=== PATIENT | male | born 1955 | race Caucasian/White ===

== ENCOUNTER → 2022-10-14 10:23 | Outpatient (CLI) | payer MEDICARE, BC, SELFPAY ==
[2022-10-14 11:39] LABS: Influenza A - CEPHEID Flu A NEGATIVE (NEGATIVE); Influenza B - CEPHEID Flu B NEGATIVE (NEGATIVE); Respiratory Syncytial Virus POSITIVE (Negative)
[2022-10-14 11:40] LABS: COVID-19 CEPHEID 4-PLEX PCR Negative (Negative)
== END ==
PROVIDERS: Visit Provider Nurse Practitioner Family
DX: R09.81 Nasal congestion (principal); R05.1 Acute cough; Z20.828 Contact with and (suspected) exposure to other viral communicable diseases
CPT/HCPCS: 0241U

== ENCOUNTER 2024-05-04 20:18 | Inpatient (IN) | payer MEDICARE, SELFPAY ==
[2024-05-04] VITALS (14 sets, daily range): BP systolic 137–183; BP diastolic 80–109; PULSE 77–93; RESP 16; TEMP 36.2; O2SAT 94–98; BMI 37.0
[2024-05-04] MEDS: HYDROMORPHONE 0.5 MG INJ IV (20:31)
--- NOTE | 2024-05-04 20:31 | DI.CT.S_ITS ---
PROCEDURE: CT CHEST ABD PEL W CON INDICATIONS: fall,chest injury TECHNIQUE: After the administration of intravenous contrast, 5 mm thick sections acquired from the lung apices to the symphysis. 2.5 mm thick coronal and sagittal reformats were acquired. Additional 7 mm thick coronal maximum intensity projection (MIP) reformats acquired through the lungs. Optional 10-minute delayed imaging may be performed from the kidneys to the bladder. For radiation dose reduction, the following was used: automated exposure control, adjustment of mA and/or kV according to patient size. COMPARISON: [facility], US, US ABDOMEN COMPLETE, 04/13/2022, 11:03. FINDINGS: Image quality: Diagnostic. CHEST: Lower Neck: No enlarged lymph nodes. Thyroid: No thyroid nodules which require sonographic evaluation. Axillae: No enlarged lymph nodes. Chest Wall: No subcutaneous gas. Lungs and Pleura: No pulmonary contusions or lacerations. No acute airspace opacities. Trace right pleural effusion/hemothorax. No pneumothorax. Mild dependent atelectasis. Mediastinum: No mediastinal hematomas. Heart size is mildly enlarged. No pericardial effusion. Thoracic aorta and pulmonary arteries demonstrate normal size and enhancement. No mediastinal or hilar adenopathy. Esophagus is normal in caliber. No hiatal hernia. ABDOMEN: Liver: No lacerations. Multiple liver cysts. Gallbladder: No radiopaque gallstones or wall thickening. Biliary ducts: No biliary dilation. Pancreas: Homogenous enhancement. Spleen: Homogenous enhancement without laceration or hematoma. Adrenal Glands: Symmetric enhancement. Kidneys and Ureters: Symmetric enhancement. No hydronephrosis. No solid mass. No complex renal cystic lesion which requires follow up. Stomach and Bowel: Normal colonic caliber, without significant wall thickening. Normal appendix. Peritoneum: No abnormal intraperitoneal fluid. No free air. Ventral Wall: No hernia. Abdominal Nodes: No retroperitoneal or mesenteric adenopathy by size criteria. Vessels: Aorta and inferior vena cava are normal in size. PELVIS: Pelvic Organs: Unremarkable. Bladder: Normal thickness. Pelvic Nodes: No enlarged lymph nodes. Miscellaneous: No inguinal hernias are seen. Bones: Minimally displaced fractures of the right posterior 4th through 9th ribs. Pelvic ring and hip joints appear intact. No displaced rib fractures. IMPRESSION: 1. Minimally displaced fractures of the right posterior 4th through 9th ribs. Trace hemothorax. No pneumothorax. 2. No other significant traumatic findings are seen in the chest, abdomen, or pelvis. Approved by: Thomas Miller M.D. on 05/04/2024 at 21:27
--- NOTE | 2024-05-04 20:31 | DI.CT.S_ITS ---
PROCEDURE: CT CERVICAL SPINE WO CON INDICATIONS: fall,chest injury TECHNIQUE: Noncontrast 3 mm thick sections acquired from the skull base to the T4 level. Sagittal and coronal reformats were then constructed. For radiation dose reduction, the following was used: automated exposure control, adjustment of mA and/or kV according to patient size. COMPARISON: None. FINDINGS: Image quality: Excellent. Bones: Postsurgical changes from anterior fixation at C6-7 and C7-T1. No acute fractures or dislocations. Visualized superior ribs are intact. Mild multilevel spondylosis. Soft tissues: Prevertebral soft tissues are normal in thickness. No paravertebral hematomas. No apical pneumothoraces. IMPRESSION: No acute displaced fracture or traumatic subluxation. Approved by: Thomas Miller M.D. on 05/04/2024 at 21:21
[2024-05-04 20:43] LABS: Add Manual Diff / Slide Review NO; Basophils Absolute Auto 100 /uL (0-100); Basophils Percent Auto 0.6 % (0-2); Eosinophils Absolute Auto 100 /uL (0-450); Eosinophils Percent Auto 1.4 % (2-4); Hematocrit 45.2 % (41-53); Hemoglobin 15.2 g/dL (13.5-17.5); Lymphocytes Absolute Auto 3100 /uL (1100-4500); Lymphocytes Percent Auto 32.2 % (25-40); Mean Corpuscular HGB Conc 33.6 % (30-36); Mean Corpuscular Hemoglobin 29.8 PG (26-34); Mean Corpuscular Volume 88.8 fL (80-100); Monocytes Absolute Auto 600 /uL (0-900); Monocytes Percent Auto 6.3 % (3-14); Neutrophils Absolute Auto 5700 /uL (1500-7000); Neutrophils Percent Auto 59.5 % (50-75); Platelet Count 205 X10^3/uL (150-400); Red Blood Cell Count 5.09 X10^6/uL (4.5-5.9); Red Cell Distribution Width 13.4 % (11.6-14.8); White Blood Cell Count 9.5 X10^3/uL (4.5-11.0)
[2024-05-04 20:44] LABS: Alanine Aminotransferase 10 IU/L (<50); Albumin 4.5 g/dL (3.5-5.0); Albumin Globulin Ratio 1.7 (1.0-2.8); Alkaline Phosphatase 68 U/L (38-126); Aspartate Aminotransferase 40 IU/L (17-59); BUN Creatinine Ratio 30.6 (6-22); Bilirubin Total 0.7 mg/dL (0.2-1.3); Blood Urea Nitrogen 26 mg/dL (9-20); Calcium 8.7 mg/dL (8.4-10.2); Carbon Dioxide 27 mmol/L (22-32); Chloride 106 mmol/L (98-107); Estimated Glomerular Filt Rate > 60 mL/min (>60); Globulin 2.7 g/dL (1.7-4.1); Glucose 118 mg/dL (80-110); HEMOLYSIS 18 (0-50); Potassium 4.2 mmol/L (3.4-5.1); Sodium 140 mmol/L (137-145); Total Protein 7.2 g/dL (6.3-8.2)
[2024-05-04] MEDS: CARBIDOPA-LEVODOPA 25/100 TABLET 2 EACH PO (21:10)
[2024-05-04] MEDS: HYDROMORPHONE 1 MG INJ IV ×2 (21:10→23:12)
--- NOTE | 2024-05-04 21:50 | ED.FALL ---
HPI - Fall General Chief Complaint: Fall Stated Complaint: Slip Fall on rocks Time Seen by Provider: 05/04/24 20:20 Source: patient and EMS Mode of arrival: EMS History of Present Illness HPI Narrative: 68-year-old gentleman with a history of Parkinson's disease and hyperlipidemia [facility] the stairs fell backward onto rocks and into the [place] crevice. Complaining of right-sided posterior chest pain and difficulty breathing. Brought in by medics. Has been feeling well recently no recent fevers, cough, chills, chest pain, falls beyond that that led him to the hospital today, no lower extremity edema, no headaches. Related Data Home Medications Medication Instructions Recorded Confirmed atorvastatin 20 mg tablet 20 mg PO DAILY 10/14/22 10/25/23 carbidopa-levodopa PO 10/14/22 10/25/23 Previous Rx's Medication Instructions Recorded benzonatate 100 mg capsule 100 mg PO BID PRN cough #20 caps 10/14/22 Allergies Allergy/AdvReac Type Severity Reaction Status Date / Time No Known Drug Allergies Allergy Verified 05/04/24 20:27 Review of Systems Review of Systems Narrative: Pertinent positive and negative findings as per HPI Patient History Medical History (Updated 05/05/24 @ 00:54 by Angeline Craven MD) Parkinsons disease Hyperlipidemia Acute viral sinusitis Social History Smoking Status: Never smoker Smoking Status: Never smoker Substance Use Type: does not use Exam Initial Vital Signs Initial Vital Signs: Vital Signs Pulse Rate 79 05/04/24 20:16 Pulse Oximetry 94 05/04/24 20:16 General: Healthy appearing, moderate right-sided thoracic pain, able to speak in full sentences, no acute respiratory distress HEENT: Moist mucous membranes, normal sclera with reactive pupils, Neck: No significant midline tenderness Respiratory: Lungs are clear to auscultation, splinting on the right side with subcutaneous air along the right side. Bruising along the right thorax posteriorly. Cardiac: Regular rate and rhythm no murmurs no bruits Abdomen: Soft, nontender, good bowel tones, no flank pain Skin: Warm and dry, Neurologic: Grossly neurologically intact with no obvious asymmetries or abnormalities Extremities: No trauma to extremities or hips Psych: Cooperative, appropriate insight and affect Course Orders Ordered: ED Orders 05/04/24 20:20 Complete Blood Count AUTO DIFF Stat Comprehensive Metabolic Panel Stat 05/04/24 20:31 CT cervical spine wo con Stat CT chest abd pel w con Stat 05/04/24 21:55 CT head/brain wo con Stat Discontinued Medications Carbidopa/Levodopa (Carbidopa-Levodopa 25/100 Tablet) 2 each PO NOW ONE Stop: 05/04/24 20:27 Last Admin: 05/04/24 21:10 Dose: 2 each Documented By: CRISTIANE Hydromorphone HCl (Hydromorphone 0.5 Mg Inj) 0.5 mg IV NOW ONE Stop: 05/04/24 20:27 Last Admin: 05/04/24 20:31 Dose: 0.5 mg Documented By: CRISTIANE Hydromorphone HCl (Hydromorphone 1 Mg Inj) 1 mg IV NOW ONE Stop: 05/04/24 21:08 Last Admin: 05/04/24 21:10 Dose: 1 mg Documented By: CRISTIANE Hydromorphone HCl (Hydromorphone 1 Mg Inj) 1 mg IV NOW ONE Stop: 05/04/24 23:05 Last Admin: 05/04/24 23:12 Dose: 1 mg Documented By: CRISTIANE Vital Signs Vital signs: Vital Signs - 8 hr 05/04/24 20:16 05/04/24 20:17 05/04/24 20:17 Temperature Pulse Rate 79 79 Respiratory Rate Blood Pressure 162/93 H Pulse Oximetry 94 95 Oxygen Delivery Method Oxygen Flow Rate 05/04/24 20:18 05/04/24 20:30 05/04/24 20:30 Temperature 97.1 F L Pulse Rate 78 77 Respiratory Rate 16 Blood Pressure 162/93 H 149/86 H Pulse Oximetry 94 97 Oxygen Delivery Method Room Air Oxygen Flow Rate 05/04/24 20:36 05/04/24 20:36 05/04/24 20:40 Temperature Pulse Rate 77 Respiratory Rate Blood Pressure 151/83 H 152/80 H Pulse Oximetry 97 Oxygen Delivery Method Oxygen Flow Rate 05/04/24 20:40 05/04/24 21:00 05/04/24 21:00 Temperature Pulse Rate 85 Respiratory Rate Blood Pressure 137/85 Pulse Oximetry 95 97 Oxygen Delivery Method Oxygen Flow Rate 05/04/24 21:30 05/04/24 21:30 05/04/24 22:12 Temperature Pulse Rate 81 88 Respiratory Rate Blood Pressure 157/85 H Pulse Oximetry 97 96 Oxygen Delivery Method Oxygen Flow Rate 05/04/24 22:14 05/04/24 22:14 Temperature Pulse Rate 85 Respiratory Rate Blood Pressure 158/92 H Pulse Oximetry 98 Oxygen Delivery Method Nasal Cannula Oxygen Flow Rate 2 fall Lab Data 05/04/24 20:20 05/04/24 20:20 Labs: Lab Results 05/04/24 Range/Units 20:20 WBC 9.5 (4.5-11.0) X10^3/uL RBC 5.09 (4.5-5.9) X10^6/uL Hgb 15.2 (13.5-17.5) g/dL Hct 45.2 (41-53) % MCV 88.8 (80-100) fL MCH 29.8 (26-34) PG MCHC 33.6 (30-36) % RDW 13.4 (11.6-14.8) % Plt Count 205 (150-400) X10^3/uL Neut % (Auto) 59.5 (50-75) % Lymph % (Auto) 32.2 (25-40) % Moca % (Auto) 6.3 (3-14) % Eos % (Auto) 1.4 L (2-4) % Baso % (Auto) 0.6 (0-2) % Neut # (Auto) 5700 (6060-0748) /uL Lymph # (Auto) 3100 (3758-1974) /uL Moca # (Auto) 600 (0-900) /uL Eos # (Auto) 100 (0-450) /uL Baso # (Auto) 100 (0-100) /uL Sodium 140 (137-145) mmol/L Potassium 4.2 (3.4-5.1) mmol/L Chloride 106 (98-107) mmol/L Carbon Dioxide 27 (22-32) mmol/L BUN 26 H (9-20) mg/dL Creatinine 0.85 (0.66-1.25) mg/dL Estimated GFR > 60 (>60) mL/min BUN/Creatinine Ratio 30.6 H (6-22) Glucose 118 H (80-110) mg/dL Calcium 8.7 (8.4-10.2) mg/dL Total Bilirubin 0.7 (0.2-1.3) mg/dL AST 40 (17-59) IU/L ALT 10 (<50) IU/L Alkaline Phosphatase 68 (38-126) U/L Total Protein 7.2 (6.3-8.2) g/dL Albumin 4.5 (3.5-5.0) g/dL Globulin 2.7 (1.7-4.1) g/dL Albumin/Globulin Ratio 1.7 (1.0-2.8) Imaging Data CT scan chest abdomen and pelvis: Radiologist's Impression: PROCEDURE: CT CHEST ABD PEL W CON INDICATIONS: fall,chest injury TECHNIQUE: After the administration of intravenous contrast, 5 mm thick sections acquired from the lung apices to the symphysis. 2.5 mm thick coronal and sagittal reformats were acquired. Additional 7 mm thick coronal maximum intensity projection (MIP) reformats acquired through the lungs. Optional 10-minute delayed imaging may be performed from the kidneys to the bladder. For radiation dose reduction, the following was used: automated exposure control, adjustment of mA and/or kV according to patient size. COMPARISON: [facility], US, US ABDOMEN COMPLETE, 04/13/2022, 11:03. FINDINGS: Image quality: Diagnostic. CHEST: Lower Neck: No enlarged lymph nodes. Thyroid: No thyroid nodules which require sonographic evaluation. Axillae: No enlarged lymph nodes. Chest Wall: No subcutaneous gas. Lungs and Pleura: No pulmonary contusions or lacerations. No acute airspace opacities. Trace right pleural effusion/hemothorax. No pneumothorax. Mild dependent atelectasis. Mediastinum: No mediastinal hematomas. Heart size is mildly enlarged. No pericardial effusion. Thoracic aorta and pulmonary arteries demonstrate normal size and enhancement. No mediastinal or hilar adenopathy. Esophagus is normal in caliber. No hiatal hernia. ABDOMEN: Liver: No lacerations. Multiple liver cysts. Gallbladder: No radiopaque gallstones or wall thickening. Biliary ducts: No biliary dilation. Pancreas: Homogenous enhancement. Spleen: Homogenous enhancement without laceration or hematoma. Adrenal Glands: Symmetric enhancement. Kidneys and Ureters: Symmetric enhancement. No hydronephrosis. No solid mass. No complex renal cystic lesion which requires follow up. Stomach and Bowel: Normal colonic caliber, without significant wall thickening. Normal appendix. Peritoneum: No abnormal intraperitoneal fluid. No free air. Ventral Wall: No hernia. Abdominal Nodes: No retroperitoneal or mesenteric adenopathy by size criteria. Vessels: Aorta and inferior vena cava are normal in size. PELVIS: Pelvic Organs: Unremarkable. Bladder: Normal thickness. Pelvic Nodes: No enlarged lymph nodes. Miscellaneous: No inguinal hernias are seen. Bones: Minimally displaced fractures of the right posterior 4th through 9th ribs. Pelvic ring and hip joints appear intact. No displaced rib fractures. IMPRESSION: 1. Minimally displaced fractures of the right posterior 4th through 9th ribs. Trace hemothorax. No pneumothorax. 2. No other significant traumatic findings are seen in the chest, abdomen, or pelvis. Approved by: Thomas Miller M.D. on 05/04/2024 at 21:27 CT scan - head: Radiologist's Impression: PROCEDURE: CT CERVICAL SPINE WO CON INDICATIONS: fall,chest injury TECHNIQUE: Noncontrast 3 mm thick sections acquired from the skull base to the T4 level. Sagittal and coronal reformats were then constructed. For radiation dose reduction, the following was used: automated exposure control, adjustment of mA and/or kV according to patient size. COMPARISON: None. FINDINGS: Image quality: Excellent. Bones: Postsurgical changes from anterior fixation at C6-7 and C7-T1. No acute fractures or dislocations. Visualized superior ribs are intact. Mild multilevel spondylosis. Soft tissues: Prevertebral soft tissues are normal in thickness. No paravertebral hematomas. No apical pneumothoraces. IMPRESSION: No acute displaced fracture or traumatic subluxation. Approved by: Thomas Miller M.D. on 05/04/2024 at 21:21 [facility] Narrative Medical decision making narrative: CC: Mechanical Fall with right thoracic pain Complicating co-morbidities: Parkinson's disease, hyperlipidemia Data collected from: patient, medics Differential considered: All sequelae of blunt trauma to the chest and abdomen Exam documented above, pertinent findings include: He is able to speak in full sentences significant splinting and crepitance along the right thorax. Breath sounds are heard throughout, no accessory muscle use no respiratory distress. Tender into the right upper quadrant and right posterior chest area. No tenderness to hips and no extremity abnormalities. Lab Test results independently reviewed as above. Pertinent findings: CBC is unremarkable chemistries are reassuring. Appropriate renal function Imaging studies independently reviewed: Head CT shows no intracranial hemorrhage, paranasal sinus disease is noted per radiology CT scan of the cervical spine is normal CT scan of the chest abdomen and pelvis notable for right posterior rib fractures 4. Through 9 with minor hemothorax no obvious pneumothorax, no subcutaneous air. Findings reviewed with radiologist in real-time. No evidence of scapular or 1st rib fractures. No compression fractures. Concern for pulmonary contusion right side. Consultations: Reviewed with Dr. Turner, surgeon on-call. Agreed with hospital admission. Transition orders are written Treatments: Fluids, pain medication Discussion: 68-year-old gentleman with a history of Parkinson's disease mechanical fall with right-sided 6 rib fractures, small pulmonary contusion no other injury. Findings reviewed with the patient as . He is still having significant amount of pain. Significant splinting, concern for worsening pulmonary contusion. No evidence of other acute issues at this time H and H will be repeated. Care is reviewed with the surgeon and patient will be admitted to the surgical service. Transition orders including pain medications are written. He is safe for transfer to the floor Critical Care Time Critical Care Time Critical Care Time: Yes Total Critical Care Time: 33 Attestation: Critical care time is separate from other billable procedures. There is a high probability of a significant, sudden or life-threatening deterioration that requires my full and direct attention, intervention and personal management. This critical care time includes consultation with family and other consulting doctors, review of records, and interpretation of data from labs, EKGs and imaging as well as managements of trauma Discharge Plan Departure Patient Disposition: Admitted as Observation Clinical Impression: Multiple fractures of rib involving four or more ribs Right pulmonary contusion Qualifiers: Encounter type: initial encounter Qualified Code(s): S27.321A - Contusion of lung, unilateral, initial encounter Parkinson's disease Qualifiers: Dyskinesia presence: with dyskinesia Fluctuating manifestations: unspecified whether manifestations fluctuate Qualified Code(s): G20.B1 - Parkinson's disease with dyskinesia, without mention of fluctuations Fall down stairs Qualifiers: Encounter type: initial encounter Qualified Code(s): W10.8XXA - Fall (on) (from) other stairs and steps, initial encounter Admit Date/Time: 05/05/24 00:46 Admit Provider: Jaya Whittaker
--- NOTE | 2024-05-04 21:55 | DI.CT.S_ITS ---
PROCEDURE: CT HEAD/BRAIN WO CON INDICATIONS: fall TECHNIQUE: Noncontrast 4.5 mm thick angled axial sections acquired from the foramen magnum to the vertex, with coronal and sagittal reformats. For radiation dose reduction, the following was used: automated exposure control, adjustment of mA and/or kV according to patient size. COMPARISON: None. FINDINGS: Image quality: Diagnostic. CSF spaces: Basal cisterns are patent. No extra-axial fluid collections. The ventricles are symmetric in size and shape. Brain: No acute intracranial hemorrhage or mass effect. There is cerebral volume loss for age, with resultant ventricular and sulcal prominence. There are periventricular and deep white matter chronic small vessel ischemic changes. There is intracranial internal carotid artery atherosclerosis. Skull and face: Calvarium and visualized facial bones appear intact, without suspicious lesions. Sinuses: Partial opacification of the bilateral ethmoid air cells and right sphenoid sinus. May need visualized paranasal sinuses and the mastoid air cells are clear. IMPRESSION: 1. No acute intracranial pathology. 2. Paranasal sinus disease. Approved by: Thomas Miller M.D. on 05/04/2024 at 22:20
[2024-05-05] VITALS (8 sets, daily range): BP systolic 127–169; BP diastolic 55–95; PULSE 81–92; RESP 20; TEMP 36.6–37.2; O2SAT 93–99; BMI 37.0
[2024-05-05] MEDS: HYDROMORPHONE 0.5 MG INJ IV ×2 (01:26→05:11)
[2024-05-05] MEDS: KETOROLAC 30 MG/ML VIAL 15 MG IV (01:50)
[2024-05-05] MEDS: CARBIDOPA-LEVODOPA 25/100 TABLET 2 EACH PO ×4 (01:50→21:00)
[2024-05-05 05:32] LABS: Hematocrit 41.5 % (41-53); Hemoglobin 14.1 g/dL (13.5-17.5)
[2024-05-05] MEDS: HYDROCODONE/ACET 5/325 TABLET 1 TAB PO (08:10)
--- NOTE | 2024-05-05 09:08 | PM.HP.1 ---
History of Present Illness History of Present Illness Date Patient Seen: 05/05/24 Time Patient Seen: 07:30 Chief complaint: Slip Fall on rocks Narrative: 68-year-old man history of Parkinson's fell on stairs landing on back. No loss of consciousness, did not strike head. On scene had complaint of right chest pain and shortness of breath. He arrived to the hospital hemodynamically stable. Imaging includes CT head C-spine chest abdomen pelvis which are significant for right rib fractures 4 through 9 nondisplaced possible right pulmonary contusion, negative for significant hemo or pneumothorax. Pain is improved since admission. He is maintaining oxygen saturation with 2 L nasal cannula. [facility]LY [facility], [facility] Medical History (Updated 05/05/24 @ 00:54 by Angeline Craven MD) Parkinsons disease Hyperlipidemia Acute viral sinusitis Social History household members: spouse Smoking Status: Never smoker Meds Home Medications and Allergies Home Medications Medication Instructions Recorded Confirmed Type atorvastatin 20 mg tablet 20 mg PO DAILY 10/14/22 05/05/24 History carbidopa-levodopa 100 mg PO TID 10/14/22 05/05/24 History fluticasone propionate 50 1 spray intranasal PRN PRN Allergy 05/05/24 05/05/24 History mcg/actuation nasal Symptoms spray,suspension Allergies Allergy/AdvReac Type Severity Reaction Status Date / Time No Known Drug Allergies Allergy Verified 05/04/24 20:27 Exam Vital Signs (past 8 hours): - 05/05/24 08:23 Temperature 97.8 F Pulse Rate 81 Respiratory Rate 20 Blood Pressure 145/85 H Pulse Oximetry 97 Oxygen Flow Rate 2 Oxygen Delivery Method Nasal Cannula Oxygen Flow Rate 2 Narrative Exam Narrative: GENERAL: Adult man, resting comfortably, in no acute distress GCS 15. HEENT: Normocephalic, atraumatic. No scleral icterus CHEST: Rising symmetrically. No audible wheezes CARDIOVASCULAR: Warm and well perfused. Regular rate ABDOMEN: Soft, non-tender, non-distended EXTREMITIES: Normal tone and without edema. Objective Labs 05/05/24 04:30 05/04/24 20:20 Labs: Laboratory Results - last 24 hr 05/04/24 05/05/24 20:20 04:30 WBC 9.5 RBC 5.09 Hgb 15.2 14.1 Hct 45.2 41.5 MCV 88.8 MCH 29.8 MCHC 33.6 RDW 13.4 Plt Count 205 Neut % (Auto) 59.5 Lymph % (Auto) 32.2 Jones % (Auto) 6.3 Eos % (Auto) 1.4 L Baso % (Auto) 0.6 Neut # (Auto) 5700 Lymph # (Auto) 3100 Jones # (Auto) 600 Eos # (Auto) 100 Baso # (Auto) 100 Sodium 140 Potassium 4.2 Chloride 106 Carbon Dioxide 27 BUN 26 H Creatinine 0.85 Estimated GFR > 60 BUN/Creatinine Ratio 30.6 H Glucose 118 H Calcium 8.7 Total Bilirubin 0.7 AST 40 ALT 10 Alkaline Phosphatase 68 Total Protein 7.2 Albumin 4.5 Globulin 2.7 Albumin/Globulin Ratio 1.7 Assessment & Plan Assessment and plan (1) Fall down stairs: Qualifiers: Encounter type: initial encounter Qualified Code(s): W10.8XXA - Fall (on) (from) other stairs and steps, initial encounter Status: Acute (2) Right pulmonary contusion: Qualifiers: Encounter type: initial encounter Qualified Code(s): S27.321A - Contusion of lung, unilateral, initial encounter Status: Acute (3) Multiple fractures of rib involving four or more ribs: Status: Acute Assessment & Plan narrative: 68-year-old man PMH Parkinson's status post fall down stairs trauma admission hemodynamically stable with rib fractures and right pulmonary contusion. Admission for pain control and respiratory support -incentive spirometer -multimodal pain control -PT eval -SCDs and Lovenox
[2024-05-05] MEDS: ACETAMINOPHEN 325 MG TABLET 650 MG PO ×2 (13:45→21:00)
--- NOTE | 2024-05-05 14:10 | OT.IP.EVAL ---
Past Medical History (Last Updated 05/05/24 @ 00:31 by Angeline Crvaen MD) Acute viral sinusitis Hyperlipidemia Parkinsons disease Occupational Therapy Inpatient Evaluation/Re-Eval M1 PT/OT-IP Prior Functional Status Start: 05/05/24 14:58 Freq: NEEDED Status: Active Protocol: Document 05/05/24 14:10 [facility] (Rec: 05/05/24 16:56 [facility] [id number]) Medical Review Prior Functional Status Medical History Reviewed Yes Communication able to make needs known; BEAVER Mobility and Gait per spouse: pt was modified independent with all mobilities and ambulation without AD; pt stated that he has 4 falls for the year already Activities of Daily Living and IADL's Pt states was able to do all ADL,IADL needs, and driving. However has had 4 falls in the past year. Prior Functional Level (Other details) pt stated that his tremors has gotten worse for the last 4 months. spouse stated that pt has SOB that started ~ 6 months ago and pt stated that a visiting nurse told him that he had a heart murmur but he did not report to his PCP. Social History Household Members spouse Living Arrangements House Number of Floors (Floors) Two Floors Number of Stairs To Enter/Railing? pt stays on main level of the house has 7 steps B rails to enter the house; has access to a ramp to enter but needs to be able to ambulate ~ 60 ft Home Environment High Toilet,Walk in Shower Home Equipment Four Wheel Walker,Shower Seat with Backrest,Hand Held Shower ,Grab Bars In Shower Additional Social History Comment spouse stated that she will be able to assist pt some but not a whole lot of assistance, as pt prior was completely independent and did not use any devices. M2 OT-IP Current Condition Start: 05/05/24 16:11 Freq: Status: Active Protocol: Document 05/05/24 14:10 [facility] (Rec: 05/05/24 16:56 [facility] [id number]) Occupational Therapy Current Condition Current Condition Evaluation Date 05/05/24 Treatment Diagnosis GLF with right post min. displaced 4-9th rib fx. Diagnosis Onset Date 05/05/24 Post Operative Precautions Lumbar Precautions Log Roll,No Twisting,Limit Bending Other Precautions Lumber precautions due to rib fractures. M3 OT- IP Subjective and Pain Start: 05/05/24 16:11 Freq: Status: Active Protocol: Document 05/05/24 14:10 [facility] (Rec: 05/05/24 16:56 [facility] [id number]) OT- Subjective Occupational Therapy Visit Type Type Initial Evaluation Visit Start Time 14:10 Visit Stop Time 15:29 Occupational Therapy Visit Comments Patient Comments Pt sitting on the BSC when OT and PT came in for evals. Patient/Caregiver Goals Pt's wanting pt to go to skilled rehab. OT Pain Assessment Pain When Pain Assessed During Mobility Pain Present Pain Present Pain Reported Location Right Ankle Intensity 4 Scale Used Numeric (0 - 10) M4 OT- IP ADL's Start: 05/05/24 16:11 Freq: Status: Active Protocol: Document 05/05/24 14:10 [facility] (Rec: 05/05/24 16:56 [facility] [id number]) OT BGB-Vskd-Cferaim Comments OT Self-Feeding Comments Not at meal time. Noted decreased saliva control on right side. Pt states has been happening recently, nursing notified. OT ADL-Grooming Comments OT Grooming Comments Not performed. OT ADL-Oral Care Comments Oral Care Comments Not performed. OT ADL-Dressing General Eval Lower Body Dressing Ability Maximum Assistance Areas Needing Assistance Underpants/Brief,Socks Comments OT Dressing Comments Pt having pain in his right and not able to cross his RLE over to ivette/doff his socks. Able to issued pt LB dressing equipment to help increase overall independence with needs. OT ADL-Toileting Comments OT Toileting Comments At this this time pt will need assist for hygiene and clothing management due to his pain and unsteadiness on his feet. OT ADL-Bathing Comments OT Bathing Comments Nursing aid assisting pt to clean off. At this time pt will benefit from assist for showering needs. M5 OT- IP IADL's Start: 05/05/24 16:11 Freq: Status: Active Protocol: Document 05/05/24 14:10 [facility] (Rec: 05/05/24 16:56 [facility] [id number]) OT-Instrumental Activities of Daily Living Deficits IADL Deficits Identified Deficits Home Safety Awareness Awareness of Need for Assistance at Home Good Awareness Ability to Problem Solve Emergency Able to Problem Solve Situations Home Safety Comments Pt realizing that he will need assist at home. Medication Management Medication Management Comments Pt's has been trying to get her to let her assist with medication needs. Money Management Money Management Comments Pt will benefit from assist at this time. Meal Preparation Meal Preparation Caregiver Provides Assist Meal Preparation Comments Pt will need assist. Supervisor Grinding Supervisor Grinding Caregiver Provides Assist Supervisor Grinding Comments Pt will need assist. Driving Driving Concerns Identified Regarding Safety M6 OT- IP Functional Cognition Start: 05/05/24 16:11 Freq: Status: Active Protocol: Document 05/05/24 14:10 [facility] (Rec: 05/05/24 16:56 [facility] [id number]) Cognitive Factors Limiting Selfcare Function Cognitive Ability Level of Alertness Alert,Drowsy Patient Orientation Name,Age,Birthday,Month,Date, Year,Day of Week,Place, Situation Attention Span Ability Capable of Focused Attention, Capable of Sustained Attention Ability to Follow Commands Able to Follow One Step Commands Memory Description Short Term Impaired Safety Awareness Underestimates Need for Assistance Cognitive Tests SLUMS Pt scored 23/30 which implies mild neurocognitive deficits. Pt able to recall 3/5 objects after time passed, not able to recall 4 digit number backwards, and able to answer 2/4 questions right after paragraph read. Cognitive Comments Cognitive Assessment Comments Pt's feels that pt is not thinking as well as he usually does and a little slower than usual. Pt states usually has to write things down for himself. Pt scored 165 seconds on [place] Making Part B which implies severe deficits for visual attention, speed of processing , task switching, mental flexibility ,and executive functioning. Pt is a bit impulsive and easily distracted. Pt aware that he will not be driving. Also suggested pt's to be going to pt's doctor's appointments. OT- Vision and Hearing OT- Hearing Assessment OT- Hearing Assessment Hearing Impaired,Use of Hearing Aids OT- Vision Assessment Visual Acuity Glasses All The Time Occular Pursuits WFL Visual [place] WFL M7 OT- IP Mobility and Balance Start: 05/05/24 16:11 Freq: Status: Active Protocol: Document 05/05/24 14:10 [facility] (Rec: 05/05/24 16:56 [facility] [id number]) OT- Bed Mobility Assessment Supine to Sit Supine to Sit Assist Standby Assistance OT-Transfer Assessment Sit to and From Stand Sit to and from Stand Contact Guard Assistance, Minimal Assistance Transfers Transfer Ability Minimal Assistance,Moderate Assistance Technique Transfer Destination Bed,Bedside Commode,Chair Transfer Technique Stand Step Pivot Devices Transfer Assistive Devices Gait Belt,Front Wheeled Walker Comments Mobility Comments SBA with bed mobility and vc to do log rolling. CGA/MAKENZIE to stand to FWW and MAKENZIE to MODA as pt getting unsteady on his feet and having increased pain for his right ankle. Notified nursing of increased pain for right ankle to to just do transfer only for now. OT- Balance Assessment Sitting Balance and Reactions Static Sitting Balance Ability Good Dynamic Sitting Balance Ability Fair Standing Balance and Reactions Static Standing Balance Ability Fair Dynamic Standing Balance Ability Poor M8 OT- IP Objective Assessments Start: 05/05/24 16:11 Freq: Status: Active Protocol: Document 05/05/24 14:10 [facility] (Rec: 05/05/24 16:56 [facility] [id number]) OT Gross Range of Motion Upper Extremity Range of Motion Assessment Right Impaired ROM Impairments RUE impaired due to rib fractures OT Strength Upper Extremity Strength Assessment Right 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 M9 OT- IP Assessment and Plan Start: 05/05/24 16:11 Freq: Status: Active Protocol: Document 05/05/24 14:10 [facility] (Rec: 05/05/24 16:56 [facility] [id number]) OT Summary Assessment and Plan Potential Rehabilitation Potential Good Analytic Complexity at Evaluation Moderate Summary OT Impairments Pain,Range of Motion,Strength, Balance,Functional Cognition, Functional Mobility,Self- Feeding,Grooming,Dressing, Toileting,Bathing,Toilet Transfers,Shower Transfers, Activity Tolerance Progress Towards Goals Slow Progress due to Pain,Slow Progress due to Medical Issues,Slow Progress due to Activity Tolerance Assessment Summary Pt MOD complexity and main barriers are pain, unsteady on his feet, having decrease in O2 when up on this feet drops from 96% to 93%, needing use of FWW for balance, now needing extensive assist for dressing needs due to his rib fractures. Pt has had 4 falls in the past year and would greatly benefit from skilled rehab at this time. Pt now complaining of right ankle pain after getting up to the recliner, nursing notified and to have an xray. Prior pt was completely independent for all needs.LB dressing equipment issued to the pt. Goals Self-Feeding Goal Independent Grooming Goal Independent Dressing Goal Independent Toileting Goal Independent Bathing Goal Independent Toilet Transfer Goal Independent Shower Transfer Goal Independent Days to Meet Goals 15 Frequency of Treatment Frequency Of Treatment Once a Day Treatment Plan OT Treatment Plan ADL Training,Functional Cognition Training,Functional Mobility,Patient/Family Education,Discharge Planning Discharge Recommendations OT Discharge Recommendations SNF Rehab Transportation Needs at Discharge Wheelchair/Cabulance
--- NOTE | 2024-05-05 14:10 | PT.IIE ---
Medical History (Last Updated 05/05/24 @ 00:31 by Angeline Craven MD) Acute viral sinusitis Hyperlipidemia Parkinsons disease Physical Therapy Inpatient Evaluation/Re-Eval M1 PT/OT-IP Prior Functional Status Start: 05/05/24 14:58 Freq: NEEDED Status: Active Protocol: Document 05/05/24 14:10 [facility] (Rec: 05/05/24 15:15 AB [id number]) Medical Review Prior Functional Status Medical History Reviewed Yes Communication able to make needs known; [place] Mobility and Gait per spouse: pt was modified independent with all mobilities and ambulation without AD; pt stated that he has 4 falls for the year already Prior Functional Level (Other details) pt stated that his tremors has gotten worse for the last 4 months. spouse stated that pt has SOB that started ~ 6 months ago and pt stated that a visiting nurse told him that he had a heart murmur but he did not report to his PCP. Social History Household Members spouse Living Arrangements House Number of Floors (Floors) Two Floors Number of Stairs To Enter/Railing? pt stays on main level of the house has 7 steps B rails to enter the house; has access to a ramp to enter but needs to be able to ambulate ~ 60 ft Home Environment High Toilet,Walk in Shower Home Equipment Four Wheel Walker,Shower Seat with Backrest,Hand Held Shower ,Grab Bars In Shower Additional Social History Comment spouse stated that she will be able to assist pt some but not a whole lot of assistance M2 PT-IP Current Condition Start: 05/05/24 14:58 Freq: NEEDED Status: Active Protocol: Document 05/05/24 14:10 [facility] (Rec: 05/05/24 15:15 AB [id number]) Physical Therapy Current Condition Current Condition Evaluation Date 05/05/24 Treatment Diagnosis GLF; R posterior minimally displaced 4-9 rib fx; difficulty in walking Onset Date 05/05/24 M3 PT-IP Subjective Start: 05/05/24 14:58 Freq: NEEDED Status: Active Protocol: Document 05/05/24 14:10 [facility] (Rec: 05/05/24 15:15 AB [id number]) Subjective Physical Therapy Visit Type Type Initial Evaluation Visit Start Time 14:10 Visit Stop Time 14:55 Number of AGENTS' RECORDS CLERK Visits 0 Physical Therapy Visit Comments Patient Comments agreeable to do PT Therapy Pain Assessment Pain When Pain Assessed At Rest Pain Present Pain Present Pain Reported Location Right Ankle Intensity 4 Scale Used Numeric (0 - 10) Description With Movement Pain Behaviors Wincing Pain Management Techniques Distraction,Modification of Treatment,Re-positioning, Timing of Activity with Medications Right Ribs Intensity 2 Scale Used Numeric (0 - 10) Pain Management Techniques Distraction,Modification of Treatment,Re-positioning, Timing of Activity with Medications M4 PT-IP Mobility and Gait Start: 05/05/24 14:58 Freq: NEEDED Status: Active Protocol: Document 05/05/24 14:10 AB (Rec: 05/05/24 15:15 AB [id number]) PT-Bed Mobility Assessment Rolling Type of Rolling Log Rolling Level of Assist Standby Assistance Supine to Sit Supine to Sit Standby Assistance Sit to Supine Sit to Supine Standby Assistance PT-Transfer Assessment Sit to and From Stand Sit to and from Stand Contact Guard Assistance, Minimal Assistance,1 Person Assistance,Use of Upper Extremities Equipment Transfer Assistive Device Gait Belt,Front Wheeled Walker Orthotic/Prosthetic Devices or Brace: No Transfers Transfer Destination Chair Transfer Technique ambulated Transfer Ability Level of Assist Minimal Assistance,Moderate Assistance,1 Person Assistance ,Use of Upper Extremities Comments Mobility Comments pt with NAC trying to wash up and sitting on bedside commode . pt's spouse in room. obtained PLOF and home set up from spouse and pt. O2 sat RA at rest seated: 100% but with (+) SOB. spouse stated that SOB started ~ 6 months ago. pt stated that a visiting nurse told him that he has a heart murmur. pt also exhibits resting tremors LUE>R and stated that tremors have gotten worse for the passed 4 months. pt completed sit to stand CGA and step transfer to EOB without AD min A. educated pt on log roll bed mobility and completed SBA with cues for techniques. O2 sat sitting on EOB at RA: 96%. pt completed sit to stand from EOB min A and ambulated towards the chair mod A and max cues. (+) LOB and pt tends to hold on to bed for support. pt sta on the chair. O2 sat checked: 93 %. pt rested. pt agreed to ambulate more in room. completed sit to stand min A and ambulated using FWW in room ~ 30 ft min to mod A and max cues. pt sat back on chair. positioned on the chair . call light and table placed within reach. left pt with spouse and OT. informed nurse regarding R ankle pain and SNF rehab. informed case consultant regarding SNF rehab for pt. pt and spouse aware of recommendation for SNF rehab and both agreed. Gait Assessment Gait Gait Assistance Required: Minimum Assistance,Moderate Assistance Distance (Feet) 30 Able to Maintain Weight Bearing Status Yes During Gait Assistive Devices Assistive Device None,Gait Belt,Front Wheeled Walker Orthotic/Prosthetic Devices or Brace: No Gait Deviations General Gait Pattern Ataxic,Decreased Stride Length ,Decreased Feet Clearance,Step -to Gait,Wide Based Gait Factors Limiting Gait Function Factors Limiting Gait Function Decreased Activity Tolerance, Decreased Strength,Difficulty Following Directions,Limited Range of Motion,Pain,Poor Balance,Poor Safety Awareness, Respiratory Distress PT-Balance Assessment Sitting Balance and Reactions Static Sitting Balance Ability Good Dynamic Sitting Balance Ability Fair Standing Balance and Reactions Static Standing Balance Ability Fair Dynamic Standing Balance Ability Poor Device Used without AD M5 PT-IP Objective Assessments Start: 05/05/24 14:58 Freq: NEEDED Status: Active Protocol: Document 05/05/24 14:10 AB (Rec: 05/05/24 15:15 AB [id number]) Orientation Orientation/Cognition Level of Alertness Alert Orientation Name,Place,Situation Language Function Ability Hard of Hearing Safety Awareness Decreased Safety Awareness Memory Description Short Term Impaired Gross Range of Motion Lower Extremity ROM Assessment Within Functional Limits Strength Lower Extremity Strength Assessment Right Impaired Hip 3+/5 Knee 4/5 Muscle Tone Muscle Tone WNL Yes M6 PT-IP Treatment Start: 05/05/24 14:58 Freq: NEEDED Status: Active Protocol: Document 05/05/24 14:10 AB (Rec: 05/05/24 15:15 AB [id number]) Physical Therapy Treatment Education Education Provided Safety M7 PT-IP Assessment and Plan Start: 05/05/24 14:58 Freq: NEEDED Status: Active Protocol: Document 05/05/24 14:10 AB (Rec: 05/05/24 15:15 AB [id number]) PT Summary Assessment and Plan Potential Rehabilitation Potential Fair Status of Condition at Evaluation Evolving Summary Impairments Pain,ROM,Strength,Balance, Coordination,Sensation,Tone, Cognition,Bed Mobility, Transfers,Gait,Activity Tolerance Assessment Summary pt is a 68 y/o M who had a GLF and sustained a minimally displaced R posterior 4th thru 9th rib fractures. pt with (+ ) SOB and O2 sat decreases to 93% with activity at RA. pt requiring SBA for bed mobility , min to mod A for transfers and ambulation using FWW. pt will benefit from SNF rehab to improve overall strength and mobility independence. Goals Bed Mobility Goal Independent Transfer Goal Standby Assistance,Front Wheeled Walker Gait Goal Standby Assistance,Front Wheel Walker Gait Distance 150 Other Goals improve transfers and ambulation using LRAD/without AD ~ 300 ft mod I up/down 7 steps B rails SBA Days to Meet Goals 10 Frequency of Treatment Frequency Of Treatment Once a Day Treatment Plan Physical Therapy Treatment Plan Bed Mobility Training,Transfer Training,Gait Training, Therapeutic Exercise,Balance Retraining,Discharge Planning, Hot or Cold Pack,Neuromuscular Re-ed,Coordination Retraining ,Manual Therapy Precautions Other Precautions falls; O2 sat Recommendations To Nursing Amount of Assist Needed 1 Person Assist Discharge Recommendations PT Discharge Recommendations SNF Rehab Equipment Needed for Home Before FWW if pt goes home Discharge Transportation Needs at Discharge Private Vehicle,Wheelchair/ Cabulance
--- NOTE | 2024-05-05 14:37 | CM.DANOTE ---
Addendum entered by YAMILEX Palomo 05/05/24 17:00: ADD: OT and PT notes emailed to Farhana at [facility] Original Note: Initial DCP Assessment Note Pt is a 68 yo male, resident of [place], PMH includes Parkinson's disease, fell at [facility] with subsequent 6 rib fractures and small pulmonary contusion. Admitted OBS for pain management, significant splinting r/t pain, therapies and dispo planning. PCP: Unknown Payer: [employer] M[employer] Reviewed chart, met w/patient and spouse at bedside, introduced role. Patient reports being active and indp in all aspects. Patient continues to drive, no need for DME. Spouse is also active and indp. Spouse worried about patient's return home as he continues to complain of pain with movement and does not seem to be at functional baseline. Reviewed discharge options; patient/spouse request referral to [facility]. Discussed process for SNF referral and SNF auth request through [employer] MCR. Explained that if patient progresses functionally while waiting for SNF auth request, may need to review DCP again for home w/spouse, HH, possibly international trade teacher (?) Spouse stated understanding. [facility] has received referral and has accepted pending [employer] auth secured. [employer] is not available over the weekend. Spoke now with Deepti, PT who is recommending SNF. PT/OT working on their notes now. CM team will plan to follow closely for coordination of the safest discharge plan available to patient. YAMILEX Yang Discharge Planning/Care Management Advanced directive, confirm from FAMILY Start: 05/05/24 01:47 Freq: Q24H Status: Active Protocol: Document 05/05/24 01:47 LDV (Rec: 05/05/24 02:08 LDV [id number]) Advance Directive, confirm on record Time 01:00 Person contacted Copy received No CM Discharge Assessment Start: 05/05/24 14:19 Freq: Status: Active Protocol: Document 05/05/24 14:19 MARYAN (Rec: 05/05/24 14:37 MARYAN [id number]) Discharge Planning Assessment Assigned Yard Brakeman YAMILEX Zaldivar DPOA/Assigned Designee Name Dianese Carrizales, spouse Contact Information [phone] Advance Directives? Yes Advance Directives on File No History Provided By Patient,Significant Other, Medical Record Prior Living Arrangements House Household Members spouse Type of transporation used prior to Drives own vehicle admit Independent with ADL's Yes Is patient alert and oriented? Yes Patient/Family Preference [facility] Facility Comment Patient and spouse request referral to [facility] RN Cary reports patient may progress towards home w/spouse and HH Barriers to Discharge Yes Comment Patient and spouse are requesting SNF referral. Patient has aetna [facility] which will require a SNF pre auth before SNF admission Transportation Arrangement pov vs cabulance Referrals Initiated [facility] Additional Comment [facility] at [facility] has accepted patient as long as [facility] Preference [facility] Has Agency SNF been contacted Yes Comment Patient accepted for admission pending insurance auth Whiteboard Updated in Patient Room with Yes name and ext. # of Yard Brakeman
--- NOTE | 2024-05-05 15:32 | DI.RAD.S_ITS ---
PROCEDURE: XR ANKLE RT MIN 3V INDICATIONS: trauma TECHNIQUE: 3 views of the ankle were acquired. COMPARISON: None. FINDINGS: Bones: No definite fractures or dislocations. Ankle mortise is normally aligned. No suspicious bony lesions. Degenerative changes of the right ankle. Lucency over the anterior calcaneus likely representing intraosseous lipoma or cyst. Small plantar calcaneal enthesophyte. Soft tissues: No tibiotalar joint effusion. Achilles tendon appears normal. IMPRESSION: No acute bony abnormality or significant effusion. If there is persistent clinical concern for occult fracture given adequate mechanism of injury, consider repeat imaging in 10-14 days. Dictated by: García Garcia M.D. on 05/05/2024 at 15:53 Approved by: García Garcia M.D. on 05/05/2024 at 15:55
[2024-05-06] MEDS: ACETAMINOPHEN 325 MG TABLET 650 MG PO ×2 (09:00→17:11)
[2024-05-06] MEDS: CARBIDOPA-LEVODOPA 25/100 TABLET 2 EACH PO ×3 (09:00→20:34)
--- NOTE | 2024-05-06 11:39 | DI.RAD.S_ITS ---
PROCEDURE: XR CHEST 2V INDICATIONS: Recent chest injury TECHNIQUE: 2 views of the chest were acquired. COMPARISON: [facility], CT, CT CHEST ABD PEL W CON, 05/04/2024, 20:39. FINDINGS: Surgical changes and devices: Lower cervical spine fusion devices are seen. Lungs and pleura: An incomplete inspiratory result is noted, causing a crowded appearance to the lung markings. No focal infiltrates are seen. No pneumothorax or significant pleural effusions are seen. Mediastinum: Mediastinal contours are normal. Heart size is normal. Bones and chest wall: No suspicious bony abnormalities. Right posterior rib fractures are again seen. Soft tissues appear unremarkable. IMPRESSION: Right posterior rib fractures are again seen. No pneumothorax is seen. Low lung volumes noted. Dictated by: Augie Hall M.D. on 05/06/2024 at 10:51 Approved by: Augie Hall M.D. on 05/06/2024 at 10:53
[2024-05-06] MEDS: polyethylene glycoL 3350 17 GM POWD.PACK PO ×2 (12:00→20:34)
[2024-05-06] MEDS: DOCUSATE 100 MG CAPSULE PO ×2 (12:00→20:34)
[2024-05-06] MEDS: HYDROMORPHONE 0.5 MG INJ IV (14:48)
--- NOTE | 2024-05-06 15:30 | PT.IPTN ---
Current Diagnoses Multiple fractures of ribs, unspecified side, initial encounter for closed fracture (05/05/24) Contusion of lung, unilateral, initial encounter (05/05/24) Fall (on) (from) other stairs and steps, initial encounter (05/05/24) Physical Therapy Treatment Note M2 PT-IP Current Condition Start: 05/05/24 14:58 Freq: NEEDED Status: Active Protocol: Document 05/05/24 14:10 AB (Rec: 05/05/24 15:15 AB [id number]) Physical Therapy Current Condition Current Condition Evaluation Date 05/05/24 Treatment Diagnosis GLF; R posterior minimally displaced 4-9 rib fx; difficulty in walking Onset Date 05/05/24 M3 PT-IP Subjective Start: 05/05/24 14:58 Freq: NEEDED Status: Active Protocol: Document 05/06/24 15:30 AB (Rec: 05/06/24 16:27 AB [id number]) Subjective Physical Therapy Visit Type Type Treatment Note Visit Start Time 15:30 Visit Stop Time 16:05 Number of SHAKE LOADER Visits 0 Physical Therapy Visit Comments Patient Comments pt agreeable to do PT Therapy Pain Assessment Pain When Pain Assessed At Rest Pain Present Pain Present Pain Reported Location Right Ankle Scale Used pain scale not stated: c/o soreness but better than yesterday per pt Pain Management Techniques Distraction,Modification of Treatment,Re-positioning, Timing of Activity with Medications Right Ribs Intensity 2 Scale Used Numeric (0 - 10) M4 PT-IP Mobility and Gait Start: 05/05/24 14:58 Freq: NEEDED Status: Active Protocol: Document 05/06/24 15:30 AB (Rec: 05/06/24 16:27 AB [id number]) PT-Bed Mobility Assessment Supine to Sit Supine to Sit Standby Assistance,Head of Bed Elevated,Bedrails PT-Transfer Assessment Sit to and From Stand Sit to and from Stand Minimal Assistance,1 Person Assistance,Use of Upper Extremities Equipment Transfer Assistive Device Gait Belt,Front Wheeled Walker Orthotic/Prosthetic Devices or Brace: No Transfers Transfer Destination Chair Transfer Technique ambulated Transfer Ability Level of Assist Minimal Assistance,1 Person Assistance,Use of Upper Extremities Comments Mobility Comments checked with nurse early this afternoon and stated that pt is having a nerve block procedure right now for R rib pain and to check pain later. Checked back on pt after ~ 30 min and agreed to do PT. pt supine in bed. O2 sat at RA 99%. pt can be impulsive. pt completed supine to sit SBA and max cues for log roll. (+) UE tremors noted and pt tends to hold his breath. cued for deep breathing. pt is a mouth breather and tends to hold his breath when exerting effort with activities. pt sat on EOB SBA to CGA. O2 sat checked: 96% MO 91. pt rested. completed sit to stand min A and max cues. pt ambulated using FWW min A and max cues ~ 15 ft. presents with RLE ER and tends to cross midline with RLE. cued to correct and increase AYO. pt sat on the chair. O2 sat checked: 85%. cued for deep breathing and O2 sat increased to 95% in 2-3 secs. pt rested. agreed to walk again. completed sit to stand from chair min A and max cues and ambulated in room ~ 30 ft using FWW min A and cued for deep breathing in between walking. pt sat back on chair. O2 sat checked: 87% but increased up to 95-96% in 1-2 sec of deep breathing. noted increase resting tremors UE after ambulation. pt wants to have a shower. NAC aware. positioned pt on the chair. call light and table placed within reach. chair alarm on. Gait Assessment Gait Gait Assistance Required: Minimum Assistance Distance (Feet) 30 Able to Maintain Weight Bearing Status Yes During Gait Assistive Devices Assistive Device Gait Belt,Front Wheeled Walker Orthotic/Prosthetic Devices or Brace: No Gait Deviations General Gait Pattern Decreased Stride Length, Decreased Feet Clearance, Narrow Based Gait Factors Limiting Gait Function Factors Limiting Gait Function Decreased Activity Tolerance, Decreased Strength,Difficulty Following Directions,Limited Range of Motion,Pain,Poor Balance,Poor Safety Awareness, Respiratory Distress M5 PT-IP Objective Assessments Start: 05/05/24 14:58 Freq: NEEDED Status: Active Protocol: Document 05/05/24 14:10 AB (Rec: 05/05/24 15:15 AB [id number]) Orientation Orientation/Cognition Level of Alertness Alert Orientation Name,Place,Situation Language Function Ability Hard of Hearing Safety Awareness Decreased Safety Awareness Memory Description Short Term Impaired Gross Range of Motion Lower Extremity ROM Assessment Within Functional Limits Strength Lower Extremity Strength Assessment Right Impaired Hip 3+/5 Knee 4/5 Muscle Tone Muscle Tone WNL Yes M6 PT-IP Treatment Start: 05/05/24 14:58 Freq: NEEDED Status: Active Protocol: Document 05/06/24 15:30 AB (Rec: 05/06/24 16:27 AB [id number]) Physical Therapy Treatment Education Education Provided Safety M7 PT-IP Assessment and Plan Start: 05/05/24 14:58 Freq: NEEDED Status: Active Protocol: Document 05/06/24 15:30 AB (Rec: 05/06/24 16:27 AB [id number]) PT Summary Assessment and Plan Potential Rehabilitation Potential Fair Summary Impairments Pain,ROM,Strength,Balance, Coordination,Sensation,Tone, Cognition,Bed Mobility, Transfers,Gait,Activity Tolerance Progress Towards Goals Slow Progress due to Medical Issues,Slow Progress due to Activity Tolerance Assessment Summary pt is slowly progressing with mobility using FWW requiring min A and cues for safety. pt continues to have (+) SOB and o2 sat decreases to 85-87% after ambulation at RA but with good recovery to 94-96% O2 sat after 1-3 sec with deep breathing. pt has decrease safety awareness and is a fall risk. pt will benefit from SNF rehab to improve overall strength and mobility independence. Goals Bed Mobility Goal Independent Transfer Goal Standby Assistance,Front Wheeled Walker Gait Goal Standby Assistance,Front Wheel Walker Gait Distance 150 Other Goals improve transfers and ambulation using LRAD/without AD ~ 300 ft mod I up/down 7 steps B rails SBA Days to Meet Goals 10 Frequency of Treatment Frequency Of Treatment Once a Day Treatment Plan Physical Therapy Treatment Plan Bed Mobility Training,Transfer Training,Gait Training, Therapeutic Exercise,Balance Retraining,Discharge Planning, Hot or Cold Pack,Neuromuscular Re-ed,Coordination Retraining ,Manual Therapy Precautions Other Precautions falls; O2 sat Recommendations To Nursing Amount of Assist Needed 1 Person Assist Discharge Recommendations PT Discharge Recommendations SNF Rehab Equipment Needed for Home Before FWW if pt goes home Discharge Transportation Needs at Discharge Private Vehicle,Wheelchair/ Cabulance
[2024-05-06 16:00] VITALS: BP 166/90; PULSE 87; RESP 20; TEMP 37.4; O2SAT 97
--- NOTE | 2024-05-06 16:29 | PC.NURSE ---
[employer] downtime during shift from [id number]; see paper charting. Pt received time-sensitive carbidopa-levodopa at scheduled times.
[2024-05-06 17:00] VITALS: O2SAT 97
[2024-05-06 20:33] VITALS: BP 163/81; PULSE 95; RESP 20; TEMP 36.5; O2SAT 95
[2024-05-07] VITALS (9 sets, daily range): BP systolic 153–172; BP diastolic 79–92; PULSE 75–96; RESP 17–21; TEMP 36.5–37.1; O2SAT 95–99
[2024-05-07] MEDS: ACETAMINOPHEN 325 MG TABLET 650 MG PO ×4 (06:20→19:53)
--- NOTE | 2024-05-07 07:00 | DI.RAD.S_ITS ---
PROCEDURE: XR CHEST 2V INDICATIONS: rib fractures TECHNIQUE: 2 views of the chest were acquired. COMPARISON: [facility], CT, CT CHEST ABD PEL W CON, 05/04/2024, 20:39. [facility], CR, XR CHEST 2V, 05/06/2024, 11:38. FINDINGS: Surgical changes and devices: ACDF. Lungs and pleura: No consolidation identified. No pleural effusions or pneumothorax. Mediastinum: Mediastinal contours are normal. Asymmetric elevation of the left hemidiaphragm, similar. Heart size is normal. Bones and chest wall: No suspicious bony abnormalities. Prior right-sided rib fractures are not well seen. Soft tissues appear unremarkable. IMPRESSION: No pneumothorax. Prior right-sided rib fractures are not well seen. Dictated by: Jin Tinoco M.D. on 05/07/2024 at 8:13 Approved by: Jin Tinoco M.D. on 05/07/2024 at 8:16
[2024-05-07] MEDS: CARBIDOPA-LEVODOPA 25/100 TABLET 2 EACH PO ×3 (09:00→20:45)
[2024-05-07] MEDS: polyethylene glycoL 3350 17 GM POWD.PACK PO ×2 (09:00→20:45)
[2024-05-07] MEDS: DOCUSATE 100 MG CAPSULE PO ×2 (09:00→20:45)
--- NOTE | 2024-05-07 09:00 | PM.PN.1 ---
Subjective Subjective Date Patient Seen: 05/07/24 Time Patient Seen: 08:15 Interval history: Pt seen and reassessed this morning. He is sitting in the bathroom and looks much more comfortable than yesterday He reports the block I did yesterday lasted most of the night and he slept pretty well. He rates his current pain as 5-6/10 with moving his RUE. Per pt's RN, he had told her his pain was 1/10. He has only had Tylenol x 2 for pain since the block placed yesterday at 15:00. Discussed with pt that I could do another block today if he thinks it would be helpful. Reiterated with him as I did yesterday that this is only a short-term block which will wear off in less than 24 hours but should help him breathe better and decrease his need for pain medication. My goal would be to get him through the first few days after his fracture, and today is day #3, so I would not plan on any additional block tomorrow. Pt states he does feel the block helped him a lot and he would like to have another one. We discussed timing. I have cases this morning, and if I place the block around midday, it will work into the night and help him sleep better. Pt agrees to plan for repeat serratus anterior block around midday. Exam Vital Signs (past 8 hours): - 05/07/24 03:56 05/07/24 07:00 05/07/24 07:00 Temperature 97.7 F 97.8 F Pulse Rate 83 77 Respiratory Rate 17 20 Blood Pressure 172/81 H 162/91 H Pulse Oximetry 96 99 Oxygen Delivery Method Room Air Oxygen Flow Rate 0 0 Oxygen Delivery Method Room Air Oxygen Flow Rate 0 Neuro General: patient alert (Oriented ) and patient awake Objective Labs 05/05/24 04:30 05/04/24 20:20 [facility] Medical History (Updated 05/05/24 @ 00:54 by Angeline Craven MD) Parkinsons disease Hyperlipidemia Acute viral sinusitis Social History household members: spouse Smoking Status: Never smoker Assessment & Plan Assessment & Plan narrative: 1. Continued pain from R rib fractures 4-9. Pt desires a second block. Will perform midday today. Time Spent With Patient Time with patient: less than 30 minutes (5 minutes)
--- NOTE | 2024-05-07 10:14 | PC.NURSE ---
In am, pt expressed to nurse that pain was decreased today and pain level 1-2/10. Pt stated that pain increased with movement and pt stated that he preferred to stay another day in the hospital if possible. RN communicated concerns to anesthesiologist, residential case manager and surgeon. Pt concerned about bowel movement and requesting suppository or enema; RN communicated concerns to surgeon. Pt passing gas. RN confirmed with surgeon to hold Lovenox due to regional block to likely occur this afternoon - SCDs applied. RN confirmed the surgeon did not need labs today.
--- NOTE | 2024-05-07 10:26 | P.PN_ITS ---
Subjective Subjective Date Patient Seen: 05/07/24 Time Patient Seen: 10:26 Interval history: Regional block by Dr. Hurst yesterday has helped significantly with rib pain overnight. Today [place] is rather sleepy at the time of my visit. Repeat chest x-ray this morning showed no pneumothorax or effusion Exam Vital Signs (past 8 hours): - 05/07/24 03:56 05/07/24 07:00 05/07/24 07:00 Temperature 97.7 F 97.8 F Pulse Rate 83 77 Respiratory Rate 17 20 Blood Pressure 172/81 H 162/91 H Pulse Oximetry 96 99 Oxygen Delivery Method Room Air Oxygen Flow Rate 0 0 05/07/24 09:00 Temperature Pulse Rate Respiratory Rate Blood Pressure Pulse Oximetry 99 Oxygen Delivery Method Room Air Oxygen Flow Rate 0 Oxygen Delivery Method Room Air Oxygen Flow Rate 0 Narrative Exam Narrative: Drowsy No acute distress Normal respirations Objective Labs 05/05/24 04:30 05/04/24 20:20 [facility] Medical History (Updated 05/05/24 @ 00:54 by Angeline Craven MD) Parkinsons disease Hyperlipidemia Acute viral sinusitis Social History household members: spouse Smoking Status: Never smoker Assessment & Plan Assessment and plan (1) Multiple fractures of rib involving four or more ribs: Status: Acute Plan Continue pain control and pulmonary hygiene An additional regional block by Dr. Rosenberg if possible would be very beneficial Plan to transfer to long-term care facility tomorrow.
--- NOTE | 2024-05-07 11:54 | PT.IPTN ---
Current Diagnoses Multiple fractures of ribs, unspecified side, initial encounter for closed fracture (05/05/24) Contusion of lung, unilateral, initial encounter (05/05/24) Fall (on) (from) other stairs and steps, initial encounter (05/05/24) Physical Therapy Treatment Note M2 PT-IP Current Condition Start: 05/05/24 14:58 Freq: NEEDED Status: Active Protocol: Document 05/05/24 14:10 AB (Rec: 05/05/24 15:15 AB [id number]) Physical Therapy Current Condition Current Condition Evaluation Date 05/05/24 Treatment Diagnosis GLF; R posterior minimally displaced 4-9 rib fx; difficulty in walking Onset Date 05/05/24 M3 PT-IP Subjective Start: 05/05/24 14:58 Freq: NEEDED Status: Active Protocol: Document 05/07/24 11:26 KS (Rec: 05/07/24 13:00 KS [id number]) Subjective Physical Therapy Visit Type Type Treatment Note Visit Start Time 11:26 Visit Stop Time 11:54 Number of SCOOPER Visits 1 Physical Therapy Visit Comments Patient Comments pt agreeable to do PT Therapy Pain Assessment Pain When Pain Assessed At Rest Pain Present Pain Present Pain Reported Location Right Ankle Scale Used pain scale not stated: c/o soreness in ribs Pain Management Techniques Distraction,Modification of Treatment,Re-positioning, Timing of Activity with Medications M4 PT-IP Mobility and Gait Start: 05/05/24 14:58 Freq: NEEDED Status: Active Protocol: Document 05/07/24 11:26 KS (Rec: 05/07/24 13:00 KS [id number]) PT-Transfer Assessment Sit to and From Stand Sit to and from Stand Contact Guard Assistance,1 Person Assistance,Use of Upper Extremities Equipment Transfer Assistive Device Gait Belt,Front Wheeled Walker Orthotic/Prosthetic Devices or Brace: No Transfers Transfer Destination Chair Transfer Technique ambulated Transfer Ability Level of Assist Minimal Assistance,1 Person Assistance,Use of Upper Extremities Comments Mobility Comments Pt in chair upon arrival and agreeable to PT. CGA for sit<> stand w/ FWW. Pt ambulated ~80 ft in room using FWW and demonstrated good carryover of proper use. Reports some rib pain and SOB, but O2 high 90s throughout treatment. Still requires some cues for breathing during mobility and exercises. Pt able to complete ankle pups, quad sets, glute sets, heel slides. Left in chair with all needs in reach. Gait Assessment Gait Gait Assistance Required: Minimum Assistance,1 Person Assist Distance (Feet) 80 Able to Maintain Weight Bearing Status Yes During Gait Assistive Devices Assistive Device Gait Belt,Front Wheeled Walker Orthotic/Prosthetic Devices or Brace: No Gait Deviations General Gait Pattern Decreased Stride Length, Decreased Feet Clearance, Narrow Based Gait Factors Limiting Gait Function Factors Limiting Gait Function Decreased Activity Tolerance, Decreased Strength,Difficulty Following Directions,Limited Range of Motion,Pain,Poor Balance,Poor Safety Awareness, Respiratory Distress Comments Gait Comments Pt demonstrated good use of FWW today especially with turning and had no LOB. PT-Balance Assessment Sitting Balance and Reactions Static Sitting Balance Ability Good Dynamic Sitting Balance Ability Fair Standing Balance and Reactions Static Standing Balance Ability Fair Dynamic Standing Balance Ability Fair Device Used FWW M5 PT-IP Objective Assessments Start: 05/05/24 14:58 Freq: NEEDED Status: Active Protocol: Document 05/05/24 14:10 AB (Rec: 05/05/24 15:15 AB [id number]) Orientation Orientation/Cognition Level of Alertness Alert Orientation Name,Place,Situation Language Function Ability Hard of Hearing Safety Awareness Decreased Safety Awareness Memory Description Short Term Impaired Gross Range of Motion Lower Extremity ROM Assessment Within Functional Limits Strength Lower Extremity Strength Assessment Right Impaired Hip 3+/5 Knee 4/5 Muscle Tone Muscle Tone WNL Yes M6 PT-IP Treatment Start: 05/05/24 14:58 Freq: NEEDED Status: Active Protocol: Document 05/07/24 11:26 KS (Rec: 05/07/24 13:00 WY [id number]) Physical Therapy Treatment Exercises Exercises Ankle Pumps,Gluteal Sets,Quad Sets,Heel Slides Education Education Provided Safety M7 PT-IP Assessment and Plan Start: 05/05/24 14:58 Freq: NEEDED Status: Active Protocol: Document 05/07/24 11:26 KS (Rec: 05/07/24 13:00 KS [id number]) PT Summary Assessment and Plan Potential Rehabilitation Potential Fair Summary Impairments Pain,ROM,Strength,Balance, Coordination,Sensation,Tone, Cognition,Bed Mobility, Transfers,Gait,Activity Tolerance Progress Towards Goals Slow Progress due to Medical Issues,Slow Progress due to Activity Tolerance Assessment Summary Pt showing improvements w/ tolerance for ambulation w/ FWW, use of FWW, and maintaining O2 during mobility . Still reports pain in ribs and mild SOB. Still at risk for falls and would benefit from SNF to improve strength, safety, and functional mobility. Goals Bed Mobility Goal Independent Transfer Goal Standby Assistance,Front Wheeled Walker Gait Goal Standby Assistance,Front Wheel Walker Gait Distance 150 Other Goals improve transfers and ambulation using LRAD/without AD ~ 300 ft mod I up/down 7 steps B rails SBA Days to Meet Goals 10 Frequency of Treatment Frequency Of Treatment Once a Day Treatment Plan Physical Therapy Treatment Plan Bed Mobility Training,Transfer Training,Gait Training, Therapeutic Exercise,Balance Retraining,Discharge Planning, Hot or Cold Pack,Neuromuscular Re-ed,Coordination Retraining ,Manual Therapy Precautions Other Precautions falls; O2 sat Recommendations To Nursing Amount of Assist Needed 1 Person Assist Discharge Recommendations PT Discharge Recommendations SNF Rehab Equipment Needed for Home Before FWW if pt goes home Discharge Transportation Needs at Discharge Private Vehicle,Wheelchair/ Cabulance
--- NOTE | 2024-05-07 12:28 | CM.DPNOTE ---
FISH AGENT reviewed EMR/paper chart Per RN, surgeon would like to keep pt another day for a nerve block for pain control. FISH AGENT updated April at - tentatively plan for tomorrow no time set yet. FISH AGENT met with pt and spouse in room. Updated them on ins auth and acceptance at . Pt and spouse in agreement with plan. Spouse can assist tomorrow with dc but not Wednesday. P: DC to [facility] when medically stable, anticipate Wednesday. Time pending. PASRR completed. CM team will continue to follow closely. YAMILEX Toure
[2024-05-07] MEDS: HYDROMORPHONE 0.5 MG INJ IV (12:38)
[2024-05-07] MEDS: SENNOSIDES 8.6 MG TABLET PO (13:40)
[2024-05-08 03:35] VITALS: BP 145/83; PULSE 76; RESP 20; TEMP 36.5; O2SAT 97
[2024-05-08] MEDS: ACETAMINOPHEN 325 MG TABLET 650 MG PO ×3 (03:35→15:05)
[2024-05-08 08:00] VITALS: BP 157/72; PULSE 72; RESP 16; TEMP 35.9; O2SAT 95
[2024-05-08] MEDS: polyethylene glycoL 3350 17 GM POWD.PACK PO (09:11)
[2024-05-08] MEDS: DOCUSATE 100 MG CAPSULE PO (09:11)
[2024-05-08] MEDS: ENOXAPARIN 40 MG/0.4 ML SYRINGE SUBCUT (09:11)
[2024-05-08] MEDS: CARBIDOPA-LEVODOPA 25/100 TABLET 2 EACH PO ×2 (09:11→15:02)
[2024-05-08 12:00] VITALS: BP 146/67; PULSE 70; RESP 16; TEMP 36.4; O2SAT 95
--- NOTE | 2024-05-08 12:49 | PM.DS.1 ---
History of Present Illness History of Present Illness Date Patient Seen: 05/08/24 Time Patient Seen: 12:49 Chief complaint: Slip Fall on rocks Narrative: [place] is a 68-year-old man with Parkinson's disease who slipped and fell on the rocks at [facility] and sustained multiple right-sided rib fractures. He was admitted for pain control and pulmonary hygiene. He did receive a regional block twice by Dr. Rosenberg from anesthesia with good effect. Discharge Providers Provider Date of admission: 05/07/24 14:06 Discharge Date: 05/08/24 Primary care physician: Doctor Rah MD Consults: 05/05/24 00:46 Consult to General Surgery Urgent Comment: Consulting Provider: Jaya Whittaker Reason for consultation: multiple rib fractures, trauma Has provider been notified: Yes 05/05/24 09:06 Consult to Discharge Planning Routine Comment: Consult to Occupational Therapy Evaluate & Treat Comment: Physician Instructions: Evaluate and treat Consult to Physical Therapy Evaluate & Treat Comment: Physician Instructions: Evaluate and Treat Discharge provider: Mark Turk MD Summary Hospital Course Discharge Diagnosis: Right-sided rib fractures Hospital Course: [place] is a 68-year-old man with Parkinson's disease who slipped and fell on the rocks at [facility] and sustained multiple right-sided rib fractures. He was admitted for pain control and pulmonary hygiene. He did receive a regional block twice by Dr. Rosenberg from anesthesia with good effect. Exam Vital Signs (past 8 hours): - 05/08/24 08:00 05/08/24 12:00 Temperature 96.7 F L 97.6 F Pulse Rate 72 70 Respiratory Rate 16 16 Blood Pressure 157/72 H 146/67 H Pulse Oximetry 95 95 Oxygen Flow Rate 0 0 Oxygen Delivery Method Room Air Oxygen Flow Rate 0 Objective Labs 05/05/24 04:30 05/04/24 20:20 [facility] Medical History (Updated 05/05/24 @ 00:54 by Angeline Craven MD) Parkinsons disease Hyperlipidemia Acute viral sinusitis Social History household members: spouse Smoking Status: Never smoker Discharge Plan Discharge Plan Patient Disposition: SNF Transfer to: [facility] Discharge orders & Medications Prescriptions: Continued atorvastatin 20 mg tablet 20 mg PO DAILY fluticasone propionate 50 mcg/actuation [place],Suspension 1 spray INTRANASAL PRN PRN (Reason: Allergy Symptoms) carbidopa-levodopa 25-100 mg tablet 2 tab PO TID Follow up/Referrals: Miscellaneous,Doctor, MD [Primary Care Provider] - Visit Report/Discharge Packet Stand Alone Forms: Patient Portal/API Discharge Data Primary Care Provider: Rah,
[2024-05-08 13:00] VITALS: O2SAT 94
--- NOTE | 2024-05-08 13:24 | CM.DPC ---
DCP Discharge SNF Per Surgeon, pt's pain controlled and medically stable to discharge to SNF today and no identified barriers to discharge. SW called [facility] admissions and confirmed they can still accept pt today with a brain picker around 1515. Faxed d/c summ, orders, signed med list, no scripts, PASRR to [facility] to review. [facility] obtained insurance auth approval. ALANIS updated RN, website developer, TEAR DOWN MAN and provided number to call RN report. SW met bedside with pt and spouse and updated on above and remain agreeable with discharge to [facility] today and spouse will follow pt over for admit pwk at [facility] at d/c. Plan: Patient to discharge to [facility] today via facility van at 1515 before safe return home with spouse. YAMILEX Newman
--- NOTE | 2024-05-08 16:12 | PC.NURSE ---
Discharge Note Patient A&O, VSS, RA, no complaints of pain/discomfort. Discharge plan reviewed with patient/, all questions/concerns addressed. PIV discontinued. Patient able to dress self and pack all belongings with assistance. Discharge packet given to facility staff. Patient assisted to WC and taken down via wheelchair by facility staff.
== END 2024-05-08 15:45 | DRG 184 ==
LOC: ED 23:08 → AC 05-05 00:47 → ICU 05-05 00:56
PROVIDERS: Admitting Provider Surgery; Emergency Provider Emergency Medicine; Referring Provider Emergency Medicine; Visit Provider Surgery
DX: S22.41XA Multiple fractures of ribs, right side, initial encounter for closed fracture (principal); S27.321A Contusion of lung, unilateral, initial encounter; G20.A1 Parkinson's disease without dyskinesia, without mention of fluctuations; E78.5 Hyperlipidemia, unspecified; W10.9XXA Fall (on) (from) unspecified stairs and steps, initial encounter
CPT/HCPCS: 36415; 70450; 71046; 71260; 72125; 73610; 74177; 80053; 85014; 85018; 85025; 96374; 96376; 97110; 97116; 97129; 97162; 97166; 97530; 97535; 99221; 99231; 99238; 99285; 99291; G0378; J1170; J1650; J1885; Q9967

== ENCOUNTER → 2024-05-31 12:19 | Outpatient (CLI) | payer MEDICARE, SELFPAY ==
[2024-05-05 01:27] VITALS: BMI 37.0
--- NOTE | 2024-05-31 12:20 | DI.RAD.S_ITS ---
PROCEDURE: XR ANKLE RT MIN 3V INDICATIONS: Right ankle pain TECHNIQUE: 3 views of the ankle were acquired. COMPARISON: [facility], CR, XR ANKLE RT MIN 3V, 05/05/2024, 15:33. FINDINGS: Bones: A medial fracture is is now identified at the base of the medial malleolus, vertically oriented, with associated soft tissue swelling medially. This extends to the metadiaphyseal junction of the distal tibia. A small amount of heterotopic ossification is seen at the uppermost medial margin of the fracture plane.. Ankle mortise is normally aligned. No suspicious bony lesions. Soft tissues: No tibiotalar joint effusion. Achilles tendon appears normal. IMPRESSION: Medial ankle fracture, vertically oriented at the base of the medial malleolus, without ankle mortise joint widening. A small degree of heterotopic ossification is seen at the upper margin of the fracture, indicating subacute chronicity. This is a potentially unstable fracture. Orthopedic surgical consultation likely is warranted. Dictated by: Jose Barrett M.D. on 05/31/2024 at 13:01 Approved by: Jose Barrett M.D. on 05/31/2024 at 13:04
== END ==
PROVIDERS: Referring Provider Nurse Practitioner Family; Visit Provider Nurse Practitioner Family
DX: S82.51XA Displaced fracture of medial malleolus of right tibia, initial encounter for closed fracture (principal); M25.571 Pain in right ankle and joints of right foot; X58.XXXA Exposure to other specified factors, initial encounter
CPT/HCPCS: 73610

== ENCOUNTER 2024-06-23 07:33 | Emergency (ER) | payer MEDICARE, SELFPAY ==
[2024-05-05 01:27] VITALS: BMI 37.0
[2024-06-23] VITALS (11 sets, daily range): BP systolic 115–136; BP diastolic 62–82; PULSE 65–70; RESP 16–18; TEMP 36.4; O2SAT 95–99; BMI 36.1
--- NOTE | 2024-06-23 08:07 | ED.RECABL ---
HPI - Recheck/Abnormal Lab/Rx General Chief Complaint: Recheck/Abnormal Lab/Rx Stated Complaint: upper r side abd pain Time Seen by Provider: 06/23/24 07:37 Source: patient Mode of arrival: Wheelchair History of Present Illness HPI narrative: 68-year-old male with history of Parkinson's disease, hypertension presents by private vehicle from home for 3-4 days of right upper quadrant abdominal pain. Pain is intermittent, sharp, does not radiate. Worse at night. No relation with food. Patient states that several months ago he broke ribs on his right side, but this feels different. No medications taken at home for symptoms prior to arrival. This morning when patient woke up the pain was as bad as a 5/10, so he decided to come to the emergency department for evaluation. Denies use of blood thinners. Denies history of intra-abdominal surgeries. Related Data Home Medications Medication Instructions Recorded Confirmed atorvastatin 20 mg tablet 20 mg PO DAILY 10/14/22 05/31/24 fluticasone propionate 50 1 spray intranasal PRN PRN Allergy 05/05/24 05/31/24 mcg/actuation nasal Symptoms spray,suspension carbidopa 25 mg-levodopa 100 mg 2 tab PO TID 05/08/24 05/31/24 tablet Allergies Allergy/AdvReac Type Severity Reaction Status Date / Time No Known Drug Allergies Allergy Verified 06/23/24 07:46 Patient History Medical History Parkinsons disease Hyperlipidemia Acute viral sinusitis Social History household members: spouse Smoking Status: Never smoker Smoking Status: Never smoker Substance Use Type: does not use Exam Initial Vital Signs Initial Vital Signs: Vital Signs Pulse Rate 70 06/23/24 07:43 Pulse Oximetry 96 06/23/24 07:43 Const: Awake, alert, appears chronically unwell, frail Cardiac: regular rate, regular rhythm RESP: unlabored, clear bilaterally, no wheezing GI: Soft, minimal tenderness to deep palpation right upper quadrant without rebound or guarding Skin: Warm, Dry, intact, no rashes Neuro: AO x3, CN II-XII grossly intact, moves all extremities Course Orders Ordered: ED Orders 06/23/24 08:06 US abdomen limited Stat 06/23/24 08:07 Chest [XR chest 1V] Stat 06/23/24 08:36 CBC Auto Diff [Complete Blood Count AUTO DIFF] Stat CMP [Comprehensive Metabolic Panel] Stat Lipase Stat 06/23/24 08:49 CT kidney ureter bladder (KUB) Stat Discontinued Medications Ketorolac Tromethamine (Ketorolac 30 Mg/Ml Vial) 15 mg IV NOW ONE Stop: 06/23/24 08:07 Last Admin: 06/23/24 08:39 Dose: 15 mg Documented By: CHERELLE Vital Signs Vital signs: Vital Signs - 8 hr 06/23/24 07:43 06/23/24 07:44 06/23/24 08:00 Temperature 97.6 F Pulse Rate 70 70 Respiratory Rate 16 Blood Pressure 127/73 115/62 Pulse Oximetry 96 95 Oxygen Delivery Method Room Air 06/23/24 08:00 06/23/24 08:30 06/23/24 08:30 Temperature Pulse Rate 65 66 Respiratory Rate Blood Pressure 131/77 Pulse Oximetry 96 97 Oxygen Delivery Method 06/23/24 09:00 06/23/24 09:12 Temperature Pulse Rate 65 66 Respiratory Rate 18 Blood Pressure 131/77 Pulse Oximetry 97 98 Oxygen Delivery Method MDM - Recheck/Abnormal Lab/Rx Lab Data 06/23/24 08:36 06/23/24 08:36 Labs: Lab Results 06/23/24 Range/Units 08:36 WBC 6.5 (4.5-11.0) X10^3/uL RBC 4.58 (4.5-5.9) X10^6/uL Hgb 13.8 (13.5-17.5) g/dL Hct 40.9 L (41-53) % MCV 89.3 (80-100) fL MCH 30.1 (26-34) PG MCHC 33.7 (30-36) % RDW 13.3 (11.6-14.8) % Plt Count 190 (150-400) X10^3/uL Neut % (Auto) 65.5 (50-75) % Lymph % (Auto) 24.6 L (25-40) % [place] % (Auto) 6.6 (3-14) % Eos % (Auto) 2.4 (2-4) % Baso % (Auto) 0.9 (0-2) % Neut # (Auto) 4200 (7822-8013) /uL Lymph # (Auto) 1600 (3196-4409) /uL [place] # (Auto) 400 (0-900) /uL Eos # (Auto) 200 (0-450) /uL Baso # (Auto) 100 (0-100) /uL Sodium 137 (137-145) mmol/L Potassium 4.4 (3.4-5.1) mmol/L Chloride 105 (98-107) mmol/L Carbon Dioxide 27 (22-32) mmol/L BUN 18 (9-20) mg/dL Creatinine 0.65 L (0.66-1.25) mg/dL Estimated GFR > 60 (>60) mL/min BUN/Creatinine Ratio 27.7 H (6-22) Glucose 111 H (80-110) mg/dL Calcium 8.7 (8.4-10.2) mg/dL Total Bilirubin 0.6 (0.2-1.3) mg/dL AST 19 (17-59) IU/L ALT 8 (<50) IU/L Alkaline Phosphatase 107 (38-126) U/L Total Protein 6.6 (6.3-8.2) g/dL Albumin 4.1 (3.5-5.0) g/dL Globulin 2.5 (1.7-4.1) g/dL Albumin/Globulin Ratio 1.6 (1.0-2.8) Lipase 50 (23-300) U/L Urine Dip Bedside Urine Glucose Negative Bedside Urine Bilirubin - Negative Bedside Urine Ketone - Negative Urine Specific [place] 1.015 Bedside Urine Occult Blood - Negative Bedside Urine pH 6.0 Bedside Urine Protein - Negative Bedside Urine Urobilinogen - Negative Bedside Urine Nitrite - Negative Bedside Urine Leukocytes - Negative Esterase Imaging Data US - abdomen: Radiologist's Impression: PROCEDURE: US ABDOMEN LIMITED INDICATIONS: RUQ ABD PAIN TECHNIQUE: Real-time focused scanning was performed of the abdomen, with image documentation. COMPARISON: [facility], US, US ABDOMEN COMPLETE, 04/13/2022, 11:03. FINDINGS: Hepatic steatosis is present. Simple cysts are present the largest measuring 2.1 cm in the left lobe. Gallbladder demonstrates no stones or wall thickening. Common bile duct measures 5.3 mm. IMPRESSION: Gallbladder is unremarkable. Dictated by: Erma Lewis M.D. on 06/23/2024 at 8:56 Approved by: Erma Lewis M.D. on 06/23/2024 at 8:56 Chest x-ray: Radiologist's Impression: PROCEDURE: XR CHEST 1V INDICATIONS: R SIDE CHEST/UPPER ABD PAIN TECHNIQUE: One view of the chest was acquired. COMPARISON: [facility], CR, XR CHEST 2V, 05/07/2024, 7:15. FINDINGS: Surgical changes and devices: None. Lungs and pleura: Lungs are clear. No pleural effusions or pneumothorax. Mediastinum: Mediastinal contours appear normal. Heart size is normal. Bones and chest wall: No suspicious bony lesions. Overlying soft tissues appear unremarkable. IMPRESSION: No acute pulmonary process. Dictated by: Erma Lewis M.D. on 06/23/2024 at 8:54 Approved by: Erma Lewis M.D. on 06/23/2024 at 8:55 CT scan - abdomen/pelvis: Radiologist's Impression: PROCEDURE: CT KIDNEY URETER BLADDER (KUB) INDICATIONS: RUQ pain, neg US TECHNIQUE: Axial sections were acquired from the lung bases to the pubic symphysis. Coronal and sagittal reformats were performed. For radiation dose reduction, the following was used: automated exposure control, adjustment of mA and/or kV according to patient size. COMPARISON: [facility], CT, CT CHEST ABD PEL W CON, 05/04/2024, 20:39. FINDINGS: Image quality: Diagnostic. Lower Chest: No significant findings. URINARY: Right Kidney: No stones or hydronephrosis. Right Ureter: No hydroureter. Left Kidney: No stones or hydronephrosis. Left Ureter: No hydroureter. Bladder: Normal wall thickness. No stones. ABDOMEN: Liver: No contour-deforming solid mass. Multiple hepatic simple cysts. Gallbladder: Punctate questionable luminal calcification versus heterogeneous attenuation. No wall thickening. Biliary ducts: No biliary dilation. Pancreas: No ductal dilation. Spleen: Size is within normal limits. Adrenal Glands: No adrenal nodules. Stomach and Bowel: Normal colonic caliber, without significant wall thickening. Appendix is normal. Peritoneum: No abnormal intraperitoneal fluid. No free air. Ventral Wall: No hernia. Abdominal Nodes: No enlarged retroperitoneal or mesenteric lymph nodes. Vessels: Aorta and inferior vena cava are normal in size. PELVIS: Pelvic Organs: Unremarkable. Pelvic Nodes: Unremarkable. Miscellaneous: Bilateral fat containing inguinal hernias. Bones: Unremarkable. IMPRESSION: No obstructing stones or hydronephrosis. Appendix is normal. Punctate calcification within the gallbladder versus attenuation averaging/artifact without wall thickening Dictated by: Erma Lewis M.D. on 06/23/2024 at 9:49 Approved by: Erma Lewis M.D. on 06/23/2024 at 10:07 [facility] Narrative Medical decision making narrative: Well-appearing patient with several days of intermittent symptoms. Patient can not identify what makes symptoms come or go. Abdominal exam soft, patient shows me where abdomen is most tender, however light or deep palpation unable to replicate pain. No rashes overlying area. Laboratory work and ultrasound imaging to be obtained. Laboratory work unremarkable. WBC count 6.5, hemoglobin 13.8, platelet count 190, sodium 137, potassium 4.4, creatinine 0.65, normal liver enzymes. Point of care urine obtained by nursing staff shows no acute signs of infection. Ultrasound of the abdomen negative for acute cholecystitis or other gallbladder abnormalities. Incidental liver cysts seen. We will order CT of the abdomen and pelvis to assess for underlying kidney stones. CT negative for acute abnormalities that would explain patient's symptoms. Question punctate calcification versus attenuation on the CT, however with no stones identified on ultrasound imaging this is likely artifact. Previous rib fracture seen on the right-hand side. Patient informed of all lab and imaging findings. Recommended close PCP follow up. Discharge Plan Departure Patient Disposition: Home Clinical Impression: Abdominal pain Instructions: DI for Abdominal Pain-Adult Activity Restrictions/Additional Instructions: Your laboratory work, chest x-ray, abdominal ultrasound, and an abdominal CT scans were normal today. I do not know the cause of your abdominal pain but it was not appear to be an infection, stone, or other scary process. I do recommend close follow up with your primary care doctor if you continue to experience right-sided abdominal pains. In the interim I recommend taking Tylenol and ibuprofen as needed for symptoms. Prescriptions: No Action atorvastatin 20 mg tablet 20 mg PO DAILY fluticasone propionate 50 mcg/actuation [place],Suspension 1 spray INTRANASAL PRN PRN (Reason: Allergy Symptoms) carbidopa-levodopa 25-100 mg tablet 2 tab PO TID Referrals: Miscellaneous,DoctorMD [Primary Care Provider] - Stand Alone Forms: Patient Portal/API
[2024-06-23] MEDS: KETOROLAC 30 MG/ML VIAL 15 MG IV (08:39)
[2024-06-23 08:45] LABS: Add Manual Diff / Slide Review NO; Basophils Absolute Auto 100 /uL (0-100); Basophils Percent Auto 0.9 % (0-2); Eosinophils Absolute Auto 200 /uL (0-450); Eosinophils Percent Auto 2.4 % (2-4); Hematocrit 40.9 % (41-53); Hemoglobin 13.8 g/dL (13.5-17.5); Lymphocytes Absolute Auto 1600 /uL (1100-4500); Lymphocytes Percent Auto 24.6 % (25-40); Mean Corpuscular HGB Conc 33.7 % (30-36); Mean Corpuscular Hemoglobin 30.1 PG (26-34); Mean Corpuscular Volume 89.3 fL (80-100); Monocytes Absolute Auto 400 /uL (0-900); Monocytes Percent Auto 6.6 % (3-14); Neutrophils Absolute Auto 4200 /uL (1500-7000); Neutrophils Percent Auto 65.5 % (50-75); Platelet Count 190 X10^3/uL (150-400); Red Blood Cell Count 4.58 X10^6/uL (4.5-5.9); Red Cell Distribution Width 13.3 % (11.6-14.8); White Blood Cell Count 6.5 X10^3/uL (4.5-11.0)
--- NOTE | 2024-06-23 08:49 | DI.CT.S_ITS ---
PROCEDURE: CT KIDNEY URETER BLADDER (KUB) INDICATIONS: RUQ pain, neg US TECHNIQUE: Axial sections were acquired from the lung bases to the pubic symphysis. Coronal and sagittal reformats were performed. For radiation dose reduction, the following was used: automated exposure control, adjustment of mA and/or kV according to patient size. COMPARISON: [facility], CT, CT CHEST ABD PEL W CON, 05/04/2024, 20:39. FINDINGS: Image quality: Diagnostic. Lower Chest: No significant findings. URINARY: Right Kidney: No stones or hydronephrosis. Right Ureter: No hydroureter. Left Kidney: No stones or hydronephrosis. Left Ureter: No hydroureter. Bladder: Normal wall thickness. No stones. ABDOMEN: Liver: No contour-deforming solid mass. Multiple hepatic simple cysts. Gallbladder: Punctate questionable luminal calcification versus heterogeneous attenuation. No wall thickening. Biliary ducts: No biliary dilation. Pancreas: No ductal dilation. Spleen: Size is within normal limits. Adrenal Glands: No adrenal nodules. Stomach and Bowel: Normal colonic caliber, without significant wall thickening. Appendix is normal. Peritoneum: No abnormal intraperitoneal fluid. No free air. Ventral Wall: No hernia. Abdominal Nodes: No enlarged retroperitoneal or mesenteric lymph nodes. Vessels: Aorta and inferior vena cava are normal in size. PELVIS: Pelvic Organs: Unremarkable. Pelvic Nodes: Unremarkable. Miscellaneous: Bilateral fat containing inguinal hernias. Bones: Unremarkable. IMPRESSION: No obstructing stones or hydronephrosis. Appendix is normal. Punctate calcification within the gallbladder versus attenuation averaging/artifact without wall thickening Dictated by: Erma Lewis M.D. on 06/23/2024 at 9:49 Approved by: Erma Lewis M.D. on 06/23/2024 at 10:07
[2024-06-23 08:56] LABS: Alanine Aminotransferase 8 IU/L (<50); Albumin 4.1 g/dL (3.5-5.0); Albumin Globulin Ratio 1.6 (1.0-2.8); Alkaline Phosphatase 107 U/L (38-126); Aspartate Aminotransferase 19 IU/L (17-59); BUN Creatinine Ratio 27.7 (6-22); Bilirubin Total 0.6 mg/dL (0.2-1.3); Blood Urea Nitrogen 18 mg/dL (9-20); Calcium 8.7 mg/dL (8.4-10.2); Carbon Dioxide 27 mmol/L (22-32); Chloride 105 mmol/L (98-107); Estimated Glomerular Filt Rate > 60 mL/min (>60); Globulin 2.5 g/dL (1.7-4.1); Glucose 111 mg/dL (80-110); HEMOLYSIS < 15 (0-50); Lipase 50 U/L (23-300); Potassium 4.4 mmol/L (3.4-5.1); Sodium 137 mmol/L (137-145); Total Protein 6.6 g/dL (6.3-8.2)
== END 2024-06-23 10:50 | disposition home or self-care (01) ==
PROVIDERS: Emergency Provider Emergency Medicine
DX: R10.11 Right upper quadrant pain (principal); R07.9 Chest pain, unspecified; I10 Essential (primary) hypertension; G20.A1 Parkinson's disease without dyskinesia, without mention of fluctuations
CPT/HCPCS: 36415; 71045; 74176; 76705; 80053; 81003; 83690; 85025; 96374; 99284; J1885

== ENCOUNTER → 2024-09-04 12:05 | Outpatient (CLI) | payer MEDICARE, SELFPAY ==
[2024-05-05 01:27] VITALS: BMI 37.0
--- NOTE | 2024-09-04 12:06 | DI.RAD.S_ITS ---
PROCEDURE: XR ELBOW LT MIN 3V INDICATIONS: Left elbow pain TECHNIQUE: 3 views of the elbow were acquired. COMPARISON: None. FINDINGS: Bones: Minor spurring of the coronoid process appreciated. No other osseous abnormalities. Elbow joint: Normal in width and alignment without arthritic change. There are no effusions. Soft tissues: Diffuse soft tissue swelling noted. IMPRESSION: Minor spurring from the coronoid process. Dictated by: Mohan Kearns M.D. on 09/05/2024 at 10:03 Approved by: Mohan Kearns M.D. on 09/05/2024 at 10:05
== END ==
LOC: RAD 12:06
PROVIDERS: Family Provider Physician Assistant; PCP Physician Assistant; Referring Provider Nurse Practitioner Family; Visit Provider Nurse Practitioner Family
DX: M25.522 Pain in left elbow (principal)
CPT/HCPCS: 73080

== ENCOUNTER 2024-10-10 11:30 | Outpatient (RCR) | payer MEDICARE, SELFPAY ==
[2024-05-05 01:27] VITALS: BMI 37.0
--- NOTE | 2024-08-30 17:19 | PT.OIE ---
Current Diagnoses Parkinsonism, unspecified (08/30/24) Stiffness of right ankle, not elsewhere classified (08/30/24) Other fracture of right lower leg, subsequent encounter for closed fracture with routine healing (08/30/24) Past Medical History (Last Reviewed 06/23/24 @ 08:08 by Kennedi Broussard MD) Acute viral sinusitis Hyperlipidemia Parkinsons disease Visit Care Team Role Provider Type Phuc Beckett PA-C Family Provider Non-Staff Primary Care Provider Specialty: Medical Address: [address] , [place], [address] Email: Cyndy Patterson DO Attending Provider Non-Staff Referring Provider Specialty: Family Practice Address: [address], [place], [address] Email: Physical Therapy Initial Evaluation PT-OP-A Visit Information Start: 08/30/24 15:36 Freq: Status: Active Protocol: Document 08/30/24 12:30 DCW (Rec: 08/30/24 15:53 DCW [id number]) Out-Patient Physical Therapy Visit Information Visit Information Visit Type Initial Evaluation Visit Note Late arrival Visit Start Time 12:30 Visit Stop Time 13:00 Visit Number 1 Number of OPERATIONS ADVISOR Visits 0 Evaluation Information Evaluation Date 08/30/24 PT-OP-B Current Condition Start: 08/30/24 15:36 Freq: Status: Active Protocol: Document 08/30/24 12:30 DCW (Rec: 08/30/24 15:53 DCW [id number]) Current Condition History of Current Condition Onset Date 05/05/24 Current Complaints Ankle pain, stiffness History of Current Condition Pt is a 68 year old male with a history of Parkinson's presenting to skilled PT s/p right ankle fracture. Pt originally suffered a fall on 05/05/24, was found to have fractured his right ribs 4-9, as well as an ankle sprain. Was sent to [facility] for recovery, and during that time, continued to have ankle pain. On 05/31/24, presented once again to the [facility],and was found to actually have a medial ankle fracture. Had a follow-up with ortho, was given NWB status for 4 weeks, and then used a walking boot and crutches. Pt reports he has now been off crutches and no ankle brace for the past month. Occasionally uses walking sticks or 4WW during gait, more due to Parkinson's than ankle problems. Has suffered multiple other falls since April, he reports they were mainly due to his ankle, especially getting up from chairs. Ankle hurts with quick turns or walking on uneven surfaces, but max pain is a 5/ 10, does not stay that bad for long. Squatting causes a 1/10 pain. Feels better with ice, but admits he has not been icing it much recently. Main HEP at this time is ankle circles/ankle alphabet. PT-OP-C Subjective Start: 08/30/24 15:36 Freq: Status: Active Protocol: Document 08/30/24 12:30 DCW (Rec: 08/30/24 15:53 DCW [id number]) OP-PT Subjective Patient Comments Patient Comments Pt notes that his ankle is back tender insulation board, but has improved a lot over the last month. Patient Reported Progress Improving Patient Questionnaires Lower Extremity Functional Scale LEFS Score 56/80 = 70% PT-OP-G Mobility & Gait Start: 08/30/24 15:36 Freq: Status: Active Protocol: Document 08/30/24 12:30 DCW (Rec: 08/30/24 16:00 DCW [id number]) OP Gait Assessment Comments Gait Comments Pt ambulates with a narrow, scissoring base of support, nearly into a long-strided tandem gait. Creates increase inversion force on ankles, R>L . Moderate path deviation. Good stride length PT-OP-J Posture/Palpation/Skin Start: 08/30/24 15:36 Freq: Status: Active Protocol: Document 08/30/24 12:30 DCW (Rec: 08/30/24 16:00 DCW [id number]) Skin Assessment Circumference Measurement Figure-8 Location R ankle Measurement (Centimeters) 58.7 Comments L ankle = 57.5 cm PT-OP-K Range of Motion Start: 08/30/24 15:36 Freq: Status: Active Protocol: Document 08/30/24 12:30 DCW (Rec: 08/30/24 16:00 DCW [id number]) Ankle and Foot Goniometric Range of Motion Ankle and Foot Right Active Ankle/Foot ROM WFL No Testing Position Sitting Dorsiflexion with Knee Flexed 18 Dorsiflexion with Knee Extended 14 Plantarflexion 40 Inversion 14 Eversion 8 Left Active Ankle/Foot ROM WFL Yes Testing Position Sitting Dorsiflexion with Knee Flexed 20 Dorsiflexion with Knee Extended 13 Plantarflexion 40 Inversion 28 Eversion 15 PT-OP-Q Treatments Start: 08/30/24 15:36 Freq: Status: Active Protocol: Document 08/30/24 12:30 DCW (Rec: 08/30/24 15:53 DCW [id number]) Therapeutic Exercises Sitting Exercises Ankle Flexion Sitting Exercise Name 4-way ankle flexion Side right Resistance Lv 3 T-band PT-OP-T Assessment and Plan Start: 08/30/24 15:36 Freq: Status: Active Protocol: Document 08/30/24 12:30 DCW (Rec: 08/30/24 17:19 DCW [id number]) Physical Therapy Assessment Rehab Potential Rehabilitation Potential Good Evaluation Complexity Number of Personal Factors/Comorbidities 3 or More Number of Body Systems Impaired 4 or More Clinical Presentation at Evaluation Stable Impairments Impairments Functional Activities, Functional Mobility,Gait,ROM, Strength Goals Three Impairment Pt ambulates with a narrow base of support and right leg scissoring Associate Store Manager Goal (LTG) Pt to ambulate with a base of support WNL in order to decrease force and pain along medial edge of ankle. LTG Duration 10/30/24 Two Impairment Pt has experienced multiple falls over the past four months Associate Store Manager Goal (LTG) Pt to improve right ankle ROM to 25? inversion and 15? eversion to improve mobility and help limit further falls LTG Duration 10/30/24 One Impairment Pt does not have an appropriate home exercise program Short Term Goal (STG) Pt to be independent and compliant with an appropriate HEP STG Duration 09/30/24 Assessment Summary Assessment Pt presents with signs and symptoms consistent with referring diagnosis of prior right medial ankle fracture. Pt demonstrates decreased right ankle ROM, mild edema, and mild-moderate pain with activity. Pt should benefit from skilled therapy focusing on improving ankle ROM, increasing strength, and improving gait pattern. Rehab will likely be complicated by pt's history of Parkinson's Disease, which pt notes mainly affects his right side. Pt additionally hoping to get in for Parkinson's-specific rehab in the future, following ankle PT. Physical Therapy Plan Frequency and Duration Frequency of Treatment 2x/Week Plan of Care Start Date 08/30/24 Plan of Care End Date 10/30/24 Therapeutic Interventions Therapeutic Interventions Balance Training,Home Exercise Program,Joint Mobilizations, Manual Therapy,Neuromuscular Re-education,Patient/Caregiver Education,Self-Care/Home Management,Soft Tissue Mobilization,Therapeutic Activities,Therapeutic Exercises Modalities Cold Pack/Ice Massage,Hot Packs Next Visit Focus/Plan Next Note Type Treatment Note Next Visit Plan Ankle strengthening, gait, balance
--- NOTE | 2024-09-06 10:28 | PT.OTN ---
Current Diagnoses Parkinsonism, unspecified (09/06/24) Stiffness of right ankle, not elsewhere classified (09/06/24) Other fracture of right lower leg, subsequent encounter for closed fracture with routine healing (09/06/24) Physical Therapy Treatment Note PT-OP-A Visit Information Start: 08/30/24 15:36 Freq: Status: Active Protocol: Document 09/06/24 09:45 DCW (Rec: 09/06/24 10:28 DCW [id number]) Out-Patient Physical Therapy Visit Information Visit Information Visit Type Treatment Note Visit Start Time 09:45 Visit Stop Time 10:30 Visit Number [address] OF [address] SUPERINTENDENT Visits 0 Evaluation Information Evaluation Date 08/30/24 PT-OP-B Current Condition Start: 08/30/24 15:36 Freq: Status: Active Protocol: Document 08/30/24 12:30 DCW (Rec: 08/30/24 15:53 DCW [id number]) Current Condition History of Current Condition Onset Date 05/05/24 Current Complaints Ankle pain, stiffness History of Current Condition Pt is a 68 year old male with a history of Parkinson's presenting to skilled PT s/p right ankle fracture. Pt originally suffered a fall on 05/05/24, was found to have fractured his right ribs 4-9, as well as an ankle sprain. Was sent to [facility] for recovery, and during that time, continued to have ankle pain. On 05/31/24, presented once again to the [facility],and was found to actually have a medial ankle fracture. Had a follow-up with ortho, was given NWB status for 4 weeks, and then used a walking boot and crutches. Pt reports he has now been off crutches and no ankle brace for the past month. Occasionally uses walking sticks or 4WW during gait, more due to Parkinson's than ankle problems. Has suffered multiple other falls since April, he reports they were mainly due to his ankle, especially getting up from chairs. Ankle hurts with quick turns or walking on uneven surfaces, but max pain is a 5/ 10, does not stay that bad for long. Squatting causes a 1/10 pain. Feels better with ice, but admits he has not been icing it much recently. Main HEP at this time is ankle circles/ankle alphabet. PT-OP-C Subjective Start: 08/30/24 15:36 Freq: Status: Active Protocol: Document 09/06/24 09:45 DCW (Rec: 09/06/24 10:28 DCW [id number]) OP-PT Subjective Patient Comments Patient Comments Pt notes his ankle is feeling pretty good. Started a silver [employer] class, has been to two, going pretty well. PT-OP-G Mobility & Gait Start: 08/30/24 15:36 Freq: Status: Active Protocol: Document 08/30/24 12:30 DCW (Rec: 08/30/24 16:00 DCW [id number]) OP Gait Assessment Comments Gait Comments Pt ambulates with a narrow, scissoring base of support, nearly into a long-strided tandem gait. Creates increase inversion force on ankles, R>L . Moderate path deviation. Good stride length PT-OP-J Posture/Palpation/Skin Start: 08/30/24 15:36 Freq: Status: Active Protocol: Document 08/30/24 12:30 DCW (Rec: 08/30/24 16:00 DCW [id number]) Skin Assessment Circumference Measurement Figure-8 Location R ankle Measurement (Centimeters) 58.7 Comments L ankle = 57.5 cm PT-OP-K Range of Motion Start: 08/30/24 15:36 Freq: Status: Active Protocol: Document 08/30/24 12:30 DCW (Rec: 08/30/24 16:00 DCW [id number]) Ankle and Foot Goniometric Range of Motion Ankle and Foot Right Active Ankle/Foot ROM WFL No Testing Position Sitting Dorsiflexion with Knee Flexed 18 Dorsiflexion with Knee Extended 14 Plantarflexion 40 Inversion 14 Eversion 8 Left Active Ankle/Foot ROM WFL Yes Testing Position Sitting Dorsiflexion with Knee Flexed 20 Dorsiflexion with Knee Extended 13 Plantarflexion 40 Inversion 28 Eversion 15 PT-OP-Q Treatments Start: 08/30/24 15:36 Freq: Status: Active Protocol: Document 09/06/24 09:45 DCW (Rec: 09/06/24 10:28 DCW [id number]) Gym Equipment Shuttle Recovery Bilateral Heel Raises Resistance 50# Therapeutic Exercises Other Exercises BAPS Other Exercise Name DF/PF, Inv/Ev, CW/CCW Resistance Lv 4 Manual Therapy Treatment Joint Mobilizations Ankle Joint R ankle, forefoot Direction DF/PF, A<->P, Inv/Ev Grade III Neuro Re-Education Treatment Balance Activities BOSU Lunge Details BOSU Lunge Surface Blue BOSU Equipment // bars Comments UE support Tilt board Details DF/PF, Lateral Foam Details DLS, SLS Surface AirEx PT-OP-T Assessment and Plan Start: 08/30/24 15:36 Freq: Status: Active Protocol: Document 09/06/24 09:45 DCW (Rec: 09/06/24 10:28 DCW [id number]) Physical Therapy Assessment Impairments Impairments Functional Activities, Functional Mobility,Gait,ROM, Strength Goals Three Impairment Pt ambulates with a narrow base of support and right leg scissoring Group Home Goal (LTG) Pt to ambulate with a base of support WNL in order to decrease force and pain along medial edge of ankle. LTG Duration 10/30/24 Two Impairment Pt has experienced multiple falls over the past four months Group Home Goal (LTG) Pt to improve right ankle ROM to 25? inversion and 15? eversion to improve mobility and help limit further falls LTG Duration 10/30/24 One Impairment Pt does not have an appropriate home exercise program Short Term Goal (STG) Pt to be independent and compliant with an appropriate HEP STG Duration 09/30/24 Assessment Summary Assessment Very good response to treatment today, pt able to fully participate in all activities, no increased ankle pain, pt noted feeling ankle felt loose and more mobile following session. Continue to work on ankle strengthening, stabilization, and joint mobs. Physical Therapy Plan Frequency and Duration Frequency of Treatment 2x/Week Plan of Care Start Date 08/30/24 Plan of Care End Date 10/30/24 Therapeutic Interventions Therapeutic Interventions Balance Training,Home Exercise Program,Joint Mobilizations, Manual Therapy,Neuromuscular Re-education,Patient/Caregiver Education,Self-Care/Home Management,Soft Tissue Mobilization,Therapeutic Activities,Therapeutic Exercises Modalities Cold Pack/Ice Massage,Hot Packs Next Visit Focus/Plan Next Note Type Treatment Note Next Visit Plan Ankle strengthening, gait, balance
--- NOTE | 2024-09-11 11:30 | PT.OTN ---
Current Diagnoses Parkinsonism, unspecified (09/11/24) Stiffness of right ankle, not elsewhere classified (09/11/24) Other fracture of right lower leg, subsequent encounter for closed fracture with routine healing (09/11/24) Physical Therapy Treatment Note PT-OP-A Visit Information Start: 08/30/24 15:36 Freq: Status: Active Protocol: Document 09/11/24 10:56 DCW (Rec: 09/11/24 11:30 DCW [id number]) Out-Patient Physical Therapy Visit Information Visit Information Visit Type Treatment Note Visit Note Late arrival Visit Start Time 10:56 Visit Stop Time 11:30 Visit Number 3 Number of MEDICAL SCIENTIFIC LIAISON Visits 0 Evaluation Information Evaluation Date 08/30/24 PT-OP-B Current Condition Start: 08/30/24 15:36 Freq: Status: Active Protocol: Document 08/30/24 12:30 DCW (Rec: 08/30/24 15:53 DCW [id number]) Current Condition History of Current Condition Onset Date 05/05/24 Current Complaints Ankle pain, stiffness History of Current Condition Pt is a 68 year old male with a history of Parkinson's presenting to skilled PT s/p right ankle fracture. Pt originally suffered a fall on 05/05/24, was found to have fractured his right ribs 4-9, as well as an ankle sprain. Was sent to [facility] for recovery, and during that time, continued to have ankle pain. On 05/31/24, presented once again to the [facility],and was found to actually have a medial ankle fracture. Had a follow-up with ortho, was given NWB status for 4 weeks, and then used a walking boot and crutches. Pt reports he has now been off crutches and no ankle brace for the past month. Occasionally uses walking sticks or 4WW during gait, more due to Parkinson's than ankle problems. Has suffered multiple other falls since April, he reports they were mainly due to his ankle, especially getting up from chairs. Ankle hurts with quick turns or walking on uneven surfaces, but max pain is a 5/ 10, does not stay that bad for long. Squatting causes a 1/10 pain. Feels better with ice, but admits he has not been icing it much recently. Main HEP at this time is ankle circles/ankle alphabet. PT-OP-C Subjective Start: 08/30/24 15:36 Freq: Status: Active Protocol: Document 09/11/24 10:56 DCW (Rec: 09/11/24 11:30 DCW [id number]) OP-PT Subjective Patient Comments Patient Comments Pt reports ankle is feeling a lot better. PT-OP-G Mobility & Gait Start: 08/30/24 15:36 Freq: Status: Active Protocol: Document 08/30/24 12:30 DCW (Rec: 08/30/24 16:00 DCW [id number]) OP Gait Assessment Comments Gait Comments Pt ambulates with a narrow, scissoring base of support, nearly into a long-strided tandem gait. Creates increase inversion force on ankles, R>L . Moderate path deviation. Good stride length PT-OP-J Posture/Palpation/Skin Start: 08/30/24 15:36 Freq: Status: Active Protocol: Document 08/30/24 12:30 DCW (Rec: 08/30/24 16:00 DCW [id number]) Skin Assessment Circumference Measurement Figure-8 Location R ankle Measurement (Centimeters) 58.7 Comments L ankle = 57.5 cm PT-OP-K Range of Motion Start: 08/30/24 15:36 Freq: Status: Active Protocol: Document 08/30/24 12:30 DCW (Rec: 08/30/24 16:00 DCW [id number]) Ankle and Foot Goniometric Range of Motion Ankle and Foot Right Active Ankle/Foot ROM WFL No Testing Position Sitting Dorsiflexion with Knee Flexed 18 Dorsiflexion with Knee Extended 14 Plantarflexion 40 Inversion 14 Eversion 8 Left Active Ankle/Foot ROM WFL Yes Testing Position Sitting Dorsiflexion with Knee Flexed 20 Dorsiflexion with Knee Extended 13 Plantarflexion 40 Inversion 28 Eversion 15 PT-OP-Q Treatments Start: 08/30/24 15:36 Freq: Status: Active Protocol: Document 09/11/24 10:56 DCW (Rec: 09/11/24 11:30 DCW [id number]) Gym Equipment Shuttle Recovery Bilateral Heel Raises Resistance 75# Therapeutic Exercises Sitting Exercises Ankle Flexion Sitting Exercise Name 4-way ankle flexion Side right Resistance Lv 3 T-band Reps/Minutes x20 Standing Exercises Heel Raises Standing Exercise Name Single leg eccentric lowering Other Exercises Step-ups Other Exercise Name Step-ups Side bilateral Equipment Used 6 step Manual Therapy Treatment Joint Mobilizations Ankle Joint R ankle, forefoot Direction DF/PF, A<->P, Inv/Ev Grade III Neuro Re-Education Treatment Balance Activities Tandem Details Tandem stance Comments EO/EC BOSU Lunge Details BOSU Lunge Surface Blue BOSU Equipment // bars Comments UE support Foam Details SLS Surface AirEx PT-OP-T Assessment and Plan Start: 08/30/24 15:36 Freq: Status: Active Protocol: Document 09/11/24 10:56 DCW (Rec: 09/11/24 11:30 DCW [id number]) Physical Therapy Assessment Assessment Summary Assessment Pt showing improvement already with skilled PT, feeling more confident and mobile during gait. Has been compliant so far with HEP. Continue to work on ankle strength and mobility. Physical Therapy Plan Frequency and Duration Frequency of Treatment 2x/Week Plan of Care Start Date 08/30/24 Plan of Care End Date 10/30/24 Therapeutic Interventions Therapeutic Interventions Balance Training,Home Exercise Program,Joint Mobilizations, Manual Therapy,Neuromuscular Re-education,Patient/Caregiver Education,Self-Care/Home Management,Soft Tissue Mobilization,Therapeutic Activities,Therapeutic Exercises Modalities Cold Pack/Ice Massage,Hot Packs Next Visit Focus/Plan Next Note Type Treatment Note Next Visit Plan Ankle strengthening, gait, balance
--- NOTE | 2024-09-14 16:33 | PT.OTN ---
Current Diagnoses Parkinsonism, unspecified (09/14/24) Stiffness of right ankle, not elsewhere classified (09/14/24) Other fracture of right lower leg, subsequent encounter for closed fracture with routine healing (09/14/24) Physical Therapy Treatment Note PT-OP-A Visit Information Start: 08/30/24 15:36 Freq: Status: Active Protocol: Document 09/14/24 10:47 SW (Rec: 09/14/24 11:30 SW [id number]) Out-Patient Physical Therapy Visit Information Visit Information Visit Type Treatment Note Visit Start Time 10:46 Visit Stop Time 11:24 Visit Number 4 Number of TRUCK BRACER Visits 1 PT-OP-B Current Condition Start: 08/30/24 15:36 Freq: Status: Active Protocol: Document 08/30/24 12:30 DCW (Rec: 08/30/24 15:53 DCW [id number]) Current Condition History of Current Condition Onset Date 05/05/24 Current Complaints Ankle pain, stiffness History of Current Condition Pt is a 68 year old male with a history of Parkinson's presenting to skilled PT s/p right ankle fracture. Pt originally suffered a fall on 05/05/24, was found to have fractured his right ribs 4-9, as well as an ankle sprain. Was sent to [facility] for recovery, and during that time, continued to have ankle pain. On 05/31/24, presented once again to the [facility],and was found to actually have a medial ankle fracture. Had a follow-up with ortho, was given NWB status for 4 weeks, and then used a walking boot and crutches. Pt reports he has now been off crutches and no ankle brace for the past month. Occasionally uses walking sticks or 4WW during gait, more due to Parkinson's than ankle problems. Has suffered multiple other falls since April, he reports they were mainly due to his ankle, especially getting up from chairs. Ankle hurts with quick turns or walking on uneven surfaces, but max pain is a 5/ 10, does not stay that bad for long. Squatting causes a 1/10 pain. Feels better with ice, but admits he has not been icing it much recently. Main HEP at this time is ankle circles/ankle alphabet. PT-OP-C Subjective Start: 08/30/24 15:36 Freq: Status: Active Protocol: Document 09/14/24 10:47 SW (Rec: 09/14/24 11:30 SW [id number]) OP-PT Subjective Patient Comments Patient Comments Pt reports no pain today, exercises are doing good. A little sore after last session , but not bad. Has not done HEP , but has been doing silver sneakers and [employer] water fitness. PT-OP-G Mobility & Gait Start: 08/30/24 15:36 Freq: Status: Active Protocol: Document 08/30/24 12:30 DCW (Rec: 08/30/24 16:00 DCW [id number]) OP Gait Assessment Comments Gait Comments Pt ambulates with a narrow, scissoring base of support, nearly into a long-strided tandem gait. Creates increase inversion force on ankles, R>L . Moderate path deviation. Good stride length PT-OP-J Posture/Palpation/Skin Start: 08/30/24 15:36 Freq: Status: Active Protocol: Document 08/30/24 12:30 DCW (Rec: 08/30/24 16:00 DCW [id number]) Skin Assessment Circumference Measurement Figure-8 Location R ankle Measurement (Centimeters) 58.7 Comments L ankle = 57.5 cm PT-OP-K Range of Motion Start: 08/30/24 15:36 Freq: Status: Active Protocol: Document 08/30/24 12:30 DCW (Rec: 08/30/24 16:00 DCW [id number]) Ankle and Foot Goniometric Range of Motion Ankle and Foot Right Active Ankle/Foot ROM WFL No Testing Position Sitting Dorsiflexion with Knee Flexed 18 Dorsiflexion with Knee Extended 14 Plantarflexion 40 Inversion 14 Eversion 8 Left Active Ankle/Foot ROM WFL Yes Testing Position Sitting Dorsiflexion with Knee Flexed 20 Dorsiflexion with Knee Extended 13 Plantarflexion 40 Inversion 28 Eversion 15 PT-OP-Q Treatments Start: 08/30/24 15:36 Freq: Status: Active Protocol: Document 09/14/24 10:47 SW (Rec: 09/14/24 11:30 SW [id number]) Therapeutic Exercises Sitting Exercises Ankle Alphbelt Sitting Exercise Name warm up Ankle Flexion Sitting Exercise Name 4-way ankle strengthening Side right Resistance Lv 3 T-band Reps/Minutes x10 ea 2 Comments cues for hip compensation Standing Exercises Heel Raises Standing Exercise Name bilateral raise, single leg eccentric lowering Side bilateral Resistance AROM Equipment Used 6 step Other Exercises Step-ups Other Exercise Name Step-ups Side bilateral Equipment Used 6 step Neuro Re-Education Treatment Balance Activities Hurdles Details fwd/lateral, w/foam stepping pads Surface stable>unstable Tandem Details Tandem stance> Tandem walking Comments EO/EC BOSU Lunge Details BOSU Lunge Surface Blue BOSU Equipment // bars Comments UE support Foam Details SLS Surface AirEx PT-OP-T Assessment and Plan Start: 08/30/24 15:36 Freq: Status: Active Protocol: Document 09/14/24 10:47 SW (Rec: 09/14/24 11:30 SW [id number]) Physical Therapy Assessment Goals Three Impairment Pt ambulates with a narrow base of support and right leg scissoring Shelter Goal (LTG) Pt to ambulate with a base of support WNL in order to decrease force and pain along medial edge of ankle. LTG Duration 10/30/24 Two Impairment Pt has experienced multiple falls over the past four months Shelter Goal (LTG) Pt to improve right ankle ROM to 25? inversion and 15? eversion to improve mobility and help limit further falls LTG Duration 10/30/24 One Impairment Pt does not have an appropriate home exercise program Short Term Goal (STG) Pt to be independent and compliant with an appropriate HEP STG Duration 09/30/24 Assessment Summary Assessment Progressed balance this session to dynamic on uneven surfaces, cues for slow control, ankle strategy engaged, CGA to guard ankle. Overall pt tolerated session well with minimal pain reproduction with eccentric single leg strengthening. Pt tolerated increased balance challenges well with no pain reproduction, only feeling fatigue in right foot with increased proprioception work today. Plan to followup on pt tolerance next session and progress as able. Physical Therapy Plan Frequency and Duration Frequency of Treatment 2x/Week Plan of Care Start Date 08/30/24 Plan of Care End Date 10/30/24 Therapeutic Interventions Therapeutic Interventions Balance Training,Home Exercise Program,Joint Mobilizations, Manual Therapy,Neuromuscular Re-education,Patient/Caregiver Education,Self-Care/Home Management,Soft Tissue Mobilization,Therapeutic Activities,Therapeutic Exercises Modalities Cold Pack/Ice Massage,Hot Packs Next Visit Focus/Plan Next Note Type Treatment Note Next Visit Plan Ankle strengthening, gait, balance
--- NOTE | 2024-10-02 11:30 | PT.OTN ---
Current Diagnoses Parkinsonism, unspecified (10/02/24) Stiffness of right ankle, not elsewhere classified (10/02/24) Other fracture of right lower leg, subsequent encounter for closed fracture with routine healing (10/02/24) Physical Therapy Treatment Note PT-OP-A Visit Information Start: 08/30/24 15:36 Freq: Status: Active Protocol: Document 10/02/24 10:48 SP (Rec: 10/02/24 11:52 SP [id number]) Out-Patient Physical Therapy Visit Information Visit Information Visit Type Treatment Note Visit Start Time 10:48 Visit Stop Time 11:30 Visit Number 5 Number of COUNTY ATTORNEY Visits 2 Evaluation Information Evaluation Date 08/30/24 PT-OP-B Current Condition Start: 08/30/24 15:36 Freq: Status: Active Protocol: Document 08/30/24 12:30 DCW (Rec: 08/30/24 15:53 DCW [id number]) Current Condition History of Current Condition Onset Date 05/05/24 Current Complaints Ankle pain, stiffness History of Current Condition Pt is a 68 year old male with a history of Parkinson's presenting to skilled PT s/p right ankle fracture. Pt originally suffered a fall on 05/05/24, was found to have fractured his right ribs 4-9, as well as an ankle sprain. Was sent to [facility] for recovery, and during that time, continued to have ankle pain. On 05/31/24, presented once again to the [facility],and was found to actually have a medial ankle fracture. Had a follow-up with ortho, was given NWB status for 4 weeks, and then used a walking boot and crutches. Pt reports he has now been off crutches and no ankle brace for the past month. Occasionally uses walking sticks or 4WW during gait, more due to Parkinson's than ankle problems. Has suffered multiple other falls since April, he reports they were mainly due to his ankle, especially getting up from chairs. Ankle hurts with quick turns or walking on uneven surfaces, but max pain is a 5/ 10, does not stay that bad for long. Squatting causes a 1/10 pain. Feels better with ice, but admits he has not been icing it much recently. Main HEP at this time is ankle circles/ankle alphabet. PT-OP-C Subjective Start: 08/30/24 15:36 Freq: Status: Active Protocol: Document 10/02/24 10:48 SP (Rec: 10/02/24 11:52 SP [id number]) OP-PT Subjective Patient Comments Patient Comments Pt reports compliant with ankle exercises at home with band. PT-OP-G Mobility & Gait Start: 08/30/24 15:36 Freq: Status: Active Protocol: Document 08/30/24 12:30 DCW (Rec: 08/30/24 16:00 DCW [id number]) OP Gait Assessment Comments Gait Comments Pt ambulates with a narrow, scissoring base of support, nearly into a long-strided tandem gait. Creates increase inversion force on ankles, R>L . Moderate path deviation. Good stride length PT-OP-J Posture/Palpation/Skin Start: 08/30/24 15:36 Freq: Status: Active Protocol: Document 08/30/24 12:30 DCW (Rec: 08/30/24 16:00 DCW [id number]) Skin Assessment Circumference Measurement Figure-8 Location R ankle Measurement (Centimeters) 58.7 Comments L ankle = 57.5 cm PT-OP-K Range of Motion Start: 08/30/24 15:36 Freq: Status: Active Protocol: Document 08/30/24 12:30 DCW (Rec: 08/30/24 16:00 DCW [id number]) Ankle and Foot Goniometric Range of Motion Ankle and Foot Right Active Ankle/Foot ROM WFL No Testing Position Sitting Dorsiflexion with Knee Flexed 18 Dorsiflexion with Knee Extended 14 Plantarflexion 40 Inversion 14 Eversion 8 Left Active Ankle/Foot ROM WFL Yes Testing Position Sitting Dorsiflexion with Knee Flexed 20 Dorsiflexion with Knee Extended 13 Plantarflexion 40 Inversion 28 Eversion 15 PT-OP-Q Treatments Start: 08/30/24 15:36 Freq: Status: Active Protocol: Document 10/02/24 10:48 SP (Rec: 10/02/24 11:52 SP [id number]) Gym Equipment Shuttle Recovery Bilateral Heel Raises Resistance 50# 10 reps, 75# 15 reps Shuttle Recovery Platform Stable Shuttle Balance Red Details WBOS 4s, Stagger stance Comments wt shift- CG-5%A Stationary head turns-CG-25%A Therapeutic Exercises Standing Exercises Heel Raises Standing Exercise Name bilateral raise, single leg eccentric lowering Side bilateral Resistance AROM Equipment Used foam Reps/Minutes 2x5 reps RLE heavy BUE on // bar, 2x10 LLE light UE on // bar Comments BLE 2x10 no UE support Other Exercises Step-ups Other Exercise Name Step-ups Side bilateral Resistance //bars Equipment Used 6 step x5 reps each, added foam x10 each side Comments CG- 5%A for balance recovery Neuro Re-Education Treatment Balance Activities SLS Comments LLE 60 sec RLE 8 sec, 36 sec Hurdles Details fwd/lateral, w/foam stepping stones Surface unstable Equipment inside //bars Reps/Duration 3 laps each direction Comments cues for slower pacing, softer stepping BOSU Lunge Details BOSU Lunge: fwd & lateral Surface Blue BOSU Equipment // bars nearby not needed Reps/Duration 10 rep each/each side Comments no UE support needed today 10/02 PT-OP-T Assessment and Plan Start: 08/30/24 15:36 Freq: Status: Active Protocol: Document 10/02/24 10:48 SP (Rec: 10/02/24 11:52 SP [id number]) Physical Therapy Assessment Goals Three Impairment Pt ambulates with a narrow base of support and right leg scissoring Reserves Clerk Goal (LTG) Pt to ambulate with a base of support WNL in order to decrease force and pain along medial edge of ankle. LTG Duration 10/30/24 Two Impairment Pt has experienced multiple falls over the past four months Senior Living Goal (LTG) Pt to improve right ankle ROM to 25? inversion and 15? eversion to improve mobility and help limit further falls LTG Duration 10/30/24 One Impairment Pt does not have an appropriate home exercise program Short Term Goal (STG) Pt to be independent and compliant with an appropriate HEP STG Duration 09/30/24 Assessment Summary Assessment Tx continued progression with stationary ankle heel raise strengthening, stepping uneven surfaces and ankle strategy stepping for carryover community stability improvements. Pt required CG- 20% A during advanced uneven surface shuttle balance and CG -5%A as needed elevated uneven step ups, was able to decrease UE support, cues for COG over AYO /c posture and core fac facilitation support midline stability. He is improving SLS time. Physical Therapy Plan Frequency and Duration Frequency of Treatment 2x/Week Plan of Care Start Date 08/30/24 Plan of Care End Date 10/30/24 Therapeutic Interventions Therapeutic Interventions Balance Training,Home Exercise Program,Joint Mobilizations, Manual Therapy,Neuromuscular Re-education,Patient/Caregiver Education,Self-Care/Home Management,Soft Tissue Mobilization,Therapeutic Activities,Therapeutic Exercises Modalities Cold Pack/Ice Massage,Hot Packs Next Visit Focus/Plan Next Note Type Treatment Note Next Visit Plan Ask response to progressed uneven surface stepping. Trial uneven incline/decline. POC: Ankle strengthening, gait , balance
--- NOTE | 2024-10-10 11:58 | PT.OTN ---
Current Diagnoses Parkinsonism, unspecified (10/10/24) Stiffness of right ankle, not elsewhere classified (10/10/24) Other fracture of right lower leg, subsequent encounter for closed fracture with routine healing (10/10/24) Physical Therapy Treatment Note PT-OP-A Visit Information Start: 08/30/24 15:36 Freq: Status: Active Protocol: Document 10/10/24 11:30 DCW (Rec: 10/10/24 11:57 DCW [id number]) Out-Patient Physical Therapy Visit Information Visit Information Visit Type Discharge Summary Visit Start Time 11:30 Visit Stop Time 11:55 Visit Number 6 Number of RETURNS SUPERVISOR Visits 0 Evaluation Information Evaluation Date 08/30/24 PT-OP-B Current Condition Start: 08/30/24 15:36 Freq: Status: Active Protocol: Document 08/30/24 12:30 DCW (Rec: 08/30/24 15:53 DCW [id number]) Current Condition History of Current Condition Onset Date 05/05/24 Current Complaints Ankle pain, stiffness History of Current Condition Pt is a 68 year old male with a history of Parkinson's presenting to skilled PT s/p right ankle fracture. Pt originally suffered a fall on 05/05/24, was found to have fractured his right ribs 4-9, as well as an ankle sprain. Was sent to [facility] for recovery, and during that time, continued to have ankle pain. On 05/31/24, presented once again to the [facility],and was found to actually have a medial ankle fracture. Had a follow-up with ortho, was given NWB status for 4 weeks, and then used a walking boot and crutches. Pt reports he has now been off crutches and no ankle brace for the past month. Occasionally uses walking sticks or 4WW during gait, more due to Parkinson's than ankle problems. Has suffered multiple other falls since April, he reports they were mainly due to his ankle, especially getting up from chairs. Ankle hurts with quick turns or walking on uneven surfaces, but max pain is a 5/ 10, does not stay that bad for long. Squatting causes a 1/10 pain. Feels better with ice, but admits he has not been icing it much recently. Main HEP at this time is ankle circles/ankle alphabet. PT-OP-C Subjective Start: 08/30/24 15:36 Freq: Status: Active Protocol: Document 10/10/24 11:30 DCW (Rec: 10/10/24 11:57 DCW [id number]) OP-PT Subjective Patient Comments Patient Comments Pt reports his ankle is doing much better, admits bone spurs in his elbow are currently a much bigger concern. PT-OP-G Mobility & Gait Start: 08/30/24 15:36 Freq: Status: Active Protocol: Document 08/30/24 12:30 DCW (Rec: 08/30/24 16:00 DCW [id number]) OP Gait Assessment Comments Gait Comments Pt ambulates with a narrow, scissoring base of support, nearly into a long-strided tandem gait. Creates increase inversion force on ankles, R>L . Moderate path deviation. Good stride length PT-OP-J Posture/Palpation/Skin Start: 08/30/24 15:36 Freq: Status: Active Protocol: Document 08/30/24 12:30 DCW (Rec: 08/30/24 16:00 DCW [id number]) Skin Assessment Circumference Measurement Figure-8 Location R ankle Measurement (Centimeters) 58.7 Comments L ankle = 57.5 cm PT-OP-K Range of Motion Start: 08/30/24 15:36 Freq: Status: Active Protocol: Document 10/10/24 11:30 DCW (Rec: 10/10/24 11:58 DCW [id number]) Ankle and Foot Goniometric Range of Motion Ankle and Foot Right Active Ankle/Foot ROM WFL Yes Testing Position Sitting Dorsiflexion with Knee Flexed 22 Dorsiflexion with Knee Extended 20 Plantarflexion 45 Inversion 30 Eversion 15 PT-OP-Q Treatments Start: 08/30/24 15:36 Freq: Status: Active Protocol: Document 10/10/24 11:30 DCW (Rec: 10/10/24 11:57 DCW [id number]) Manual Therapy Treatment Consent Patient gave verbal consent for manual Yes treatment Joint Mobilizations Ankle Joint R ankle, forefoot Direction DF/PF, A<->P, Inv/Ev Grade III Neuro Re-Education Treatment Balance Activities SLS Comments RLE = 60 seconds PT-OP-T Assessment and Plan Start: 08/30/24 15:36 Freq: Status: Active Protocol: Document 10/10/24 11:30 DCW (Rec: 10/10/24 11:57 DCW [id number]) Physical Therapy Assessment Impairments Impairments Functional Activities, Functional Mobility,Gait,ROM, Strength Goals Three Impairment Pt ambulates with a narrow base of support and right leg scissoring [facility] Goal (LTG) Pt to ambulate with a base of support WNL in order to decrease force and pain along medial edge of ankle. LTG Duration 10/30/24 Two Impairment Pt has experienced multiple falls over the past four months Farm Machine Operator Goal (LTG) Pt to improve right ankle ROM to 25? inversion and 15? eversion to improve mobility and help limit further falls LTG Duration Met One Impairment Pt does not have an appropriate home exercise program Short Term Goal (STG) Pt to be independent and compliant with an appropriate HEP STG Duration Met Assessment Summary Assessment Pt reports no ongoing concerns , no ankle pain, feels he has returned to prior level of function. Pt agreeable to discharge from skilled therapy at this time. Physical Therapy Plan Frequency and Duration Frequency of Treatment 2x/Week Plan of Care Start Date 08/30/24 Plan of Care End Date 10/30/24 Therapeutic Interventions Therapeutic Interventions Balance Training,Home Exercise Program,Joint Mobilizations, Manual Therapy,Neuromuscular Re-education,Patient/Caregiver Education,Self-Care/Home Management,Soft Tissue Mobilization,Therapeutic Activities,Therapeutic Exercises Modalities Cold Pack/Ice Massage,Hot Packs Discharge Physical Therapy Discharge Reasons Goals Met Next Visit Focus/Plan Next Note Type Discharge Summary
== END 2024-12-20 08:07 | disposition home or self-care (01) ==
LOC: PHYS 11:30
PROVIDERS: Family Provider Physician Assistant; PCP Physician Assistant; Referring Provider Family Medicine; Visit Provider Family Medicine
DX: S82.891D Other fracture of right lower leg, subsequent encounter for closed fracture with routine healing (principal); M25.671 Stiffness of right ankle, not elsewhere classified; G20.C Parkinsonism, unspecified
CPT/HCPCS: 97110; 97112; 97140; 97161

== ENCOUNTER → 2025-01-10 14:38 | Outpatient (CLI) | payer MEDICARE, SELFPAY ==
[2024-05-05 01:27] VITALS: BMI 37.0
--- NOTE | 2025-01-10 14:40 | DI.RAD.S_ITS ---
PROCEDURE: XR HAND LT MIN 3V INDICATIONS: Left hand pain TECHNIQUE: 3 views of the hand(s) acquired. COMPARISON: None. FINDINGS: Bones: Oblique fracture through the base of the 5th metacarpal. Mild medial displacement of the distal fracture fragment. Soft tissues: No suspicious soft tissue calcifications. IMPRESSION: Oblique minimally displaced fracture through the base of the 5th metacarpal Approved by: Cooper Cummins M.D. on 01/10/2025 at 17:20
== END ==
LOC: RAD 14:39
PROVIDERS: Family Provider Physician Assistant; PCP Physician Assistant; Referring Provider Registered Nurse; Visit Provider Registered Nurse
DX: S62.347A Nondisplaced fracture of base of fifth metacarpal bone, left hand, initial encounter for closed fracture (principal); M79.642 Pain in left hand
CPT/HCPCS: 73130

== ENCOUNTER 2025-03-07 14:30 | Outpatient (RCR) | payer MEDICARE, SELFPAY ==
[2024-05-05 01:27] VITALS: BMI 37.0
--- NOTE | 2024-12-11 09:41 | PT.OIE ---
Current Diagnoses Parkinson's disease without dyskinesia, with fluctuations (12/11/24) Past Medical History (Last Reviewed 06/23/24 @ 08:08 by Kennedi Broussard MD) Acute viral sinusitis Hyperlipidemia Parkinsons disease Visit Care Team Role Provider Type Phuc Beckett PA-C Family Provider Non-Staff Primary Care Provider Specialty: Medical Address: [address], [place], [address] Email: Tyra Patterson DO Attending Provider Non-Staff Referring Provider Specialty: Psychiatry Address: [address] [place], [address] Email: Physical Therapy Initial Evaluation PT-OP-A Visit Information Start: 11/28/24 13:39 Freq: Status: Active Protocol: Document 12/11/24 07:21 MB (Rec: 12/11/24 08:08 [id number]) Out-Patient Physical Therapy Visit Information Visit Information Visit Type Initial Evaluation Visit Note [employer] Progress note by 01/11/25 Visit Start Time 07:21 Visit Stop Time 08:11 Visit Number 1 Number of PACKAGE LIFT OPERATOR Visits 0 Evaluation Information Evaluation Date 12/11/24 PT-OP-B Current Condition Start: 11/28/24 13:39 Freq: Status: Active Protocol: Document 12/11/24 07:21 MB (Rec: 12/11/24 08:08 [id number]) Current Condition History of Current Condition Onset Date 2018 Current Complaints Left elbow does not allow him to push up History of Current Condition Pt experienced right arm tremor in 2018 and decreased right arm swing 2019. Pt now has B UE and LE tremors and jaw tremor. Pt reports he needs a cognitive review before he gets a DBS. PMH includes congenital hearing loss, HTN, left cervical radiculopathy s/p cervical spine fusion, fall and ankle fx right summer of 2023, light-headedness, left elbow spur in cubital tunnel and pt had surgery and wears brace, LOWER BRULE, vision changes and glasses, obesity. Pt thinks he is here for his left elbow and PT ed pt that PT has order for PD and progress to BIG when an opening occurs. Pt lives with his , Michelle . His most recent fall was 1.5 months ago and he hit the sink counter. Pt has a rollator and straight cane. He does like to use them. He does not arrive with ADs. Pt passed his driving test and is still driving. Pt likes to go to the pool and do the [place] land exercises twice a week and water 1-2 times a week. He likes to go to [employer] and support his [employer] shop once a week. Prior Treatments and Tests MRI brain 08/07/20: Mild white matter abnormality, likely microvascular disease Treatment Goals Patient/Caregiver Goals Pt's goal is to get where he was a year ago: walking I without AD and no falls. PT-OP-C Subjective Start: 11/28/24 13:39 Freq: Status: Active Protocol: Document 12/11/24 07:21 MB (Rec: 12/11/24 08:08 MB [id number]) OP-PT Subjective Patient Comments Patient Comments See history of current condition. PT-OP-G Mobility & Gait Start: 11/28/24 13:39 Freq: Status: Active Protocol: Document 12/11/24 07:21 MB (Rec: 12/11/24 08:08 MB [id number]) OP Gait Assessment Comments Gait Comments Gait without AD: gait is unsteady and he tends to cross right leg over the left in a sweeping motion, functional leg length difference and increased Ivon angle LLE, B Trendelenburg with gait. Pt with all over vermis-type dyskinesia with movement. PT-OP-H Neuro Start: 11/28/24 13:39 Freq: Status: Active Protocol: Document 12/11/24 07:21 MB (Rec: 12/11/24 08:08 [id number]) Coordination Evaluation Upper Extremity Tests Left Finger to Nose Test Moderate Impairment Pronation/Supination Test Minimal Impairment Right Finger to Nose Test Minimal Impairment Pronation/Supination Test Minimal Impairment Lower Extremity Tests Left Alternate Heel to Knee; Heel to Toe Test Moderate Impairment Foot Tapping Test Minimal Impairment Right Alternate Heel to Knee; Heel to Toe Test Minimal Impairment Foot Tapping Test Minimal Impairment Vital Signs Comments Vital Signs Comments Orthostatic assessment in RUE: supine 124/74, 66; standing 116/66, 75; standing 1' 116/68 , 71. PT-OP-K Range of Motion Start: 11/28/24 13:39 Freq: Status: Active Protocol: Document 12/11/24 07:21 MB (Rec: 12/11/24 08:08 MB [id number]) Shoulder Goniometric Range of Motion Shoulder Left Shoulder ROM WFL Yes Testing Position Sitting Right Shoulder ROM WFL No Testing Position Sitting Comments Right shoulder flexion and abduction is about 15 deg less than the left, pt is right- handed. Pt states he does not feel limited in the right. Elbow/Forearm Range of Motion Elbow/Forearm Left Elbow/Forearm ROM WFL No ROM Testing Position Sitting Comments Brace donned and PT is not addressing this and so deferred formal testing Right Elbow/Forearm ROM WFL Yes ROM Testing Position Sitting Ankle and Foot Goniometric Range of Motion Ankle and Foot Left Ankle/Foot ROM WFL Yes Testing Position Sitting Right Ankle/Foot ROM WFL No Testing Position Sitting Comments Mildly reduced right ankle ROM grossly assessed today for function PT-OP-M Strength Start: 11/28/24 13:39 Freq: Status: Active Protocol: Document 12/11/24 07:21 MB (Rec: 12/11/24 08:08 MB [id number]) Shoulder Strength Shoulder Manual Muscle Testing Left Flexion 4+ Good+ Abduction (C5) 4+ Good+ Right Flexion 5 Normal Abduction (C5) 5 Normal Elbow/Forearm Strength Elbow and Forearm Manual Muscle Testing Left Flexion (C6) 4+ Good+ Extension (C7) 4+ Good+ Right Flexion (C6) 5 Normal Extension (C7) 5 Normal Hip Strength Hip Manual Muscle Testing Left Flexion (L2) 5 Normal Right Flexion (L2) 5 Normal Knee Strength Knee Manual Muscle Testing Left Flexion (S2) 5 Normal Extension (L3) 5 Normal Right Flexion (S2) 5 Normal Extension (L3) 5 Normal Ankle/Foot Strength Ankle and Foot Manual Muscle Testing Left Dorsiflexion (L4) 4+ Good+ Right Dorsiflexion (L4) 4+ Good+ Toe Strength Toe Manual Muscle Testing Left Great Toe Extension 5 Normal Right Great Toe Extension 4+ Good+ PT-OP-Q Treatments Start: 11/28/24 13:39 Freq: Status: Active Protocol: Document 12/11/24 07:21 MB (Rec: 12/11/24 08:08 MB [id number]) Therapeutic Exercises Sitting Exercises 30 sec STS Comments 18 reps in 30 sec from ANALISA peña (good exercise for pt) Neuro Re-Education Treatment Balance Activities TUG Comments 11 sec Self-Care/Home Management Treatment Education Other Education Extensive education today to patient about his referral with PT that includes PD and LSVT BIG, that schedule does not currently allow for 1 hour BIG slot and that will start 2x/wk and then increase to 4x/ wk in the 1 hour BIG slots when they are available in December. Pt has some cognitive challenges and so reviewed several times today. Ed pt in what the BIG program entails and pt will likely need ongoing reminders about these as they come up. Ed pt that he can get another order from a referring provider for another therapist to work on his elbow if he would like to pursue this. PT-OP-T Assessment and Plan Start: 11/28/24 13:39 Freq: Status: Active Protocol: Document 12/11/24 07:21 LACIE (Rec: 12/11/24 08:08 LACIE [id number]) Physical Therapy Assessment Rehab Potential Rehabilitation Potential Fair Evaluation Complexity Number of Personal Factors/Comorbidities 1-2 Number of Body Systems Impaired 3 Clinical Presentation at Evaluation Evolving Impairments Impairments Activity Tolerance,Balance, Coordination,Functional Activities,Functional Mobility ,Gait,Pain,Posture,ROM,Soft Tissue Mobility,Strength, Transfers Goals 4 Impairment Evidence of imbalance Blueprint Reader Goal (LTG) Pt will perform WNLs on a standardized balance test to decrease fall risk. LTG Duration 8 weeks 3 Impairment Lack of amplitude and balance specific HEP Blueprint Reader Goal (LTG) Pt will perform progressive HEP including LSVT BIG exercises with I to improve balance and amplitude of movement. LTG Duration 8 weeks 2 Impairment Decreased gait speed and balance Blueprint Reader Goal (LTG) Pt will gait train at least 1716 feet in 6 minutes without LRAD to improve community ambulation. LTG Duration 8 weeks 1 Impairment TUG in 11 sec Blueprint Reader Goal (LTG) Pt will perform TUG in no more than 10 sec to decrease fall risk. LTG Duration 8 weeks Assessment Summary Assessment Pt is a 69 y/o male presenting to PT with thoughts that PT is assessing his left elbow. PT ed pt that he is starting with this PT for PD referral with the plan to progress to LSVT BIG when the schedule opens up next month. Will start 2x/wk in 40 minute sessions and change to 4x/wk in 60 minute sessions when the schedule allows. Pt presents with balance, gait, coordination, cognitive and speech challenges today. He wears an elbow brace on the left. He is not orthostatic on assessment date. He will benefit from PT to improve balance, gait and functional I . Physical Therapy Plan Frequency and Duration Frequency of Treatment 2x-4x/wk Duration of treatment (weeks) 8 Plan of Care Start Date 12/11/24 Plan of Care End Date 02/08/25 Therapeutic Interventions Therapeutic Interventions Balance Training,Canalithic Repositioning,Coordination Training,Gait Training,Home Exercise Program,Joint Mobilizations,Manual Therapy, Neuromuscular Re-education, Patient/Caregiver Education, Self-Care/Home Management,Soft Tissue Mobilization,Taping, Therapeutic Activities, Therapeutic Exercises Modalities Cold Pack/Ice Massage,Electric Stimulation,Hot Packs, Ultrasound Next Visit Focus/Plan Next Note Type Treatment Note Next Visit Plan 6MWT and initiate exercises such as BIG STS, other balance testing as appropriate. Neurologist would like Lui Start BIG exercises Check orthostatics and remind about POC as often as needed ( this therapy course for PD and transition to BIG, not seeing for elbow with this therapist /therapy course) Try LRAD as appropriate
--- NOTE | 2024-12-11 09:41 | PT.OPPOC ---
Physical, Occupational & Speech Therapy At [facility] Current Diagnoses Parkinson's disease without dyskinesia, with fluctuations (12/11/24) Visit Care Team Role Provider Type Phuc Beckett PA-C Family Provider Non-Staff Primary Care Provider Specialty: Medical Address: [address] , [place], [address] Email: Tyra Patterson DO Attending Provider Non-Staff Referring Provider Specialty: Psychiatry Address: [address] [place], [address] Email: Plan Of Care PT-OP-B Current Condition Start: 11/28/24 13:39 Freq: Status: Active Protocol: Document 12/11/24 07:21 MB (Rec: 12/11/24 08:08 MB [id number]) Current Condition History of Current Condition Onset Date 2018 Current Complaints Left elbow does not allow him to push up History of Current Condition Pt experienced right arm tremor in 2018 and decreased right arm swing 2019. Pt now has B UE and LE tremors and jaw tremor. Pt reports he needs a cognitive review before he gets a DBS. PMH includes congenital hearing loss, HTN, left cervical radiculopathy s/p cervical spine fusion, fall and ankle fx right summer of 2023, light-headedness, left elbow spur in cubital tunnel and pt had surgery and wears brace, BARROW, vision changes and glasses, obesity. Pt thinks he is here for his left elbow and PT ed pt that PT has order for PD and progress to BIG when an opening occurs. Pt lives with his , Michelle . His most recent fall was 1.5 months ago and he hit the sink counter. Pt has a rollator and straight cane. He does like to use them. He does not arrive with ADs. Pt passed his driving test and is still driving. Pt likes to go to the pool and do the [employer] land exercises twice a week and water 1-2 times a week. He likes to go to [employer] and support his [employer] shop once a week. Prior Treatments and Tests MRI brain 08/07/20: Mild white matter abnormality, likely microvascular disease Treatment Goals Patient/Caregiver Goals Pt's goal is to get where he was a year ago: walking I without AD and no falls. PT-OP-T Assessment and Plan Start: 11/28/24 13:39 Freq: Status: Active Protocol: Document 12/11/24 07:21 MB (Rec: 12/11/24 08:08 MB [id number]) Physical Therapy Assessment Rehab Potential Rehabilitation Potential Fair Evaluation Complexity Number of Personal Factors/Comorbidities 1-2 Number of Body Systems Impaired 3 Clinical Presentation at Evaluation Evolving Impairments Impairments Activity Tolerance,Balance, Coordination,Functional Activities,Functional Mobility ,Gait,Pain,Posture,ROM,Soft Tissue Mobility,Strength, Transfers Goals 4 Impairment Evidence of imbalance Trial Court Justice Goal (LTG) Pt will perform WNLs on a standardized balance test to decrease fall risk. LTG Duration 8 weeks 3 Impairment Lack of amplitude and balance specific HEP Trial Court Justice Goal (LTG) Pt will perform progressive HEP including LSVT BIG exercises with I to improve balance and amplitude of movement. LTG Duration 8 weeks 2 Impairment Decreased gait speed and balance [facility] Goal (LTG) Pt will gait train at least 1716 feet in 6 minutes without LRAD to improve community ambulation. LTG Duration 8 weeks 1 Impairment TUG in [address] Goal (LTG) Pt will perform TUG in no more than 10 sec to decrease fall risk. LTG Duration 8 weeks Assessment Summary Assessment Pt is a 69 y/o male presenting to PT with thoughts that PT is assessing his left elbow. PT ed pt that he is starting with this PT for PD referral with the plan to progress to LSVT BIG when the schedule opens up next month. Will start 2x/wk in 40 minute sessions and change to 4x/wk in 60 minute sessions when the schedule allows. Pt presents with balance, gait, coordination, cognitive and speech challenges today. He wears an elbow brace on the left. He is not orthostatic on assessment date. He will benefit from PT to improve balance, gait and functional I . Physical Therapy Plan Frequency and Duration Frequency of Treatment 2x-4x/wk Duration of treatment (weeks) 8 Plan of Care Start Date 12/11/24 Plan of Care End Date 02/08/25 Therapeutic Interventions Therapeutic Interventions Balance Training,Canalithic Repositioning,Coordination Training,Gait Training,Home Exercise Program,Joint Mobilizations,Manual Therapy, Neuromuscular Re-education, Patient/Caregiver Education, Self-Care/Home Management,Soft Tissue Mobilization,Taping, Therapeutic Activities, Therapeutic Exercises Modalities Cold Pack/Ice Massage,Electric Stimulation,Hot Packs, Ultrasound Next Visit Focus/Plan Next Note Type Treatment Note Next Visit Plan 6MWT and initiate exercises such as BIG STS, other balance testing as appropriate. Neurologist would like Lui Start BIG exercises Check orthostatics and remind about POC as often as needed ( this therapy course for PD and transition to BIG, not seeing for elbow with this therapist /therapy course) Try LRAD as appropriate Plan of Care Dates Plan of Care Start Date 12/11/24 Plan of Care End Date 02/08/25 Electronically Signed by: Christi Dyer, PT 12/11/24 0941 If you are in agreement with this Plan of Care, please return a signed and dated copy. I have reviewed this Plan of Care and certify that the skilled therapy services above are required to meet the patient?s needs. Physician Signature Date Printed Name and Credentials Clinical Instructor Signature Printed Name and Credentials
--- NOTE | 2024-12-20 08:14 | PT.OTN ---
Current Diagnoses Parkinson's disease without dyskinesia, with fluctuations (12/20/24) Physical Therapy Treatment Note PT-OP-A Visit Information Start: 11/28/24 13:39 Freq: Status: Active Protocol: Document 12/20/24 07:30 SP (Rec: 12/20/24 08:17 SP [id number]) Out-Patient Physical Therapy Visit Information Visit Information Visit Type Initial Evaluation Visit Note [employer] Progress note by 01/11/25 Visit Start Time 07:30 Visit Stop Time 08:14 Visit Number 2 Number of JAVA SOFTWARE ARCHITECT Visits 1 Evaluation Information Evaluation Date 12/11/24 PT-OP-B Current Condition Start: 11/28/24 13:39 Freq: Status: Active Protocol: Document 12/11/24 07:21 MB (Rec: 12/11/24 08:08 MB [id number]) Current Condition History of Current Condition Onset Date 2018 Current Complaints Left elbow does not allow him to push up History of Current Condition Pt experienced right arm tremor in 2018 and decreased right arm swing 2019. Pt now has B UE and LE tremors and jaw tremor. Pt reports he needs a cognitive review before he gets a DBS. PMH includes congenital hearing loss, HTN, left cervical radiculopathy s/p cervical spine fusion, fall and ankle fx right summer of 2023, light-headedness, left elbow spur in cubital tunnel and pt had surgery and wears brace, HO-CHUNK, vision changes and glasses, obesity. Pt thinks he is here for his left elbow and PT ed pt that PT has order for PD and progress to BIG when an opening occurs. Pt lives with his , Michelle . His most recent fall was 1.5 months ago and he hit the sink counter. Pt has a rollator and straight cane. He does like to use them. He does not arrive with ADs. Pt passed his driving test and is still driving. Pt likes to go to the pool and do the [email or web address] land exercises twice a week and water 1-2 times a week. He likes to go to [employer] and support his [employer] shop once a week. Prior Treatments and Tests MRI brain 08/07/20: Mild white matter abnormality, likely microvascular disease Treatment Goals Patient/Caregiver Goals Pt's goal is to get where he was a year ago: walking I without AD and no falls. PT-OP-C Subjective Start: 11/28/24 13:39 Freq: Status: Active Protocol: Document 12/20/24 07:30 SP (Rec: 12/20/24 08:17 SP [id number]) OP-PT Subjective Patient Comments Patient Comments Pt reports walkign with and has him trying walk at fast pace. PT-OP-G Mobility & Gait Start: 11/28/24 13:39 Freq: Status: Active Protocol: Document 12/11/24 07:21 MB (Rec: 12/11/24 08:08 MB [id number]) OP Gait Assessment Comments Gait Comments Gait without AD: gait is unsteady and he tends to cross right leg over the left in a sweeping motion, functional leg length difference and increased Ivon angle LLE, B Trendelenburg with gait. Pt with all over vermis-type dyskinesia with movement. PT-OP-H Neuro Start: 11/28/24 13:39 Freq: Status: Active Protocol: Document 12/11/24 07:21 MB (Rec: 12/11/24 08:08 MB [id number]) Coordination Evaluation Upper Extremity Tests Left Finger to Nose Test Moderate Impairment Pronation/Supination Test Minimal Impairment Right Finger to Nose Test Minimal Impairment Pronation/Supination Test Minimal Impairment Lower Extremity Tests Left Alternate Heel to Knee; Heel to Toe Test Moderate Impairment Foot Tapping Test Minimal Impairment Right Alternate Heel to Knee; Heel to Toe Test Minimal Impairment Foot Tapping Test Minimal Impairment Vital Signs Comments Vital Signs Comments Orthostatic assessment in RUE: supine 124/74, 66; standing 116/66, 75; standing 1' 116/68 , 71. PT-OP-K Range of Motion Start: 11/28/24 13:39 Freq: Status: Active Protocol: Document 12/11/24 07:21 MB (Rec: 12/11/24 08:08 MB [id number]) Shoulder Goniometric Range of Motion Shoulder Left Shoulder ROM WFL Yes Testing Position Sitting Right Shoulder ROM WFL No Testing Position Sitting Comments Right shoulder flexion and abduction is about 15 deg less than the left, pt is right- handed. Pt states he does not feel limited in the right. Elbow/Forearm Range of Motion Elbow/Forearm Left Elbow/Forearm ROM WFL No ROM Testing Position Sitting Comments Brace donned and PT is not addressing this and so deferred formal testing Right Elbow/Forearm ROM WFL Yes ROM Testing Position Sitting Ankle and Foot Goniometric Range of Motion Ankle and Foot Left Ankle/Foot ROM WFL Yes Testing Position Sitting Right Ankle/Foot ROM WFL No Testing Position Sitting Comments Mildly reduced right ankle ROM grossly assessed today for function PT-OP-M Strength Start: 11/28/24 13:39 Freq: Status: Active Protocol: Document 12/11/24 07:21 MB (Rec: 12/11/24 08:08 MB [id number]) Shoulder Strength Shoulder Manual Muscle Testing Left Flexion 4+ Good+ Abduction (C5) 4+ Good+ Right Flexion 5 Normal Abduction (C5) 5 Normal Elbow/Forearm Strength Elbow and Forearm Manual Muscle Testing Left Flexion (C6) 4+ Good+ Extension (C7) 4+ Good+ Right Flexion (C6) 5 Normal Extension (C7) 5 Normal Hip Strength Hip Manual Muscle Testing Left Flexion (L2) 5 Normal Right Flexion (L2) 5 Normal Knee Strength Knee Manual Muscle Testing Left Flexion (S2) 5 Normal Extension (L3) 5 Normal Right Flexion (S2) 5 Normal Extension (L3) 5 Normal Ankle/Foot Strength Ankle and Foot Manual Muscle Testing Left Dorsiflexion (L4) 4+ Good+ Right Dorsiflexion (L4) 4+ Good+ Toe Strength Toe Manual Muscle Testing Left Great Toe Extension 5 Normal Right Great Toe Extension 4+ Good+ PT-OP-Q Treatments Start: 11/28/24 13:39 Freq: Status: Active Protocol: Document 12/20/24 07:30 SP (Rec: 12/20/24 08:17 SP [id number]) Therapeutic Exercises Sitting Exercises Amplitude floor to ceiling Sitting Exercise Name added to HEP /c HO Reps/Minutes 5 reps Comments cued palms up, amplitude movement Amplitude Side to Side Sitting Exercise Name In PT- need find HO for home Reps/Minutes 5 reps each Comments cued leg back, arm up front palm up ceiling, opp arm on seat, count loud Amplitude STS Sitting Exercise Name added to HEP /c HO Reps/Minutes 10 reps Comments cued forward then arms out side humeral ER, count out loud Standing Exercises Amplitude Side to Side Step Standing Exercise Name inPT at this time Side bilateral Reps/Minutes 5 each Amplitude Forward Step Standing Exercise Name inPT at this time Side bilateral Reps/Minutes 5 reps each side Gait Training Gait Activity Amplitude Walking Device Used 0 Level of Assistance SBA Distance/Duration [address] of clinic Treatment Focus normalizing gait & midline stability Comments arms swing, increase AYO with smaller stride, slow pacing, quieter L>R heel strike. Improved. Discussed speaking with better quality cueing gait today and will increase speed later. 6MWT Description baseline arrival: 12/20/24 Device Used 0 Level of Assistance SBA Distance/Duration 1619ft Comments trunk sways, occasional arm swing initially, heavy LE advancement, intermittent scissor like stepping R>L but no LOB, tends to turn corners and next to chair close but not connecting with them. PT-OP-T Assessment and Plan Start: 11/28/24 13:39 Freq: Status: Active Protocol: Document 12/20/24 07:30 SP (Rec: 12/20/24 08:17 SP [id number]) Physical Therapy Assessment Goals 4 Impairment Evidence of imbalance Skilled Nursing Goal (LTG) Pt will perform WNLs on a standardized balance test to decrease fall risk. LTG Duration 8 weeks 3 Impairment Lack of amplitude and balance specific HEP Skilled Nursing Goal (LTG) Pt will perform progressive HEP including LSVT BIG exercises with I to improve balance and amplitude of movement. LTG Duration 8 weeks 2 Impairment Decreased gait speed and balance Skilled Nursing Goal (LTG) Pt will gait train at least 1716 feet in 6 minutes without LRAD to improve community ambulation. LTG Duration 8 weeks 1 Impairment TUG in 11 sec Skilled Nursing Goal (LTG) Pt will perform TUG in no more than 10 sec to decrease fall risk. LTG Duration 8 weeks Assessment Summary Assessment Pt good corrections and with larger amplitude arm, leg positioning and movement with cued corrections during exercises. Pt is motivated to doing exercises home. Cues for slower pacing gait with smaller stride and increase BOSand arms swing at times to improve midline stabiltiy. No LOB but trunk wt shift narrow base, almost scissor stepping and walks close to corner/ obstacles can be potential fall luis felipe. Improved with distance. Next tx find sitting side to side and forward step and side stepping HOs for carryover home if feel safe to do. Physical Therapy Plan Frequency and Duration Frequency of Treatment 2x-4x/wk Duration of treatment (weeks) 8 Plan of Care Start Date 12/11/24 Plan of Care End Date 02/08/25 Therapeutic Interventions Therapeutic Interventions Balance Training,Canalithic Repositioning,Coordination Training,Gait Training,Home Exercise Program,Joint Mobilizations,Manual Therapy, Neuromuscular Re-education, Patient/Caregiver Education, Self-Care/Home Management,Soft Tissue Mobilization,Taping, Therapeutic Activities, Therapeutic Exercises Modalities Cold Pack/Ice Massage,Electric Stimulation,Hot Packs, Ultrasound Next Visit Focus/Plan Next Note Type Treatment Note Next Visit Plan Review big amplitude exercises such as BIG STS, side to side and floor ceiling movements, other balance testing as appropriate. Neurologist would like Test Lui next tx. Continue BIG exercises, progress standing, no chair needed. Check orthostatics and remind about POC as often as needed ( this therapy course for PD and transition to BIG, not seeing for elbow with this therapist /therapy course) Try LRAD as appropriate
--- NOTE | 2024-12-27 14:31 | PT.OTN ---
Current Diagnoses Parkinson's disease without dyskinesia, with fluctuations (12/27/24) Physical Therapy Treatment Note PT-OP-A Visit Information Start: 11/28/24 13:39 Freq: Status: Active Protocol: Document 12/27/24 13:47 MB (Rec: 12/27/24 14:31 MB [id number]) Out-Patient Physical Therapy Visit Information Visit Information Visit Type Treatment Note Visit Note [employer] Progress note by 01/11/25 Visit Start Time 13:47 Visit Stop Time 14:27 Visit Number 3 Number of SHOP TECH Visits 0 Evaluation Information Evaluation Date 12/11/24 PT-OP-B Current Condition Start: 11/28/24 13:39 Freq: Status: Active Protocol: Document 12/11/24 07:21 MB (Rec: 12/11/24 08:08 MB [id number]) Current Condition History of Current Condition Onset Date 2018 Current Complaints Left elbow does not allow him to push up History of Current Condition Pt experienced right arm tremor in 2018 and decreased right arm swing 2019. Pt now has B UE and LE tremors and jaw tremor. Pt reports he needs a cognitive review before he gets a DBS. PMH includes congenital hearing loss, HTN, left cervical radiculopathy s/p cervical spine fusion, fall and ankle fx right summer of 2023, light-headedness, left elbow spur in cubital tunnel and pt had surgery and wears brace, KLETSEL DEHE [place]INT[place], vision changes and glasses, obesity. Pt thinks he is here for his left elbow and PT ed pt that PT has order for PD and progress to BIG when an opening occurs. Pt lives with his , Michelle . His most recent fall was 1.5 months ago and he hit the sink counter. Pt has a rollator and straight cane. He does like to use them. He does not arrive with ADs. Pt passed his driving test and is still driving. Pt likes to go to the pool and do the [employer] land exercises twice a week and water 1-2 times a week. He likes to go to [employer] and support his [employer] shop once a week. Prior Treatments and Tests MRI brain 08/07/20: Mild white matter abnormality, likely microvascular disease Treatment Goals Patient/Caregiver Goals Pt's goal is to get where he was a year ago: walking I without AD and no falls. PT-OP-C Subjective Start: 11/28/24 13:39 Freq: Status: Active Protocol: Document 12/27/24 13:47 MB (Rec: 12/27/24 14:31 MB [id number]) OP-PT Subjective Patient Comments Patient Comments Pt is feeling pretty good, no new reports. PT-OP-G Mobility & Gait Start: 11/28/24 13:39 Freq: Status: Active Protocol: Document 12/11/24 07:21 MB (Rec: 12/11/24 08:08 MB [id number]) OP Gait Assessment Comments Gait Comments Gait without AD: gait is unsteady and he tends to cross right leg over the left in a sweeping motion, functional leg length difference and increased Ivon angle LLE, B Trendelenburg with gait. Pt with all over vermis-type dyskinesia with movement. PT-OP-H Neuro Start: 11/28/24 13:39 Freq: Status: Active Protocol: Document 12/11/24 07:21 MB (Rec: 12/11/24 08:08 MB [id number]) Coordination Evaluation Upper Extremity Tests Left Finger to Nose Test Moderate Impairment Pronation/Supination Test Minimal Impairment Right Finger to Nose Test Minimal Impairment Pronation/Supination Test Minimal Impairment Lower Extremity Tests Left Alternate Heel to Knee; Heel to Toe Test Moderate Impairment Foot Tapping Test Minimal Impairment Right Alternate Heel to Knee; Heel to Toe Test Minimal Impairment Foot Tapping Test Minimal Impairment Vital Signs Comments Vital Signs Comments Orthostatic assessment in RUE: supine 124/74, 66; standing 116/66, 75; standing 1' 116/68 , 71. PT-OP-K Range of Motion Start: 11/28/24 13:39 Freq: Status: Active Protocol: Document 12/11/24 07:21 MB (Rec: 12/11/24 08:08 MB [id number]) Shoulder Goniometric Range of Motion Shoulder Left Shoulder ROM WFL Yes Testing Position Sitting Right Shoulder ROM WFL No Testing Position Sitting Comments Right shoulder flexion and abduction is about 15 deg less than the left, pt is right- handed. Pt states he does not feel limited in the right. Elbow/Forearm Range of Motion Elbow/Forearm Left Elbow/Forearm ROM WFL No ROM Testing Position Sitting Comments Brace donned and PT is not addressing this and so deferred formal testing Right Elbow/Forearm ROM WFL Yes ROM Testing Position Sitting Ankle and Foot Goniometric Range of Motion Ankle and Foot Left Ankle/Foot ROM WFL Yes Testing Position Sitting Right Ankle/Foot ROM WFL No Testing Position Sitting Comments Mildly reduced right ankle ROM grossly assessed today for function PT-OP-M Strength Start: 11/28/24 13:39 Freq: Status: Active Protocol: Document 12/11/24 07:21 MB (Rec: 12/11/24 08:08 MB [id number]) Shoulder Strength Shoulder Manual Muscle Testing Left Flexion 4+ Good+ Abduction (C5) 4+ Good+ Right Flexion 5 Normal Abduction (C5) 5 Normal Elbow/Forearm Strength Elbow and Forearm Manual Muscle Testing Left Flexion (C6) 4+ Good+ Extension (C7) 4+ Good+ Right Flexion (C6) 5 Normal Extension (C7) 5 Normal Hip Strength Hip Manual Muscle Testing Left Flexion (L2) 5 Normal Right Flexion (L2) 5 Normal Knee Strength Knee Manual Muscle Testing Left Flexion (S2) 5 Normal Extension (L3) 5 Normal Right Flexion (S2) 5 Normal Extension (L3) 5 Normal Ankle/Foot Strength Ankle and Foot Manual Muscle Testing Left Dorsiflexion (L4) 4+ Good+ Right Dorsiflexion (L4) 4+ Good+ Toe Strength Toe Manual Muscle Testing Left Great Toe Extension 5 Normal Right Great Toe Extension 4+ Good+ PT-OP-Q Treatments Start: 11/28/24 13:39 Freq: Status: Active Protocol: Document 12/27/24 13:47 MB (Rec: 12/27/24 14:31 MB [id number]) Therapeutic Exercises Sitting Exercises Amplitude floor to ceiling Sitting Exercise Name Reviewed from [facility], new handouts provided Side bilateral Equipment Used BIG chair and cushion Reps/Minutes 5 reps Comments Cues for effort Amplitude Side to Side Sitting Exercise Name Reviewed from new HEP handouts , video of PT made Side bilateral Equipment Used BIG chair Reps/Minutes 5 reps each side Comments Cues to scoot back and move leg with arm Amplitude STS Sitting Exercise Name Reviewed from HEP, new handouts Reps/Minutes 10 reps Standing Exercises Amplitude back step Standing Exercise Name From HEP and will have to watch video Comments Very tricky for pt, need more practice Amplitude Side to Side Step Standing Exercise Name From HEP provided today Side bilateral Reps/Minutes 10 reps to each side Comments Cues to turn head and back and not to vu Amplitude Forward Step Standing Exercise Name From HEP provided today Side bilateral Reps/Minutes 10 reps to each side Comments Cues for BIG start PT-OP-T Assessment and Plan Start: 11/28/24 13:39 Freq: Status: Active Protocol: Document 12/27/24 13:47 MB (Rec: 12/27/24 14:31 MB [id number]) Physical Therapy Assessment Rehab Potential Rehabilitation Potential Fair Evaluation Complexity Number of Personal Factors/Comorbidities 1-2 Number of Body Systems Impaired 3 Clinical Presentation at Evaluation Evolving Impairments Impairments Activity Tolerance,Balance, Coordination,Functional Activities,Functional Mobility ,Gait,Pain,Posture,ROM,Soft Tissue Mobility,Strength, Transfers Goals 4 Impairment Evidence of imbalance Pest Control Technician Goal (LTG) Pt will perform WNLs on a standardized balance test to decrease fall risk. LTG Duration 8 weeks 3 Impairment Lack of amplitude and balance specific HEP Senior Care Goal (LTG) Pt will perform progressive HEP including LSVT BIG exercises with I to improve balance and amplitude of movement. LTG Duration 8 weeks 2 Impairment Decreased gait speed and balance Senior Care Goal (LTG) Pt will gait train at least 1716 feet in 6 minutes without LRAD to improve community ambulation. LTG Duration 8 weeks 1 Impairment TUG in 11 sec Senior Care Goal (LTG) Pt will perform TUG in no more than 10 sec to decrease fall risk. LTG Duration 8 weeks Assessment Summary Assessment Provided more handouts for amplitude exercises today and pt recorded video of PT performing all exercises. Start with backward stepping and both rock and reach exercises next treatment date. Physical Therapy Plan Frequency and Duration Frequency of Treatment 2x-4x/wk Duration of treatment (weeks) 8 Plan of Care Start Date 12/11/24 Plan of Care End Date 02/08/25 Therapeutic Interventions Therapeutic Interventions Balance Training,Canalithic Repositioning,Coordination Training,Gait Training,Home Exercise Program,Joint Mobilizations,Manual Therapy, Neuromuscular Re-education, Patient/Caregiver Education, Self-Care/Home Management,Soft Tissue Mobilization,Taping, Therapeutic Activities, Therapeutic Exercises Modalities Cold Pack/Ice Massage,Electric Stimulation,Hot Packs, Ultrasound Next Visit Focus/Plan Next Note Type Treatment Note Next Visit Plan Start with bacward step and two rock and reach exercises next treatment and give for HEP as appropriate
--- NOTE | 2025-01-03 13:40 | PT.OTN ---
Current Diagnoses Parkinson's disease without dyskinesia, with fluctuations (01/03/25) Physical Therapy Treatment Note PT-OP-A Visit Information Start: 11/28/24 13:39 Freq: Status: Active Protocol: Document 01/03/25 13:02 MB (Rec: 01/03/25 13:38 MB [id number]) Out-Patient Physical Therapy Visit Information Visit Information Visit Type Treatment Note Visit Note [employer] Progress note by 01/11/25 Visit Start Time 13:02 Visit Stop Time 13:40 Visit Number 4 Number of JAZZ MUSICIAN Visits 0 Evaluation Information Evaluation Date 12/11/24 PT-OP-B Current Condition Start: 11/28/24 13:39 Freq: Status: Active Protocol: Document 12/11/24 07:21 MB (Rec: 12/11/24 08:08 MB [id number]) Current Condition History of Current Condition Onset Date 2018 Current Complaints Left elbow does not allow him to push up History of Current Condition Pt experienced right arm tremor in 2018 and decreased right arm swing 2019. Pt now has B UE and LE tremors and jaw tremor. Pt reports he needs a cognitive review before he gets a DBS. PMH includes congenital hearing loss, HTN, left cervical radiculopathy s/p cervical spine fusion, fall and ankle fx right summer of 2023, light-headedness, left elbow spur in cubital tunnel and pt had surgery and wears brace, [place], vision changes and glasses, obesity. Pt thinks he is here for his left elbow and PT ed pt that PT has order for PD and progress to BIG when an opening occurs. Pt lives with his , Michelle . His most recent fall was 1.5 months ago and he hit the sink counter. Pt has a rollator and straight cane. He does like to use them. He does not arrive with ADs. Pt passed his driving test and is still driving. Pt likes to go to the pool and do the [employer] land exercises twice a week and water 1-2 times a week. He likes to go to [place] and support his [employer] shop once a week. Prior Treatments and Tests MRI brain 08/07/20: Mild white matter abnormality, likely microvascular disease Treatment Goals Patient/Caregiver Goals Pt's goal is to get where he was a year ago: walking I without AD and no falls. PT-OP-C Subjective Start: 11/28/24 13:39 Freq: Status: Active Protocol: Document 01/03/25 13:02 MB (Rec: 01/03/25 13:38 MB [id number]) OP-PT Subjective Patient Comments Patient Comments Pt is doing exercises 3x/wk. He cannot think of anything particular on his mind. PT-OP-G Mobility & Gait Start: 11/28/24 13:39 Freq: Status: Active Protocol: Document 12/11/24 07:21 MB (Rec: 12/11/24 08:08 MB [id number]) OP Gait Assessment Comments Gait Comments Gait without AD: gait is unsteady and he tends to cross right leg over the left in a sweeping motion, functional leg length difference and increased Ivon angle LLE, B Trendelenburg with gait. Pt with all over vermis-type dyskinesia with movement. PT-OP-H Neuro Start: 11/28/24 13:39 Freq: Status: Active Protocol: Document 12/11/24 07:21 MB (Rec: 12/11/24 08:08 MB [id number]) Coordination Evaluation Upper Extremity Tests Left Finger to Nose Test Moderate Impairment Pronation/Supination Test Minimal Impairment Right Finger to Nose Test Minimal Impairment Pronation/Supination Test Minimal Impairment Lower Extremity Tests Left Alternate Heel to Knee; Heel to Toe Test Moderate Impairment Foot Tapping Test Minimal Impairment Right Alternate Heel to Knee; Heel to Toe Test Minimal Impairment Foot Tapping Test Minimal Impairment Vital Signs Comments Vital Signs Comments Orthostatic assessment in RUE: supine 124/74, 66; standing 116/66, 75; standing 1' 116/68 , 71. PT-OP-K Range of Motion Start: 11/28/24 13:39 Freq: Status: Active Protocol: Document 12/11/24 07:21 MB (Rec: 12/11/24 08:08 MB [id number]) Shoulder Goniometric Range of Motion Shoulder Left Shoulder ROM WFL Yes Testing Position Sitting Right Shoulder ROM WFL No Testing Position Sitting Comments Right shoulder flexion and abduction is about 15 deg less than the left, pt is right- handed. Pt states he does not feel limited in the right. Elbow/Forearm Range of Motion Elbow/Forearm Left Elbow/Forearm ROM WFL No ROM Testing Position Sitting Comments Brace donned and PT is not addressing this and so deferred formal testing Right Elbow/Forearm ROM WFL Yes ROM Testing Position Sitting Ankle and Foot Goniometric Range of Motion Ankle and Foot Left Ankle/Foot ROM WFL Yes Testing Position Sitting Right Ankle/Foot ROM WFL No Testing Position Sitting Comments Mildly reduced right ankle ROM grossly assessed today for function PT-OP-M Strength Start: 11/28/24 13:39 Freq: Status: Active Protocol: Document 12/11/24 07:21 MB (Rec: 12/11/24 08:08 MB [id number]) Shoulder Strength Shoulder Manual Muscle Testing Left Flexion 4+ Good+ Abduction (C5) 4+ Good+ Right Flexion 5 Normal Abduction (C5) 5 Normal Elbow/Forearm Strength Elbow and Forearm Manual Muscle Testing Left Flexion (C6) 4+ Good+ Extension (C7) 4+ Good+ Right Flexion (C6) 5 Normal Extension (C7) 5 Normal Hip Strength Hip Manual Muscle Testing Left Flexion (L2) 5 Normal Right Flexion (L2) 5 Normal Knee Strength Knee Manual Muscle Testing Left Flexion (S2) 5 Normal Extension (L3) 5 Normal Right Flexion (S2) 5 Normal Extension (L3) 5 Normal Ankle/Foot Strength Ankle and Foot Manual Muscle Testing Left Dorsiflexion (L4) 4+ Good+ Right Dorsiflexion (L4) 4+ Good+ Toe Strength Toe Manual Muscle Testing Left Great Toe Extension 5 Normal Right Great Toe Extension 4+ Good+ PT-OP-Q Treatments Start: 11/28/24 13:39 Freq: Status: Active Protocol: Document 01/03/25 13:02 MB (Rec: 01/03/25 13:38 MB [id number]) Therapeutic Exercises Sitting Exercises Amplitude floor to ceiling Sitting Exercise Name Reviewed from [facility] Equipment Used BIG chair and cushion Reps/Minutes 10 reps Comments Cues for hand forward Amplitude Side to Side Sitting Exercise Name Reviewed from [facility] Side bilateral Equipment Used BIG chair and cushion Comments 10 reps each side, trouble moving left leg Amplitude STS Sitting Exercise Name Reviewed from [facility] Equipment Used BIG chair and cushion Comments 10 reps each side Standing Exercises Amplitude side rock and reach Standing Exercise Name [facility]--pt only has video of PT Side bilateral Reps/Minutes 10 reps to each side Comments Pt rotates about 50% range, cues for balance and counting Amplitude forward rock and reach Standing Exercise Name [facility] Side bilateral Reps/Minutes 10 reps, 2 sets Comments Cues for feet first, alternating arm rocking and counting out loud Amplitude back step Standing Exercise Name Reviewed from [facility] Side bilateral Reps/Minutes 10 reps each side Comments Cues for arms, stomp back, big AYO, weight shift Amplitude Side to Side Step Standing Exercise Name Reviewed from [facility] Side bilateral Reps/Minutes 10 reps to each side Comments Cues to move head with stepping, verbal cued out loud to perform Amplitude Forward Step Standing Exercise Name From [facility] provided today Side bilateral Reps/Minutes 10 reps to each side Comments Cues for big stance, not to take such long steps PT-OP-T Assessment and Plan Start: 11/28/24 13:39 Freq: Status: Active Protocol: Document 01/03/25 13:02 MB (Rec: 01/03/25 13:38 MB [id number]) Physical Therapy Assessment Rehab Potential Rehabilitation Potential Fair Evaluation Complexity Number of Personal Factors/Comorbidities 1-2 Number of Body Systems Impaired 3 Clinical Presentation at Evaluation Evolving Impairments Impairments Activity Tolerance,Balance, Coordination,Functional Activities,Functional Mobility ,Gait,Pain,Posture,ROM,Soft Tissue Mobility,Strength, Transfers Goals 4 Impairment Evidence of imbalance Halfway Goal (LTG) Pt will perform WNLs on a standardized balance test to decrease fall risk. LTG Duration 8 weeks 3 Impairment Lack of amplitude and balance specific HEP Beef Specialist Goal (LTG) Pt will perform progressive HEP including LSVT BIG exercises with I to improve balance and amplitude of movement. LTG Duration 8 weeks 2 Impairment Decreased gait speed and balance Beef Specialist Goal (LTG) Pt will gait train at least 1716 feet in 6 minutes without LRAD to improve community ambulation. LTG Duration 8 weeks 1 Impairment TUG in 11 sec Halfway Goal (LTG) Pt will perform TUG in no more than 10 sec to decrease fall risk. LTG Duration 8 weeks Assessment Summary Assessment Pt makes a good effort with all exercises and he tends to move quickly and cues for larger amplitued AYO. Pt presents with more trouble moving left leg with side to side and does not clear foot often. Physical Therapy Plan Frequency and Duration Frequency of Treatment 2x-4x/wk Duration of treatment (weeks) 8 Plan of Care Start Date 12/11/24 Plan of Care End Date 02/08/25 Therapeutic Interventions Therapeutic Interventions Balance Training,Canalithic Repositioning,Coordination Training,Gait Training,Home Exercise Program,Joint Mobilizations,Manual Therapy, Neuromuscular Re-education, Patient/Caregiver Education, Self-Care/Home Management,Soft Tissue Mobilization,Taping, Therapeutic Activities, Therapeutic Exercises Modalities Cold Pack/Ice Massage,Electric Stimulation,Hot Packs, Ultrasound Next Visit Focus/Plan Next Note Type Treatment Note Next Visit Plan Con't to practice all large amplitude exercises, progress walking and balance activities
--- NOTE | 2025-01-05 14:32 | PT.OTN ---
Current Diagnoses Parkinson's disease without dyskinesia, with fluctuations (01/05/25) Physical Therapy Treatment Note PT-OP-A Visit Information Start: 11/28/24 13:39 Freq: Status: Active Protocol: Document 01/05/25 13:50 SP (Rec: 01/05/25 14:35 SP [id number]) Out-Patient Physical Therapy Visit Information Visit Information Visit Type Treatment Note Visit Note [employer] Progress note by 01/11/25 Visit Start Time 13:50 Visit Stop Time 14:32 Visit Number 5 Number of DIRECTOR FACILITIES MAINTENANCE Visits 1 Evaluation Information Evaluation Date 12/11/24 PT-OP-B Current Condition Start: 11/28/24 13:39 Freq: Status: Active Protocol: Document 12/11/24 07:21 MB (Rec: 12/11/24 08:08 MB [id number]) Current Condition History of Current Condition Onset Date 2018 Current Complaints Left elbow does not allow him to push up History of Current Condition Pt experienced right arm tremor in 2018 and decreased right arm swing 2019. Pt now has B UE and LE tremors and jaw tremor. Pt reports he needs a cognitive review before he gets a DBS. PMH includes congenital hearing loss, HTN, left cervical radiculopathy s/p cervical spine fusion, fall and ankle fx right summer of 2023, light-headedness, left elbow spur in cubital tunnel and pt had surgery and wears brace, [place], vision changes and glasses, obesity. Pt thinks he is here for his left elbow and PT ed pt that PT has order for PD and progress to BIG when an opening occurs. Pt lives with his , Michelle . His most recent fall was 1.5 months ago and he hit the sink counter. Pt has a rollator and straight cane. He does like to use them. He does not arrive with ADs. Pt passed his driving test and is still driving. Pt likes to go to the pool and do the [employer] land exercises twice a week and water 1-2 times a week. He likes to go to [employer] and support his [employer] shop once a week. Prior Treatments and Tests MRI brain 08/07/20: Mild white matter abnormality, likely microvascular disease Treatment Goals Patient/Caregiver Goals Pt's goal is to get where he was a year ago: walking I without AD and no falls. PT-OP-C Subjective Start: 11/28/24 13:39 Freq: Status: Active Protocol: Document 01/05/25 13:50 SP (Rec: 01/05/25 14:35 SP [id number]) OP-PT Subjective Patient Comments Patient Comments Pt reports his R ankle little sore and stated was challenging activity. PT-OP-G Mobility & Gait Start: 11/28/24 13:39 Freq: Status: Active Protocol: Document 12/11/24 07:21 MB (Rec: 12/11/24 08:08 MB [id number]) OP Gait Assessment Comments Gait Comments Gait without AD: gait is unsteady and he tends to cross right leg over the left in a sweeping motion, functional leg length difference and increased Ivon angle LLE, B Trendelenburg with gait. Pt with all over vermis-type dyskinesia with movement. PT-OP-H Neuro Start: 11/28/24 13:39 Freq: Status: Active Protocol: Document 12/11/24 07:21 MB (Rec: 12/11/24 08:08 MB [id number]) Coordination Evaluation Upper Extremity Tests Left Finger to Nose Test Moderate Impairment Pronation/Supination Test Minimal Impairment Right Finger to Nose Test Minimal Impairment Pronation/Supination Test Minimal Impairment Lower Extremity Tests Left Alternate Heel to Knee; Heel to Toe Test Moderate Impairment Foot Tapping Test Minimal Impairment Right Alternate Heel to Knee; Heel to Toe Test Minimal Impairment Foot Tapping Test Minimal Impairment Vital Signs Comments Vital Signs Comments Orthostatic assessment in RUE: supine 124/74, 66; standing 116/66, 75; standing 1' 116/68 , 71. PT-OP-K Range of Motion Start: 11/28/24 13:39 Freq: Status: Active Protocol: Document 12/11/24 07:21 MB (Rec: 12/11/24 08:08 MB [id number]) Shoulder Goniometric Range of Motion Shoulder Left Shoulder ROM WFL Yes Testing Position Sitting Right Shoulder ROM WFL No Testing Position Sitting Comments Right shoulder flexion and abduction is about 15 deg less than the left, pt is right- handed. Pt states he does not feel limited in the right. Elbow/Forearm Range of Motion Elbow/Forearm Left Elbow/Forearm ROM WFL No ROM Testing Position Sitting Comments Brace donned and PT is not addressing this and so deferred formal testing Right Elbow/Forearm ROM WFL Yes ROM Testing Position Sitting Ankle and Foot Goniometric Range of Motion Ankle and Foot Left Ankle/Foot ROM WFL Yes Testing Position Sitting Right Ankle/Foot ROM WFL No Testing Position Sitting Comments Mildly reduced right ankle ROM grossly assessed today for function PT-OP-M Strength Start: 11/28/24 13:39 Freq: Status: Active Protocol: Document 12/11/24 07:21 MB (Rec: 12/11/24 08:08 MB [id number]) Shoulder Strength Shoulder Manual Muscle Testing Left Flexion 4+ Good+ Abduction (C5) 4+ Good+ Right Flexion 5 Normal Abduction (C5) 5 Normal Elbow/Forearm Strength Elbow and Forearm Manual Muscle Testing Left Flexion (C6) 4+ Good+ Extension (C7) 4+ Good+ Right Flexion (C6) 5 Normal Extension (C7) 5 Normal Hip Strength Hip Manual Muscle Testing Left Flexion (L2) 5 Normal Right Flexion (L2) 5 Normal Knee Strength Knee Manual Muscle Testing Left Flexion (S2) 5 Normal Extension (L3) 5 Normal Right Flexion (S2) 5 Normal Extension (L3) 5 Normal Ankle/Foot Strength Ankle and Foot Manual Muscle Testing Left Dorsiflexion (L4) 4+ Good+ Right Dorsiflexion (L4) 4+ Good+ Toe Strength Toe Manual Muscle Testing Left Great Toe Extension 5 Normal Right Great Toe Extension 4+ Good+ PT-OP-Q Treatments Start: 11/28/24 13:39 Freq: Status: Active Protocol: Document 01/05/25 13:50 SP (Rec: 01/05/25 14:35 SP [id number]) Therapeutic Exercises Sitting Exercises Amplitude floor to ceiling Sitting Exercise Name Reviewed from [facility] Equipment Used BIG chair and cushion Reps/Minutes 10 reps Comments Cues for hand forward Amplitude Side to Side Sitting Exercise Name Reviewed from [facility] Side bilateral Equipment Used BIG chair and cushion Comments 10 reps each side, trouble moving left leg Amplitude STS Sitting Exercise Name Reviewed from [facility] Equipment Used BIG chair and cushion Reps/Minutes 10 reps each side Comments cued controlled sit, loud counting Standing Exercises Amplitude side rock and reach Standing Exercise Name [facility]--pt only has video of PT Side bilateral Reps/Minutes 10 reps to each side Comments Pt rotates about 70% range, cues for balance and counting Amplitude forward rock and reach Standing Exercise Name [facility] Side bilateral Reps/Minutes 10 reps, 2 sets Comments Cues for feet first, alternating arm rocking, R arm back, counting out loud Amplitude back step Standing Exercise Name Reviewed from [facility] Side bilateral Reps/Minutes 10 reps each side Comments Cues for arms, stomp back together, Big AYO, weight shift Amplitude Side to Side Step Standing Exercise Name Reviewed from [facility] Side bilateral Reps/Minutes 10 reps to each side Comments Cues to move head with stepping, verbal cued out loud to perform Amplitude Forward Step Standing Exercise Name From [facility] provided today Side bilateral Reps/Minutes 10 reps to each side Comments Cues for big stance, not to take such long steps Gait Training Gait Activity dynamic bal activity Description matthew and stair receiprocal stepping Device Used 0 Distance/Duration 28 stairs, near R HR (B HR home) Comments floor 6 hurdles floor>yoga mat , anusha stepping cued increase AYO- trail ft caught 2 hurdles during Several laps, anusha receiprocal stepping MAP bldg stairs cued arm swing , near rail PRN if needed. CUes for foot fully on step descending, tends hang off front not safe. He stated usually uses rail descending stairs home, able to do without today, CGA gait belt for safety. Amplitude Walking Device Used 0 Level of Assistance SBA Distance/Duration 2 laps in hallway of clinic Treatment Focus normalizing gait & midline stability Comments arms swing, increase AYO with smaller stride, slow pacing, quieter L>R heel strike. Improved. Discussed speaking with better quality cueing gait today and will increase speed later. PT-OP-T Assessment and Plan Start: 11/28/24 13:39 Freq: Status: Active Protocol: Document 01/05/25 13:50 SP (Rec: 01/05/25 14:35 SP [id number]) Physical Therapy Assessment Goals 4 Impairment Evidence of imbalance Foreman/Project Manager Goal (LTG) Pt will perform WNLs on a standardized balance test to decrease fall risk. LTG Duration 8 weeks 3 Impairment Lack of amplitude and balance specific HEP Nursing Home Goal (LTG) Pt will perform progressive HEP including LSVT BIG exercises with I to improve balance and amplitude of movement. LTG Duration 8 weeks 2 Impairment Decreased gait speed and balance Nursing Home Goal (LTG) Pt will gait train at least 1716 feet in 6 minutes without LRAD to improve community ambulation. LTG Duration 8 weeks 1 Impairment TUG in 11 sec Nursing Home Goal (LTG) Pt will perform TUG in no more than 10 sec to decrease fall risk. LTG Duration 8 weeks Assessment Summary Assessment Pt good effort with all exercises. Max cues for decrease stride and increase AYO during exercises and walking improved stability. Use of mirror for standing exercises helped pt with self performance correction awareness. Improved anusha matthew uneven surface stepping cues for increase AYO Physical Therapy Plan Frequency and Duration Frequency of Treatment 2x-4x/wk Duration of treatment (weeks) 8 Plan of Care Start Date 12/11/24 Plan of Care End Date 02/08/25 Therapeutic Interventions Therapeutic Interventions Balance Training,Canalithic Repositioning,Coordination Training,Gait Training,Home Exercise Program,Joint Mobilizations,Manual Therapy, Neuromuscular Re-education, Patient/Caregiver Education, Self-Care/Home Management,Soft Tissue Mobilization,Taping, Therapeutic Activities, Therapeutic Exercises Modalities Cold Pack/Ice Massage,Electric Stimulation,Hot Packs, Ultrasound Next Visit Focus/Plan Next Note Type Treatment Note Next Visit Plan Con't to practice all large amplitude exercises, progress walking decrease stride/ increase AYO and continue balance activities
--- NOTE | 2025-01-08 15:16 | PT.OTN ---
Current Diagnoses Parkinson's disease without dyskinesia, with fluctuations (01/08/25) Physical Therapy Treatment Note PT-OP-A Visit Information Start: 11/28/24 13:39 Freq: Status: Active Protocol: Document 01/08/25 14:36 SP (Rec: 01/08/25 15:28 SP [id number]) Out-Patient Physical Therapy Visit Information Visit Information Visit Type Treatment Note Visit Note [employer] Progress note by 01/11/25 Visit Start Time 14:36 Visit Stop Time 15:16 Visit Number 6 Number of CONTINUITY MANAGER Visits 2 Evaluation Information Evaluation Date 12/11/24 PT-OP-B Current Condition Start: 11/28/24 13:39 Freq: Status: Active Protocol: Document 12/11/24 07:21 MB (Rec: 12/11/24 08:08 MB [id number]) Current Condition History of Current Condition Onset Date 2018 Current Complaints Left elbow does not allow him to push up History of Current Condition Pt experienced right arm tremor in 2018 and decreased right arm swing 2019. Pt now has B UE and LE tremors and jaw tremor. Pt reports he needs a cognitive review before he gets a DBS. PMH includes congenital hearing loss, HTN, left cervical radiculopathy s/p cervical spine fusion, fall and ankle fx right summer of 2023, light-headedness, left elbow spur in cubital tunnel and pt had surgery and wears brace, [place], vision changes and glasses, obesity. Pt thinks he is here for his left elbow and PT ed pt that PT has order for PD and progress to BIG when an opening occurs. Pt lives with his , Michelle . His most recent fall was 1.5 months ago and he hit the sink counter. Pt has a rollator and straight cane. He does like to use them. He does not arrive with ADs. Pt passed his driving test and is still driving. Pt likes to go to the pool and do the [employer] land exercises twice a week and water 1-2 times a week. He likes to go to [employer] and support his [employer] shop once a week. Prior Treatments and Tests MRI brain 08/07/20: Mild white matter abnormality, likely microvascular disease Treatment Goals Patient/Caregiver Goals Pt's goal is to get where he was a year ago: walking I without AD and no falls. PT-OP-C Subjective Start: 11/28/24 13:39 Freq: Status: Active Protocol: Document 01/08/25 14:36 SP (Rec: 01/08/25 15:28 SP [id number]) OP-PT Subjective Patient Comments Patient Comments Pt reported his ankle isn't as swollen. So doing ex 2x day self no PT, and 1 without PT. PT-OP-G Mobility & Gait Start: 11/28/24 13:39 Freq: Status: Active Protocol: Document 12/11/24 07:21 MB (Rec: 12/11/24 08:08 MB [id number]) OP Gait Assessment Comments Gait Comments Gait without AD: gait is unsteady and he tends to cross right leg over the left in a sweeping motion, functional leg length difference and increased Ivon angle LLE, B Trendelenburg with gait. Pt with all over vermis-type dyskinesia with movement. PT-OP-H Neuro Start: 11/28/24 13:39 Freq: Status: Active Protocol: Document 12/11/24 07:21 MB (Rec: 12/11/24 08:08 MB [id number]) Coordination Evaluation Upper Extremity Tests Left Finger to Nose Test Moderate Impairment Pronation/Supination Test Minimal Impairment Right Finger to Nose Test Minimal Impairment Pronation/Supination Test Minimal Impairment Lower Extremity Tests Left Alternate Heel to Knee; Heel to Toe Test Moderate Impairment Foot Tapping Test Minimal Impairment Right Alternate Heel to Knee; Heel to Toe Test Minimal Impairment Foot Tapping Test Minimal Impairment Vital Signs Comments Vital Signs Comments Orthostatic assessment in RUE: supine 124/74, 66; standing 116/66, 75; standing 1' 116/68 , 71. PT-OP-K Range of Motion Start: 11/28/24 13:39 Freq: Status: Active Protocol: Document 12/11/24 07:21 MB (Rec: 12/11/24 08:08 MB [id number]) Shoulder Goniometric Range of Motion Shoulder Left Shoulder ROM WFL Yes Testing Position Sitting Right Shoulder ROM WFL No Testing Position Sitting Comments Right shoulder flexion and abduction is about 15 deg less than the left, pt is right- handed. Pt states he does not feel limited in the right. Elbow/Forearm Range of Motion Elbow/Forearm Left Elbow/Forearm ROM WFL No ROM Testing Position Sitting Comments Brace donned and PT is not addressing this and so deferred formal testing Right Elbow/Forearm ROM WFL Yes ROM Testing Position Sitting Ankle and Foot Goniometric Range of Motion Ankle and Foot Left Ankle/Foot ROM WFL Yes Testing Position Sitting Right Ankle/Foot ROM WFL No Testing Position Sitting Comments Mildly reduced right ankle ROM grossly assessed today for function PT-OP-M Strength Start: 11/28/24 13:39 Freq: Status: Active Protocol: Document 12/11/24 07:21 MB (Rec: 12/11/24 08:08 MB [id number]) Shoulder Strength Shoulder Manual Muscle Testing Left Flexion 4+ Good+ Abduction (C5) 4+ Good+ Right Flexion 5 Normal Abduction (C5) 5 Normal Elbow/Forearm Strength Elbow and Forearm Manual Muscle Testing Left Flexion (C6) 4+ Good+ Extension (C7) 4+ Good+ Right Flexion (C6) 5 Normal Extension (C7) 5 Normal Hip Strength Hip Manual Muscle Testing Left Flexion (L2) 5 Normal Right Flexion (L2) 5 Normal Knee Strength Knee Manual Muscle Testing Left Flexion (S2) 5 Normal Extension (L3) 5 Normal Right Flexion (S2) 5 Normal Extension (L3) 5 Normal Ankle/Foot Strength Ankle and Foot Manual Muscle Testing Left Dorsiflexion (L4) 4+ Good+ Right Dorsiflexion (L4) 4+ Good+ Toe Strength Toe Manual Muscle Testing Left Great Toe Extension 5 Normal Right Great Toe Extension 4+ Good+ PT-OP-Q Treatments Start: 11/28/24 13:39 Freq: Status: Active Protocol: Document 01/08/25 14:36 SP (Rec: 01/08/25 15:28 SP [id number]) Therapeutic Exercises Sitting Exercises Amplitude floor to ceiling Sitting Exercise Name Reviewed from HEP Equipment Used BIG chair and cushion Reps/Minutes 10 reps Comments Cues for hand forward Amplitude Side to Side Sitting Exercise Name Reviewed from HEP Side bilateral Equipment Used BIG chair and cushion Comments 10 reps each side, improved leg back, tires last 2 reps Amplitude STS Sitting Exercise Name Reviewed from HEP Equipment Used BIG chair and cushion Reps/Minutes 10 reps each side Comments cued fulls stand =, loud counting Standing Exercises Amplitude side rock and reach Standing Exercise Name HEP--pt only has video of PT Side bilateral Equipment Used better mirror behind to look for self rotation Reps/Minutes 10 reps to each side Comments Pt rotates about 80% R, 70 % L range, cues arms up for bal / c Rot, counting Amplitude forward rock and reach Standing Exercise Name HEP Side bilateral Reps/Minutes 10 reps, each side Comments Cues for feet first wt shift, BIG arm swing, counting out loud Amplitude back step Standing Exercise Name Reviewed from HEP Side bilateral Reps/Minutes 20 reps alternating Comments Cues arms front, hip hinge, big toe front Amplitude Side to Side Step Standing Exercise Name Reviewed from HEP Side bilateral Reps/Minutes 20 reps alternating Comments Cues to move head with stepping, R arm up going L Amplitude Forward Step Standing Exercise Name From HEP provided today Side bilateral Reps/Minutes 20 reps alternate Comments Cues for big stance, not to take such long steps Gait Training Gait Activity dynamic bal activity Description stair receiprocal stepping, backward walking Device Used 0 Distance/Duration 28 stairs, not need use HR ( has B HR home) Comments Improve receiprocal stepping with arm swing, occ cues for increased or decrease stride back stepping, Continue arm R> L swing walking, wen backward walking. Amplitude Walking Description *Add metronome next tx. Device Used 0 Level of Assistance SBA Distance/Duration ER hallway Treatment Focus normalizing gait & midline stability Comments arms swing, increase AYO with smaller stride, quieter L>R heel strike. Improved more upright posture. Discussed speaking with better quality cueing gait today and will increase speed later. PT-OP-T Assessment and Plan Start: 11/28/24 13:39 Freq: Status: Active Protocol: Document 01/08/25 14:36 SP (Rec: 01/08/25 15:28 SP [id number]) Physical Therapy Assessment Goals 4 Impairment Evidence of imbalance Metal Welder Goal (LTG) Pt will perform WNLs on a standardized balance test to decrease fall risk. LTG Duration 8 weeks 3 Impairment Lack of amplitude and balance specific HEP Metal Welder Goal (LTG) Pt will perform progressive HEP including LSVT BIG exercises with I to improve balance and amplitude of movement. LTG Duration 8 weeks 2 Impairment Decreased gait speed and balance Metal Welder Goal (LTG) Pt will gait train at least 1716 feet in 6 minutes without LRAD to improve community ambulation. LTG Duration 8 weeks 1 Impairment TUG in 11 sec Nursing Home Goal (LTG) Pt will perform TUG in no more than 10 sec to decrease fall risk. LTG Duration 8 weeks Assessment Summary Assessment Pt good effort and interest in extra reps for proper form performance. Use mirror helpful for self awareness corrections, wen side rock reach today. Continued cues for arms front floor ceiling and back stepping. Cues for hip hinge more and arms up behind back stepping. Noted improvements less cues for decreased stride length. Physical Therapy Plan Frequency and Duration Frequency of Treatment 2x-4x/wk Duration of treatment (weeks) 8 Plan of Care Start Date 12/11/24 Plan of Care End Date 02/08/25 Therapeutic Interventions Therapeutic Interventions Balance Training,Canalithic Repositioning,Coordination Training,Gait Training,Home Exercise Program,Joint Mobilizations,Manual Therapy, Neuromuscular Re-education, Patient/Caregiver Education, Self-Care/Home Management,Soft Tissue Mobilization,Taping, Therapeutic Activities, Therapeutic Exercises Modalities Cold Pack/Ice Massage,Electric Stimulation,Hot Packs, Ultrasound Next Visit Focus/Plan Next Note Type Treatment Note Next Visit Plan Continue alternate sides ex. Next Trial alternating side rock reach. Con't to practice all large amplitude exercises, progress walking decrease stride/increase AYO and continue balance activities
--- NOTE | 2025-01-10 13:18 | PT-OP ANOTE ---
Pt arrives to outpatient PT with mild swelling and ecchymosis in his nose and dried blood under nasal portion of glasses and around nostrils. He reports a fall when waiting for public transportation today. He also c/o hand pain. PT canceled today's appointment and walks pt over to the walk-in clinic for assessment.
--- NOTE | 2025-01-10 13:27 | PT.OPPN ---
Current Diagnoses Parkinson's disease without dyskinesia, with fluctuations (01/08/25) Physical Therapy Progress Note PT-OP-A Visit Information Start: 11/28/24 13:39 Freq: Status: Active Protocol: Document 01/08/25 14:36 SP (Rec: 01/08/25 15:28 SP [id number]) Out-Patient Physical Therapy Visit Information Visit Information Visit Type Treatment Note Visit Note [employer] Progress note by 01/11/25 Visit Start Time 14:36 Visit Stop Time 15:16 Visit Number 6 Number of PIT SHOVEL OPERATOR Visits 2 Evaluation Information Evaluation Date 12/11/24 PT-OP-B Current Condition Start: 11/28/24 13:39 Freq: Status: Active Protocol: Document 12/11/24 07:21 MB (Rec: 12/11/24 08:08 MB [id number]) Current Condition History of Current Condition Onset Date 2018 Current Complaints Left elbow does not allow him to push up History of Current Condition Pt experienced right arm tremor in 2018 and decreased right arm swing 2019. Pt now has B UE and LE tremors and jaw tremor. Pt reports he needs a cognitive review before he gets a DBS. PMH includes congenital hearing loss, HTN, left cervical radiculopathy s/p cervical spine fusion, fall and ankle fx right summer of 2023, light-headedness, left elbow spur in cubital tunnel and pt had surgery and wears brace, [place], vision changes and glasses, obesity. Pt thinks he is here for his left elbow and PT ed pt that PT has order for PD and progress to BIG when an opening occurs. Pt lives with his , Michelle . His most recent fall was 1.5 months ago and he hit the sink counter. Pt has a rollator and straight cane. He does like to use them. He does not arrive with ADs. Pt passed his driving test and is still driving. Pt likes to go to the pool and do the [employer] land exercises twice a week and water 1-2 times a week. He likes to go to [employer] and support his [employer] shop once a week. Prior Treatments and Tests MRI brain 08/07/20: Mild white matter abnormality, likely microvascular disease Treatment Goals Patient/Caregiver Goals Pt's goal is to get where he was a year ago: walking I without AD and no falls. PT-OP-C Subjective Start: 11/28/24 13:39 Freq: Status: Active Protocol: Document 01/10/25 13:22 MB (Rec: 01/10/25 13:27 MB [id number]) OP-PT Subjective Patient Comments Patient Comments Pt reports a fall earlier today and so PT treatment canceled and PT walks pt over to the walk-in clinic for assessment there. PT completes progress note today given PT is able to walk with and check in with him. He reports performing amplitude exercises , but not as often as he would like. PT-OP-G Mobility & Gait Start: 11/28/24 13:39 Freq: Status: Active Protocol: Document 12/11/24 07:21 MB (Rec: 12/11/24 08:08 MB [id number]) OP Gait Assessment Comments Gait Comments Gait without AD: gait is unsteady and he tends to cross right leg over the left in a sweeping motion, functional leg length difference and increased Ivon angle LLE, B Trendelenburg with gait. Pt with all over vermis-type dyskinesia with movement. PT-OP-H Neuro Start: 11/28/24 13:39 Freq: Status: Active Protocol: Document 12/11/24 07:21 MB (Rec: 12/11/24 08:08 MB [id number]) Coordination Evaluation Upper Extremity Tests Left Finger to Nose Test Moderate Impairment Pronation/Supination Test Minimal Impairment Right Finger to Nose Test Minimal Impairment Pronation/Supination Test Minimal Impairment Lower Extremity Tests Left Alternate Heel to Knee; Heel to Toe Test Moderate Impairment Foot Tapping Test Minimal Impairment Right Alternate Heel to Knee; Heel to Toe Test Minimal Impairment Foot Tapping Test Minimal Impairment Vital Signs Comments Vital Signs Comments Orthostatic assessment in RUE: supine 124/74, 66; standing 116/66, 75; standing 1' 116/68 , 71. PT-OP-K Range of Motion Start: 11/28/24 13:39 Freq: Status: Active Protocol: Document 12/11/24 07:21 MB (Rec: 12/11/24 08:08 MB [id number]) Shoulder Goniometric Range of Motion Shoulder Measured in Degrees Left Shoulder ROM WFL Yes Testing Position Sitting Right Shoulder ROM WFL No Testing Position Sitting Comments Right shoulder flexion and abduction is about 15 deg less than the left, pt is right- handed. Pt states he does not feel limited in the right. Elbow/Forearm Range of Motion Elbow/Forearm Measured in Degrees Left Elbow/Forearm ROM WFL No ROM Testing Position Sitting Comments Brace donned and PT is not addressing this and so deferred formal testing Right Elbow/Forearm ROM WFL Yes ROM Testing Position Sitting Ankle and Foot Goniometric Range of Motion Ankle and Foot Measured in Degrees Left Ankle/Foot ROM WFL Yes Testing Position Sitting Right Ankle/Foot ROM WFL No Testing Position Sitting Comments Mildly reduced right ankle ROM grossly assessed today for function PT-OP-M Strength Start: 11/28/24 13:39 Freq: Status: Active Protocol: Document 12/11/24 07:21 MB (Rec: 12/11/24 08:08 MB [id number]) Shoulder Strength Shoulder Manual Muscle Testing Left Flexion 4+ Good+ Abduction (C5) 4+ Good+ Right Flexion 5 Normal Abduction (C5) 5 Normal Elbow/Forearm Strength Elbow and Forearm Manual Muscle Testing Left Flexion (C6) 4+ Good+ Extension (C7) 4+ Good+ Right Flexion (C6) 5 Normal Extension (C7) 5 Normal Hip Strength Hip Manual Muscle Testing Left Flexion (L2) 5 Normal Right Flexion (L2) 5 Normal Knee Strength Knee Manual Muscle Testing Left Flexion (S2) 5 Normal Extension (L3) 5 Normal Right Flexion (S2) 5 Normal Extension (L3) 5 Normal Ankle/Foot Strength Ankle and Foot Manual Muscle Testing Left Dorsiflexion (L4) 4+ Good+ Right Dorsiflexion (L4) 4+ Good+ Toe Strength Toe Manual Muscle Testing Left Great Toe Extension 5 Normal Right Great Toe Extension 4+ Good+ PT-OP-T Assessment and Plan Start: 11/28/24 13:39 Freq: Status: Active Protocol: Document 01/10/25 13:22 MB (Rec: 01/10/25 13:27 MB [id number]) Physical Therapy Assessment Rehab Potential Rehabilitation Potential Fair Evaluation Complexity Number of Personal Factors/Comorbidities 1-2 Number of Body Systems Impaired 3 Clinical Presentation at Evaluation Evolving Impairments Impairments Activity Tolerance,Balance, Coordination,Functional Activities,Functional Mobility ,Gait,Pain,Posture,ROM,Soft Tissue Mobility,Strength, Transfers Goals 4 Impairment Evidence of imbalance Kier Operator Goal (LTG) Pt will perform WNLs on a standardized balance test to decrease fall risk. 01/10/25 Test not performed today but pt had fall earlier today when waiting for public transportation and he injured his nose and hand. LTG Duration 8 weeks 3 Impairment Lack of amplitude and balance specific HEP Alf Goal (LTG) Pt will perform progressive HEP including LSVT BIG exercises with I to improve balance and amplitude of movement. 01/10/25: Pt is perform large amplitued exercises some but not everyday. With performance in clinic, he is doing better with exercises. LTG Duration 8 weeks 2 Impairment Decreased gait speed and balance Alf Goal (LTG) Pt will gait train at least 1716 feet in 6 minutes without LRAD to improve community ambulation. 01/10/25: Perform 6MWT in future sessions. LTG Duration 8 weeks 1 Impairment TUG in 11 sec Alf Goal (LTG) Pt will perform TUG in no more than 10 sec to decrease fall risk. 01/10/25: Perform TUG in future treatment sessions. LTG Duration 8 weeks Assessment Summary Assessment Overall, pt is performing large amplitude exercises better in the clinic. He has not been performing them consistently at home and PT re -ed pt that when he starts LSVT BIG, he will need to perform exercises once a day at home on therapy days and twice a day on non-therapy days as far as exercise dosage and compliance. Pt con't with imbalance and tremor and will con't to benefit from OPPT. Physical Therapy Plan Frequency and Duration Frequency of Treatment 2x-4x/wk Duration of treatment (weeks) 8 Plan of Care Start Date 12/11/24 Plan of Care End Date 02/08/25 Therapeutic Interventions Therapeutic Interventions Balance Training,Canalithic Repositioning,Coordination Training,Gait Training,Home Exercise Program,Joint Mobilizations,Manual Therapy, Neuromuscular Re-education, Patient/Caregiver Education, Self-Care/Home Management,Soft Tissue Mobilization,Taping, Therapeutic Activities, Therapeutic Exercises Modalities Cold Pack/Ice Massage,Electric Stimulation,Hot Packs, Ultrasound Next Visit Focus/Plan Next Note Type Treatment Note Next Visit Plan FGA, TUG and 6MWT next treatment and record findings in goals
--- NOTE | 2025-01-15 08:15 | PT.OTN ---
Current Diagnoses Parkinson's disease without dyskinesia, with fluctuations (01/15/25) Physical Therapy Treatment Note PT-OP-A Visit Information Start: 11/28/24 13:39 Freq: Status: Active Protocol: Document 01/15/25 07:29 MB (Rec: 01/15/25 08:14 MB [id number]) Out-Patient Physical Therapy Visit Information Visit Information Visit Type Treatment Note Visit Note [employer] Medicare Visit Start Time 07:29 Visit Stop Time 08:09 Visit Number 7 Number of SHIP PURSER Visits 0 Evaluation Information Evaluation Date 12/11/24 Precautions Precautions Left fifth metacarpal fracture , pt orthostatic with PT 01/15 and symptomatic PT-OP-B Current Condition Start: 11/28/24 13:39 Freq: Status: Active Protocol: Document 12/11/24 07:21 MB (Rec: 12/11/24 08:08 MB [id number]) Current Condition History of Current Condition Onset Date 2018 Current Complaints Left elbow does not allow him to push up History of Current Condition Pt experienced right arm tremor in 2018 and decreased right arm swing 2019. Pt now has B UE and LE tremors and jaw tremor. Pt reports he needs a cognitive review before he gets a DBS. PMH includes congenital hearing loss, HTN, left cervical radiculopathy s/p cervical spine fusion, fall and ankle fx right summer of 2023, light-headedness, left elbow spur in cubital tunnel and pt had surgery and wears brace, [place], vision changes and glasses, obesity. Pt thinks he is here for his left elbow and PT ed pt that PT has order for PD and progress to BIG when an opening occurs. Pt lives with his , Michelle . His most recent fall was 1.5 months ago and he hit the sink counter. Pt has a rollator and straight cane. He does like to use them. He does not arrive with ADs. Pt passed his driving test and is still driving. Pt likes to go to the pool and do the [employer] land exercises twice a week and water 1-2 times a week. He likes to go to [place] and support his [employer] shop once a week. Prior Treatments and Tests MRI brain 08/07/20: Mild white matter abnormality, likely microvascular disease Treatment Goals Patient/Caregiver Goals Pt's goal is to get where he was a year ago: walking I without AD and no falls. PT-OP-C Subjective Start: 11/28/24 13:39 Freq: Status: Active Protocol: Document 01/15/25 07:29 MB (Rec: 01/15/25 08:14 MB [id number]) OP-PT Subjective Patient Comments Patient Comments Pt was found to have a fifth metacarpal fracture at walk-in clinic visit and he was told he could con't PT exercises as long as he doesn't use his hand. Pt wishes to con't OPPT. He follows up with orthopedist this Wednesday for permanent cast. PT-OP-G Mobility & Gait Start: 11/28/24 13:39 Freq: Status: Active Protocol: Document 12/11/24 07:21 MB (Rec: 12/11/24 08:08 MB [id number]) OP Gait Assessment Comments Gait Comments Gait without AD: gait is unsteady and he tends to cross right leg over the left in a sweeping motion, functional leg length difference and increased Ivon angle LLE, B Trendelenburg with gait. Pt with all over vermis-type dyskinesia with movement. PT-OP-H Neuro Start: 11/28/24 13:39 Freq: Status: Active Protocol: Document 12/11/24 07:21 MB (Rec: 12/11/24 08:08 MB [id number]) Coordination Evaluation Upper Extremity Tests Left Finger to Nose Test Moderate Impairment Pronation/Supination Test Minimal Impairment Right Finger to Nose Test Minimal Impairment Pronation/Supination Test Minimal Impairment Lower Extremity Tests Left Alternate Heel to Knee; Heel to Toe Test Moderate Impairment Foot Tapping Test Minimal Impairment Right Alternate Heel to Knee; Heel to Toe Test Minimal Impairment Foot Tapping Test Minimal Impairment Vital Signs Comments Vital Signs Comments Orthostatic assessment in RUE: supine 124/74, 66; standing 116/66, 75; standing 1' 116/68 , 71. PT-OP-K Range of Motion Start: 11/28/24 13:39 Freq: Status: Active Protocol: Document 12/11/24 07:21 MB (Rec: 12/11/24 08:08 MB [id number]) Shoulder Goniometric Range of Motion Shoulder Left Shoulder ROM WFL Yes Testing Position Sitting Right Shoulder ROM WFL No Testing Position Sitting Comments Right shoulder flexion and abduction is about 15 deg less than the left, pt is right- handed. Pt states he does not feel limited in the right. Elbow/Forearm Range of Motion Elbow/Forearm Left Elbow/Forearm ROM WFL No ROM Testing Position Sitting Comments Brace donned and PT is not addressing this and so deferred formal testing Right Elbow/Forearm ROM WFL Yes ROM Testing Position Sitting Ankle and Foot Goniometric Range of Motion Ankle and Foot Left Ankle/Foot ROM WFL Yes Testing Position Sitting Right Ankle/Foot ROM WFL No Testing Position Sitting Comments Mildly reduced right ankle ROM grossly assessed today for function PT-OP-M Strength Start: 11/28/24 13:39 Freq: Status: Active Protocol: Document 12/11/24 07:21 MB (Rec: 12/11/24 08:08 MB [id number]) Shoulder Strength Shoulder Manual Muscle Testing Left Flexion 4+ Good+ Abduction (C5) 4+ Good+ Right Flexion 5 Normal Abduction (C5) 5 Normal Elbow/Forearm Strength Elbow and Forearm Manual Muscle Testing Left Flexion (C6) 4+ Good+ Extension (C7) 4+ Good+ Right Flexion (C6) 5 Normal Extension (C7) 5 Normal Hip Strength Hip Manual Muscle Testing Left Flexion (L2) 5 Normal Right Flexion (L2) 5 Normal Knee Strength Knee Manual Muscle Testing Left Flexion (S2) 5 Normal Extension (L3) 5 Normal Right Flexion (S2) 5 Normal Extension (L3) 5 Normal Ankle/Foot Strength Ankle and Foot Manual Muscle Testing Left Dorsiflexion (L4) 4+ Good+ Right Dorsiflexion (L4) 4+ Good+ Toe Strength Toe Manual Muscle Testing Left Great Toe Extension 5 Normal Right Great Toe Extension 4+ Good+ PT-OP-Q Treatments Start: 11/28/24 13:39 Freq: Status: Active Protocol: Document 01/15/25 07:29 MB (Rec: 01/15/25 08:14 [id number]) Therapeutic Activity Therapeutic Activity Orthostatic BP assessment Comments BP and HR in RUE: supine 139/ 83, 75; standing 112/68, 86; standing 1' 126/72, 88. Gait Training Gait Activity Amplitude Walking Comments Worked on BIG arm swing on the right 6MWT Comments See goals for comments today on 6MWT Self-Care/Home Management Treatment Education Other Education Handouts about orthostatic hypotension, neurogenic orthostatic hypotension, ed in what to do and what not to do and provided handouts PT-OP-T Assessment and Plan Start: 11/28/24 13:39 Freq: Status: Active Protocol: Document 01/15/25 07:29 MB (Rec: 01/15/25 08:14 MB [id number]) Physical Therapy Assessment Rehab Potential Rehabilitation Potential Fair Evaluation Complexity Number of Personal Factors/Comorbidities 1-2 Number of Body Systems Impaired 3 Clinical Presentation at Evaluation Evolving Impairments Impairments Activity Tolerance,Balance, Coordination,Functional Activities,Functional Mobility ,Gait,Pain,Posture,ROM,Soft Tissue Mobility,Strength, Transfers Goals 4 Impairment Evidence of imbalance [facility] Goal (LTG) Pt will perform WNLs on a standardized balance test to decrease fall risk. 01/10/25 Test not performed today but pt had fall earlier today when waiting for public transportation and he injured his nose and hand. 01/15/25 LTG Duration 8 weeks 3 Impairment Lack of amplitude and balance specific HEP Lime Spreader Goal (LTG) Pt will perform progressive HEP including LSVT BIG exercises with I to improve balance and amplitude of movement. 01/10/25: Pt is perform large amplitued exercises some but not everyday. With performance in clinic, he is doing better with exercises. LTG Duration 8 weeks 2 Impairment Decreased gait speed and balance Lime Spreader Goal (LTG) Pt will gait train at least 1716 feet in 6 minutes without LRAD to improve community ambulation. 01/10/25: Perform 6MWT in future sessions. 01/15/25: Pt gait trains 1512 feet in 6 minutes. He slows greatly after 3' of ambulation and he demonstrates decreased arm swing and step-length right compared to left leg and he has dropping pelvis on the left with longer stepping/ Trendelenbury gait. Fitness level and increased body mass may affect gait distance in six minutes. LTG Duration 8 weeks 1 Impairment TUG in 11 sec Lime Spreader Goal (LTG) Pt will perform TUG in no more than 10 sec to decrease fall risk. 01/10/25: Perform TUG in future treatment sessions. 01/15/25: Pt performs TUG in 13 sec LTG Duration 8 weeks Assessment Summary Assessment Pt has a left fractured metacarpal after fall and will get permanent cast on Wednesday. He has followed-up with walk-in clinic and orthopedist this week for permanent cast and he was cleared to con't PT, as long as he doesn't use his left hand. Since PT is working on balance, gait and big amplitude exercises, PT agrees to con't as long as it doesn' t increase his pain. TUG and 6MWT and orthostatic hypotension check all performed today and education. Pt is significantly orthostatic and provided education and handouts. Physical Therapy Plan Frequency and Duration Frequency of Treatment 2x-4x/wk Duration of treatment (weeks) 8 Plan of Care Start Date 12/11/24 Plan of Care End Date 02/08/25 Therapeutic Interventions Therapeutic Interventions Balance Training,Canalithic Repositioning,Coordination Training,Gait Training,Home Exercise Program,Joint Mobilizations,Manual Therapy, Neuromuscular Re-education, Patient/Caregiver Education, Self-Care/Home Management,Soft Tissue Mobilization,Taping, Therapeutic Activities, Therapeutic Exercises Modalities Cold Pack/Ice Massage,Electric Stimulation,Hot Packs, Ultrasound Next Visit Focus/Plan Next Note Type Treatment Note Next Visit Plan FGA Con't gait training with metronome, balance activities, ongoing large amplitude exercises Check orthostatics
--- NOTE | 2025-01-18 08:15 | PT.OTN ---
Current Diagnoses Parkinson's disease without dyskinesia, with fluctuations (01/18/25) Physical Therapy Treatment Note PT-OP-A Visit Information Start: 11/28/24 13:39 Freq: Status: Active Protocol: Document 01/18/25 07:33 SP (Rec: 01/18/25 08:20 SP [id number]) Out-Patient Physical Therapy Visit Information Visit Information Visit Type Treatment Note Visit Note [employer] Medicare PN in 2 visits, 01/24/25. Visit Start Time 07:33 Visit Stop Time 08:15 Visit Number 8 Number of OUTSOLE COMPRESSOR Visits 1 Evaluation Information Evaluation Date 12/11/24 Precautions Precautions Left fifth metacarpal fracture , pt orthostatic with PT 01/15 and symptomatic PT-OP-B Current Condition Start: 11/28/24 13:39 Freq: Status: Active Protocol: Document 12/11/24 07:21 MB (Rec: 12/11/24 08:08 MB [id number]) Current Condition History of Current Condition Onset Date 2018 Current Complaints Left elbow does not allow him to push up History of Current Condition Pt experienced right arm tremor in 2018 and decreased right arm swing 2019. Pt now has B UE and LE tremors and jaw tremor. Pt reports he needs a cognitive review before he gets a DBS. PMH includes congenital hearing loss, HTN, left cervical radiculopathy s/p cervical spine fusion, fall and ankle fx right summer of 2023, light-headedness, left elbow spur in cubital tunnel and pt had surgery and wears brace, [place], vision changes and glasses, obesity. Pt thinks he is here for his left elbow and PT ed pt that PT has order for PD and progress to BIG when an opening occurs. Pt lives with his , Michelle . His most recent fall was 1.5 months ago and he hit the sink counter. Pt has a rollator and straight cane. He does like to use them. He does not arrive with ADs. Pt passed his driving test and is still driving. Pt likes to go to the pool and do the [employer] land exercises twice a week and water 1-2 times a week. He likes to go to [place] and support his [employer] shop once a week. Prior Treatments and Tests MRI brain 08/07/20: Mild white matter abnormality, likely microvascular disease Treatment Goals Patient/Caregiver Goals Pt's goal is to get where he was a year ago: walking I without AD and no falls. PT-OP-C Subjective Start: 11/28/24 13:39 Freq: Status: Active Protocol: Document 01/18/25 07:33 SP (Rec: 01/18/25 08:20 SP [id number]) OP-PT Subjective Patient Comments Patient Comments Pt arrives demonstrating increased scissor stepping carrying Juan A trek poles, he reports lost 1 trek pole bottom knob and his HOs received last tx, thinks either left in PT or on bus. Needs another copy of HOs from last tx, PT provided another copy. PT-OP-E Functional Tests Start: 01/18/25 07:32 Freq: Status: Active Protocol: Document 01/18/25 07:33 SP (Rec: 01/18/25 08:20 SP [id number]) Functional Tests Functional Gait Assessment Score 21/30 Functional Gait Assessment Impairment 20 to <40% Impaired (Score 19- Rating 24) PT-OP-G Mobility & Gait Start: 11/28/24 13:39 Freq: Status: Active Protocol: Document 12/11/24 07:21 MB (Rec: 12/11/24 08:08 MB [id number]) OP Gait Assessment Comments Gait Comments Gait without AD: gait is unsteady and he tends to cross right leg over the left in a sweeping motion, functional leg length difference and increased Ivon angle LLE, B Trendelenburg with gait. Pt with all over vermis-type dyskinesia with movement. PT-OP-H Neuro Start: 11/28/24 13:39 Freq: Status: Active Protocol: Document 12/11/24 07:21 MB (Rec: 12/11/24 08:08 MB [id number]) Coordination Evaluation Upper Extremity Tests Left Finger to Nose Test Moderate Impairment Pronation/Supination Test Minimal Impairment Right Finger to Nose Test Minimal Impairment Pronation/Supination Test Minimal Impairment Lower Extremity Tests Left Alternate Heel to Knee; Heel to Toe Test Moderate Impairment Foot Tapping Test Minimal Impairment Right Alternate Heel to Knee; Heel to Toe Test Minimal Impairment Foot Tapping Test Minimal Impairment Vital Signs Comments Vital Signs Comments Orthostatic assessment in RUE: supine 124/74, 66; standing 116/66, 75; standing 1' 116/68 , 71. PT-OP-K Range of Motion Start: 11/28/24 13:39 Freq: Status: Active Protocol: Document 12/11/24 07:21 MB (Rec: 12/11/24 08:08 MB [id number]) Shoulder Goniometric Range of Motion Shoulder Left Shoulder ROM WFL Yes Testing Position Sitting Right Shoulder ROM WFL No Testing Position Sitting Comments Right shoulder flexion and abduction is about 15 deg less than the left, pt is right- handed. Pt states he does not feel limited in the right. Elbow/Forearm Range of Motion Elbow/Forearm Left Elbow/Forearm ROM WFL No ROM Testing Position Sitting Comments Brace donned and PT is not addressing this and so deferred formal testing Right Elbow/Forearm ROM WFL Yes ROM Testing Position Sitting Ankle and Foot Goniometric Range of Motion Ankle and Foot Left Ankle/Foot ROM WFL Yes Testing Position Sitting Right Ankle/Foot ROM WFL No Testing Position Sitting Comments Mildly reduced right ankle ROM grossly assessed today for function PT-OP-M Strength Start: 11/28/24 13:39 Freq: Status: Active Protocol: Document 12/11/24 07:21 MB (Rec: 12/11/24 08:08 MB [id number]) Shoulder Strength Shoulder Manual Muscle Testing Left Flexion 4+ Good+ Abduction (C5) 4+ Good+ Right Flexion 5 Normal Abduction (C5) 5 Normal Elbow/Forearm Strength Elbow and Forearm Manual Muscle Testing Left Flexion (C6) 4+ Good+ Extension (C7) 4+ Good+ Right Flexion (C6) 5 Normal Extension (C7) 5 Normal Hip Strength Hip Manual Muscle Testing Left Flexion (L2) 5 Normal Right Flexion (L2) 5 Normal Knee Strength Knee Manual Muscle Testing Left Flexion (S2) 5 Normal Extension (L3) 5 Normal Right Flexion (S2) 5 Normal Extension (L3) 5 Normal Ankle/Foot Strength Ankle and Foot Manual Muscle Testing Left Dorsiflexion (L4) 4+ Good+ Right Dorsiflexion (L4) 4+ Good+ Toe Strength Toe Manual Muscle Testing Left Great Toe Extension 5 Normal Right Great Toe Extension 4+ Good+ PT-OP-Q Treatments Start: 11/28/24 13:39 Freq: Status: Active Protocol: Document 01/18/25 07:33 SP (Rec: 01/18/25 08:20 SP [id number]) Therapeutic Exercises Sitting Exercises Amplitude floor to ceiling Sitting Exercise Name Reviewed from [facility] Equipment Used BIG chair and cushion Reps/Minutes 10 reps Comments Cues for hand forward hand back on lap Amplitude Side to Side Sitting Exercise Name Reviewed from HEP Side bilateral Equipment Used BIG chair and cushion Reps/Minutes 10 alternating (limited time) Comments BIG leg return, leg back Amplitude STS Sitting Exercise Name Reviewed from [facility] Equipment Used BIG chair and cushion Reps/Minutes 10 Comments cued fulls stand controlled sit, loud counting Standing Exercises Amplitude forward rock and reach Standing Exercise Name HEP Side bilateral Reps/Minutes 10 reps, each side Comments Cues for feet first wt shift, BIG arm swing, counting out loud Amplitude back step Standing Exercise Name Reviewed from [facility]P Side bilateral Reps/Minutes 20 reps alternating Comments Cues arms front, hip hinge more Amplitude Side to Side Step Standing Exercise Name Reviewed from HEP Side bilateral Reps/Minutes 20 reps alternating Comments Cues to move head with stepping, decrease stride Amplitude Forward Step Standing Exercise Name From [facility] provided today Side bilateral Reps/Minutes 20 reps alternate Comments Cues for big stance, decrease stride Gait Training Gait Activity Amplitude Walking Description Metronome 96 bpm Device Used 0 Distance/Duration around clinin several laps Treatment Focus normalizing gait Comments Worked on BIG arm with opp UE, increase AYO, smaller stride. Self-Care/Home Management Treatment Education Patient Education Safety Other Education PT continued discussion with pt when provided another copy of hands of information on orthostatic hypotension, neurogenic orthostatic hypotension regarding safety awareness and keep hand out in secure bag traveling home today. PT-OP-T Assessment and Plan Start: 11/28/24 13:39 Freq: Status: Active Protocol: Document 01/18/25 07:33 SP (Rec: 01/18/25 08:20 SP [id number]) Physical Therapy Assessment Goals 4 Impairment Evidence of imbalance [place] Builder Goal (LTG) Pt will perform WNLs on a standardized balance test to decrease fall risk. 01/10/25 Test not performed today but pt had fall earlier today when waiting for public transportation and he injured his nose and hand. 01/18/25: FGA : 20-40 % impaired LTG Duration 8 weeks progressing 01/18/25 3 Impairment Lack of amplitude and balance specific HEP [place] Builder Goal (LTG) Pt will perform progressive HEP including LSVT BIG exercises with I to improve balance and amplitude of movement. 01/10/25: Pt is perform large amplitued exercises some but not everyday. With performance in clinic, he is doing better with exercises. LTG Duration 8 weeks 2 Impairment Decreased gait speed and balance Hull Builder Goal (LTG) Pt will gait train at least 1716 feet in 6 minutes without LRAD to improve community ambulation. 01/10/25: Perform 6MWT in future sessions. 01/15/25: Pt gait trains 1512 feet in 6 minutes. He slows greatly after 3' of ambulation and he demonstrates decreased arm swing and step-length right compared to left leg and he has dropping pelvis on the left with longer stepping/ Trendelenbury gait. Fitness level and increased body mass may affect gait distance in six minutes. LTG Duration 8 weeks 1 Impairment TUG in 11 sec Hull Builder Goal (LTG) Pt will perform TUG in no more than 10 sec to decrease fall risk. 01/10/25: Perform TUG in future treatment sessions. 01/15/25: Pt performs TUG in 13 sec LTG Duration 8 weeks Assessment Summary Assessment Pt arrived with LUE 4-5th MTP hand brace today. FGA testing score 21/30 20-40% impaired. Pt required cuing for controlled sit initially arrival and increased AYO due to increases scissor stepping. Pt improved stepping during bigger amplitude walking with metronome 96 bpm and cues for increase AYO. Cues for proper form during bigger amplitude exercises. Physical Therapy Plan Frequency and Duration Frequency of Treatment 2x-4x/wk Duration of treatment (weeks) 8 Plan of Care Start Date 12/11/24 Plan of Care End Date 02/08/25 Therapeutic Interventions Therapeutic Interventions Balance Training,Canalithic Repositioning,Coordination Training,Gait Training,Home Exercise Program,Joint Mobilizations,Manual Therapy, Neuromuscular Re-education, Patient/Caregiver Education, Self-Care/Home Management,Soft Tissue Mobilization,Taping, Therapeutic Activities, Therapeutic Exercises Modalities Cold Pack/Ice Massage,Electric Stimulation,Hot Packs, Ultrasound Next Visit Focus/Plan Next Note Type Treatment Note Next Visit Plan Con't gait training with metronome 96 bpm, balance activities, ongoing large amplitude exercises Check orthostatics
--- NOTE | 2025-01-22 08:12 | PT.OTN ---
Current Diagnoses Parkinson's disease without dyskinesia, with fluctuations (01/22/25) Physical Therapy Treatment Note PT-OP-A Visit Information Start: 11/28/24 13:39 Freq: Status: Active Protocol: Document 01/22/25 07:34 SP (Rec: 01/22/25 08:21 SP [id number]) Out-Patient Physical Therapy Visit Information Visit Information Visit Type Treatment Note Visit Note [employer] PN by 02/07/25. Visit Start Time 07:34 Visit Stop Time 08:12 Visit Number 9 Number of TEACHER LIP READING Visits 2 Evaluation Information Evaluation Date 12/11/24 Precautions Precautions Left fifth metacarpal fracture , pt orthostatic with PT 01/15 and symptomatic PT-OP-B Current Condition Start: 11/28/24 13:39 Freq: Status: Active Protocol: Document 12/11/24 07:21 MB (Rec: 12/11/24 08:08 MB [id number]) Current Condition History of Current Condition Onset Date 2018 Current Complaints Left elbow does not allow him to push up History of Current Condition Pt experienced right arm tremor in 2018 and decreased right arm swing 2019. Pt now has B UE and LE tremors and jaw tremor. Pt reports he needs a cognitive review before he gets a DBS. PMH includes congenital hearing loss, HTN, left cervical radiculopathy s/p cervical spine fusion, fall and ankle fx right summer of 2023, light-headedness, left elbow spur in cubital tunnel and pt had surgery and wears brace, [place], vision changes and glasses, obesity. Pt thinks he is here for his left elbow and PT ed pt that PT has order for PD and progress to BIG when an opening occurs. Pt lives with his , Michelle . His most recent fall was 1.5 months ago and he hit the sink counter. Pt has a rollator and straight cane. He does like to use them. He does not arrive with ADs. Pt passed his driving test and is still driving. Pt likes to go to the pool and do the [place] exercises twice a week and water 1-2 times a week. He likes to go to [employer] and support his [employer] shop once a week. Prior Treatments and Tests MRI brain 08/07/20: Mild white matter abnormality, likely microvascular disease Treatment Goals Patient/Caregiver Goals Pt's goal is to get where he was a year ago: walking I without AD and no falls. PT-OP-C Subjective Start: 11/28/24 13:39 Freq: Status: Active Protocol: Document 01/22/25 07:34 SP (Rec: 01/22/25 08:21 SP [id number]) OP-PT Subjective Patient Comments Patient Comments Pt reports little tired, is early for him. PT-OP-E Functional Tests Start: 01/18/25 07:32 Freq: Status: Active Protocol: Document 01/18/25 07:33 SP (Rec: 01/18/25 08:20 SP [id number]) Functional Tests Functional Gait Assessment Score 21/30 Functional Gait Assessment Impairment 20 to <40% Impaired (Score 19- Rating 24) PT-OP-G Mobility & Gait Start: 11/28/24 13:39 Freq: Status: Active Protocol: Document 12/11/24 07:21 MB (Rec: 12/11/24 08:08 MB [id number]) OP Gait Assessment Comments Gait Comments Gait without AD: gait is unsteady and he tends to cross right leg over the left in a sweeping motion, functional leg length difference and increased Ivon angle LLE, B Trendelenburg with gait. Pt with all over vermis-type dyskinesia with movement. PT-OP-H Neuro Start: 11/28/24 13:39 Freq: Status: Active Protocol: Document 12/11/24 07:21 MB (Rec: 12/11/24 08:08 MB [id number]) Coordination Evaluation Upper Extremity Tests Left Finger to Nose Test Moderate Impairment Pronation/Supination Test Minimal Impairment Right Finger to Nose Test Minimal Impairment Pronation/Supination Test Minimal Impairment Lower Extremity Tests Left Alternate Heel to Knee; Heel to Toe Test Moderate Impairment Foot Tapping Test Minimal Impairment Right Alternate Heel to Knee; Heel to Toe Test Minimal Impairment Foot Tapping Test Minimal Impairment Vital Signs Comments Vital Signs Comments Orthostatic assessment in RUE: supine 124/74, 66; standing 116/66, 75; standing 1' 116/68 , 71. PT-OP-K Range of Motion Start: 11/28/24 13:39 Freq: Status: Active Protocol: Document 12/11/24 07:21 MB (Rec: 12/11/24 08:08 MB [id number]) Shoulder Goniometric Range of Motion Shoulder Left Shoulder ROM WFL Yes Testing Position Sitting Right Shoulder ROM WFL No Testing Position Sitting Comments Right shoulder flexion and abduction is about 15 deg less than the left, pt is right- handed. Pt states he does not feel limited in the right. Elbow/Forearm Range of Motion Elbow/Forearm Left Elbow/Forearm ROM WFL No ROM Testing Position Sitting Comments Brace donned and PT is not addressing this and so deferred formal testing Right Elbow/Forearm ROM WFL Yes ROM Testing Position Sitting Ankle and Foot Goniometric Range of Motion Ankle and Foot Left Ankle/Foot ROM WFL Yes Testing Position Sitting Right Ankle/Foot ROM WFL No Testing Position Sitting Comments Mildly reduced right ankle ROM grossly assessed today for function PT-OP-M Strength Start: 11/28/24 13:39 Freq: Status: Active Protocol: Document 12/11/24 07:21 MB (Rec: 12/11/24 08:08 MB [id number]) Shoulder Strength Shoulder Manual Muscle Testing Left Flexion 4+ Good+ Abduction (C5) 4+ Good+ Right Flexion 5 Normal Abduction (C5) 5 Normal Elbow/Forearm Strength Elbow and Forearm Manual Muscle Testing Left Flexion (C6) 4+ Good+ Extension (C7) 4+ Good+ Right Flexion (C6) 5 Normal Extension (C7) 5 Normal Hip Strength Hip Manual Muscle Testing Left Flexion (L2) 5 Normal Right Flexion (L2) 5 Normal Knee Strength Knee Manual Muscle Testing Left Flexion (S2) 5 Normal Extension (L3) 5 Normal Right Flexion (S2) 5 Normal Extension (L3) 5 Normal Ankle/Foot Strength Ankle and Foot Manual Muscle Testing Left Dorsiflexion (L4) 4+ Good+ Right Dorsiflexion (L4) 4+ Good+ Toe Strength Toe Manual Muscle Testing Left Great Toe Extension 5 Normal Right Great Toe Extension 4+ Good+ PT-OP-Q Treatments Start: 11/28/24 13:39 Freq: Status: Active Protocol: Document 01/22/25 07:34 SP (Rec: 01/22/25 08:21 SP [id number]) Therapeutic Exercises Sitting Exercises Amplitude floor to ceiling Sitting Exercise Name Reviewed from [facility] Equipment Used BIG chair and cushion Reps/Minutes 10 reps Comments Cues for hand forward hand back on lap Amplitude Side to Side Sitting Exercise Name Reviewed from [facility] Side bilateral Equipment Used BIG chair and cushion Reps/Minutes 10 alternating (limited time) Comments BIG leg return, leg back, elbow little straighter Amplitude STS Sitting Exercise Name Reviewed from [facility] Equipment Used BIG chair and cushion Reps/Minutes 10 Comments cued controlled sit, loud counting Standing Exercises Amplitude side rock and reach Standing Exercise Name HEP--pt only has video of PT Side bilateral Equipment Used back to mirror behind to look for self rotation Reps/Minutes 20 reps alternaiting Comments Cued hands lap return, look in mirror rotate, dec AYO, count loud Amplitude forward rock and reach Standing Exercise Name HEP Side bilateral Reps/Minutes 10 reps, each side Comments Improved BIG arm swing, counting out loud Amplitude back step Standing Exercise Name Reviewed from [facility] Side bilateral Reps/Minutes 20 reps alternating Comments Cues arms front, hip hinge, front toe up, increase AYO Amplitude Side to Side Step Standing Exercise Name Reviewed from [facility] Side bilateral Reps/Minutes 20 reps alternating Comments Cues to move head with stepping, decrease stride, less momentum back Amplitude Forward Step Standing Exercise Name From HEP provided today Side bilateral Reps/Minutes 20 reps alternate Comments Cues for big stance, decrease stride Gait Training Gait Activity Amplitude Walking Description Metronome 96 bpm Device Used 0 Distance/Duration around clinin several laps Treatment Focus normalizing gait Comments Worked on BIG arm with opp UE, increase AYO, smaller stride, stairs (MAP bldge stairs) cued increase AYO equal & anusha asc/better descend no UE support needed. PT-OP-T Assessment and Plan Start: 11/28/24 13:39 Freq: Status: Active Protocol: Document 01/22/25 07:34 SP (Rec: 01/22/25 08:21 SP [id number]) Physical Therapy Assessment Goals 4 Impairment Evidence of imbalance [employer] Goal (LTG) Pt will perform WNLs on a standardized balance test to decrease fall risk. 01/10/25 Test not performed today but pt had fall earlier today when waiting for public transportation and he injured his nose and hand. 01/18/25: FGA : 20-40 % impaired LTG Duration 8 weeks progressing 01/18/25 3 Impairment Lack of amplitude and balance specific HEP Detention Goal (LTG) Pt will perform progressive HEP including LSVT BIG exercises with I to improve balance and amplitude of movement. 01/10/25: Pt is perform large amplitued exercises some but not everyday. With performance in clinic, he is doing better with exercises. LTG Duration 8 weeks 2 Impairment Decreased gait speed and balance Detention Goal (LTG) Pt will gait train at least 1716 feet in 6 minutes without LRAD to improve community ambulation. 01/10/25: Perform 6MWT in future sessions. 01/15/25: Pt gait trains 1512 feet in 6 minutes. He slows greatly after 3' of ambulation and he demonstrates decreased arm swing and step-length right compared to left leg and he has dropping pelvis on the left with longer stepping/ Trendelenbury gait. Fitness level and increased body mass may affect gait distance in six minutes. LTG Duration 8 weeks 1 Impairment TUG in 11 sec Detention Goal (LTG) Pt will perform TUG in no more than 10 sec to decrease fall risk. 01/10/25: Perform TUG in future treatment sessions. 01/15/25: Pt performs TUG in 13 sec LTG Duration 8 weeks Assessment Summary Assessment Pt cues for smaller AYO during ex, increase AYO and smaller stride during gait approx 92- 94 bpm metronome with arm swing. Initated stair mgt today, cues increase AYO equal anusha. Physical Therapy Plan Frequency and Duration Frequency of Treatment 2x-4x/wk Duration of treatment (weeks) 8 Plan of Care Start Date 12/11/24 Plan of Care End Date 02/08/25 Therapeutic Interventions Therapeutic Interventions Balance Training,Canalithic Repositioning,Coordination Training,Gait Training,Home Exercise Program,Joint Mobilizations,Manual Therapy, Neuromuscular Re-education, Patient/Caregiver Education, Self-Care/Home Management,Soft Tissue Mobilization,Taping, Therapeutic Activities, Therapeutic Exercises Modalities Cold Pack/Ice Massage,Electric Stimulation,Hot Packs, Ultrasound Next Visit Focus/Plan Next Note Type Treatment Note Next Visit Plan Con't gait training with metronome 92-94 bpm, balance activities, ongoing large amplitude exercises Check orthostatics
--- NOTE | 2025-01-24 13:49 | PT.OTN ---
Current Diagnoses Parkinson's disease without dyskinesia, with fluctuations (01/24/25) Physical Therapy Treatment Note PT-OP-A Visit Information Start: 11/28/24 13:39 Freq: Status: Active Protocol: Document 01/24/25 13:02 MB (Rec: 01/24/25 13:49 MB [id number]) Out-Patient Physical Therapy Visit Information Visit Information Visit Type Progress Note Visit Note [employer] Medicare 12/08 before next progress note Visit Start Time 13:02 Visit Stop Time 13:42 Visit Number 10 Number of ADULT PROBATION OFFICER Visits 0 Evaluation Information Evaluation Date 12/11/24 Precautions Precautions Left fifth metacarpal fracture , pt orthostatic with PT 01/15 and symptomatic PT-OP-B Current Condition Start: 11/28/24 13:39 Freq: Status: Active Protocol: Document 12/11/24 07:21 MB (Rec: 12/11/24 08:08 MB [id number]) Current Condition History of Current Condition Onset Date 2018 Current Complaints Left elbow does not allow him to push up History of Current Condition Pt experienced right arm tremor in 2018 and decreased right arm swing 2019. Pt now has B UE and LE tremors and jaw tremor. Pt reports he needs a cognitive review before he gets a DBS. PMH includes congenital hearing loss, HTN, left cervical radiculopathy s/p cervical spine fusion, fall and ankle fx right summer of 2023, light-headedness, left elbow spur in cubital tunnel and pt had surgery and wears brace, [place], vision changes and glasses, obesity. Pt thinks he is here for his left elbow and PT ed pt that PT has order for PD and progress to BIG when an opening occurs. Pt lives with his , Michelle . His most recent fall was 1.5 months ago and he hit the sink counter. Pt has a rollator and straight cane. He does like to use them. He does not arrive with ADs. Pt passed his driving test and is still driving. Pt likes to go to the pool and do the [place] exercises twice a week and water 1-2 times a week. He likes to go to [employer] and support his [employer] shop once a week. Prior Treatments and Tests MRI brain 08/07/20: Mild white matter abnormality, likely microvascular disease Treatment Goals Patient/Caregiver Goals Pt's goal is to get where he was a year ago: walking I without AD and no falls. PT-OP-C Subjective Start: 11/28/24 13:39 Freq: Status: Active Protocol: Document 01/24/25 13:02 MB (Rec: 01/24/25 13:49 MB [id number]) OP-PT Subjective Patient Comments Patient Comments Pt states that his left hand still bothers him. Pt is getting more hearing aides. PT-OP-E Functional Tests Start: 01/18/25 07:32 Freq: Status: Active Protocol: Document 01/18/25 07:33 SP (Rec: 01/18/25 08:20 SP [id number]) Functional Tests Functional Gait Assessment Score 21/30 Functional Gait Assessment Impairment 20 to <40% Impaired (Score 19- Rating 24) PT-OP-G Mobility & Gait Start: 11/28/24 13:39 Freq: Status: Active Protocol: Document 12/11/24 07:21 MB (Rec: 12/11/24 08:08 MB [id number]) OP Gait Assessment Comments Gait Comments Gait without AD: gait is unsteady and he tends to cross right leg over the left in a sweeping motion, functional leg length difference and increased Ivon angle LLE, B Trendelenburg with gait. Pt with all over vermis-type dyskinesia with movement. PT-OP-H Neuro Start: 11/28/24 13:39 Freq: Status: Active Protocol: Document 12/11/24 07:21 MB (Rec: 12/11/24 08:08 MB [id number]) Coordination Evaluation Upper Extremity Tests Left Finger to Nose Test Moderate Impairment Pronation/Supination Test Minimal Impairment Right Finger to Nose Test Minimal Impairment Pronation/Supination Test Minimal Impairment Lower Extremity Tests Left Alternate Heel to Knee; Heel to Toe Test Moderate Impairment Foot Tapping Test Minimal Impairment Right Alternate Heel to Knee; Heel to Toe Test Minimal Impairment Foot Tapping Test Minimal Impairment Vital Signs Comments Vital Signs Comments Orthostatic assessment in RUE: supine 124/74, 66; standing 116/66, 75; standing 1' 116/68 , 71. PT-OP-K Range of Motion Start: 11/28/24 13:39 Freq: Status: Active Protocol: Document 12/11/24 07:21 MB (Rec: 12/11/24 08:08 MB [id number]) Shoulder Goniometric Range of Motion Shoulder Left Shoulder ROM WFL Yes Testing Position Sitting Right Shoulder ROM WFL No Testing Position Sitting Comments Right shoulder flexion and abduction is about 15 deg less than the left, pt is right- handed. Pt states he does not feel limited in the right. Elbow/Forearm Range of Motion Elbow/Forearm Left Elbow/Forearm ROM WFL No ROM Testing Position Sitting Comments Brace donned and PT is not addressing this and so deferred formal testing Right Elbow/Forearm ROM WFL Yes ROM Testing Position Sitting Ankle and Foot Goniometric Range of Motion Ankle and Foot Left Ankle/Foot ROM WFL Yes Testing Position Sitting Right Ankle/Foot ROM WFL No Testing Position Sitting Comments Mildly reduced right ankle ROM grossly assessed today for function PT-OP-M Strength Start: 11/28/24 13:39 Freq: Status: Active Protocol: Document 12/11/24 07:21 MB (Rec: 12/11/24 08:08 MB [id number]) Shoulder Strength Shoulder Manual Muscle Testing Left Flexion 4+ Good+ Abduction (C5) 4+ Good+ Right Flexion 5 Normal Abduction (C5) 5 Normal Elbow/Forearm Strength Elbow and Forearm Manual Muscle Testing Left Flexion (C6) 4+ Good+ Extension (C7) 4+ Good+ Right Flexion (C6) 5 Normal Extension (C7) 5 Normal Hip Strength Hip Manual Muscle Testing Left Flexion (L2) 5 Normal Right Flexion (L2) 5 Normal Knee Strength Knee Manual Muscle Testing Left Flexion (S2) 5 Normal Extension (L3) 5 Normal Right Flexion (S2) 5 Normal Extension (L3) 5 Normal Ankle/Foot Strength Ankle and Foot Manual Muscle Testing Left Dorsiflexion (L4) 4+ Good+ Right Dorsiflexion (L4) 4+ Good+ Toe Strength Toe Manual Muscle Testing Left Great Toe Extension 5 Normal Right Great Toe Extension 4+ Good+ PT-OP-Q Treatments Start: 11/28/24 13:39 Freq: Status: Active Protocol: Document 01/24/25 13:02 MB (Rec: 01/24/25 13:49 MB [id number]) Gait Training Gait Activity 6MWT Comments 01/24/25: 6MWT with B trekking poles today and pt gait trains 1550 feet in 6 minutes. He has some imbalance and falling into LLE with gait as far as decreased stability with advancing left leg. Pt is occ unsafe with trekking poles, advancing them together at the same time despite cues to advance one pole with opposite foot and left foot hits trekking pole x1 and no LOB. Increased tremoring in LUE today with trekking pole tapping into floor after gait today d/t akinesia/tremor. Close superv for gait today Neuro Re-Education Treatment Balance Activities FGA Comments Initiated today and did not complete and pt does not make improvements today TUG Comments 11 sec today Self-Care/Home Management Treatment Education Other Education Orthostatic assessment: BP and HR in RUE: supine 130/84, 73; standing 137/61, HR reading not correct; standing 1' 145/ 53, HR not correct (reading way too high) and it steady and slower with PT palpating. Ongoing ed of safety with trekking poles, con't LSVT exercises at home. PT-OP-T Assessment and Plan Start: 11/28/24 13:39 Freq: Status: Active Protocol: Document 01/24/25 13:02 MB (Rec: 01/24/25 13:49 MB [id number]) Physical Therapy Assessment Goals 4 Impairment Evidence of imbalance Snf Goal (LTG) Pt will perform WNLs on a standardized balance test to decrease fall risk. 01/10/25 Test not performed today but pt had fall earlier today when waiting for public transportation and he injured his nose and hand. 01/18/25: FGA : 20-40 % impaired 01/24/25 FGA: Not completed today LTG Duration 8 weeks progressing 01/18/25 3 Impairment Lack of amplitude and balance specific HEP Snf Goal (LTG) Pt will perform progressive HEP including LSVT BIG exercises with I to improve balance and amplitude of movement. 01/10/25: Pt is perform large amplitued exercises some but not everyday. With performance in clinic, he is doing better with exercises. 01/24/25: Pt is performing LSVT BIG exercises once a day at home. LTG Duration 8 weeks 2 Impairment Decreased gait speed and balance Snf Goal (LTG) Pt will gait train at least 1716 feet in 6 minutes without LRAD to improve community ambulation. 01/10/25: Perform 6MWT in future sessions. 01/15/25: Pt gait trains 1512 feet in 6 minutes. He slows greatly after 3' of ambulation and he demonstrates decreased arm swing and step-length right compared to left leg and he has dropping pelvis on the left with longer stepping/ Trendelenbury gait. Fitness level and increased body mass may affect gait distance in six minutes. 01/24/25: 6MWT with B trekking poles today and pt gait trains 1550 feet in 6 minutes. He has some imbalance and falling into LLE with gait as far as decreased stability with advancing left leg. Pt is occ unsafe with trekking poles, advancing them together at the same time despite cues to advance one pole with opposite foot and left foot hits trekking pole x1 and no LOB. Increased tremoring in LUE today with trekking pole tapping into floor after gait today d/t akinesia/tremor. Close superv for gait today LTG Duration 8 weeks 1 Impairment TUG in 11 sec Snf Goal (LTG) Pt will perform TUG in no more than 10 sec to decrease fall risk. 01/10/25: Perform TUG in future treatment sessions. 01/15/25: Pt performs TUG in 13 sec 01/24/25: TUG in 11 sec today LTG Duration 8 weeks Assessment Summary Assessment Orthostatics negative today. Progress note performed d/t note but not needed, pt con't to progress with gait and TUG and HEP performance but pt con 't with decreased safety awareness, impulsivity and imbalance. Con't per POC. Pt not having hearing aides in makes treatment very difficult today. Pt transitioning to 1 hour LSVT appointments soon. Physical Therapy Plan Frequency and Duration Frequency of Treatment 2x-4x/wk Duration of treatment (weeks) 8 Plan of Care Start Date 01/24/25 Plan of Care End Date 03/08/25 Therapeutic Interventions Therapeutic Interventions Balance Training,Canalithic Repositioning,Coordination Training,Gait Training,Home Exercise Program,Joint Mobilizations,Manual Therapy, Neuromuscular Re-education, Patient/Caregiver Education, Self-Care/Home Management,Soft Tissue Mobilization,Taping, Therapeutic Activities, Therapeutic Exercises Modalities Cold Pack/Ice Massage,Electric Stimulation,Hot Packs, Ultrasound Next Visit Focus/Plan Next Note Type Treatment Note Next Visit Plan Con't gait training with metronome 92-94 bpm, balance activities, ongoing large amplitude exercises Check orthostatics
--- NOTE | 2025-01-29 15:13 | PT.OTN ---
Current Diagnoses Parkinson's disease without dyskinesia, with fluctuations (01/29/25) Physical Therapy Treatment Note PT-OP-A Visit Information Start: 11/28/24 13:39 Freq: Status: Active Protocol: Document 01/29/25 14:33 SP (Rec: 01/29/25 15:36 SP [id number]) Out-Patient Physical Therapy Visit Information Visit Information Visit Type Progress Note Visit Note [employer] 01/08 before next progress note Visit Start Time 14:33 Visit Stop Time 15:13 Visit Number 11 Number of PROGRAM AIDE Visits 1 Evaluation Information Evaluation Date 12/11/24 Precautions Precautions Left fifth metacarpal fracture , pt orthostatic with PT 01/15 and symptomatic PT-OP-B Current Condition Start: 11/28/24 13:39 Freq: Status: Active Protocol: Document 12/11/24 07:21 MB (Rec: 12/11/24 08:08 MB [id number]) Current Condition History of Current Condition Onset Date 2018 Current Complaints Left elbow does not allow him to push up History of Current Condition Pt experienced right arm tremor in 2018 and decreased right arm swing 2019. Pt now has B UE and LE tremors and jaw tremor. Pt reports he needs a cognitive review before he gets a DBS. PMH includes congenital hearing loss, HTN, left cervical radiculopathy s/p cervical spine fusion, fall and ankle fx right summer of 2023, light-headedness, left elbow spur in cubital tunnel and pt had surgery and wears brace, [place], vision changes and glasses, obesity. Pt thinks he is here for his left elbow and PT ed pt that PT has order for PD and progress to [facility] when an opening occurs. Pt lives with his , Michelle . His most recent fall was 1.5 months ago and he hit the sink counter. Pt has a rollator and straight cane. He does like to use them. He does not arrive with ADs. Pt passed his driving test and is still driving. Pt likes to go to the pool and do the [place] exercises twice a week and water 1-2 times a week. He likes to go to [employer] and support his [employer] shop once a week. Prior Treatments and Tests MRI brain 08/07/20: Mild white matter abnormality, likely microvascular disease Treatment Goals Patient/Caregiver Goals Pt's goal is to get where he was a year ago: walking I without AD and no falls. PT-OP-C Subjective Start: 11/28/24 13:39 Freq: Status: Active Protocol: Document 01/29/25 14:33 SP (Rec: 01/29/25 15:36 SP [id number]) OP-PT Subjective Patient Comments Patient Comments Pt PT-OP-E Functional Tests Start: 01/18/25 07:32 Freq: Status: Active Protocol: Document 01/18/25 07:33 SP (Rec: 01/18/25 08:20 SP [id number]) Functional Tests Functional Gait Assessment Score 21/30 Functional Gait Assessment Impairment 20 to <40% Impaired (Score 19- Rating 24) PT-OP-G Mobility & Gait Start: 11/28/24 13:39 Freq: Status: Active Protocol: Document 12/11/24 07:21 MB (Rec: 12/11/24 08:08 MB [id number]) OP Gait Assessment Comments Gait Comments Gait without AD: gait is unsteady and he tends to cross right leg over the left in a sweeping motion, functional leg length difference and increased Ivon angle LLE, B Trendelenburg with gait. Pt with all over vermis-type dyskinesia with movement. PT-OP-H Neuro Start: 11/28/24 13:39 Freq: Status: Active Protocol: Document 12/11/24 07:21 MB (Rec: 12/11/24 08:08 MB [id number]) Coordination Evaluation Upper Extremity Tests Left Finger to Nose Test Moderate Impairment Pronation/Supination Test Minimal Impairment Right Finger to Nose Test Minimal Impairment Pronation/Supination Test Minimal Impairment Lower Extremity Tests Left Alternate Heel to Knee; Heel to Toe Test Moderate Impairment Foot Tapping Test Minimal Impairment Right Alternate Heel to Knee; Heel to Toe Test Minimal Impairment Foot Tapping Test Minimal Impairment Vital Signs Comments Vital Signs Comments Orthostatic assessment in RUE: supine 124/74, 66; standing 116/66, 75; standing 1' 116/68 , 71. PT-OP-K Range of Motion Start: 11/28/24 13:39 Freq: Status: Active Protocol: Document 12/11/24 07:21 MB (Rec: 12/11/24 08:08 MB [id number]) Shoulder Goniometric Range of Motion Shoulder Left Shoulder ROM WFL Yes Testing Position Sitting Right Shoulder ROM WFL No Testing Position Sitting Comments Right shoulder flexion and abduction is about 15 deg less than the left, pt is right- handed. Pt states he does not feel limited in the right. Elbow/Forearm Range of Motion Elbow/Forearm Left Elbow/Forearm ROM WFL No ROM Testing Position Sitting Comments Brace donned and PT is not addressing this and so deferred formal testing Right Elbow/Forearm ROM WFL Yes ROM Testing Position Sitting Ankle and Foot Goniometric Range of Motion Ankle and Foot Left Ankle/Foot ROM WFL Yes Testing Position Sitting Right Ankle/Foot ROM WFL No Testing Position Sitting Comments Mildly reduced right ankle ROM grossly assessed today for function PT-OP-M Strength Start: 11/28/24 13:39 Freq: Status: Active Protocol: Document 12/11/24 07:21 MB (Rec: 12/11/24 08:08 MB [id number]) Shoulder Strength Shoulder Manual Muscle Testing Left Flexion 4+ Good+ Abduction (C5) 4+ Good+ Right Flexion 5 Normal Abduction (C5) 5 Normal Elbow/Forearm Strength Elbow and Forearm Manual Muscle Testing Left Flexion (C6) 4+ Good+ Extension (C7) 4+ Good+ Right Flexion (C6) 5 Normal Extension (C7) 5 Normal Hip Strength Hip Manual Muscle Testing Left Flexion (L2) 5 Normal Right Flexion (L2) 5 Normal Knee Strength Knee Manual Muscle Testing Left Flexion (S2) 5 Normal Extension (L3) 5 Normal Right Flexion (S2) 5 Normal Extension (L3) 5 Normal Ankle/Foot Strength Ankle and Foot Manual Muscle Testing Left Dorsiflexion (L4) 4+ Good+ Right Dorsiflexion (L4) 4+ Good+ Toe Strength Toe Manual Muscle Testing Left Great Toe Extension 5 Normal Right Great Toe Extension 4+ Good+ PT-OP-Q Treatments Start: 11/28/24 13:39 Freq: Status: Active Protocol: Document 01/29/25 14:33 SP (Rec: 01/29/25 15:36 SP [id number]) Therapeutic Exercises Sitting Exercises Amplitude floor to ceiling Sitting Exercise Name Reviewed from HEP Equipment Used mesh chair Reps/Minutes 10 reps Comments Cues for hand forward hand Amplitude Side to Side Sitting Exercise Name Reviewed from HEP Side bilateral Equipment Used mesh chair Reps/Minutes 20 alternating Comments BIG leg return, leg back, elbow little straighter Amplitude STS Sitting Exercise Name Reviewed from HEP Equipment Used mesh chair Reps/Minutes 10 Comments cued controlled sit, loud counting Standing Exercises Amplitude side rock and reach Standing Exercise Name HEP--pt only has video of PT Side bilateral Equipment Used back to mirror behind to look for self rotation Reps/Minutes 20 reps alternating- 1 LOB self recovery return to front AYO too wide Comments Max cues hands lap return/out, look in mirror rotate, dec AYO, count loud Amplitude forward rock and reach Standing Exercise Name HEP Side bilateral Reps/Minutes 10 reps, each side Comments Improved BIG arm swing, counting out loud Amplitude back step Standing Exercise Name Reviewed from HEP Side bilateral Reps/Minutes 20 reps alternating Comments Cues arms front, hip hinge, arms higher back, increase AYO Amplitude Side to Side Step Standing Exercise Name Reviewed from HEP Side bilateral Reps/Minutes 20 reps alternating Comments Cues to move head with stepping Amplitude Forward Step Standing Exercise Name From HEP provided today Side bilateral Reps/Minutes 20 reps alternate Comments Cues for big stance, improved decrease stride Gait Training Gait Activity Amplitude Walking Description Metronome 96 bpm Device Used 0 Distance/Duration around clinin 2 laps, ER hallway 3 laps fwd, bwd, 1 set stairs Treatment Focus normalizing gait Comments Worked on BIG arm with opp UE, increase AYO, smaller stride fwd 96 bpm, stairs 92 asc/ 80bpm desc (MAP bldge stairs), back stepping 77 bpm, cued fwd increase posture and AYO, decrease stride equal & anusha PT-OP-T Assessment and Plan Start: 11/28/24 13:39 Freq: Status: Active Protocol: Document 01/29/25 14:33 SP (Rec: 01/29/25 15:36 SP [id number]) Physical Therapy Assessment Goals 4 Impairment Evidence of imbalance Chcf Goal (LTG) Pt will perform WNLs on a standardized balance test to decrease fall risk. 01/10/25 Test not performed today but pt had fall earlier today when waiting for public transportation and he injured his nose and hand. 01/18/25: FGA : 20-40 % impaired 01/24/25 FGA: Not completed today LTG Duration 8 weeks progressing 01/18/25 3 Impairment Lack of amplitude and balance specific HEP Armhole Presser Goal (LTG) Pt will perform progressive HEP including LSVT BIG exercises with I to improve balance and amplitude of movement. 01/10/25: Pt is perform large amplitued exercises some but not everyday. With performance in clinic, he is doing better with exercises. 01/24/25: Pt is performing LSVT BIG exercises once a day at home. LTG Duration 8 weeks 2 Impairment Decreased gait speed and balance Chcf Goal (LTG) Pt will gait train at least 1716 feet in 6 minutes without LRAD to improve community ambulation. 01/10/25: Perform 6MWT in future sessions. 01/15/25: Pt gait trains 1512 feet in 6 minutes. He slows greatly after 3' of ambulation and he demonstrates decreased arm swing and step-length right compared to left leg and he has dropping pelvis on the left with longer stepping/ Trendelenbury gait. Fitness level and increased body mass may affect gait distance in six minutes. 01/24/25: 6MWT with B trekking poles today and pt gait trains 1550 feet in 6 minutes. He has some imbalance and falling into LLE with gait as far as decreased stability with advancing left leg. Pt is occ unsafe with trekking poles, advancing them together at the same time despite cues to advance one pole with opposite foot and left foot hits trekking pole x1 and no LOB. Increased tremoring in LUE today with trekking pole tapping into floor after gait today d/t akinesia/tremor. Close superv for gait today LTG Duration 8 weeks 1 Impairment TUG in 11 sec Chcf Goal (LTG) Pt will perform TUG in no more than 10 sec to decrease fall risk. 01/10/25: Perform TUG in future treatment sessions. 01/15/25: Pt performs TUG in 13 sec 01/24/25: TUG in 11 sec today LTG Duration 8 weeks Assessment Summary Assessment Vitals end tx: Standing 126/76 Hr 82, seated 113/66 HR 77, supine 117/ 68 HR 74 SaO2 96% on RA, within normal limits. Pt improving decreased cuing corrections today, mainly side rock and reach hands on lap the back up before rotate, 1 LOB self recovery AYO to wide side rock and reach return to center. End tx discussion when stands and walks away from chair be mindful of increase AYO noted past 3 treatments worked with him. Physical Therapy Plan Frequency and Duration Frequency of Treatment 2x-4x/wk Duration of treatment (weeks) 8 Plan of Care Start Date 01/24/25 Plan of Care End Date 03/08/25 Therapeutic Interventions Therapeutic Interventions Balance Training,Canalithic Repositioning,Coordination Training,Gait Training,Home Exercise Program,Joint Mobilizations,Manual Therapy, Neuromuscular Re-education, Patient/Caregiver Education, Self-Care/Home Management,Soft Tissue Mobilization,Taping, Therapeutic Activities, Therapeutic Exercises Modalities Cold Pack/Ice Massage,Electric Stimulation,Hot Packs, Ultrasound Next Visit Focus/Plan Next Note Type Treatment Note Next Visit Plan Con't gait training with metronome 92-94 bpm, stairs and back najera walking balance activities, ongoing large amplitude exercises Check orthostatics
--- NOTE | 2025-01-31 13:53 | PT.OTN ---
Current Diagnoses Parkinson's disease without dyskinesia, with fluctuations (01/31/25) Physical Therapy Treatment Note PT-OP-A Visit Information Start: 11/28/24 13:39 Freq: Status: Active Protocol: Document 01/31/25 13:02 MB (Rec: 01/31/25 13:38 MB [id number]) Out-Patient Physical Therapy Visit Information Visit Information Visit Type Treatment Note Visit Note [employer] 02/05 before next progress note 0700, 1100, 1500, 1900 PD meds schedule, ed pt to take medications on time Visit Start Time 13:02 Visit Stop Time 13:42 Visit Number 12 Number of MONITORING MANAGER Visits 0 Evaluation Information Evaluation Date 12/11/24 Precautions Precautions Left fifth metacarpal fracture , pt orthostatic with PT 01/15 and symptomatic PT-OP-B Current Condition Start: 11/28/24 13:39 Freq: Status: Active Protocol: Document 12/11/24 07:21 MB (Rec: 12/11/24 08:08 MB [id number]) Current Condition History of Current Condition Onset Date 2018 Current Complaints Left elbow does not allow him to push up History of Current Condition Pt experienced right arm tremor in 2018 and decreased right arm swing 2019. Pt now has B UE and LE tremors and jaw tremor. Pt reports he needs a cognitive review before he gets a DBS. PMH includes congenital hearing loss, HTN, left cervical radiculopathy s/p cervical spine fusion, fall and ankle fx right summer of 2023, light-headedness, left elbow spur in cubital tunnel and pt had surgery and wears brace, [place], vision changes and glasses, obesity. Pt thinks he is here for his left elbow and PT ed pt that PT has order for PD and progress to [facility] when an opening occurs. Pt lives with his , Michelle . His most recent fall was 1.5 months ago and he hit the sink counter. Pt has a rollator and straight cane. He does like to use them. He does not arrive with ADs. Pt passed his driving test and is still driving. Pt likes to go to the pool and do the [place] exercises twice a week and water 1-2 times a week. He likes to go to [employer] and support his [email or web address] shop once a week. Prior Treatments and Tests MRI brain 08/07/20: Mild white matter abnormality, likely microvascular disease Treatment Goals Patient/Caregiver Goals Pt's goal is to get where he was a year ago: walking I without AD and no falls. PT-OP-C Subjective Start: 11/28/24 13:39 Freq: Status: Active Protocol: Document 01/31/25 13:02 MB (Rec: 01/31/25 13:38 MB [id number]) OP-PT Subjective Patient Comments Patient Comments When asked, pt states there is nothing new on his mind or new reports. Pt gets new hearing aide a week from this Wednesday. PT-OP-E Functional Tests Start: 01/18/25 07:32 Freq: Status: Active Protocol: Document 01/18/25 07:33 SP (Rec: 01/18/25 08:20 SP [id number]) Functional Tests Functional Gait Assessment Score 21/30 Functional Gait Assessment Impairment 20 to <40% Impaired (Score 19- Rating 24) PT-OP-G Mobility & Gait Start: 11/28/24 13:39 Freq: Status: Active Protocol: Document 12/11/24 07:21 MB (Rec: 12/11/24 08:08 MB [id number]) OP Gait Assessment Comments Gait Comments Gait without AD: gait is unsteady and he tends to cross right leg over the left in a sweeping motion, functional leg length difference and increased Ivon angle LLE, B Trendelenburg with gait. Pt with all over vermis-type dyskinesia with movement. PT-OP-H Neuro Start: 11/28/24 13:39 Freq: Status: Active Protocol: Document 12/11/24 07:21 MB (Rec: 12/11/24 08:08 MB [id number]) Coordination Evaluation Upper Extremity Tests Left Finger to Nose Test Moderate Impairment Pronation/Supination Test Minimal Impairment Right Finger to Nose Test Minimal Impairment Pronation/Supination Test Minimal Impairment Lower Extremity Tests Left Alternate Heel to Knee; Heel to Toe Test Moderate Impairment Foot Tapping Test Minimal Impairment Right Alternate Heel to Knee; Heel to Toe Test Minimal Impairment Foot Tapping Test Minimal Impairment Vital Signs Comments Vital Signs Comments Orthostatic assessment in RUE: supine 124/74, 66; standing 116/66, 75; standing 1' 116/68 , 71. PT-OP-K Range of Motion Start: 11/28/24 13:39 Freq: Status: Active Protocol: Document 12/11/24 07:21 MB (Rec: 12/11/24 08:08 MB [id number]) Shoulder Goniometric Range of Motion Shoulder Left Shoulder ROM WFL Yes Testing Position Sitting Right Shoulder ROM WFL No Testing Position Sitting Comments Right shoulder flexion and abduction is about 15 deg less than the left, pt is right- handed. Pt states he does not feel limited in the right. Elbow/Forearm Range of Motion Elbow/Forearm Left Elbow/Forearm ROM WFL No ROM Testing Position Sitting Comments Brace donned and PT is not addressing this and so deferred formal testing Right Elbow/Forearm ROM WFL Yes ROM Testing Position Sitting Ankle and Foot Goniometric Range of Motion Ankle and Foot Left Ankle/Foot ROM WFL Yes Testing Position Sitting Right Ankle/Foot ROM WFL No Testing Position Sitting Comments Mildly reduced right ankle ROM grossly assessed today for function PT-OP-M Strength Start: 11/28/24 13:39 Freq: Status: Active Protocol: Document 12/11/24 07:21 MB (Rec: 12/11/24 08:08 MB [id number]) Shoulder Strength Shoulder Manual Muscle Testing Left Flexion 4+ Good+ Abduction (C5) 4+ Good+ Right Flexion 5 Normal Abduction (C5) 5 Normal Elbow/Forearm Strength Elbow and Forearm Manual Muscle Testing Left Flexion (C6) 4+ Good+ Extension (C7) 4+ Good+ Right Flexion (C6) 5 Normal Extension (C7) 5 Normal Hip Strength Hip Manual Muscle Testing Left Flexion (L2) 5 Normal Right Flexion (L2) 5 Normal Knee Strength Knee Manual Muscle Testing Left Flexion (S2) 5 Normal Extension (L3) 5 Normal Right Flexion (S2) 5 Normal Extension (L3) 5 Normal Ankle/Foot Strength Ankle and Foot Manual Muscle Testing Left Dorsiflexion (L4) 4+ Good+ Right Dorsiflexion (L4) 4+ Good+ Toe Strength Toe Manual Muscle Testing Left Great Toe Extension 5 Normal Right Great Toe Extension 4+ Good+ PT-OP-Q Treatments Start: 11/28/24 13:39 Freq: Status: Active Protocol: Document 01/31/25 13:02 MB (Rec: 01/31/25 13:38 MB [id number]) Therapeutic Exercises Sitting Exercises Amplitude floor to ceiling Equipment Used BIG chair Reps/Minutes 10 reps Comments Arm flicks and no hand flicks d/t left hand Amplitude Side to Side Side bilateral Equipment Used BIG chair Reps/Minutes 20 alternating Comments Arm flicks, cues for start position and big back leg Amplitude STS Equipment Used BIG chair Reps/Minutes 10 Comments Cues for hands forward reaching first Standing Exercises Amplitude side rock and reach Side bilateral Equipment Used 2 lb ankle weights and mirror Reps/Minutes 20 alternating reps Comments Cues to count and pivot on back foot Amplitude forward rock and reach Side bilateral Equipment Used 2 lb ankle weights and mirror Reps/Minutes 10 reps, each side Comments Cues to count and stick with the exercise Amplitude back step Side bilateral Equipment Used 2 lb ankle weights and mirror Reps/Minutes 20 reps alternating Comments Pt tends to space out and not keep big front toe and wide AYO Amplitude Side to Side Step Side bilateral Equipment Used 2 lb ankle weights and mirror Reps/Minutes 20 reps alternating Comments Cues to turn head with stepping Amplitude Forward Step Side bilateral Equipment Used 2 lb ankle weights and mirror Reps/Minutes 20 reps alternate Comments Cues to finish exercise with slapping right thigh PT-OP-T Assessment and Plan Start: 11/28/24 13:39 Freq: Status: Active Protocol: Document 01/31/25 13:02 MB (Rec: 01/31/25 13:38 MB [id number]) Physical Therapy Assessment Goals 4 Impairment Evidence of imbalance Fishing Captain Goal (LTG) Pt will perform WNLs on a standardized balance test to decrease fall risk. 01/10/25 Test not performed today but pt had fall earlier today when waiting for public transportation and he injured his nose and hand. 01/18/25: FGA : 20-40 % impaired 01/24/25 FGA: Not completed today LTG Duration 8 weeks progressing 01/18/25 3 Impairment Lack of amplitude and balance specific HEP Half-Way Goal (LTG) Pt will perform progressive HEP including LSVT BIG exercises with I to improve balance and amplitude of movement. 01/10/25: Pt is perform large amplitued exercises some but not everyday. With performance in clinic, he is doing better with exercises. 01/24/25: Pt is performing LSVT BIG exercises once a day at home. LTG Duration 8 weeks 2 Impairment Decreased gait speed and balance Half-Way Goal (LTG) Pt will gait train at least 1716 feet in 6 minutes without LRAD to improve community ambulation. 01/10/25: Perform 6MWT in future sessions. 01/15/25: Pt gait trains 1512 feet in 6 minutes. He slows greatly after 3' of ambulation and he demonstrates decreased arm swing and step-length right compared to left leg and he has dropping pelvis on the left with longer stepping/ Trendelenbury gait. Fitness level and increased body mass may affect gait distance in six minutes. 01/24/25: 6MWT with B trekking poles today and pt gait trains 1550 feet in 6 minutes. He has some imbalance and falling into LLE with gait as far as decreased stability with advancing left leg. Pt is occ unsafe with trekking poles, advancing them together at the same time despite cues to advance one pole with opposite foot and left foot hits trekking pole x1 and no LOB. Increased tremoring in LUE today with trekking pole tapping into floor after gait today d/t akinesia/tremor. Close superv for gait today LTG Duration 8 weeks 1 Impairment TUG in 11 sec Half-Way Goal (LTG) Pt will perform TUG in no more than 10 sec to decrease fall risk. 01/10/25: Perform TUG in future treatment sessions. 01/15/25: Pt performs TUG in 13 sec 01/24/25: TUG in 11 sec today LTG Duration 8 weeks Assessment Summary Assessment Progressed exercises today with arm flicks at elbow (no hand flicks d/t left hand fracture and brace). Also added 2 lb ankle weights for standing exercises and gait exercises. Con't cues for not crosssing legs with gait and transfers. Provided LSVT BIG exercise handouts today d/t pt starting next week. Pt with some freezes during exercises today. He states he missed PD medications before treatment. He con't with CABAZON and this is a barrier to PT. Tremor is great in LUE. Physical Therapy Plan Frequency and Duration Frequency of Treatment 2x-4x/wk Duration of treatment (weeks) 8 Plan of Care Start Date 01/24/25 Plan of Care End Date 03/08/25 Therapeutic Interventions Therapeutic Interventions Balance Training,Canalithic Repositioning,Coordination Training,Gait Training,Home Exercise Program,Joint Mobilizations,Manual Therapy, Neuromuscular Re-education, Patient/Caregiver Education, Self-Care/Home Management,Soft Tissue Mobilization,Taping, Therapeutic Activities, Therapeutic Exercises Modalities Cold Pack/Ice Massage,Electric Stimulation,Hot Packs, Ultrasound Next Visit Focus/Plan Next Note Type Treatment Note Next Visit Plan Con't with flicks with floor to ceiling and sitting side to side, standing exercises and gait training with 2 lb ankle weights, metronome 92-94 bpm, stairs and back najera walking balance activities, ongoing large amplitude exercises Check orthostatics
--- NOTE | 2025-02-05 15:29 | PT.OTN ---
Current Diagnoses Parkinson's disease without dyskinesia, with fluctuations (02/05/25) Physical Therapy Treatment Note PT-OP-A Visit Information Start: 11/28/24 13:39 Freq: Status: Active Protocol: Document 02/05/25 14:26 MB (Rec: 02/05/25 15:28 MB [id number]) Out-Patient Physical Therapy Visit Information Visit Information Visit Type Treatment Note Visit Note [employer] 03/08 before next progress note 0700, 1100, 1500, 1900 PD meds schedule, ed pt to take medications on time Visit Start Time 14:26 Visit Stop Time 15:26 Visit Number 13 Number of LABORATORY TECHNICAL SPECIALIST Visits 0 Evaluation Information Evaluation Date 12/11/24 Precautions Precautions Left fifth metacarpal fracture , pt orthostatic with PT 01/15 and symptomatic PT-OP-B Current Condition Start: 11/28/24 13:39 Freq: Status: Active Protocol: Document 12/11/24 07:21 MB (Rec: 12/11/24 08:08 MB [id number]) Current Condition History of Current Condition Onset Date 2018 Current Complaints Left elbow does not allow him to push up History of Current Condition Pt experienced right arm tremor in 2018 and decreased right arm swing 2019. Pt now has B UE and LE tremors and jaw tremor. Pt reports he needs a cognitive review before he gets a DBS. PMH includes congenital hearing loss, HTN, left cervical radiculopathy s/p cervical spine fusion, fall and ankle fx right summer of 2023, light-headedness, left elbow spur in cubital tunnel and pt had surgery and wears brace, [place], vision changes and glasses, obesity. Pt thinks he is here for his left elbow and PT ed pt that PT has order for PD and progress to [facility] when an opening occurs. Pt lives with his , Michelle . His most recent fall was 1.5 months ago and he hit the sink counter. Pt has a rollator and straight cane. He does like to use them. He does not arrive with ADs. Pt passed his driving test and is still driving. Pt likes to go to the pool and do the [place] [place] exercises twice a week and water 1-2 times a week. 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 Prior Treatments and Tests MRI brain 08/07/20: Mild white matter abnormality, likely microvascular disease Treatment Goals Patient/Caregiver Goals Pt's goal is to get where he was a year ago: walking I without AD and no falls. PT-OP-C Subjective Start: 11/28/24 13:39 Freq: Status: Active Protocol: Document 02/05/25 14:26 MB (Rec: 02/05/25 15:28 MB [id number]) OP-PT Subjective Patient Comments Patient Comments Pt took his PD medication at [id number] and next dose is due at 1530. PT-OP-E Functional Tests Start: 01/18/25 07:32 Freq: Status: Active Protocol: Document 01/18/25 07:33 SP (Rec: 01/18/25 08:20 SP [id number]) Functional Tests Functional Gait Assessment Score 21/30 Functional Gait Assessment Impairment 20 to <40% Impaired (Score 19- Rating 24) PT-OP-G Mobility & Gait Start: 11/28/24 13:39 Freq: Status: Active Protocol: Document 12/11/24 07:21 MB (Rec: 12/11/24 08:08 MB [id number]) OP Gait Assessment Comments Gait Comments Gait without AD: gait is unsteady and he tends to cross right leg over the left in a sweeping motion, functional leg length difference and increased Ivon angle LLE, B Trendelenburg with gait. Pt with all over vermis-type dyskinesia with movement. PT-OP-H Neuro Start: 11/28/24 13:39 Freq: Status: Active Protocol: Document 12/11/24 07:21 MB (Rec: 12/11/24 08:08 MB [id number]) Coordination Evaluation Upper Extremity Tests Left Finger to Nose Test Moderate Impairment Pronation/Supination Test Minimal Impairment Right Finger to Nose Test Minimal Impairment Pronation/Supination Test Minimal Impairment Lower Extremity Tests Left Alternate Heel to Knee; Heel to Toe Test Moderate Impairment Foot Tapping Test Minimal Impairment Right Alternate Heel to Knee; Heel to Toe Test Minimal Impairment Foot Tapping Test Minimal Impairment Vital Signs Comments Vital Signs Comments Orthostatic assessment in RUE: supine 124/74, 66; standing 116/66, 75; standing 1' 116/68 , 71. PT-OP-K Range of Motion Start: 11/28/24 13:39 Freq: Status: Active Protocol: Document 12/11/24 07:21 MB (Rec: 12/11/24 08:08 MB [id number]) Shoulder Goniometric Range of Motion Shoulder Left Shoulder ROM WFL Yes Testing Position Sitting Right Shoulder ROM WFL No Testing Position Sitting Comments Right shoulder flexion and abduction is about 15 deg less than the left, pt is right- handed. Pt states he does not feel limited in the right. Elbow/Forearm Range of Motion Elbow/Forearm Left Elbow/Forearm ROM WFL No ROM Testing Position Sitting Comments Brace donned and PT is not addressing this and so deferred formal testing Right Elbow/Forearm ROM WFL Yes ROM Testing Position Sitting Ankle and Foot Goniometric Range of Motion Ankle and Foot Left Ankle/Foot ROM WFL Yes Testing Position Sitting Right Ankle/Foot ROM WFL No Testing Position Sitting Comments Mildly reduced right ankle ROM grossly assessed today for function PT-OP-M Strength Start: 11/28/24 13:39 Freq: Status: Active Protocol: Document 12/11/24 07:21 MB (Rec: 12/11/24 08:08 MB [id number]) Shoulder Strength Shoulder Manual Muscle Testing Left Flexion 4+ Good+ Abduction (C5) 4+ Good+ Right Flexion 5 Normal Abduction (C5) 5 Normal Elbow/Forearm Strength Elbow and Forearm Manual Muscle Testing Left Flexion (C6) 4+ Good+ Extension (C7) 4+ Good+ Right Flexion (C6) 5 Normal Extension (C7) 5 Normal Hip Strength Hip Manual Muscle Testing Left Flexion (L2) 5 Normal Right Flexion (L2) 5 Normal Knee Strength Knee Manual Muscle Testing Left Flexion (S2) 5 Normal Extension (L3) 5 Normal Right Flexion (S2) 5 Normal Extension (L3) 5 Normal Ankle/Foot Strength Ankle and Foot Manual Muscle Testing Left Dorsiflexion (L4) 4+ Good+ Right Dorsiflexion (L4) 4+ Good+ Toe Strength Toe Manual Muscle Testing Left Great Toe Extension 5 Normal Right Great Toe Extension 4+ Good+ PT-OP-Q Treatments Start: 11/28/24 13:39 Freq: Status: Active Protocol: Document 02/05/25 14:26 MB (Rec: 02/05/25 15:28 MB [id number]) Therapeutic Exercises Sitting Exercises Amplitude floor to ceiling Equipment Used BIG chair Reps/Minutes 10 reps Comments Arm flicks and no hand flicks d/t left hand Amplitude Side to Side Side bilateral Equipment Used BIG chair Reps/Minutes 20 alternating Comments Arm flicks, cues for start position and big back leg Amplitude STS Equipment Used BIG chair Reps/Minutes 10 Comments Cues for hands forward reaching first Standing Exercises Amplitude side rock and reach Side bilateral Equipment Used 3 lb ankle weights and mirror Reps/Minutes 20 alternating reps Comments Cues to unweight heels, finish in the middle and start big hands Amplitude forward rock and reach Side bilateral Equipment Used 3 lb ankle weights and mirror Reps/Minutes 10 reps, each side Comments Cues to shift weight Amplitude back step Standing Exercise Name Trouble with this one, tends to speed up and not perform BIG front toe Side bilateral Equipment Used 3 lb ankle weights and mirror Reps/Minutes 20 reps alternating Comments Cues to bring foot back and for big front toe and hands Amplitude Side to Side Step Side bilateral Equipment Used 3 lb ankle weights and mirror Reps/Minutes 20 reps alternating Comments Cues to turn head with stepping Amplitude Forward Step Standing Exercise Name Tends to speed up and not keep BIG amplitude Side bilateral Equipment Used 3 lb ankle weights and mirror Reps/Minutes 20 reps alternate Comments Cues for BIG stance and BIG step back Therapeutic Activity Therapeutic Activity Donning and doffing jackets Comments Pt standing and purple [employer] jacket including zipping, first doff 12 sec and demo left arm in first and right arm out first and next don: 26 sec. 2nd doff 11 sec, 2nd don 18 sec. 3rd doff 8 sec; 3rd don 14 sec; Pt does lean way over with zipping BIG writing Comments First time today and worked on BIG letters and numbers, working on equadistant and same size. Signature is small with letters close to each other and difficult to read, pt does fatigue with letter writing Gait Training Gait Activity Amplitude Walking Description Metronome 92 and then 95 BPM Comments 3 lb ankle weights and worked on crisp arms and legs with arm swing and steps rather than noodle-like/flailing limbs and worked on gait speed , changing directions, walking around equipment and people, steps all in gym and around gym Self-Care/Home Management Treatment Education Other Education Ed pt on different functional tasks we could work on with LSVT BIG and pt reports posture is a big one when going through the list: also, writing, walking in crowded spaces, uneven surfaces and donning and doffing jacket PT-OP-T Assessment and Plan Start: 11/28/24 13:39 Freq: Status: Active Protocol: Document 02/05/25 14:26 MB (Rec: 02/05/25 15:28 MB [id number]) Physical Therapy Assessment Rehab Potential Rehabilitation Potential Fair Evaluation Complexity Number of Personal Factors/Comorbidities 1-2 Number of Body Systems Impaired 3 Clinical Presentation at Evaluation Evolving Goals 4 Impairment Evidence of imbalance Assistant Community Director Goal (LTG) Pt will perform WNLs on a standardized balance test to decrease fall risk. 01/10/25 Test not performed today but pt had fall earlier today when waiting for public transportation and he injured his nose and hand. 01/18/25: FGA : 20-40 % impaired 01/24/25 FGA: Not completed today LTG Duration 8 weeks progressing 01/18/25 3 Impairment Lack of amplitude and balance specific HEP Long-Term Goal (LTG) Pt will perform progressive HEP including LSVT BIG exercises with I to improve balance and amplitude of movement. 01/10/25: Pt is perform large amplitued exercises some but not everyday. With performance in clinic, he is doing better with exercises. 01/24/25: Pt is performing LSVT BIG exercises once a day at home. LTG Duration 8 weeks 2 Impairment Decreased gait speed and balance Long-Term Goal (LTG) Pt will gait train at least 1716 feet in 6 minutes without LRAD to improve community ambulation. 01/10/25: Perform 6MWT in future sessions. 01/15/25: Pt gait trains 1512 feet in 6 minutes. He slows greatly after 3' of ambulation and he demonstrates decreased arm swing and step-length right compared to left leg and he has dropping pelvis on the left with longer stepping/ Trendelenbury gait. Fitness level and increased body mass may affect gait distance in six minutes. 01/24/25: 6MWT with B trekking poles today and pt gait trains 1550 feet in 6 minutes. He has some imbalance and falling into LLE with gait as far as decreased stability with advancing left leg. Pt is occ unsafe with trekking poles, advancing them together at the same time despite cues to advance one pole with opposite foot and left foot hits trekking pole x1 and no LOB. Increased tremoring in LUE today with trekking pole tapping into floor after gait today d/t akinesia/tremor. Close superv for gait today LTG Duration 8 weeks 1 Impairment TUG in 11 sec Assistant Community Director Goal (LTG) Pt will perform TUG in no more than 10 sec to decrease fall risk. 01/10/25: Perform TUG in future treatment sessions. 01/15/25: Pt performs TUG in 13 sec 01/24/25: TUG in 11 sec today LTG Duration 8 weeks Assessment Summary Assessment Cued pt to slow exercises today to work on amplitude and accuracy. Pt tends to freeze after side rock and reach and between lines when writing. Initiated BIG writing and doffing and donning jacket today. Physical Therapy Plan Frequency and Duration Frequency of Treatment 2x-4x/wk Duration of treatment (weeks) 8 Plan of Care Start Date 01/24/25 Plan of Care End Date 03/08/25 Therapeutic Interventions Therapeutic Interventions Balance Training,Canalithic Repositioning,Coordination Training,Gait Training,Home Exercise Program,Joint Mobilizations,Manual Therapy, Neuromuscular Re-education, Patient/Caregiver Education, Self-Care/Home Management,Soft Tissue Mobilization,Taping, Therapeutic Activities, Therapeutic Exercises Modalities Cold Pack/Ice Massage,Electric Stimulation,Hot Packs, Ultrasound Next Visit Focus/Plan Next Note Type Treatment Note Next Visit Plan Functional tasks: writing, posture, walking in crowded places and uneven surfaces, putting on and taking off jacket. Con't with flicks with floor to ceiling and sitting side to side, standing exercises and gait training with 3 lb ankle weights, metronome 92-95 bpm, stairs and back najera walking balance activities, ongoing large amplitude exercises Check orthostatics
--- NOTE | 2025-02-07 15:29 | PT.OTN ---
Current Diagnoses Parkinson's disease without dyskinesia, with fluctuations (02/07/25) Physical Therapy Treatment Note PT-OP-A Visit Information Start: 11/28/24 13:39 Freq: Status: Active Protocol: Document 02/07/25 14:32 MB (Rec: 02/07/25 15:27 MB [id number]) Out-Patient Physical Therapy Visit Information Visit Information Visit Type Treatment Note Visit Note [employer] 04/07 before next progress note 0700, 1100, 1500, 1900 PD meds schedule, ed pt to take medications on time Visit Start Time 14:32 Visit Stop Time 14:30 Visit Number 14 Number of ASSOCIATE [employer] Visits 0 Evaluation Information Evaluation Date 12/11/24 Precautions Precautions Left fifth metacarpal fracture , pt orthostatic with PT 01/15 & 02/07 and symptomatic PT-OP-B Current Condition Start: 11/28/24 13:39 Freq: Status: Active Protocol: Document 12/11/24 07:21 MB (Rec: 12/11/24 08:08 MB [id number]) Current Condition History of Current Condition Onset Date 2018 Current Complaints Left elbow does not allow him to push up History of Current Condition Pt experienced right arm tremor in 2018 and decreased right arm swing 2019. Pt now has B UE and LE tremors and jaw tremor. Pt reports he needs a cognitive review before he gets a DBS. PMH includes congenital hearing loss, HTN, left cervical radiculopathy s/p cervical spine fusion, fall and ankle fx right summer of 2023, light-headedness, left elbow spur in cubital tunnel and pt had surgery and wears brace, PAIUTE-SHOSHONE, vision changes and glasses, obesity. Pt thinks he is here for his left elbow and PT ed pt that PT has order for PD and progress to BIG when an opening occurs. Pt lives with his , Michelle . His most recent fall was 1.5 months ago and he hit the sink counter. Pt has a rollator and straight cane. He does like to use them. He does not arrive with ADs. Pt passed his driving test and is still driving. Pt likes to go to the pool and do the Silver Sneakers land exercises twice a week and water 1-2 times a week. He likes to go to [employer] and support his [employer] shop once a week. Prior Treatments and Tests MRI brain 08/07/20: Mild white matter abnormality, likely microvascular disease Treatment Goals Patient/Caregiver Goals Pt's goal is to get where he was a year ago: walking I without AD and no falls. PT-OP-C Subjective Start: 11/28/24 13:39 Freq: Status: Active Protocol: Document 02/07/25 14:32 MB (Rec: 02/07/25 15:27 MB [id number]) OP-PT Subjective Patient Comments Patient Comments Pt took PD medication 1310, which is two hours late. He states he is tired. He did Silver Sneakers, 3/4 mile walk in town and dance. PT-OP-E Functional Tests Start: 01/18/25 07:32 Freq: Status: Active Protocol: Document 01/18/25 07:33 SP (Rec: 01/18/25 08:20 SP [id number]) Functional Tests Functional Gait Assessment Score 21/30 Functional Gait Assessment Impairment 20 to <40% Impaired (Score 19- Rating 24) PT-OP-G Mobility & Gait Start: 11/28/24 13:39 Freq: Status: Active Protocol: Document 12/11/24 07:21 MB (Rec: 12/11/24 08:08 MB [id number]) OP Gait Assessment Comments Gait Comments Gait without AD: gait is unsteady and he tends to cross right leg over the left in a sweeping motion, functional leg length difference and increased Ivon angle LLE, B Trendelenburg with gait. Pt with all over vermis-type dyskinesia with movement. PT-OP-H Neuro Start: 11/28/24 13:39 Freq: Status: Active Protocol: Document 12/11/24 07:21 MB (Rec: 12/11/24 08:08 MB [id number]) Coordination Evaluation Upper Extremity Tests Left Finger to Nose Test Moderate Impairment Pronation/Supination Test Minimal Impairment Right Finger to Nose Test Minimal Impairment Pronation/Supination Test Minimal Impairment Lower Extremity Tests Left Alternate Heel to Knee; Heel to Toe Test Moderate Impairment Foot Tapping Test Minimal Impairment Right Alternate Heel to Knee; Heel to Toe Test Minimal Impairment Foot Tapping Test Minimal Impairment Vital Signs Comments Vital Signs Comments Orthostatic assessment in RUE: supine 124/74, 66; standing 116/66, 75; standing 1' 116/68 , 71. PT-OP-K Range of Motion Start: 11/28/24 13:39 Freq: Status: Active Protocol: Document 12/11/24 07:21 MB (Rec: 12/11/24 08:08 MB [id number]) Shoulder Goniometric Range of Motion Shoulder Left Shoulder ROM WFL Yes Testing Position Sitting Right Shoulder ROM WFL No Testing Position Sitting Comments Right shoulder flexion and abduction is about 15 deg less than the left, pt is right- handed. Pt states he does not feel limited in the right. Elbow/Forearm Range of Motion Elbow/Forearm Left Elbow/Forearm ROM WFL No ROM Testing Position Sitting Comments Brace donned and PT is not addressing this and so deferred formal testing Right Elbow/Forearm ROM WFL Yes ROM Testing Position Sitting Ankle and Foot Goniometric Range of Motion Ankle and Foot Left Ankle/Foot ROM WFL Yes Testing Position Sitting Right Ankle/Foot ROM WFL No Testing Position Sitting Comments Mildly reduced right ankle ROM grossly assessed today for function PT-OP-M Strength Start: 11/28/24 13:39 Freq: Status: Active Protocol: Document 12/11/24 07:21 MB (Rec: 12/11/24 08:08 MB [id number]) Shoulder Strength Shoulder Manual Muscle Testing Left Flexion 4+ Good+ Abduction (C5) 4+ Good+ Right Flexion 5 Normal Abduction (C5) 5 Normal Elbow/Forearm Strength Elbow and Forearm Manual Muscle Testing Left Flexion (C6) 4+ Good+ Extension (C7) 4+ Good+ Right Flexion (C6) 5 Normal Extension (C7) 5 Normal Hip Strength Hip Manual Muscle Testing Left Flexion (L2) 5 Normal Right Flexion (L2) 5 Normal Knee Strength Knee Manual Muscle Testing Left Flexion (S2) 5 Normal Extension (L3) 5 Normal Right Flexion (S2) 5 Normal Extension (L3) 5 Normal Ankle/Foot Strength Ankle and Foot Manual Muscle Testing Left Dorsiflexion (L4) 4+ Good+ Right Dorsiflexion (L4) 4+ Good+ Toe Strength Toe Manual Muscle Testing Left Great Toe Extension 5 Normal Right Great Toe Extension 4+ Good+ PT-OP-Q Treatments Start: 11/28/24 13:39 Freq: Status: Active Protocol: Document 02/07/25 14:32 MB (Rec: 02/07/25 15:27 MB [id number]) Therapeutic Exercises Sitting Exercises Amplitude floor to ceiling Equipment Used BIG chair Reps/Minutes 10 reps Comments Arm flicks and no hand flicks d/t left hand Amplitude Side to Side Side bilateral Equipment Used BIG chair Reps/Minutes 20 alternating Comments Arm flicks, cues for start position and big back leg Amplitude STS Equipment Used BIG chair Reps/Minutes 10 Comments Cues for hands forward reaching first Standing Exercises Amplitude side rock and reach Standing Exercise Name Feet tend to slide apart Side bilateral Equipment Used 3 lb ankle weights and mirror Reps/Minutes 20 alternating reps Comments Cues to pivot on the toe Amplitude forward rock and reach Side bilateral Equipment Used 3 lb ankle weights and mirror Reps/Minutes 10 reps, each side Comments Cues to shift weight, does not do big front toe and big back heel weel toda Amplitude back step Side bilateral Equipment Used 3 lb ankle weights and mirror Reps/Minutes 20 reps alternating Comments Cues for BIG stance and arm movements Amplitude Side to Side Step Standing Exercise Name Pt tends to flop in legs and not make crisp step Side bilateral Equipment Used 3 lb ankle weights and mirror Reps/Minutes 20 reps alternating Comments Cues to turn head with stepping Amplitude Forward Step Standing Exercise Name Pt tends to speed up and not complete step, cues for BIG feet Side bilateral Equipment Used 3 lb ankle weights and mirror Reps/Minutes 20 reps alternate Comments Cues for BIG stance and BIG step back Therapeutic Activity Therapeutic Activity BIG writing Comments First time today and worked on BIG letters and numbers, working on equadistant and same size. Signature is small with letters close to each other and difficult to read, pt does fatigue with letter writing Self-Care/Home Management Treatment Education Other Education Ed pt to perform LSVT BIG exercises once a day on therapy days and twice a day on non-therapy days, con't BIG walking, doffing and donning jacket and writing, take medication on time, consider give up silver sneakers and dancing during LSVT BIG. Orthostatic assessment with BP and HR in RUE: supine 123/69, 73; standing 109/59, 86; standing 1' 122/58, 58. PT-OP-T Assessment and Plan Start: 11/28/24 13:39 Freq: Status: Active Protocol: Document 02/07/25 14:32 MB (Rec: 02/07/25 15:27 MB [id number]) Physical Therapy Assessment Rehab Potential Rehabilitation Potential Fair Evaluation Complexity Number of Personal Factors/Comorbidities 1-2 Number of Body Systems Impaired 3 Clinical Presentation at Evaluation Evolving Goals 4 Impairment Evidence of imbalance Usp Goal (LTG) Pt will perform WNLs on a standardized balance test to decrease fall risk. 01/10/25 Test not performed today but pt had fall earlier today when waiting for public transportation and he injured his nose and hand. 01/18/25: FGA : 20-40 % impaired 01/24/25 FGA: Not completed today LTG Duration 8 weeks progressing 01/18/25 3 Impairment Lack of amplitude and balance specific HEP Usp Goal (LTG) Pt will perform progressive HEP including LSVT BIG exercises with I to improve balance and amplitude of movement. 01/10/25: Pt is perform large amplitued exercises some but not everyday. With performance in clinic, he is doing better with exercises. 01/24/25: Pt is performing LSVT BIG exercises once a day at home. LTG Duration 8 weeks 2 Impairment Decreased gait speed and balance Rd Mechanical Engineer Goal (LTG) Pt will gait train at least 1716 feet in 6 minutes without LRAD to improve community ambulation. 01/10/25: Perform 6MWT in future sessions. 01/15/25: Pt gait trains 1512 feet in 6 minutes. He slows greatly after 3' of ambulation and he demonstrates decreased arm swing and step-length right compared to left leg and he has dropping pelvis on the left with longer stepping/ Trendelenbury gait. Fitness level and increased body mass may affect gait distance in six minutes. 01/24/25: 6MWT with B trekking poles today and pt gait trains 1550 feet in 6 minutes. He has some imbalance and falling into LLE with gait as far as decreased stability with advancing left leg. Pt is occ unsafe with trekking poles, advancing them together at the same time despite cues to advance one pole with opposite foot and left foot hits trekking pole x1 and no LOB. Increased tremoring in LUE today with trekking pole tapping into floor after gait today d/t akinesia/tremor. Close superv for gait today LTG Duration 8 weeks 1 Impairment TUG in 11 sec Usp Goal (LTG) Pt will perform TUG in no more than 10 sec to decrease fall risk. 01/10/25: Perform TUG in future treatment sessions. 01/15/25: Pt performs TUG in 13 sec 01/24/25: TUG in 11 sec today LTG Duration 8 weeks Assessment Summary Assessment Re-ed on taking medication on time and structuring next 14 BIG treatments so he does BIG exercises once a day on therapy days and twice a day on non-therapy days. Pt con't with orthostatic hypotension today and some weaving when getting up and these con't to put him at increased risk of falling. Compliance with taking medication on time and LSVT BIG at home have been challenging. Pt getting hearing aides should help communication. Ed pt on benefits of using timer for medication times. Pt also orthostatic today. Con't PT efforts. Physical Therapy Plan Frequency and Duration Frequency of Treatment 2x-4x/wk Duration of treatment (weeks) 8 Plan of Care Start Date 01/24/25 Plan of Care End Date 03/08/25 Therapeutic Interventions Therapeutic Interventions Balance Training,Canalithic Repositioning,Coordination Training,Gait Training,Home Exercise Program,Joint Mobilizations,Manual Therapy, Neuromuscular Re-education, Patient/Caregiver Education, Self-Care/Home Management,Soft Tissue Mobilization,Taping, Therapeutic Activities, Therapeutic Exercises Modalities Cold Pack/Ice Massage,Electric Stimulation,Hot Packs, Ultrasound Next Visit Focus/Plan Next Note Type Treatment Note Next Visit Plan Ask pt each date when he took PD meds and if he performed exercises 3 lb ankle weights for standing and gait activities Functional tasks: writing, posture, walking in crowded places and uneven surfaces, putting on and taking off jacket. Con't with flicks with floor to ceiling and sitting side to side, standing exercises and gait training with 3 lb ankle weights, metronome 92-95 bpm, stairs and back najera walking balance activities, ongoing large amplitude exercises Check orthostatics
--- NOTE | 2025-02-12 15:29 | PT.OTN ---
Current Diagnoses Parkinson's disease without dyskinesia, with fluctuations (02/12/25) Physical Therapy Treatment Note PT-OP-A Visit Information Start: 11/28/24 13:39 Freq: Status: Active Protocol: Document 02/12/25 14:26 MB (Rec: 02/12/25 15:29 MB [id number]) Out-Patient Physical Therapy Visit Information Visit Information Visit Type Treatment Note Visit Note [employer] 05/08 before next progress note 0700, 1100, 1500, 1900 PD meds schedule, ed pt to take medications on time Visit Start Time 14:26 Visit Stop Time 15:26 Visit Number 15 Number of [employer] Visits 0 Evaluation Information Evaluation Date 12/11/24 Precautions Precautions Left fifth metacarpal fracture , pt orthostatic with PT 01/15 & 02/07 and symptomatic PT-OP-B Current Condition Start: 11/28/24 13:39 Freq: Status: Active Protocol: Document 12/11/24 07:21 MB (Rec: 12/11/24 08:08 MB [id number]) Current Condition History of Current Condition Onset Date 2018 Current Complaints Left elbow does not allow him to push up History of Current Condition Pt experienced right arm tremor in 2018 and decreased right arm swing 2019. Pt now has B UE and LE tremors and jaw tremor. Pt reports he needs a cognitive review before he gets a DBS. PMH includes congenital hearing loss, HTN, left cervical radiculopathy s/p cervical spine fusion, fall and ankle fx right summer of 2023, light-headedness, left elbow spur in cubital tunnel and pt had surgery and wears brace, [place], vision changes and glasses, obesity. Pt thinks he is here for his left elbow and PT ed pt that PT has order for PD and progress to BIG when an opening occurs. Pt lives with his , Michelle . His most recent fall was 1.5 months ago and he hit the sink counter. Pt has a rollator and straight cane. He does like to use them. He does not arrive with ADs. Pt passed his driving test and is still driving. Pt likes to go to the pool and do the [place] [place] exercises twice a week and water 1-2 times a week. 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 Prior Treatments and Tests MRI brain 08/07/20: Mild white matter abnormality, likely microvascular disease Treatment Goals Patient/Caregiver Goals Pt's goal is to get where he was a year ago: walking I without AD and no falls. PT-OP-C Subjective Start: 11/28/24 13:39 Freq: Status: Active Protocol: Document 02/12/25 14:26 MB (Rec: 02/12/25 15:29 MB [id number]) OP-PT Subjective Patient Comments Patient Comments Pt got his hearing aides and he likes them. He did the exercises three times over the weekend. He took his carbidopa levadopa at 11 but he does not have his next pill that is due at 3 p.m. PT-OP-E Functional Tests Start: 01/18/25 07:32 Freq: Status: Active Protocol: Document 01/18/25 07:33 SP (Rec: 01/18/25 08:20 SP [id number]) Functional Tests Functional Gait Assessment Score 21/30 Functional Gait Assessment Impairment 20 to <40% Impaired (Score 19- Rating 24) PT-OP-G Mobility & Gait Start: 11/28/24 13:39 Freq: Status: Active Protocol: Document 12/11/24 07:21 MB (Rec: 12/11/24 08:08 MB [id number]) OP Gait Assessment Comments Gait Comments Gait without AD: gait is unsteady and he tends to cross right leg over the left in a sweeping motion, functional leg length difference and increased Ivon angle LLE, B Trendelenburg with gait. Pt with all over vermis-type dyskinesia with movement. PT-OP-H Neuro Start: 11/28/24 13:39 Freq: Status: Active Protocol: Document 12/11/24 07:21 MB (Rec: 12/11/24 08:08 MB [id number]) Coordination Evaluation Upper Extremity Tests Left Finger to Nose Test Moderate Impairment Pronation/Supination Test Minimal Impairment Right Finger to Nose Test Minimal Impairment Pronation/Supination Test Minimal Impairment Lower Extremity Tests Left Alternate Heel to Knee; Heel to Toe Test Moderate Impairment Foot Tapping Test Minimal Impairment Right Alternate Heel to Knee; Heel to Toe Test Minimal Impairment Foot Tapping Test Minimal Impairment Vital Signs Comments Vital Signs Comments Orthostatic assessment in RUE: supine 124/74, 66; standing 116/66, 75; standing 1' 116/68 , 71. PT-OP-K Range of Motion Start: 11/28/24 13:39 Freq: Status: Active Protocol: Document 12/11/24 07:21 MB (Rec: 12/11/24 08:08 MB [id number]) Shoulder Goniometric Range of Motion Shoulder Left Shoulder ROM WFL Yes Testing Position Sitting Right Shoulder ROM WFL No Testing Position Sitting Comments Right shoulder flexion and abduction is about 15 deg less than the left, pt is right- handed. Pt states he does not feel limited in the right. Elbow/Forearm Range of Motion Elbow/Forearm Left Elbow/Forearm ROM WFL No ROM Testing Position Sitting Comments Brace donned and PT is not addressing this and so deferred formal testing Right Elbow/Forearm ROM WFL Yes ROM Testing Position Sitting Ankle and Foot Goniometric Range of Motion Ankle and Foot Left Ankle/Foot ROM WFL Yes Testing Position Sitting Right Ankle/Foot ROM WFL No Testing Position Sitting Comments Mildly reduced right ankle ROM grossly assessed today for function PT-OP-M Strength Start: 11/28/24 13:39 Freq: Status: Active Protocol: Document 12/11/24 07:21 MB (Rec: 12/11/24 08:08 MB [id number]) Shoulder Strength Shoulder Manual Muscle Testing Left Flexion 4+ Good+ Abduction (C5) 4+ Good+ Right Flexion 5 Normal Abduction (C5) 5 Normal Elbow/Forearm Strength Elbow and Forearm Manual Muscle Testing Left Flexion (C6) 4+ Good+ Extension (C7) 4+ Good+ Right Flexion (C6) 5 Normal Extension (C7) 5 Normal Hip Strength Hip Manual Muscle Testing Left Flexion (L2) 5 Normal Right Flexion (L2) 5 Normal Knee Strength Knee Manual Muscle Testing Left Flexion (S2) 5 Normal Extension (L3) 5 Normal Right Flexion (S2) 5 Normal Extension (L3) 5 Normal Ankle/Foot Strength Ankle and Foot Manual Muscle Testing Left Dorsiflexion (L4) 4+ Good+ Right Dorsiflexion (L4) 4+ Good+ Toe Strength Toe Manual Muscle Testing Left Great Toe Extension 5 Normal Right Great Toe Extension 4+ Good+ PT-OP-Q Treatments Start: 11/28/24 13:39 Freq: Status: Active Protocol: Document 02/12/25 14:26 MB (Rec: 02/12/25 15:29 MB [id number]) Therapeutic Exercises Sitting Exercises Amplitude floor to ceiling Sitting Exercise Name Cues for crispness between parts of exercise Resistance 2 lb ankle weights Equipment Used BIG chair Reps/Minutes 10 reps Comments Arm flicks and no hand flicks d/t left hand Amplitude Side to Side Sitting Exercise Name Cues for crispness, bigger leg movement Side bilateral Resistance 2 lb ankle weights Equipment Used BIG chair Reps/Minutes 20 alternating Comments Arm flicks and no hand flicks Amplitude STS Resistance 2 lb ankle weights Equipment Used BIG chair Reps/Minutes 10 Comments Cues for hands forward reaching first Standing Exercises Amplitude side rock and reach Standing Exercise Name Feet tend to slide apart Side bilateral Equipment Used 2 lb ankle weights and mirror Reps/Minutes 20 alternating reps Comments Cues to pivot on the toe Amplitude forward rock and reach Standing Exercise Name Cues to shift weight Side bilateral Equipment Used 2 lb ankle weights and mirror Reps/Minutes 10 reps, each side Comments More trouble with right foot in front Amplitude back step Standing Exercise Name Pt tends to vu and miss big front toe Side bilateral Equipment Used 2 lb ankle weights and mirror Reps/Minutes 20 reps alternating Comments Some improvement with this one and needs more work Amplitude Side to Side Step Side bilateral Equipment Used 2 lb ankle weights and mirror Reps/Minutes 20 reps alternating Comments Better head turns today Amplitude Forward Step Standing Exercise Name Pt tends to speed up and not complete step, cues for BIG feet Side bilateral Equipment Used 2 lb ankle weights and mirror Reps/Minutes 20 reps alternate Comments Better BIG stance today and bringing feet back Therapeutic Activity Therapeutic Activity Donning and doffing jackets Comments Standing, donning and doffing purple [employer] jacket: Rep 1 don: timer does not time ; dof: 8 sec Rep 2: don, slight LOB and step correction 18 sec; dof: 12 sec Rep 3: don: 11 sec; doff: 11 sec Rep 4: don: 12 sec; doff: 10 sec Rep 5: don: 23 sec; doff: 9 sec BIG writing Comments BIG letters and numbers, working on equadistant and same size. Signature is small with letters close to each other and difficult to read, pt does fatigue with letter writing. Worked on upper case and lower case letters Gait Training Gait Activity Amplitude Walking Comments 2 lb ankle weights for all BIG gait today: 92 BPM backwards walking along two hallways and 95 BPM in gym area, cues for BIG right hand, occ ankle weights brush each other with backwards walking and pt runs into stool a couple of times, reversed direction and added tables for him to walk around and cues to stay tight and he does better with this PT-OP-T Assessment and Plan Start: 11/28/24 13:39 Freq: Status: Active Protocol: Document 02/12/25 14:26 MB (Rec: 02/12/25 15:29 MB [id number]) Physical Therapy Assessment Rehab Potential Rehabilitation Potential Fair Evaluation Complexity Number of Personal Factors/Comorbidities 1-2 Number of Body Systems Impaired 3 Clinical Presentation at Evaluation Evolving Goals 4 Impairment Evidence of imbalance [employer]umber St[employer] Operator Goal (LTG) Pt will perform WNLs on a standardized balance test to decrease fall risk. 01/10/25 Test not performed today but pt had fall earlier today when waiting for public transportation and he injured his nose and hand. 01/18/25: FGA : 20-40 % impaired 01/24/25 FGA: Not completed today LTG Duration 8 weeks progressing 01/18/25 3 Impairment Lack of amplitude and balance specific HEP [employer] St[employer] Operator Goal (LTG) Pt will perform progressive HEP including LSVT BIG exercises with I to improve balance and amplitude of movement. 01/10/25: Pt is perform large amplitued exercises some but not everyday. With performance in clinic, he is doing better with exercises. 01/24/25: Pt is performing LSVT BIG exercises once a day at home. LTG Duration 8 weeks 2 Impairment Decreased gait speed and balance [facility] Goal (LTG) Pt will gait train at least 1716 feet in 6 minutes without LRAD to improve community ambulation. 01/10/25: Perform 6MWT in future sessions. 01/15/25: Pt gait trains 1512 feet in 6 minutes. He slows greatly after 3' of ambulation and he demonstrates decreased arm swing and step-length right compared to left leg and he has dropping pelvis on the left with longer stepping/ Trendelenbury gait. Fitness level and increased body mass may affect gait distance in six minutes. 01/24/25: 6MWT with B trekking poles today and pt gait trains 1550 feet in 6 minutes. He has some imbalance and falling into LLE with gait as far as decreased stability with advancing left leg. Pt is occ unsafe with trekking poles, advancing them together at the same time despite cues to advance one pole with opposite foot and left foot hits trekking pole x1 and no LOB. Increased tremoring in LUE today with trekking pole tapping into floor after gait today d/t akinesia/tremor. Close superv for gait today LTG Duration 8 weeks 1 Impairment TUG in 11 sec [facility] Goal (LTG) Pt will perform TUG in no more than 10 sec to decrease fall risk. 01/10/25: Perform TUG in future treatment sessions. 01/15/25: Pt performs TUG in 13 sec 01/24/25: TUG in 11 sec today LTG Duration 8 weeks Assessment Summary Assessment Small progression with exercises today and took 11 a. m. carbidopa levadopa on time but did not bring 3 p.m. dose today. Made a note for him to help him remember for tomorrow . He is not quite getting LSVT BIG exercises done as prescribed, but is improving getting them done. Physical Therapy Plan Frequency and Duration Frequency of Treatment 2x-4x/wk Duration of treatment (weeks) 8 Plan of Care Start Date 01/24/25 Plan of Care End Date 03/08/25 Therapeutic Interventions Therapeutic Interventions Balance Training,Canalithic Repositioning,Coordination Training,Gait Training,Home Exercise Program,Joint Mobilizations,Manual Therapy, Neuromuscular Re-education, Patient/Caregiver Education, Self-Care/Home Management,Soft Tissue Mobilization,Taping, Therapeutic Activities, Therapeutic Exercises Modalities Cold Pack/Ice Massage,Electric Stimulation,Hot Packs, Ultrasound Next Visit Focus/Plan Next Note Type Treatment Note Next Visit Plan Ask pt each date when he took PD meds and if he performed exercises 2 lb ankle weights for standing and gait activities Functional tasks: writing, posture, walking in crowded places and uneven surfaces, putting on and taking off jacket. Con't with flicks with floor to ceiling and sitting side to side, standing exercises and gait training with 2 lb ankle weights, metronome 92-95 bpm, stairs and back najera walking balance activities, ongoing large amplitude exercises Check orthostatics as needed
--- NOTE | 2025-02-13 15:28 | PT.OTN ---
Current Diagnoses Parkinson's disease without dyskinesia, with fluctuations (02/13/25) Physical Therapy Treatment Note PT-OP-A Visit Information Start: 11/28/24 13:39 Freq: Status: Active Protocol: Document 02/13/25 14:35 SP (Rec: 02/13/25 15:52 SP [id number]) Out-Patient Physical Therapy Visit Information Visit Information Visit Type Treatment Note Visit Note [employer] 05/08 before next progress note 0700, 1100, 1500, 1900 PD meds schedule, ed pt to take medications on time Visit Start Time 14:35 Visit Stop Time 15:33 Visit Number 16 Number of SALESPERSON SURGICAL APPLIANCES Visits 1 Evaluation Information Evaluation Date 12/11/24 Precautions Precautions Left fifth metacarpal fracture , pt orthostatic with PT 01/15 & 02/07 and symptomatic PT-OP-B Current Condition Start: 11/28/24 13:39 Freq: Status: Active Protocol: Document 12/11/24 07:21 MB (Rec: 12/11/24 08:08 MB [id number]) Current Condition History of Current Condition Onset Date 2018 Current Complaints Left elbow does not allow him to push up History of Current Condition Pt experienced right arm tremor in 2018 and decreased right arm swing 2019. Pt now has B UE and LE tremors and jaw tremor. Pt reports he needs a cognitive review before he gets a DBS. PMH includes congenital hearing loss, HTN, left cervical radiculopathy s/p cervical spine fusion, fall and ankle fx right summer of 2023, light-headedness, left elbow spur in cubital tunnel and pt had surgery and wears brace, KOBUK, vision changes and glasses, obesity. Pt thinks he is here for his left elbow and PT ed pt that PT has order for PD and progress to BIG when an opening occurs. Pt lives with his , Michelle . His most recent fall was 1.5 months ago and he hit the sink counter. Pt has a rollator and straight cane. He does like to use them. He does not arrive with ADs. Pt passed his driving test and is still driving. Pt likes to go to the pool and do the [employer] land exercises twice a week and water 1-2 times a week. He likes to go to [employer] and support his [employer] shop once a week. Prior Treatments and Tests MRI brain 08/07/20: Mild white matter abnormality, likely microvascular disease Treatment Goals Patient/Caregiver Goals Pt's goal is to get where he was a year ago: walking I without AD and no falls. PT-OP-C Subjective Start: 11/28/24 13:39 Freq: Status: Active Protocol: Document 02/13/25 14:35 SP (Rec: 02/13/25 15:52 SP [id number]) OP-PT Subjective Patient Comments Patient Comments Pt reports felt pretty good after last tx. Meds taken 1115 , next dose will take 315 during tx. Pt stated doesn't have weights home, should he get some? PT-OP-E Functional Tests Start: 01/18/25 07:32 Freq: Status: Active Protocol: Document 01/18/25 07:33 SP (Rec: 01/18/25 08:20 SP [id number]) Functional Tests Functional Gait Assessment Score 21/30 Functional Gait Assessment Impairment 20 to <40% Impaired (Score 19- Rating 24) PT-OP-G Mobility & Gait Start: 11/28/24 13:39 Freq: Status: Active Protocol: Document 12/11/24 07:21 MB (Rec: 12/11/24 08:08 MB [id number]) OP Gait Assessment Comments Gait Comments Gait without AD: gait is unsteady and he tends to cross right leg over the left in a sweeping motion, functional leg length difference and increased Ivon angle LLE, B Trendelenburg with gait. Pt with all over vermis-type dyskinesia with movement. PT-OP-H Neuro Start: 11/28/24 13:39 Freq: Status: Active Protocol: Document 12/11/24 07:21 MB (Rec: 12/11/24 08:08 MB [id number]) Coordination Evaluation Upper Extremity Tests Left Finger to Nose Test Moderate Impairment Pronation/Supination Test Minimal Impairment Right Finger to Nose Test Minimal Impairment Pronation/Supination Test Minimal Impairment Lower Extremity Tests Left Alternate Heel to Knee; Heel to Toe Test Moderate Impairment Foot Tapping Test Minimal Impairment Right Alternate Heel to Knee; Heel to Toe Test Minimal Impairment Foot Tapping Test Minimal Impairment Vital Signs Comments Vital Signs Comments Orthostatic assessment in RUE: supine 124/74, 66; standing 116/66, 75; standing 1' 116/68 , 71. PT-OP-K Range of Motion Start: 11/28/24 13:39 Freq: Status: Active Protocol: Document 12/11/24 07:21 MB (Rec: 12/11/24 08:08 MB [id number]) Shoulder Goniometric Range of Motion Shoulder Left Shoulder ROM WFL Yes Testing Position Sitting Right Shoulder ROM WFL No Testing Position Sitting Comments Right shoulder flexion and abduction is about 15 deg less than the left, pt is right- handed. Pt states he does not feel limited in the right. Elbow/Forearm Range of Motion Elbow/Forearm Left Elbow/Forearm ROM WFL No ROM Testing Position Sitting Comments Brace donned and PT is not addressing this and so deferred formal testing Right Elbow/Forearm ROM WFL Yes ROM Testing Position Sitting Ankle and Foot Goniometric Range of Motion Ankle and Foot Left Ankle/Foot ROM WFL Yes Testing Position Sitting Right Ankle/Foot ROM WFL No Testing Position Sitting Comments Mildly reduced right ankle ROM grossly assessed today for function PT-OP-M Strength Start: 11/28/24 13:39 Freq: Status: Active Protocol: Document 12/11/24 07:21 MB (Rec: 12/11/24 08:08 MB [id number]) Shoulder Strength Shoulder Manual Muscle Testing Left Flexion 4+ Good+ Abduction (C5) 4+ Good+ Right Flexion 5 Normal Abduction (C5) 5 Normal Elbow/Forearm Strength Elbow and Forearm Manual Muscle Testing Left Flexion (C6) 4+ Good+ Extension (C7) 4+ Good+ Right Flexion (C6) 5 Normal Extension (C7) 5 Normal Hip Strength Hip Manual Muscle Testing Left Flexion (L2) 5 Normal Right Flexion (L2) 5 Normal Knee Strength Knee Manual Muscle Testing Left Flexion (S2) 5 Normal Extension (L3) 5 Normal Right Flexion (S2) 5 Normal Extension (L3) 5 Normal Ankle/Foot Strength Ankle and Foot Manual Muscle Testing Left Dorsiflexion (L4) 4+ Good+ Right Dorsiflexion (L4) 4+ Good+ Toe Strength Toe Manual Muscle Testing Left Great Toe Extension 5 Normal Right Great Toe Extension 4+ Good+ PT-OP-Q Treatments Start: 11/28/24 13:39 Freq: Status: Active Protocol: Document 02/13/25 14:35 SP (Rec: 02/13/25 15:52 SP [id number]) Therapeutic Exercises Sitting Exercises Amplitude floor to ceiling Sitting Exercise Name Cues for crispness between parts of exercise Resistance 2 lb ankle weights Equipment Used BIG chair Reps/Minutes 10 reps Comments Arm flicks and no hand flicks d/t left hand Amplitude Side to Side Sitting Exercise Name Cues for crispness, bigger leg movement Side bilateral Resistance 2 lb ankle weights Equipment Used BIG chair Reps/Minutes 20 alternating Comments Arm flicks and no hand flicks, leg lift return Amplitude STS Resistance 2 lb ankle weights Equipment Used BIG chair Reps/Minutes 10 Comments Cues for hands forward reaching first Standing Exercises Amplitude side rock and reach Standing Exercise Name Feet tend to slide apart Side bilateral Equipment Used 2 lb ankle weights and mirror Reps/Minutes 20 alternating reps Comments Cues to pivot on the toe, slower pivot & controlled reutrn Amplitude forward rock and reach Standing Exercise Name Cues to shift weight Side bilateral Equipment Used 2 lb ankle weights and mirror Reps/Minutes 10 reps, each side Comments Cued controlled R arm back, good wt shift and toe and heel lift rocking Amplitude back step Standing Exercise Name Pt tends to vu and miss big front toe Side bilateral Equipment Used 2 lb ankle weights and mirror Reps/Minutes 20 reps alternating Comments Better toe up front, crisp arm front and back Amplitude Side to Side Step Side bilateral Equipment Used 2 lb ankle weights and mirror Reps/Minutes 20 reps alternating Comments Better head turns today, arm crisp Amplitude Forward Step Standing Exercise Name Pt tends to speed up and not complete step, cues for BIG feet Side bilateral Equipment Used 2 lb ankle weights and mirror Reps/Minutes 20 reps alternate Comments BIG crisp arms Gait Training Gait Activity Amplitude Walking Comments 2 lb ankle weights for all BIG gait today: 92 BPM backwards walking along two hallways and 95 BPM forward laps around clinic and weaving chairs in gym area, reversed direction, cues for BIG right arm swing, decrease stride L leg landing, lift L leg higher backward, good stride weaving chairs. Neuro Re-Education Treatment Balance Activities BIG balance activities Surface floor Equipment blue soft kick ball (for ease L hand catching) Comments NBOS ball toss 2 min Semitandem ball toss 2 min Side stepping ball toss 15 ft x 4 laps PT-OP-T Assessment and Plan Start: 11/28/24 13:39 Freq: Status: Active Protocol: Document 02/13/25 14:35 SP (Rec: 02/13/25 15:52 SP [id number]) Physical Therapy Assessment Goals 4 Impairment Evidence of imbalance Care Home Goal (LTG) Pt will perform WNLs on a standardized balance test to decrease fall risk. 01/10/25 Test not performed today but pt had fall earlier today when waiting for public transportation and he injured his nose and hand. 01/18/25: FGA : 20-40 % impaired 01/24/25 FGA: Not completed today LTG Duration 8 weeks progressing 01/18/25 3 Impairment Lack of amplitude and balance specific HEP Care Home Goal (LTG) Pt will perform progressive HEP including LSVT BIG exercises with I to improve balance and amplitude of movement. 01/10/25: Pt is perform large amplitued exercises some but not everyday. With performance in clinic, he is doing better with exercises. 01/24/25: Pt is performing LSVT BIG exercises once a day at home. LTG Duration 8 weeks 2 Impairment Decreased gait speed and balance Care Home Goal (LTG) Pt will gait train at least 1716 feet in 6 minutes without LRAD to improve community ambulation. 01/10/25: Perform 6MWT in future sessions. 01/15/25: Pt gait trains 1512 feet in 6 minutes. He slows greatly after 3' of ambulation and he demonstrates decreased arm swing and step-length right compared to left leg and he has dropping pelvis on the left with longer stepping/ Trendelenbury gait. Fitness level and increased body mass may affect gait distance in six minutes. 01/24/25: 6MWT with B trekking poles today and pt gait trains 1550 feet in 6 minutes. He has some imbalance and falling into LLE with gait as far as decreased stability with advancing left leg. Pt is occ unsafe with trekking poles, advancing them together at the same time despite cues to advance one pole with opposite foot and left foot hits trekking pole x1 and no LOB. Increased tremoring in LUE today with trekking pole tapping into floor after gait today d/t akinesia/tremor. Close superv for gait today LTG Duration 8 weeks 1 Impairment TUG in 11 sec Telegraph Operator Goal (LTG) Pt will perform TUG in no more than 10 sec to decrease fall risk. 01/10/25: Perform TUG in future treatment sessions. 01/15/25: Pt performs TUG in 13 sec 01/24/25: TUG in 11 sec today LTG Duration 8 weeks Assessment Summary Assessment Pt little late taking carbidopa levadopa at 1115 and stated needed to take during tx 315. Improved crisper arm flicks seated and standing during exercises with cuing and repeat modeling from [employer]ES, better arm crisp corrections with extra reps. Cues for R arm swing and smaller stride during BIG Walking forward improved eccentric L advancement. Progressed dynamic balance today with various stance positions and side stepping during ball toss good stability demonstrated. Physical Therapy Plan Frequency and Duration Frequency of Treatment 2x-4x/wk Duration of treatment (weeks) 8 Plan of Care Start Date 01/24/25 Plan of Care End Date 03/08/25 Therapeutic Interventions Therapeutic Interventions Balance Training,Canalithic Repositioning,Coordination Training,Gait Training,Home Exercise Program,Joint Mobilizations,Manual Therapy, Neuromuscular Re-education, Patient/Caregiver Education, Self-Care/Home Management,Soft Tissue Mobilization,Taping, Therapeutic Activities, Therapeutic Exercises Modalities Cold Pack/Ice Massage,Electric Stimulation,Hot Packs, Ultrasound Next Visit Focus/Plan Next Note Type Treatment Note Next Visit Plan Ask pt each date when he took PD meds. PT advise pt of he should get 2 lb ankle weights for home standing and gait activities. Functional tasks: writing, posture, walking in crowded places and uneven surfaces, putting on and taking off jacket. Con't with flicks with floor to ceiling and sitting side to side, standing exercises and gait training with 2 lb ankle weights, metronome 92-95 bpm, stairs and back najera walking balance activities, ongoing large amplitude exercises Check orthostatics as needed
--- NOTE | 2025-02-14 15:23 | PT.OTN ---
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 Pt now has B UE and LE tremors and jaw tremor. Pt reports he needs a cognitive review before he gets a DBS. PMH includes congenital hearing loss, HTN, left cervical radiculopathy s/p cervical spine fusion, fall and ankle fx right summer of 2023, light-headedness, left elbow spur in cubital tunnel and pt had surgery and wears brace, [place], vision changes and glasses, obesity. Pt thinks he is here for his left elbow and PT ed pt that PT has order for PD and progress to BIG when an opening occurs. Pt lives with his , Michelle . His most recent fall was 1.5 months ago and he hit the sink counter. Pt has a rollator and straight cane. He does like to use them. He does not arrive with ADs. Pt passed his driving test and is still driving. Pt likes to go to the pool and do the [place] exercises twice a week and water 1-2 times a week. 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 Prior Treatments and Tests MRI brain 08/07/20: Mild white matter abnormality, likely microvascular disease Treatment Goals Patient/Caregiver Goals Pt's goal is to get where he was a year ago: walking I without AD and no falls. PT-OP-C Subjective Start: 11/28/24 13:39 Freq: Status: Active Protocol: Document 02/14/25 14:25 MB (Rec: 02/14/25 15:21 MB [id number]) OP-PT Subjective Patient Comments Patient Comments Pt got his brace doffed. He took his PD med at 1100 today. He brought his medication to treatment to take at 1500. He is doing the exercises once a day on therapy days though he hasn't done them today yet. PT-OP-E Functional Tests Start: 01/18/25 07:32 Freq: Status: Active Protocol: Document 01/18/25 07:33 SP (Rec: 01/18/25 08:20 SP [id number]) Functional Tests Functional Gait Assessment Score 21/30 Functional Gait Assessment Impairment 20 to <40% Impaired (Score 19- Rating 24) PT-OP-G Mobility & Gait Start: 11/28/24 13:39 Freq: Status: Active Protocol: Document 12/11/24 07:21 MB (Rec: 12/11/24 08:08 MB [id number]) OP Gait Assessment Comments Gait Comments Gait without AD: gait is unsteady and he tends to cross right leg over the left in a sweeping motion, functional leg length difference and increased Ivon angle LLE, B Trendelenburg with gait. Pt with all over vermis-type dyskinesia with movement. PT-OP-H Neuro Start: 11/28/24 13:39 Freq: Status: Active Protocol: Document 12/11/24 07:21 MB (Rec: 12/11/24 08:08 MB [id number]) Coordination Evaluation Upper Extremity Tests Left Finger to Nose Test Moderate Impairment Pronation/Supination Test Minimal Impairment Right Finger to Nose Test Minimal Impairment Pronation/Supination Test Minimal Impairment Lower Extremity Tests Left Alternate Heel to Knee; Heel to Toe Test Moderate Impairment Foot Tapping Test Minimal Impairment Right Alternate Heel to Knee; Heel to Toe Test Minimal Impairment Foot Tapping Test Minimal Impairment Vital Signs Comments Vital Signs Comments Orthostatic assessment in RUE: supine 124/74, 66; standing 116/66, 75; standing 1' 116/68 , 71. PT-OP-K Range of Motion Start: 11/28/24 13:39 Freq: Status: Active Protocol: Document 12/11/24 07:21 MB (Rec: 12/11/24 08:08 MB [id number]) Shoulder Goniometric Range of Motion Shoulder Left Shoulder ROM WFL Yes Testing Position Sitting Right Shoulder ROM WFL No Testing Position Sitting Comments Right shoulder flexion and abduction is about 15 deg less than the left, pt is right- handed. Pt states he does not feel limited in the right. Elbow/Forearm Range of Motion Elbow/Forearm Left Elbow/Forearm ROM WFL No ROM Testing Position Sitting Comments Brace donned and PT is not addressing this and so deferred formal testing Right Elbow/Forearm ROM WFL Yes ROM Testing Position Sitting Ankle and Foot Goniometric Range of Motion Ankle and Foot Left Ankle/Foot ROM WFL Yes Testing Position Sitting Right Ankle/Foot ROM WFL No Testing Position Sitting Comments Mildly reduced right ankle ROM grossly assessed today for function PT-OP-M Strength Start: 11/28/24 13:39 Freq: Status: Active Protocol: Document 12/11/24 07:21 MB (Rec: 12/11/24 08:08 MB [id number]) Shoulder Strength Shoulder Manual Muscle Testing Left Flexion 4+ Good+ Abduction (C5) 4+ Good+ Right Flexion 5 Normal Abduction (C5) 5 Normal Elbow/Forearm Strength Elbow and Forearm Manual Muscle Testing Left Flexion (C6) 4+ Good+ Extension (C7) 4+ Good+ Right Flexion (C6) 5 Normal Extension (C7) 5 Normal Hip Strength Hip Manual Muscle Testing Left Flexion (L2) 5 Normal Right Flexion (L2) 5 Normal Knee Strength Knee Manual Muscle Testing Left Flexion (S2) 5 Normal Extension (L3) 5 Normal Right Flexion (S2) 5 Normal Extension (L3) 5 Normal Ankle/Foot Strength Ankle and Foot Manual Muscle Testing Left Dorsiflexion (L4) 4+ Good+ Right Dorsiflexion (L4) 4+ Good+ Toe Strength Toe Manual Muscle Testing Left Great Toe Extension 5 Normal Right Great Toe Extension 4+ Good+ PT-OP-Q Treatments Start: 11/28/24 13:39 Freq: Status: Active Protocol: Document 02/14/25 14:25 MB (Rec: 02/14/25 15:21 MB [id number]) Therapeutic Exercises Sitting Exercises Amplitude floor to ceiling Resistance 2 lb ankle weights Equipment Used BIG chair Reps/Minutes 10 reps Comments Arm flicks only and cues for crispness Amplitude Side to Side Side bilateral Resistance 2 lb ankle weights Equipment Used BIG chair Reps/Minutes 20 alternating Comments Arm flicks only, cues for start and finish of exercises Amplitude STS Resistance 2 lb ankle weights Equipment Used BIG chair Reps/Minutes 10 Comments Cues for hands forward reaching first Standing Exercises Amplitude side rock and reach Standing Exercise Name Feet tend to slide apart Side bilateral Equipment Used 2 lb ankle weights and mirror Reps/Minutes 20 alternating reps Comments Cues to pivot on back toe, palms up Amplitude forward rock and reach Side bilateral Equipment Used 2 lb ankle weights and mirror Reps/Minutes 10 reps, each side Comments Better performance today Amplitude back step Side bilateral Equipment Used 2 lb ankle weights and mirror Reps/Minutes 20 reps alternating Comments Much better today Amplitude Side to Side Step Side bilateral Equipment Used 2 lb ankle weights and mirror Reps/Minutes 20 reps alternating Comments Exercise looking better Amplitude Forward Step Side bilateral Equipment Used 2 lb ankle weights and mirror Reps/Minutes 20 reps alternate Comments Exercises better today, stepped all the way back Therapeutic Activity Therapeutic Activity Donning and doffing jackets Comments Standing, donning and doffing purple [employer] jacket: Rep 1 don: 13 sec; dof: 7 sec Rep 2: don: 13 sec; dof: 7 sec Rep 3: don: 10 sec; doff: 4 sec (right arm out first) Rep 4: don: 11 sec; doff: 5 sec Rep 5: don: 9 sec; doff: 5 sec BIG writing Comments BIG letters and numbers, working on equadistant and same size. Signature is small with letters close to each other and difficult to read. Worked on upper case and lower case letters Gait Training Gait Activity Amplitude Walking Comments 2 lb ankle weights for all BIG gait today: 92 BPM backwards walking along two hallways and 95 BPM in gym area. Added whoosh x-country skiing forward around/between cones on the floor. Side stepping right and left is very challenging. PT-OP-T Assessment and Plan Start: 11/28/24 13:39 Freq: Status: Active Protocol: Document 02/14/25 14:25 MB (Rec: 02/14/25 15:21 MB [id number]) Physical Therapy Assessment Rehab Potential Rehabilitation Potential Fair Evaluation Complexity Number of Personal Factors/Comorbidities 1-2 Number of Body Systems Impaired 3 Clinical Presentation at Evaluation Evolving Goals 4 Impairment Evidence of imbalance Longterm Goal (LTG) Pt will perform WNLs on a standardized balance test to decrease fall risk. 01/10/25 Test not performed today but pt had fall earlier today when waiting for public transportation and he injured his nose and hand. 01/18/25: FGA : 20-40 % impaired 01/24/25 FGA: Not completed today LTG Duration 8 weeks progressing 01/18/25 3 Impairment Lack of amplitude and balance specific HEP Longterm Goal (LTG) Pt will perform progressive HEP including LSVT BIG exercises with I to improve balance and amplitude of movement. 01/10/25: Pt is perform large amplitued exercises some but not everyday. With performance in clinic, he is doing better with exercises. 01/24/25: Pt is performing LSVT BIG exercises once a day at home. LTG Duration 8 weeks 2 Impairment Decreased gait speed and balance Longterm Goal (LTG) Pt will gait train at least 1716 feet in 6 minutes without LRAD to improve community ambulation. 01/10/25: Perform 6MWT in future sessions. 01/15/25: Pt gait trains 1512 feet in 6 minutes. He slows greatly after 3' of ambulation and he demonstrates decreased arm swing and step-length right compared to left leg and he has dropping pelvis on the left with longer stepping/ Trendelenbury gait. Fitness level and increased body mass may affect gait distance in six minutes. 01/24/25: 6MWT with B trekking poles today and pt gait trains 1550 feet in 6 minutes. He has some imbalance and falling into LLE with gait as far as decreased stability with advancing left leg. Pt is occ unsafe with trekking poles, advancing them together at the same time despite cues to advance one pole with opposite foot and left foot hits trekking pole x1 and no LOB. Increased tremoring in LUE today with trekking pole tapping into floor after gait today d/t akinesia/tremor. 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 01/10/25: Perform TUG in future treatment sessions. 01/15/25: Pt performs TUG in 13 sec 01/24/25: TUG in 11 sec today LTG Duration 8 weeks Assessment Summary Assessment Exercises are looking much better with most trouble with side rock and reach today with cues for palms up and pivot on back toe and feet tend to slide apart. Side stepping is very challenging today. Physical Therapy Plan Frequency and Duration Frequency of Treatment 2x-4x/wk Duration of treatment (weeks) 8 Plan of Care Start Date 01/24/25 Plan of Care End Date 03/08/25 Therapeutic Interventions Therapeutic Interventions Balance Training,Canalithic Repositioning,Coordination Training,Gait Training,Home Exercise Program,Joint Mobilizations,Manual Therapy, Neuromuscular Re-education, Patient/Caregiver Education, Self-Care/Home Management,Soft Tissue Mobilization,Taping, Therapeutic Activities, Therapeutic Exercises Modalities Cold Pack/Ice Massage,Electric Stimulation,Hot Packs, Ultrasound Next Visit Focus/Plan Next Note Type Treatment Note Next Visit Plan Ask pt each date when he took PD meds. PT advise pt of he should get 2 lb ankle weights for home standing and gait activities. Functional tasks: writing, posture, walking in crowded places and uneven surfaces, putting on and taking off jacket. Con't with flicks with floor to ceiling and sitting side to side, standing exercises and gait training with 2 lb ankle weights, metronome 92-95 bpm, stairs and backward walking, add in hurdles and side stepping Check orthostatics as needed Eventually go through a LSVT BIG class practice
--- NOTE | 2025-02-15 15:32 | PT.OTN ---
Current Diagnoses Parkinson's disease without dyskinesia, with fluctuations (02/15/25) Physical Therapy Treatment Note PT-OP-A Visit Information Start: 11/28/24 13:39 Freq: Status: Active Protocol: Document 02/15/25 14:34 SP (Rec: 02/15/25 15:53 SP [id number]) Out-Patient Physical Therapy Visit Information Visit Information Visit Type Treatment Note Visit Note [employer] 08/08 before next progress note 0700, 1100, 1500, 1900 PD meds schedule, ed pt to take medications on time Visit Start Time 14:34 Visit Stop Time 15:32 Visit Number 18 Number of SPECTROGRAPHER Visits 1 Evaluation Information Evaluation Date 12/11/24 Precautions Precautions Left fifth metacarpal fracture , pt orthostatic with PT 01/15 & 02/07 and symptomatic PT-OP-B Current Condition Start: 11/28/24 13:39 Freq: Status: Active Protocol: Document 12/11/24 07:21 MB (Rec: 12/11/24 08:08 MB [id number]) Current Condition History of Current Condition Onset Date 2018 Current Complaints Left elbow does not allow him to push up History of Current Condition Pt experienced right arm tremor in 2018 and decreased right arm swing 2019. Pt now has B UE and LE tremors and jaw tremor. Pt reports he needs a cognitive review before he gets a DBS. PMH includes congenital hearing loss, HTN, left cervical radiculopathy s/p cervical spine fusion, fall and ankle fx right summer of 2023, light-headedness, left elbow spur in cubital tunnel and pt had surgery and wears brace, [place], vision changes and glasses, obesity. Pt thinks he is here for his left elbow and PT ed pt that PT has order for PD and progress to BIG when an opening occurs. Pt lives with his , Michelle . His most recent fall was 1.5 months ago and he hit the sink counter. Pt has a rollator and straight cane. He does like to use them. He does not arrive with ADs. Pt passed his driving test and is still driving. Pt likes to go to the pool and do the [employer] [place] exercises twice a week and water 1-2 times a week. He likes to go to [employer] and support his [employer] shop once a week. Prior Treatments and Tests MRI brain 08/07/20: Mild white matter abnormality, likely microvascular disease Treatment Goals Patient/Caregiver Goals Pt's goal is to get where he was a year ago: walking I without AD and no falls. PT-OP-C Subjective Start: 11/28/24 13:39 Freq: Status: Active Protocol: Document 02/15/25 14:34 SP (Rec: 02/15/25 15:53 SP [id number]) OP-PT Subjective Patient Comments Patient Comments Pt arrives with L hand brace doffed. He stated had follow up with physician and able to DC and perform activities that does not cause pain. He reported legs little sore after last tx. Took meds at 1120 and forgot to bring next dose for 1520 so called , she arrived end tx at 1530. Discussed to try and take on time 0700, 1100, 1500, 1900 with phone notification to support decreased dyskinesia and improved stability. PT-OP-E Functional Tests Start: 01/18/25 07:32 Freq: Status: Active Protocol: Document 01/18/25 07:33 SP (Rec: 01/18/25 08:20 SP [id number]) Functional Tests Functional Gait Assessment Score 21/30 Functional Gait Assessment Impairment 20 to <40% Impaired (Score 19- Rating 24) PT-OP-G Mobility & Gait Start: 11/28/24 13:39 Freq: Status: Active Protocol: Document 12/11/24 07:21 MB (Rec: 12/11/24 08:08 MB [id number]) OP Gait Assessment Comments Gait Comments Gait without AD: gait is unsteady and he tends to cross right leg over the left in a sweeping motion, functional leg length difference and increased Ivon angle LLE, B Trendelenburg with gait. Pt with all over vermis-type dyskinesia with movement. PT-OP-H Neuro Start: 11/28/24 13:39 Freq: Status: Active Protocol: Document 12/11/24 07:21 MB (Rec: 12/11/24 08:08 MB [id number]) Coordination Evaluation Upper Extremity Tests Left Finger to Nose Test Moderate Impairment Pronation/Supination Test Minimal Impairment Right Finger to Nose Test Minimal Impairment Pronation/Supination Test Minimal Impairment Lower Extremity Tests Left Alternate Heel to Knee; Heel to Toe Test Moderate Impairment Foot Tapping Test Minimal Impairment Right Alternate Heel to Knee; Heel to Toe Test Minimal Impairment Foot Tapping Test Minimal Impairment Vital Signs Comments Vital Signs Comments Orthostatic assessment in RUE: supine 124/74, 66; standing 116/66, 75; standing 1' 116/68 , 71. PT-OP-K Range of Motion Start: 11/28/24 13:39 Freq: Status: Active Protocol: Document 12/11/24 07:21 MB (Rec: 12/11/24 08:08 MB [id number]) Shoulder Goniometric Range of Motion Shoulder Left Shoulder ROM WFL Yes Testing Position Sitting Right Shoulder ROM WFL No Testing Position Sitting Comments Right shoulder flexion and abduction is about 15 deg less than the left, pt is right- handed. Pt states he does not feel limited in the right. Elbow/Forearm Range of Motion Elbow/Forearm Left Elbow/Forearm ROM WFL No ROM Testing Position Sitting Comments Brace donned and PT is not addressing this and so deferred formal testing Right Elbow/Forearm ROM WFL Yes ROM Testing Position Sitting Ankle and Foot Goniometric Range of Motion Ankle and Foot Left Ankle/Foot ROM WFL Yes Testing Position Sitting Right Ankle/Foot ROM WFL No Testing Position Sitting Comments Mildly reduced right ankle ROM grossly assessed today for function PT-OP-M Strength Start: 11/28/24 13:39 Freq: Status: Active Protocol: Document 12/11/24 07:21 MB (Rec: 12/11/24 08:08 MB [id number]) Shoulder Strength Shoulder Manual Muscle Testing Left Flexion 4+ Good+ Abduction (C5) 4+ Good+ Right Flexion 5 Normal Abduction (C5) 5 Normal Elbow/Forearm Strength Elbow and Forearm Manual Muscle Testing Left Flexion (C6) 4+ Good+ Extension (C7) 4+ Good+ Right Flexion (C6) 5 Normal Extension (C7) 5 Normal Hip Strength Hip Manual Muscle Testing Left Flexion (L2) 5 Normal Right Flexion (L2) 5 Normal Knee Strength Knee Manual Muscle Testing Left Flexion (S2) 5 Normal Extension (L3) 5 Normal Right Flexion (S2) 5 Normal Extension (L3) 5 Normal Ankle/Foot Strength Ankle and Foot Manual Muscle Testing Left Dorsiflexion (L4) 4+ Good+ Right Dorsiflexion (L4) 4+ Good+ Toe Strength Toe Manual Muscle Testing Left Great Toe Extension 5 Normal Right Great Toe Extension 4+ Good+ PT-OP-Q Treatments Start: 11/28/24 13:39 Freq: Status: Active Protocol: Document 02/15/25 14:34 SP (Rec: 02/15/25 15:53 SP [id number]) Therapeutic Exercises Sitting Exercises Amplitude floor to ceiling Resistance 2 lb ankle weights Equipment Used BIG chair Reps/Minutes 10 reps Comments Arm flicks only and Improved crispness Amplitude Side to Side Side bilateral Resistance 2 lb ankle weights Equipment Used BIG chair Reps/Minutes 20 alternating Comments Arm flicks only BIG motion, legs back BIG and return in BIG Amplitude STS Resistance 2 lb ankle weights Equipment Used BIG chair Reps/Minutes 10 Comments Cues for hands forward reaching first Standing Exercises Amplitude side rock and reach Standing Exercise Name Feet tend to slide apart Side bilateral Equipment Used 2 lb ankle weights and mirror Reps/Minutes 20 alternating reps Comments Cues to pivot on back toe with full ft opp side, Arms wide to R, 1LOB retro Amplitude forward rock and reach Side bilateral Equipment Used 2 lb ankle weights and mirror Reps/Minutes 10 reps, each side Comments Good form and effort BIG 9/10 reported Amplitude back step Side bilateral Equipment Used 2 lb ankle weights and mirror Reps/Minutes 20 reps alternating Comments GOod toe up and higher arms back, cued x1 arms front up form return Amplitude Side to Side Step Side bilateral Equipment Used 2 lb ankle weights and mirror Reps/Minutes 20 reps alternating Comments Cue x1 crisp arm and turn toward that side Amplitude Forward Step Side bilateral Equipment Used 2 lb ankle weights and mirror Reps/Minutes 20 reps alternate Comments CUed crisp arms, better last 2 reps Therapeutic Activity Therapeutic Activity BIG writing Reps/Minutes full page Comments BIG letters and numbers, working on equadistant and same size. Occasional L hand fingers open/close x10 decreased hand tremor to allow RUE writing. Improved incorporating BIG into looped letters but little close to each other and difficult to read. Worked on upper case and lower case letters Gait Training Gait Activity Amplitude Walking Comments 2 lb ankle weights for all BIG gait today: 92 BPM backwards walking along two hallways and 95 forward BPM in gym area. Added whoosh x-country skiing forward around/between cones on the floor. Side stepping right and left ball pass then bounce pass, cues marching steps for improved foot clearance of LLE going left. PT-OP-T Assessment and Plan Start: 11/28/24 13:39 Freq: Status: Active Protocol: Document 02/15/25 14:34 SP (Rec: 02/15/25 15:53 SP [id number]) Physical Therapy Assessment Goals 4 Impairment Evidence of imbalance Resp Therapist Goal (LTG) Pt will perform WNLs on a standardized balance test to decrease fall risk. 01/10/25 Test not performed today but pt had fall earlier today when waiting for public transportation and he injured his nose and hand. 01/18/25: FGA 21/30: 20-40 % impaired 01/24/25 FGA: Not completed today LTG Duration 8 weeks progressing 01/18/25 3 Impairment Lack of amplitude and balance specific HEP Group Home Goal (LTG) Pt will perform progressive HEP including LSVT BIG exercises with I to improve balance and amplitude of movement. 01/10/25: Pt is perform large amplitued exercises some but not everyday. With performance in clinic, he is doing better with exercises. 01/24/25: Pt is performing LSVT BIG exercises once a day at home. LTG Duration 8 weeks 2 Impairment Decreased gait speed and balance Resp Therapist Goal (LTG) Pt will gait train at least 1716 feet in 6 minutes without LRAD to improve community ambulation. 01/10/25: Perform 6MWT in future sessions. 01/15/25: Pt gait trains 1512 feet in 6 minutes. He slows greatly after 3' of ambulation and he demonstrates decreased arm swing and step-length right compared to left leg and he has dropping pelvis on the left with longer stepping/ Trendelenbury gait. Fitness level and increased body mass may affect gait distance in six minutes. 01/24/25: 6MWT with B trekking poles today and pt gait trains 1550 feet in 6 minutes. He has some imbalance and falling into LLE with gait as far as decreased stability with advancing left leg. Pt is occ unsafe with trekking poles, advancing them together at the same time despite cues to advance one pole with opposite foot and left foot hits trekking pole x1 and no LOB. Increased tremoring in LUE today with trekking pole tapping into floor after gait today d/t akinesia/tremor. Close superv for gait today LTG Duration 8 weeks 1 Impairment TUG in 11 sec Resp Therapist Goal (LTG) Pt will perform TUG in no more than 10 sec to decrease fall risk. 01/10/25: Perform TUG in future treatment sessions. 01/15/25: Pt performs TUG in 13 sec 01/24/25: TUG in 11 sec today LTG Duration 8 weeks Assessment Summary Assessment Pt continues to improve self corrections when model cue and occ shaping arms crisp flicks and back leg range side to side. Challenge with side rock reach pivot back toe while maintain bal opp full foot with slower pacing arms wide for stability, 1 LOB going R but self recovery. Improved R with cuing. Provided education on self BIG assessment during side to side and back stepping, noted self BIGGER effort. Provided HO of BIG motion for awareness when doing any task for self assessment. Improved side stepping today with cues for marching clearance to Left. Less cues for decreased stride length, able to maintain 95 bpm fwd, 92 backwards, occasional cues arm swing. Physical Therapy Plan Frequency and Duration Frequency of Treatment 2x-4x/wk Duration of treatment (weeks) 8 Plan of Care Start Date 01/24/25 Plan of Care End Date 03/08/25 Therapeutic Interventions Therapeutic Interventions Balance Training,Canalithic Repositioning,Coordination Training,Gait Training,Home Exercise Program,Joint Mobilizations,Manual Therapy, Neuromuscular Re-education, Patient/Caregiver Education, Self-Care/Home Management,Soft Tissue Mobilization,Taping, Therapeutic Activities, Therapeutic Exercises Modalities Cold Pack/Ice Massage,Electric Stimulation,Hot Packs, Ultrasound Next Visit Focus/Plan Next Note Type Treatment Note Next Visit Plan Ask pt each date when he took PD meds. PT advise pt of he should get 2 lb ankle weights for home standing and gait activities. Functional tasks: writing, posture, walking in crowded places and uneven surfaces, putting on and taking off jacket. Con't with flicks with floor to ceiling and sitting side to side, standing exercises and gait training with 2 lb ankle weights, metronome 92-95 bpm, stairs and backward walking, add in hurdles and side stepping Check orthostatics as needed Eventually go through a LSVT BIG class practice
--- NOTE | 2025-02-15 15:32 | PT.OTN ---
Current Diagnoses Parkinson's disease without dyskinesia, with fluctuations (02/15/25) Physical Therapy Treatment Note PT-OP-A Visit Information Start: 11/28/24 13:39 Freq: Status: Active Protocol: Document 02/15/25 14:34 SP (Rec: 02/15/25 15:53 SP [id number]) Out-Patient Physical Therapy Visit Information Visit Information Visit Type Treatment Note Visit Note [employer] 08/08 before next progress note 0700, 1100, 1500, 1900 PD meds schedule, ed pt to take medications on time Visit Start Time 14:34 Visit Stop Time 15:32 Visit Number 18 Number of WINDSURFING INSTRUCTOR Visits 1 Evaluation Information Evaluation Date 12/11/24 Precautions Precautions Left fifth metacarpal fracture , pt orthostatic with PT 01/15 & 02/07 and symptomatic PT-OP-B Current Condition Start: 11/28/24 13:39 Freq: Status: Active Protocol: Document 12/11/24 07:21 MB (Rec: 12/11/24 08:08 MB [id number]) Current Condition History of Current Condition Onset Date 2018 Current Complaints Left elbow does not allow him to push up History of Current Condition Pt experienced right arm tremor in 2018 and decreased right arm swing 2019. Pt now has B UE and LE tremors and jaw tremor. Pt reports he needs a cognitive review before he gets a DBS. PMH includes congenital hearing loss, HTN, left cervical radiculopathy s/p cervical spine fusion, fall and ankle fx right summer of 2023, light-headedness, left elbow spur in cubital tunnel and pt had surgery and wears brace, [place], vision changes and glasses, obesity. Pt thinks he is here for his left elbow and PT ed pt that PT has order for PD and progress to BIG when an opening occurs. Pt lives with his , Michelle . His most recent fall was 1.5 months ago and he hit the sink counter. Pt has a rollator and straight cane. He does like to use them. He does not arrive with ADs. Pt passed his driving test and is still driving. Pt likes to go to the pool and do the [place] [place] exercises twice a week and water 1-2 times a week. 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 Prior Treatments and Tests MRI brain 08/07/20: Mild white matter abnormality, likely microvascular disease Treatment Goals Patient/Caregiver Goals Pt's goal is to get where he was a year ago: walking I without AD and no falls. PT-OP-C Subjective Start: 11/28/24 13:39 Freq: Status: Active Protocol: Document 02/15/25 14:34 SP (Rec: 02/15/25 15:53 SP [id number]) OP-PT Subjective Patient Comments Patient Comments Pt arrives with L hand brace donned, instructed can DC wearing, activities with L hand painfree. He reported legs little sore after last tx. Meds 1120 and forgot to bring his meds texted bring,arrived end tx so took 10 min late. PT-OP-E Functional Tests Start: 01/18/25 07:32 Freq: Status: Active Protocol: Document 01/18/25 07:33 SP (Rec: 01/18/25 08:20 SP [id number]) Functional Tests Functional Gait Assessment Score 21/30 Functional Gait Assessment Impairment 20 to <40% Impaired (Score 19- Rating 24) PT-OP-G Mobility & Gait Start: 11/28/24 13:39 Freq: Status: Active Protocol: Document 12/11/24 07:21 MB (Rec: 12/11/24 08:08 MB [id number]) OP Gait Assessment Comments Gait Comments Gait without AD: gait is unsteady and he tends to cross right leg over the left in a sweeping motion, functional leg length difference and increased Ivon angle LLE, B Trendelenburg with gait. Pt with all over vermis-type dyskinesia with movement. PT-OP-H Neuro Start: 11/28/24 13:39 Freq: Status: Active Protocol: Document 12/11/24 07:21 MB (Rec: 12/11/24 08:08 MB [id number]) Coordination Evaluation Upper Extremity Tests Left Finger to Nose Test Moderate Impairment Pronation/Supination Test Minimal Impairment Right Finger to Nose Test Minimal Impairment Pronation/Supination Test Minimal Impairment Lower Extremity Tests Left Alternate Heel to Knee; Heel to Toe Test Moderate Impairment Foot Tapping Test Minimal Impairment Right Alternate Heel to Knee; Heel to Toe Test Minimal Impairment Foot Tapping Test Minimal Impairment Vital Signs Comments Vital Signs Comments Orthostatic assessment in RUE: supine 124/74, 66; standing 116/66, 75; standing 1' 116/68 , 71. PT-OP-K Range of Motion Start: 11/28/24 13:39 Freq: Status: Active Protocol: Document 12/11/24 07:21 MB (Rec: 12/11/24 08:08 MB [id number]) Shoulder Goniometric Range of Motion Shoulder Left Shoulder ROM WFL Yes Testing Position Sitting Right Shoulder ROM WFL No Testing Position Sitting Comments Right shoulder flexion and abduction is about 15 deg less than the left, pt is right- handed. Pt states he does not feel limited in the right. Elbow/Forearm Range of Motion Elbow/Forearm Left Elbow/Forearm ROM WFL No ROM Testing Position Sitting Comments Brace donned and PT is not addressing this and so deferred formal testing Right Elbow/Forearm ROM WFL Yes ROM Testing Position Sitting Ankle and Foot Goniometric Range of Motion Ankle and Foot Left Ankle/Foot ROM WFL Yes Testing Position Sitting Right Ankle/Foot ROM WFL No Testing Position Sitting Comments Mildly reduced right ankle ROM grossly assessed today for function PT-OP-M Strength Start: 11/28/24 13:39 Freq: Status: Active Protocol: Document 12/11/24 07:21 MB (Rec: 12/11/24 08:08 MB [id number]) Shoulder Strength Shoulder Manual Muscle Testing Left Flexion 4+ Good+ Abduction (C5) 4+ Good+ Right Flexion 5 Normal Abduction (C5) 5 Normal Elbow/Forearm Strength Elbow and Forearm Manual Muscle Testing Left Flexion (C6) 4+ Good+ Extension (C7) 4+ Good+ Right Flexion (C6) 5 Normal Extension (C7) 5 Normal Hip Strength Hip Manual Muscle Testing Left Flexion (L2) 5 Normal Right Flexion (L2) 5 Normal Knee Strength Knee Manual Muscle Testing Left Flexion (S2) 5 Normal Extension (L3) 5 Normal Right Flexion (S2) 5 Normal Extension (L3) 5 Normal Ankle/Foot Strength Ankle and Foot Manual Muscle Testing Left Dorsiflexion (L4) 4+ Good+ Right Dorsiflexion (L4) 4+ Good+ Toe Strength Toe Manual Muscle Testing Left Great Toe Extension 5 Normal Right Great Toe Extension 4+ Good+ PT-OP-Q Treatments Start: 11/28/24 13:39 Freq: Status: Active Protocol: Document 02/15/25 14:34 SP (Rec: 02/15/25 15:53 SP [id number]) Therapeutic Exercises Sitting Exercises Amplitude floor to ceiling Resistance 2 lb ankle weights Equipment Used BIG chair Reps/Minutes 10 reps Comments Arm flicks only and Improved crispness Amplitude Side to Side Side bilateral Resistance 2 lb ankle weights Equipment Used BIG chair Reps/Minutes 20 alternating Comments Arm flicks only BIG motion, legs back BIG and return in BIG Amplitude STS Resistance 2 lb ankle weights Equipment Used BIG chair Reps/Minutes 10 Comments Cues for hands forward reaching first Standing Exercises Amplitude side rock and reach Standing Exercise Name Feet tend to slide apart Side bilateral Equipment Used 2 lb ankle weights and mirror Reps/Minutes 20 alternating reps Comments Cues to pivot on back toe with full ft opp side, Arms wide to R, 1LOB retro Amplitude forward rock and reach Side bilateral Equipment Used 2 lb ankle weights and mirror Reps/Minutes 10 reps, each side Comments Good form and effort BIG 9/10 reported Amplitude back step Side bilateral Equipment Used 2 lb ankle weights and mirror Reps/Minutes 20 reps alternating Comments GOod toe up and higher arms back, cued x1 arms front up form return Amplitude Side to Side Step Side bilateral Equipment Used 2 lb ankle weights and mirror Reps/Minutes 20 reps alternating Comments Cue x1 crisp arm and turn toward that side Amplitude Forward Step Side bilateral Equipment Used 2 lb ankle weights and mirror Reps/Minutes 20 reps alternate Comments CUed crisp arms, better last 2 reps Therapeutic Activity Therapeutic Activity BIG writing Reps/Minutes full page Comments BIG letters and numbers, working on equadistant and same size. Occasional L hand fingers open/close x10 decreased hand tremor to allow RUE writing. Improved incorporating BIG into looped letters but little close to each other and difficult to read. Worked on upper case and lower case letters Gait Training Gait Activity Amplitude Walking Comments 2 lb ankle weights for all BIG gait today: 92 BPM backwards walking along two hallways and 95 forward BPM in gym area. Added whoosh x-country skiing forward around/between cones on the floor. Side stepping right and left ball pass then bounce pass, cues marching steps for improved foot clearance of LLE going left. PT-OP-T Assessment and Plan Start: 11/28/24 13:39 Freq: Status: Active Protocol: Document 02/15/25 14:34 SP (Rec: 02/15/25 15:53 SP [id number]) Physical Therapy Assessment Goals 4 Impairment Evidence of imbalance Life Science Technician Goal (LTG) Pt will perform WNLs on a standardized balance test to decrease fall risk. 01/10/25 Test not performed today but pt had fall earlier today when waiting for public transportation and he injured his nose and hand. 01/18/25: FGA : 20-40 % impaired 01/24/25 FGA: Not completed today LTG Duration 8 weeks progressing 01/18/25 3 Impairment Lack of amplitude and balance specific HEP Fpc Goal (LTG) Pt will perform progressive HEP including LSVT BIG exercises with I to improve balance and amplitude of movement. 01/10/25: Pt is perform large amplitued exercises some but not everyday. With performance in clinic, he is doing better with exercises. 01/24/25: Pt is performing LSVT BIG exercises once a day at home. LTG Duration 8 weeks 2 Impairment Decreased gait speed and balance Life Science Technician Goal (LTG) Pt will gait train at least 1716 feet in 6 minutes without LRAD to improve community ambulation. 01/10/25: Perform 6MWT in future sessions. 01/15/25: Pt gait trains 1512 feet in 6 minutes. He slows greatly after 3' of ambulation and he demonstrates decreased arm swing and step-length right compared to left leg and he has dropping pelvis on the left with longer stepping/ Trendelenbury gait. Fitness level and increased body mass may affect gait distance in six minutes. 01/24/25: 6MWT with B trekking poles today and pt gait trains 1550 feet in 6 minutes. He has some imbalance and falling into LLE with gait as far as decreased stability with advancing left leg. Pt is occ unsafe with trekking poles, advancing them together at the same time despite cues to advance one pole with opposite foot and left foot hits trekking pole x1 and no LOB. Increased tremoring in LUE today with trekking pole tapping into floor after gait today d/t akinesia/tremor. Close superv for gait today LTG Duration 8 weeks 1 Impairment TUG in 11 sec Life Science Technician Goal (LTG) Pt will perform TUG in no more than 10 sec to decrease fall risk. 01/10/25: Perform TUG in future treatment sessions. 01/15/25: Pt performs TUG in 13 sec 01/24/25: TUG in 11 sec today LTG Duration 8 weeks Assessment Summary Assessment WINDSURFING INSTRUCTOR provided discussion importance of meds on time for help stability, R hand dyskinesia. He reported didn't realize provided that support. Pt continues to improve self corrections when model cue and occ shaping arms crisp flicks and back leg range side to side. Challenge with side rock reach pivot back toe while maintain bal opp full foot with slower pacing arms wide for stability, 1 LOB going R but self recovery. Improved R with cuing. Provided education on self BIG assessment during side to side and back stepping, noted self BIGGER effort. Provided HO of BIG motion for awareness when doing any task for self assessment. Improved side stepping today with cues for marching clearance to Left. Less cues for decreased stride length, able to maintain 95 bpm fwd, 92 backwards, occasional cues arm swing. Physical Therapy Plan Frequency and Duration Frequency of Treatment 2x-4x/wk Duration of treatment (weeks) 8 Plan of Care Start Date 01/24/25 Plan of Care End Date 03/08/25 Therapeutic Interventions Therapeutic Interventions Balance Training,Canalithic Repositioning,Coordination Training,Gait Training,Home Exercise Program,Joint Mobilizations,Manual Therapy, Neuromuscular Re-education, Patient/Caregiver Education, Self-Care/Home Management,Soft Tissue Mobilization,Taping, Therapeutic Activities, Therapeutic Exercises Modalities Cold Pack/Ice Massage,Electric Stimulation,Hot Packs, Ultrasound Next Visit Focus/Plan Next Note Type Treatment Note Next Visit Plan Ask pt each date when he took PD meds. PT advise pt of he should get 2 lb ankle weights for home standing and gait activities. Functional tasks: writing, posture, walking in crowded places and uneven surfaces, putting on and taking off jacket. Con't with flicks with floor to ceiling and sitting side to side, standing exercises and gait training with 2 lb ankle weights, metronome 92-95 bpm, stairs and backward walking, add in hurdles and side stepping Check orthostatics as needed Eventually go through a LSVT BIG class practice
--- NOTE | 2025-02-19 15:28 | PT.OTN ---
Current Diagnoses Parkinson's disease without dyskinesia, with fluctuations (02/19/25) Physical Therapy Treatment Note PT-OP-A Visit Information Start: 11/28/24 13:39 Freq: Status: Active Protocol: Document 02/19/25 14:26 MB (Rec: 02/19/25 15:27 MB [id number]) Out-Patient Physical Therapy Visit Information Visit Information Visit Type Progress Note Visit Note 0700, 1100, 1500, 1900 PD meds schedule, ed pt to take medications on time *Pt will complete LSVT and d/c before another progress note is due Visit Start Time 14:26 Visit Stop Time 15:26 Visit Number 19 Number of NECK CUTTER Visits 0 Evaluation Information Evaluation Date 12/11/24 Precautions Precautions Left fifth metacarpal fracture , pt orthostatic with PT 01/15 & 02/07 and symptomatic PT-OP-B Current Condition Start: 11/28/24 13:39 Freq: Status: Active Protocol: Document 12/11/24 07:21 MB (Rec: 12/11/24 08:08 MB [id number]) Current Condition History of Current Condition Onset Date 2018 Current Complaints Left elbow does not allow him to push up History of Current Condition Pt experienced right arm tremor in 2018 and decreased right arm swing 2019. Pt now has B UE and LE tremors and jaw tremor. Pt reports he needs a cognitive review before he gets a DBS. PMH includes congenital hearing loss, HTN, left cervical radiculopathy s/p cervical spine fusion, fall and ankle fx right summer of 2023, light-headedness, left elbow spur in cubital tunnel and pt had surgery and wears brace, [place], vision changes and glasses, obesity. Pt thinks he is here for his left elbow and PT ed pt that PT has order for PD and progress to BIG when an opening occurs. Pt lives with his , Michelle . His most recent fall was 1.5 months ago and he hit the sink counter. Pt has a rollator and straight cane. He does like to use them. He does not arrive with ADs. Pt passed his driving test and is still driving. Pt likes to go to the pool and do the [place] exercises twice a week and water 1-2 times a week. 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 Prior Treatments and Tests MRI brain 08/07/20: Mild white matter abnormality, likely microvascular disease Treatment Goals Patient/Caregiver Goals Pt's goal is to get where he was a year ago: walking I without AD and no falls. PT-OP-C Subjective Start: 11/28/24 13:39 Freq: Status: Active Protocol: Document 02/19/25 14:26 MB (Rec: 02/19/25 15:27 MB [id number]) OP-PT Subjective Patient Comments Patient Comments Pt performed LSVT BIG exercises once a day over the weekend. He took PD medication at 1115. Pt states that his walking is a little bit improved, particularly at night or when he has done the exercises. PT-OP-E Functional Tests Start: 01/18/25 07:32 Freq: Status: Active Protocol: Document 01/18/25 07:33 SP (Rec: 01/18/25 08:20 SP [id number]) Functional Tests Functional Gait Assessment Score 21/30 Functional Gait Assessment Impairment 20 to <40% Impaired (Score 19- Rating 24) PT-OP-G Mobility & Gait Start: 11/28/24 13:39 Freq: Status: Active Protocol: Document 12/11/24 07:21 MB (Rec: 12/11/24 08:08 MB [id number]) OP Gait Assessment Comments Gait Comments Gait without AD: gait is unsteady and he tends to cross right leg over the left in a sweeping motion, functional leg length difference and increased Ivon angle LLE, B Trendelenburg with gait. Pt with all over vermis-type dyskinesia with movement. PT-OP-H Neuro Start: 11/28/24 13:39 Freq: Status: Active Protocol: Document 12/11/24 07:21 MB (Rec: 12/11/24 08:08 MB [id number]) Coordination Evaluation Upper Extremity Tests Left Finger to Nose Test Moderate Impairment Pronation/Supination Test Minimal Impairment Right Finger to Nose Test Minimal Impairment Pronation/Supination Test Minimal Impairment Lower Extremity Tests Left Alternate Heel to Knee; Heel to Toe Test Moderate Impairment Foot Tapping Test Minimal Impairment Right Alternate Heel to Knee; Heel to Toe Test Minimal Impairment Foot Tapping Test Minimal Impairment Vital Signs Comments Vital Signs Comments Orthostatic assessment in RUE: supine 124/74, 66; standing 116/66, 75; standing 1' 116/68 , 71. PT-OP-K Range of Motion Start: 11/28/24 13:39 Freq: Status: Active Protocol: Document 12/11/24 07:21 MB (Rec: 12/11/24 08:08 MB [id number]) Shoulder Goniometric Range of Motion Shoulder Left Shoulder ROM WFL Yes Testing Position Sitting Right Shoulder ROM WFL No Testing Position Sitting Comments Right shoulder flexion and abduction is about 15 deg less than the left, pt is right- handed. Pt states he does not feel limited in the right. Elbow/Forearm Range of Motion Elbow/Forearm Left Elbow/Forearm ROM WFL No ROM Testing Position Sitting Comments Brace donned and PT is not addressing this and so deferred formal testing Right Elbow/Forearm ROM WFL Yes ROM Testing Position Sitting Ankle and Foot Goniometric Range of Motion Ankle and Foot Left Ankle/Foot ROM WFL Yes Testing Position Sitting Right Ankle/Foot ROM WFL No Testing Position Sitting Comments Mildly reduced right ankle ROM grossly assessed today for function PT-OP-M Strength Start: 11/28/24 13:39 Freq: Status: Active Protocol: Document 12/11/24 07:21 MB (Rec: 12/11/24 08:08 MB [id number]) Shoulder Strength Shoulder Manual Muscle Testing Left Flexion 4+ Good+ Abduction (C5) 4+ Good+ Right Flexion 5 Normal Abduction (C5) 5 Normal Elbow/Forearm Strength Elbow and Forearm Manual Muscle Testing Left Flexion (C6) 4+ Good+ Extension (C7) 4+ Good+ Right Flexion (C6) 5 Normal Extension (C7) 5 Normal Hip Strength Hip Manual Muscle Testing Left Flexion (L2) 5 Normal Right Flexion (L2) 5 Normal Knee Strength Knee Manual Muscle Testing Left Flexion (S2) 5 Normal Extension (L3) 5 Normal Right Flexion (S2) 5 Normal Extension (L3) 5 Normal Ankle/Foot Strength Ankle and Foot Manual Muscle Testing Left Dorsiflexion (L4) 4+ Good+ Right Dorsiflexion (L4) 4+ Good+ Toe Strength Toe Manual Muscle Testing Left Great Toe Extension 5 Normal Right Great Toe Extension 4+ Good+ PT-OP-Q Treatments Start: 11/28/24 13:39 Freq: Status: Active Protocol: Document 02/19/25 14:26 MB (Rec: 02/19/25 15:27 MB [id number]) Therapeutic Exercises Sitting Exercises Amplitude floor to ceiling Resistance 2 lb ankle weights Equipment Used BIG chair Reps/Minutes 10 reps Comments Arm flicks only and still rushing a little between change of arm position Amplitude Side to Side Side bilateral Resistance 2 lb ankle weights Equipment Used BIG chair Reps/Minutes 20 alternating Comments Arm flicks only and cues for BIG back leg Amplitude STS Resistance 2 lb ankle weights Equipment Used BIG chair Reps/Minutes 10 Comments Cues for hands forward reaching first Standing Exercises Amplitude side rock and reach Standing Exercise Name Feet tend to slide apart but less Side bilateral Equipment Used 2 lb ankle weights and mirror Reps/Minutes 20 alternating reps Comments Cues for form Amplitude forward rock and reach Side bilateral Equipment Used 2 lb ankle weights and mirror Reps/Minutes 10 reps, each side Comments Less weight shift and cued to do so Amplitude back step Side bilateral Equipment Used 2 lb ankle weights and mirror Reps/Minutes 20 reps alternating Comments Better Amplitude Side to Side Step Side bilateral Equipment Used 2 lb ankle weights and mirror Reps/Minutes 20 reps alternating Comments Cues for arms Amplitude Forward Step Side bilateral Equipment Used 2 lb ankle weights and mirror Reps/Minutes 20 reps alternate Comments Better Therapeutic Activity Therapeutic Activity Donning and doffing jackets Comments Standing, donning and doffing purple UW jacket: Rep 1 don: 12 sec; dof: 5 sec Rep 2: don: 9 sec; dof: 7 sec Rep 3: don: 11 sec; doff: 5 sec Rep 4: don: 9 sec; doff: 6 sec Rep 5: don: 10 sec; doff: 5 sec BIG writing Comments Full page of letters working on upper case and lower case alphabet, numbers and signature and all look better today Gait Training Gait Activity 6MWT Comments Pt gait trains 1750 feet in 6 minutes, with some tendency to walk too close to gym equipment and hand sanitizers on the wall on the right. He does not clip right arm today and requires cues for right arm swing BIG right arm Neuro Re-Education Treatment Balance Activities FGA Comments FGA and it is improved, though con't to indicate increased risk of falls TUG Comments TUG in 9 sec, 2 sec improved since last progress note and pt surpassed goal PT-OP-T Assessment and Plan Start: 11/28/24 13:39 Freq: Status: Active Protocol: Document 02/19/25 14:26 MB (Rec: 02/19/25 15:27 MB [id number]) Physical Therapy Assessment Rehab Potential Rehabilitation Potential Fair Evaluation Complexity Number of Personal Factors/Comorbidities 1-2 Number of Body Systems Impaired 3 Clinical Presentation at Evaluation Evolving Goals 4 Impairment Evidence of imbalance [employer] Goal (LTG) Pt will perform WNLs on a standardized balance test to decrease fall risk. 01/10/25 Test not performed today but pt had fall earlier today when waiting for public transportation and he injured his nose and hand. 01/18/25: FGA 21/30: 20-40 % impaired 01/24/25 FGA: Not completed today 02/19/25: FGA score is 22/30, indicating increased risk for falls. LTG Duration 8 weeks progressing 01/18/25 3 Impairment Lack of amplitude and balance specific HEP [employer] Goal (LTG) Pt will perform progressive HEP including LSVT BIG exercises with I to improve balance and amplitude of movement. 01/10/25: Pt is perform large amplitued exercises some but not everyday. With performance in clinic, he is doing better with exercises. 01/24/25: Pt is performing LSVT BIG exercises once a day at home. 02/19/25: Pt is not consistently perform LSVT BIG exercises per prescription LTG Duration 8 weeks 2 Impairment Decreased gait speed and balance [employer] Developer Goal (LTG) Pt will gait train at least 1716 feet in 6 minutes without LRAD to improve community ambulation. 01/10/25: Perform 6MWT in future sessions. 01/15/25: Pt gait trains 1512 feet in 6 minutes. He slows greatly after 3' of ambulation and he demonstrates decreased arm swing and step-length right compared to left leg and he has dropping pelvis on the left with longer stepping/ Trendelenbury gait. Fitness level and increased body mass may affect gait distance in six minutes. 01/24/25: 6MWT with B trekking poles today and pt gait trains 1550 feet in 6 minutes. He has some imbalance and falling into LLE with gait as far as decreased stability with advancing left leg. Pt is occ unsafe with trekking poles, advancing them together at the same time despite cues to advance one pole with opposite foot and left foot hits trekking pole x1 and no LOB. Increased tremoring in LUE today with trekking pole tapping into floor after gait today d/t akinesia/tremor. Close superv for gait today 02/19/25: Pt gait trains 1750 feet in 6 minutes, with some tendency to walk too close to gym equipment and hand sanitizers on the wall on the right. He does not clip right arm today and requires cues for right arm swing BIG right arm. No trekking pole use LTG Duration Surpassed goal 1 Impairment TUG in 11 sec Mcfp Goal (LTG) Pt will perform TUG in no more than 10 sec to decrease fall risk. 01/10/25: Perform TUG in future treatment sessions. 01/15/25: Pt performs TUG in 13 sec 01/24/25: TUG in 11 sec today 02/19/25: TUG in 9 sec today LTG Duration Surpassed goal Assessment Summary Assessment Pt is still not consistently performing LSVT exercises at home per dosage. He is not always taking his PD medications on time either. These are barriers to full potential with managing tremor and fatigue and maximizing benefits of exercises. Pt has surpassed 6MWT and TUG goals. He con't to progress with balance goal with FGA, though he con't to present at increased risk for falls. Con' t LSVT BIG. Pt con't to have occ foot crossing with getting out of chair and tending to get to close to objects on the right with gait and overall, looks much better since starting PT. Physical Therapy Plan Frequency and Duration Frequency of Treatment 2x-4x/wk Duration of treatment (weeks) 8 Plan of Care Start Date 01/24/25 Plan of Care End Date 03/08/25 Therapeutic Interventions Therapeutic Interventions Balance Training,Canalithic Repositioning,Coordination Training,Gait Training,Home Exercise Program,Joint Mobilizations,Manual Therapy, Neuromuscular Re-education, Patient/Caregiver Education, Self-Care/Home Management,Soft Tissue Mobilization,Taping, Therapeutic Activities, Therapeutic Exercises Modalities Cold Pack/Ice Massage,Electric Stimulation,Hot Packs, Ultrasound Next Visit Focus/Plan Next Note Type Treatment Note Next Visit Plan Ask pt each date when he took PD meds. PT advise pt of he should get 2 lb ankle weights for home standing and gait activities. Functional tasks: writing, posture, walking in crowded places and uneven surfaces, putting on and taking off jacket. Con't with flicks with floor to ceiling and sitting side to side, standing exercises and gait training with 2 lb ankle weights, metronome 92-95 bpm, stairs and backward walking, add in hurdles and side stepping Check orthostatics as needed Eventually go through a LSVT BIG class practice
--- NOTE | 2025-02-20 15:32 | PT.OTN ---
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 Pt now has B UE and LE tremors and jaw tremor. Pt reports he needs a cognitive review before he gets a DBS. PMH includes congenital hearing loss, HTN, left cervical radiculopathy s/p cervical spine fusion, fall and ankle fx right summer of 2023, light-headedness, left elbow spur in cubital tunnel and pt had surgery and wears brace, [place], vision changes and glasses, obesity. Pt thinks he is here for his left elbow and PT ed pt that PT has order for PD and progress to BIG when an opening occurs. Pt lives with his , Michelle . His most recent fall was 1.5 months ago and he hit the sink counter. Pt has a rollator and straight cane. He does like to use them. He does not arrive with ADs. Pt passed his driving test and is still driving. Pt likes to go to the pool and do the [place] exercises twice a week and water 1-2 times a week. He likes to go to [employer] and support his [employer] shop once a week. Prior Treatments and Tests MRI brain 08/07/20: Mild white matter abnormality, likely microvascular disease Treatment Goals Patient/Caregiver Goals Pt's goal is to get where he was a year ago: walking I without AD and no falls. PT-OP-C Subjective Start: 11/28/24 13:39 Freq: Status: Active Protocol: Document 02/20/25 14:32 SP (Rec: 02/20/25 15:45 SP [id number]) OP-PT Subjective Patient Comments Patient Comments Pt reports doing pretty darn good today. Took meds 750 and 1130. PT-OP-E Functional Tests Start: 01/18/25 07:32 Freq: Status: Active Protocol: Document 01/18/25 07:33 SP (Rec: 01/18/25 08:20 SP [id number]) Functional Tests Functional Gait Assessment Score 21/30 Functional Gait Assessment Impairment 20 to <40% Impaired (Score 19- Rating 24) PT-OP-G Mobility & Gait Start: 11/28/24 13:39 Freq: Status: Active Protocol: Document 12/11/24 07:21 MB (Rec: 12/11/24 08:08 MB [id number]) OP Gait Assessment Comments Gait Comments Gait without AD: gait is unsteady and he tends to cross right leg over the left in a sweeping motion, functional leg length difference and increased Ivon angle LLE, B Trendelenburg with gait. Pt with all over vermis-type dyskinesia with movement. PT-OP-H Neuro Start: 11/28/24 13:39 Freq: Status: Active Protocol: Document 12/11/24 07:21 MB (Rec: 12/11/24 08:08 MB [id number]) Coordination Evaluation Upper Extremity Tests Left Finger to Nose Test Moderate Impairment Pronation/Supination Test Minimal Impairment Right Finger to Nose Test Minimal Impairment Pronation/Supination Test Minimal Impairment Lower Extremity Tests Left Alternate Heel to Knee; Heel to Toe Test Moderate Impairment Foot Tapping Test Minimal Impairment Right Alternate Heel to Knee; Heel to Toe Test Minimal Impairment Foot Tapping Test Minimal Impairment Vital Signs Comments Vital Signs Comments Orthostatic assessment in RUE: supine 124/74, 66; standing 116/66, 75; standing 1' 116/68 , 71. PT-OP-K Range of Motion Start: 11/28/24 13:39 Freq: Status: Active Protocol: Document 12/11/24 07:21 MB (Rec: 12/11/24 08:08 MB [id number]) Shoulder Goniometric Range of Motion Shoulder Left Shoulder ROM WFL Yes Testing Position Sitting Right Shoulder ROM WFL No Testing Position Sitting Comments Right shoulder flexion and abduction is about 15 deg less than the left, pt is right- handed. Pt states he does not feel limited in the right. Elbow/Forearm Range of Motion Elbow/Forearm Left Elbow/Forearm ROM WFL No ROM Testing Position Sitting Comments Brace donned and PT is not addressing this and so deferred formal testing Right Elbow/Forearm ROM WFL Yes ROM Testing Position Sitting Ankle and Foot Goniometric Range of Motion Ankle and Foot Left Ankle/Foot ROM WFL Yes Testing Position Sitting Right Ankle/Foot ROM WFL No Testing Position Sitting Comments Mildly reduced right ankle ROM grossly assessed today for function PT-OP-M Strength Start: 11/28/24 13:39 Freq: Status: Active Protocol: Document 12/11/24 07:21 MB (Rec: 12/11/24 08:08 MB [id number]) Shoulder Strength Shoulder Manual Muscle Testing Left Flexion 4+ Good+ Abduction (C5) 4+ Good+ Right Flexion 5 Normal Abduction (C5) 5 Normal Elbow/Forearm Strength Elbow and Forearm Manual Muscle Testing Left Flexion (C6) 4+ Good+ Extension (C7) 4+ Good+ Right Flexion (C6) 5 Normal Extension (C7) 5 Normal Hip Strength Hip Manual Muscle Testing Left Flexion (L2) 5 Normal Right Flexion (L2) 5 Normal Knee Strength Knee Manual Muscle Testing Left Flexion (S2) 5 Normal Extension (L3) 5 Normal Right Flexion (S2) 5 Normal Extension (L3) 5 Normal Ankle/Foot Strength Ankle and Foot Manual Muscle Testing Left Dorsiflexion (L4) 4+ Good+ Right Dorsiflexion (L4) 4+ Good+ Toe Strength Toe Manual Muscle Testing Left Great Toe Extension 5 Normal Right Great Toe Extension 4+ Good+ PT-OP-Q Treatments Start: 11/28/24 13:39 Freq: Status: Active Protocol: Document 02/20/25 14:32 SP (Rec: 02/20/25 15:45 SP [id number]) Therapeutic Exercises Sitting Exercises Amplitude floor to ceiling Resistance 2 lb ankle weights Equipment Used BIG chair Reps/Minutes 10 reps Comments good Arm flicks only Amplitude Side to Side Side bilateral Resistance 2 lb ankle weights Equipment Used BIG chair Reps/Minutes 20 alternating Comments Arm flicks only, improved BIG back leg Amplitude STS Resistance 2 lb ankle weights Equipment Used BIG chair Reps/Minutes 10 Comments Good arms fwd and controlled sit Standing Exercises Amplitude side rock and reach Standing Exercise Name Feet tend to slide apart but less Side bilateral Equipment Used 2 lb ankle weights and mirror Reps/Minutes 20 alternating reps Comments Cues for form, occ cued hand on lap then pizza hands up Amplitude forward rock and reach Side bilateral Equipment Used 2 lb ankle weights and mirror Reps/Minutes 10 reps, each side Comments Better Amplitude back step Side bilateral Equipment Used 2 lb ankle weights and mirror Reps/Minutes 20 reps alternating Comments Cued x3 hands up front more effort Amplitude Side to Side Step Side bilateral Equipment Used 2 lb ankle weights and mirror Reps/Minutes 20 reps alternating Comments Cues for arms crisp, , occ cue x1 turn head direction Amplitude Forward Step Side bilateral Equipment Used 2 lb ankle weights and mirror Reps/Minutes 20 reps alternate Comments Better Therapeutic Activity Therapeutic Activity Donning and doffing jackets Comments Standing, donning and doffing purple [employer] jacket: Rep 1 don: 3 sec don, 38 with zip sec; doff: 4 sec Rep 2: don: 17 sec; dof: 6 sec Rep 3: don: 9 sec; doff: 6 sec Rep 4: don: 9 sec; doff: 6 sec Rep 5: don: 8 sec; doff: 6 sec BIG writing Comments Full page of letters working on upper case and lower case alphabet, numbers and signature and all look better spacing 02/20/25, check writing improved legible writing, [place], good writing in space provided. Gait Training Gait Activity dynamic bal activity Description Grassy incline/decline Device Used B trek poles Level of Assistance close SBA/CGA Distance/Duration 20 ft grass 3 laps Treatment Focus midline stability, AYO uneven surfaces Comments gait incline, declined grass with use of B trek poles, CGA and cues for slower pacing, increase AYO and decreased stride for safety descend momentum control. Amplitude Walking Description outside parkinglot pavement BIG walking, inside dynamic activities Comments 2 lb ankle weights for all BIG gait today: 92 BPM fwd, 86 backwards walking outside and 95 forward BPM. Added whoosh x-country skiing forward around/between cones on the floor. Side stepping right and left ball pass then bounce pass, cues marching steps for improved foot clearance of LLE going left. PT-OP-T Assessment and Plan Start: 11/28/24 13:39 Freq: Status: Active Protocol: Document 02/20/25 14:32 SP (Rec: 02/20/25 15:45 SP [id number]) Physical Therapy Assessment Goals 4 Impairment Evidence of imbalance Senior Living Goal (LTG) Pt will perform WNLs on a standardized balance test to decrease fall risk. 01/10/25 Test not performed today but pt had fall earlier today when waiting for public transportation and he injured his nose and hand. 01/18/25: FGA : 20-40 % impaired 01/24/25 FGA: Not completed today 02/19/25: FGA score is 22/30, indicating increased risk for falls. LTG Duration 8 weeks progressing 01/18/25 3 Impairment Lack of amplitude and balance specific HEP Senior Living Goal (LTG) Pt will perform progressive HEP including LSVT BIG exercises with I to improve balance and amplitude of movement. 01/10/25: Pt is perform large amplitued exercises some but not everyday. With performance in clinic, he is doing better with exercises. 01/24/25: Pt is performing LSVT BIG exercises once a day at home. 02/19/25: Pt is not consistently perform LSVT BIG exercises per prescription LTG Duration 8 weeks Assessment Summary Assessment Pt improved with form during all of exercises today. Mod cues for decreased stride during BIG walking outside today and occ cues for arm swing 92-95 BPM. Cues for slower pacing and decreased stride descending grass. Pt tired end of gait outside, noted 2lb weights rubbing each other entering blding, cues for increased AYO and occasional proper patterning trek poles. Improved timing don/doff jacket with reps, positioning of zipper to clasp . Physical Therapy Plan Frequency and Duration Frequency of Treatment 2x-4x/wk Duration of treatment (weeks) 8 Plan of Care Start Date 01/24/25 Plan of Care End Date 03/08/25 Therapeutic Interventions Therapeutic Interventions Balance Training,Canalithic Repositioning,Coordination Training,Gait Training,Home Exercise Program,Joint Mobilizations,Manual Therapy, Neuromuscular Re-education, Patient/Caregiver Education, Self-Care/Home Management,Soft Tissue Mobilization,Taping, Therapeutic Activities, Therapeutic Exercises Modalities Cold Pack/Ice Massage,Electric Stimulation,Hot Packs, Ultrasound Next Visit Focus/Plan Next Note Type Treatment Note Next Visit Plan Ask pt each date when he took PD meds. PT advise pt of he should get 2 lb ankle weights for home standing and gait activities. Functional tasks: writing, posture, walking in crowded places and uneven surfaces, putting on and taking off jacket. Con't with flicks with floor to ceiling and sitting side to side, standing exercises and gait training with 2 lb ankle weights, metronome 92-95 bpm, stairs and backward walking, add in hurdles and side stepping Check orthostatics as needed Eventually go through a LSVT BIG class practice Review outside uneven grass safety descending, smaller stride and slower pacing.
--- NOTE | 2025-02-21 15:25 | PT.OTN ---
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 Pt now has B UE and LE tremors and jaw tremor. Pt reports he needs a cognitive review before he gets a DBS. PMH includes congenital hearing loss, HTN, left cervical radiculopathy s/p cervical spine fusion, fall and ankle fx right summer of 2023, light-headedness, left elbow spur in cubital tunnel and pt had surgery and wears brace, [place], vision changes and glasses, obesity. Pt thinks he is here for his left elbow and PT ed pt that PT has order for PD and progress to BIG when an opening occurs. Pt lives with his , Michelle . His most recent fall was 1.5 months ago and he hit the sink counter. Pt has a rollator and straight cane. He does like to use them. He does not arrive with ADs. Pt passed his driving test and is still driving. Pt likes to go to the pool and do the [place] exercises twice a week and water 1-2 times a week. He likes to go to [employer] and support his [employer] shop once a week. Prior Treatments and Tests MRI brain 08/07/20: Mild white matter abnormality, likely microvascular disease Treatment Goals Patient/Caregiver Goals Pt's goal is to get where he was a year ago: walking I without AD and no falls. PT-OP-C Subjective Start: 11/28/24 13:39 Freq: Status: Active Protocol: Document 02/21/25 14:28 MB (Rec: 02/21/25 15:19 MB [id number]) OP-PT Subjective Patient Comments Patient Comments Pt took 1100 PD medication and has 1500 dose with him. He now has [facility]. Pt got BIG exercises down this morning as well. PT-OP-E Functional Tests Start: 01/18/25 07:32 Freq: Status: Active Protocol: Document 01/18/25 07:33 SP (Rec: 01/18/25 08:20 SP [id number]) Functional Tests Functional Gait Assessment Score 21/30 Functional Gait Assessment Impairment 20 to <40% Impaired (Score 19- Rating 24) PT-OP-G Mobility & Gait Start: 11/28/24 13:39 Freq: Status: Active Protocol: Document 12/11/24 07:21 MB (Rec: 12/11/24 08:08 MB [id number]) OP Gait Assessment Comments Gait Comments Gait without AD: gait is unsteady and he tends to cross right leg over the left in a sweeping motion, functional leg length difference and increased Ivon angle LLE, B Trendelenburg with gait. Pt with all over vermis-type dyskinesia with movement. PT-OP-H Neuro Start: 11/28/24 13:39 Freq: Status: Active Protocol: Document 12/11/24 07:21 MB (Rec: 12/11/24 08:08 MB [id number]) Coordination Evaluation Upper Extremity Tests Left Finger to Nose Test Moderate Impairment Pronation/Supination Test Minimal Impairment Right Finger to Nose Test Minimal Impairment Pronation/Supination Test Minimal Impairment Lower Extremity Tests Left Alternate Heel to Knee; Heel to Toe Test Moderate Impairment Foot Tapping Test Minimal Impairment Right Alternate Heel to Knee; Heel to Toe Test Minimal Impairment Foot Tapping Test Minimal Impairment Vital Signs Comments Vital Signs Comments Orthostatic assessment in RUE: supine 124/74, 66; standing 116/66, 75; standing 1' 116/68 , 71. PT-OP-K Range of Motion Start: 11/28/24 13:39 Freq: Status: Active Protocol: Document 12/11/24 07:21 MB (Rec: 12/11/24 08:08 MB [id number]) Shoulder Goniometric Range of Motion Shoulder Left Shoulder ROM WFL Yes Testing Position Sitting Right Shoulder ROM WFL No Testing Position Sitting Comments Right shoulder flexion and abduction is about 15 deg less than the left, pt is right- handed. Pt states he does not feel limited in the right. Elbow/Forearm Range of Motion Elbow/Forearm Left Elbow/Forearm ROM WFL No ROM Testing Position Sitting Comments Brace donned and PT is not addressing this and so deferred formal testing Right Elbow/Forearm ROM WFL Yes ROM Testing Position Sitting Ankle and Foot Goniometric Range of Motion Ankle and Foot Left Ankle/Foot ROM WFL Yes Testing Position Sitting Right Ankle/Foot ROM WFL No Testing Position Sitting Comments Mildly reduced right ankle ROM grossly assessed today for function PT-OP-M Strength Start: 11/28/24 13:39 Freq: Status: Active Protocol: Document 12/11/24 07:21 MB (Rec: 12/11/24 08:08 MB [id number]) Shoulder Strength Shoulder Manual Muscle Testing Left Flexion 4+ Good+ Abduction (C5) 4+ Good+ Right Flexion 5 Normal Abduction (C5) 5 Normal Elbow/Forearm Strength Elbow and Forearm Manual Muscle Testing Left Flexion (C6) 4+ Good+ Extension (C7) 4+ Good+ Right Flexion (C6) 5 Normal Extension (C7) 5 Normal Hip Strength Hip Manual Muscle Testing Left Flexion (L2) 5 Normal Right Flexion (L2) 5 Normal Knee Strength Knee Manual Muscle Testing Left Flexion (S2) 5 Normal Extension (L3) 5 Normal Right Flexion (S2) 5 Normal Extension (L3) 5 Normal Ankle/Foot Strength Ankle and Foot Manual Muscle Testing Left Dorsiflexion (L4) 4+ Good+ Right Dorsiflexion (L4) 4+ Good+ Toe Strength Toe Manual Muscle Testing Left Great Toe Extension 5 Normal Right Great Toe Extension 4+ Good+ PT-OP-Q Treatments Start: 11/28/24 13:39 Freq: Status: Active Protocol: Document 02/21/25 14:28 MB (Rec: 02/21/25 15:19 MB [id number]) Therapeutic Exercises Sitting Exercises Amplitude floor to ceiling Resistance 2 lb ankle weights Equipment Used BIG chair Reps/Minutes 10 reps Comments Arm flicks, tends to vu through reaching forward Amplitude Side to Side Side bilateral Resistance 2 lb ankle weights Equipment Used BIG chair Reps/Minutes 20 alternating Comments Arm flicks and cues for bigger leg movement Amplitude STS Resistance 2 lb ankle weights Equipment Used BIG chair Reps/Minutes 10 Comments Tends to have forward lean and head posture with standing Standing Exercises Amplitude side rock and reach Standing Exercise Name Feet tend to slide apart but less Side bilateral Equipment Used 2 lb ankle weights and mirror Reps/Minutes 20 alternating reps Comments Cues to stop in middle and reset hands Amplitude forward rock and reach Side bilateral Equipment Used 2 lb ankle weights and mirror Reps/Minutes 10 reps, each side Comments Better Amplitude back step Side bilateral Equipment Used 2 lb ankle weights and mirror Reps/Minutes 20 reps alternating Comments Cues for big front toe Amplitude Side to Side Step Side bilateral Equipment Used 2 lb ankle weights and mirror Reps/Minutes 20 reps alternating Comments Better Amplitude Forward Step Side bilateral Equipment Used 2 lb ankle weights and mirror Reps/Minutes 20 reps alternate Comments Better Therapeutic Activity Therapeutic Activity Donning and doffing jackets Reps/Minutes More bradykinesia today Comments Standing, donning and doffing purple [employer] jacket: Rep 1 don: 13 sec (step correction for balance, leaning forward; doff: 8 sec Rep 2: don: 14 sec; doff: 7 sec Rep 3: don: 12 sec; doff: 5 sec Rep 4: don: 16 sec; doff: 7 sec Rep 5: don: 9 sec; doff: 7 sec BIG writing Comments Full page of letters working on upper case and lower case alphabet, numbers and signature and all look better spacing, check Gait Training Gait Activity Amplitude Walking Comments Several gait trials with increased arm swing cued 6MWT Comments 6MWT distance limited by slower speed per metronome today 95 BPM, 2 lb ankle weights and pt does fatigue with distance and bumps into wall on the right and it is time for his PD medication PT-OP-T Assessment and Plan Start: 11/28/24 13:39 Freq: Status: Active Protocol: Document 02/21/25 14:28 MB (Rec: 02/21/25 15:19 MB [id number]) Physical Therapy Assessment Rehab Potential Rehabilitation Potential Fair Evaluation Complexity Number of Personal Factors/Comorbidities 1-2 Number of Body Systems Impaired 3 Clinical Presentation at Evaluation Evolving Goals 4 Impairment Evidence of imbalance Longterm Goal (LTG) Pt will perform WNLs on a standardized balance test to decrease fall risk. 01/10/25 Test not performed today but pt had fall earlier today when waiting for public transportation and he injured his nose and hand. 01/18/25: FGA 21/30: 20-40 % impaired 01/24/25 FGA: Not completed today 02/19/25: FGA score is 22/30, indicating increased risk for falls. LTG Duration 8 weeks progressing 01/18/25 3 Impairment Lack of amplitude and balance specific HEP Longterm Goal (LTG) Pt will perform progressive HEP including LSVT BIG exercises with I to improve balance and amplitude of movement. 01/10/25: Pt is perform large amplitued exercises some but not everyday. With performance in clinic, he is doing better with exercises. 01/24/25: Pt is performing LSVT BIG exercises once a day at home. 02/19/25: Pt is not consistently perform LSVT BIG exercises per prescription LTG Duration 8 weeks Assessment Summary Assessment Pt may have a new PD medication regimen starting next week and will let therapists know new schedule. He does fatigue with gait around 1500 when medications is due and he runs into wall on the right. Physical Therapy Plan Frequency and Duration Frequency of Treatment 2x-4x/wk Duration of treatment (weeks) 8 Plan of Care Start Date 01/24/25 Plan of Care End Date 03/08/25 Therapeutic Interventions Therapeutic Interventions Balance Training,Canalithic Repositioning,Coordination Training,Gait Training,Home Exercise Program,Joint Mobilizations,Manual Therapy, Neuromuscular Re-education, Patient/Caregiver Education, Self-Care/Home Management,Soft Tissue Mobilization,Taping, Therapeutic Activities, Therapeutic Exercises Modalities Cold Pack/Ice Massage,Electric Stimulation,Hot Packs, Ultrasound Next Visit Focus/Plan Next Note Type Treatment Note Next Visit Plan Ask pt each date when he took PD meds. 2 lb ankle weights for exercises and gait tasks. Functional tasks: writing, posture, walking in crowded places and uneven surfaces, putting on and taking off jacket. Con't with flicks with floor to ceiling and sitting side to side, standing exercises and gait training with 2 lb ankle weights, metronome 92-95 bpm, stairs and backward walking, add in hurdles and side stepping Check orthostatics as needed Eventually go through a LSVT BIG class practice Review outside uneven grass safety descending, smaller stride and slower pacing.
--- NOTE | 2025-02-22 15:32 | PT.OTN ---
Current Diagnoses Parkinson's disease without dyskinesia, with fluctuations (02/22/25) Physical Therapy Treatment Note PT-OP-A Visit Information Start: 11/28/24 13:39 Freq: Status: Active Protocol: Document 02/22/25 14:32 SP (Rec: 02/22/25 15:41 SP [id number]) Out-Patient Physical Therapy Visit Information Visit Information Visit Type Treatment Note Visit Note 0700, 1100, 1500, 1900 PD meds schedule, ed pt to take medications on time *Pt will complete LSVT and d/c before another progress note is due Visit Start Time 14:32 Visit Stop Time 15:32 Visit Number 22 Number of PET HOUSE SITTER Visits 1 Evaluation Information Evaluation Date 12/11/24 Precautions Precautions Left fifth metacarpal fracture , pt orthostatic with PT 01/15 & 02/07 and symptomatic PT-OP-B Current Condition Start: 11/28/24 13:39 Freq: Status: Active Protocol: Document 12/11/24 07:21 MB (Rec: 12/11/24 08:08 MB [id number]) Current Condition History of Current Condition Onset Date 2018 Current Complaints Left elbow does not allow him to push up History of Current Condition Pt experienced right arm tremor in 2018 and decreased right arm swing 2019. Pt now has B UE and LE tremors and jaw tremor. Pt reports he needs a cognitive review before he gets a DBS. PMH includes congenital hearing loss, HTN, left cervical radiculopathy s/p cervical spine fusion, fall and ankle fx right summer of 2023, light-headedness, left elbow spur in cubital tunnel and pt had surgery and wears brace, JAMUL, vision changes and glasses, obesity. Pt thinks he is here for his left elbow and PT ed pt that PT has order for PD and progress to BIG when an opening occurs. Pt lives with his , Michelle . His most recent fall was 1.5 months ago and he hit the sink counter. Pt has a rollator and straight cane. He does like to use them. He does not arrive with ADs. Pt passed his driving test and is still driving. Pt likes to go to the pool and do the [place] exercises twice a week and water 1-2 times a week. He likes to go to [employer] and support his [employer] shop once a week. Prior Treatments and Tests MRI brain 08/07/20: Mild white matter abnormality, likely microvascular disease Treatment Goals Patient/Caregiver Goals Pt's goal is to get where he was a year ago: walking I without AD and no falls. PT-OP-C Subjective Start: 11/28/24 13:39 Freq: Status: Active Protocol: Document 02/22/25 14:32 SP (Rec: 02/22/25 15:41 SP [id number]) OP-PT Subjective Patient Comments Patient Comments Pt stated his ankles aren't as sore after last tx. Took his medication at 1130 today. PT-OP-E Functional Tests Start: 01/18/25 07:32 Freq: Status: Active Protocol: Document 01/18/25 07:33 SP (Rec: 01/18/25 08:20 SP [id number]) Functional Tests Functional Gait Assessment Score 21/30 Functional Gait Assessment Impairment 20 to <40% Impaired (Score 19- Rating 24) PT-OP-G Mobility & Gait Start: 11/28/24 13:39 Freq: Status: Active Protocol: Document 12/11/24 07:21 MB (Rec: 12/11/24 08:08 MB [id number]) OP Gait Assessment Comments Gait Comments Gait without AD: gait is unsteady and he tends to cross right leg over the left in a sweeping motion, functional leg length difference and increased Ivon angle LLE, B Trendelenburg with gait. Pt with all over vermis-type dyskinesia with movement. PT-OP-H Neuro Start: 11/28/24 13:39 Freq: Status: Active Protocol: Document 12/11/24 07:21 MB (Rec: 12/11/24 08:08 MB [id number]) Coordination Evaluation Upper Extremity Tests Left Finger to Nose Test Moderate Impairment Pronation/Supination Test Minimal Impairment Right Finger to Nose Test Minimal Impairment Pronation/Supination Test Minimal Impairment Lower Extremity Tests Left Alternate Heel to Knee; Heel to Toe Test Moderate Impairment Foot Tapping Test Minimal Impairment Right Alternate Heel to Knee; Heel to Toe Test Minimal Impairment Foot Tapping Test Minimal Impairment Vital Signs Comments Vital Signs Comments Orthostatic assessment in RUE: supine 124/74, 66; standing 116/66, 75; standing 1' 116/68 , 71. PT-OP-K Range of Motion Start: 11/28/24 13:39 Freq: Status: Active Protocol: Document 12/11/24 07:21 MB (Rec: 12/11/24 08:08 MB [id number]) Shoulder Goniometric Range of Motion Shoulder Left Shoulder ROM WFL Yes Testing Position Sitting Right Shoulder ROM WFL No Testing Position Sitting Comments Right shoulder flexion and abduction is about 15 deg less than the left, pt is right- handed. Pt states he does not feel limited in the right. Elbow/Forearm Range of Motion Elbow/Forearm Left Elbow/Forearm ROM WFL No ROM Testing Position Sitting Comments Brace donned and PT is not addressing this and so deferred formal testing Right Elbow/Forearm ROM WFL Yes ROM Testing Position Sitting Ankle and Foot Goniometric Range of Motion Ankle and Foot Left Ankle/Foot ROM WFL Yes Testing Position Sitting Right Ankle/Foot ROM WFL No Testing Position Sitting Comments Mildly reduced right ankle ROM grossly assessed today for function PT-OP-M Strength Start: 11/28/24 13:39 Freq: Status: Active Protocol: Document 12/11/24 07:21 MB (Rec: 12/11/24 08:08 MB [id number]) Shoulder Strength Shoulder Manual Muscle Testing Left Flexion 4+ Good+ Abduction (C5) 4+ Good+ Right Flexion 5 Normal Abduction (C5) 5 Normal Elbow/Forearm Strength Elbow and Forearm Manual Muscle Testing Left Flexion (C6) 4+ Good+ Extension (C7) 4+ Good+ Right Flexion (C6) 5 Normal Extension (C7) 5 Normal Hip Strength Hip Manual Muscle Testing Left Flexion (L2) 5 Normal Right Flexion (L2) 5 Normal Knee Strength Knee Manual Muscle Testing Left Flexion (S2) 5 Normal Extension (L3) 5 Normal Right Flexion (S2) 5 Normal Extension (L3) 5 Normal Ankle/Foot Strength Ankle and Foot Manual Muscle Testing Left Dorsiflexion (L4) 4+ Good+ Right Dorsiflexion (L4) 4+ Good+ Toe Strength Toe Manual Muscle Testing Left Great Toe Extension 5 Normal Right Great Toe Extension 4+ Good+ PT-OP-Q Treatments Start: 11/28/24 13:39 Freq: Status: Active Protocol: Document 02/22/25 14:32 SP (Rec: 02/22/25 15:41 SP [id number]) Therapeutic Exercises Sitting Exercises Amplitude floor to ceiling Resistance 2 lb ankle weights Equipment Used BIG chair Reps/Minutes 10 reps Comments Arm flicks Amplitude Side to Side Side bilateral Resistance 2 lb ankle weights Equipment Used BIG chair Reps/Minutes 20 alternating Comments BIgger Arm flicks, improved bigger leg movement Amplitude STS Resistance 2 lb ankle weights Equipment Used BIG chair Reps/Minutes 10 Comments Cued slow controlled sit Standing Exercises Amplitude side rock and reach Standing Exercise Name Feet tend to slide apart but less Side bilateral Equipment Used 2 lb ankle weights and mirror Reps/Minutes 20 alternating reps Comments Cues to stop in middle and reset hands, improved AYO and slow rot COG Amplitude forward rock and reach Side bilateral Equipment Used 2 lb ankle weights and mirror Reps/Minutes 10 reps, each side Comments Better Amplitude back step Side bilateral Equipment Used 2 lb ankle weights and mirror Reps/Minutes 20 reps alternating Comments Cues for big front toe, BIG arms hands front and back Amplitude Side to Side Step Side bilateral Equipment Used 2 lb ankle weights and mirror Reps/Minutes 20 reps alternating Comments Better Amplitude Forward Step Side bilateral Equipment Used 2 lb ankle weights and mirror Reps/Minutes 20 reps alternate Comments Better Therapeutic Activity Therapeutic Activity BIG writing Comments Upper case and lower case alphabet, numbers and signature, check. Cued maintain spacing between letters. Gait Training Gait Activity Uneven surfaces Description 2 mat & 6 hurdles Surface mat over leg wts & foam stones Comments assimulate community gravel and roots may need step over. Amplitude Walking Comments 2 lb ankle weights for all BIG gait today: 92 BPM backwards walking along two hallways and 95 BPM forward aroun gym area . Awhoosh x-country skiing forward around/between cones on the floor. Neuro Re-Education Treatment Balance Activities BIG balance activities Details Cognitive Challenge- sport teams Surface floor Equipment blue soft kick ball (for ease L hand catching) Comments Semitandem ball toss&bounce pass Side stepping ball toss & bounce pass PT-OP-T Assessment and Plan Start: 11/28/24 13:39 Freq: Status: Active Protocol: Document 02/22/25 14:32 SP (Rec: 02/22/25 15:41 SP [id number]) Physical Therapy Assessment Goals 4 Impairment Evidence of imbalance Business Development Specialist Goal (LTG) Pt will perform WNLs on a standardized balance test to decrease fall risk. 01/10/25 Test not performed today but pt had fall earlier today when waiting for public transportation and he injured his nose and hand. 01/18/25: FGA : 20-40 % impaired 01/24/25 FGA: Not completed today 02/19/25: FGA score is 22/30, indicating increased risk for falls. LTG Duration 8 weeks progressing 01/18/25 3 Impairment Lack of amplitude and balance specific HEP Senior Care Goal (LTG) Pt will perform progressive HEP including LSVT BIG exercises with I to improve balance and amplitude of movement. 01/10/25: Pt is perform large amplitued exercises some but not everyday. With performance in clinic, he is doing better with exercises. 01/24/25: Pt is performing LSVT BIG exercises once a day at home. 02/19/25: Pt is not consistently perform LSVT BIG exercises per prescription LTG Duration 8 weeks Assessment Summary Assessment Pt occasional cues during ther ex toe up and arms up front/ back and arm swing during gait . Continued BIG balance activities with added cognitive challenge. Progressed uneven surface gait with added hurdles to assimulate community gravel and tree roots states can find self walking near, CGA and occasional cues for increased AYO. Physical Therapy Plan Frequency and Duration Frequency of Treatment 2x-4x/wk Duration of treatment (weeks) 8 Plan of Care Start Date 01/24/25 Plan of Care End Date 03/08/25 Therapeutic Interventions Therapeutic Interventions Balance Training,Canalithic Repositioning,Coordination Training,Gait Training,Home Exercise Program,Joint Mobilizations,Manual Therapy, Neuromuscular Re-education, Patient/Caregiver Education, Self-Care/Home Management,Soft Tissue Mobilization,Taping, Therapeutic Activities, Therapeutic Exercises Modalities Cold Pack/Ice Massage,Electric Stimulation,Hot Packs, Ultrasound Next Visit Focus/Plan Next Note Type Treatment Note Next Visit Plan Ask pt each date when he took PD meds. 2 lb ankle weights for exercises and gait tasks. Functional tasks: writing, posture, walking in crowded places and uneven surfaces, putting on and taking off jacket. Con't with flicks with floor to ceiling and sitting side to side, standing exercises and gait training with 2 lb ankle weights, metronome 92-95 bpm, stairs and backward walking, add in hurdles and side stepping Check orthostatics as needed Eventually go through a LSVT BIG class practice Review outside uneven grass safety descending, smaller stride and slower pacing.
--- NOTE | 2025-02-26 15:23 | PT.OTN ---
Current Diagnoses Parkinson's disease without dyskinesia, with fluctuations (02/26/25) Physical Therapy Treatment Note PT-OP-A Visit Information Start: 11/28/24 13:39 Freq: Status: Active Protocol: Document 02/26/25 14:29 MB (Rec: 02/26/25 15:23 MB [id number]) Out-Patient Physical Therapy Visit Information Visit Information Visit Type Treatment Note Visit Note 0700, 1100, 1500, 1900 PD meds schedule, ed pt to take medications on time *Pt will complete LSVT and d/c before another progress note is due Visit Start Time 14:29 Visit Stop Time 15:29 Visit Number 23 Number of SEAM FELLER Visits 0 Evaluation Information Evaluation Date 12/11/24 Precautions Precautions Recent left fifth metacarpal fracture, pt orthostatic with PT 01/15 & 02/07 and symptomatic PT-OP-B Current Condition Start: 11/28/24 13:39 Freq: Status: Active Protocol: Document 12/11/24 07:21 MB (Rec: 12/11/24 08:08 MB [id number]) Current Condition History of Current Condition Onset Date 2018 Current Complaints Left elbow does not allow him to push up History of Current Condition Pt experienced right arm tremor in 2018 and decreased right arm swing 2019. Pt now has B UE and LE tremors and jaw tremor. Pt reports he needs a cognitive review before he gets a DBS. PMH includes congenital hearing loss, HTN, left cervical radiculopathy s/p cervical spine fusion, fall and ankle fx right summer of 2023, light-headedness, left elbow spur in cubital tunnel and pt had surgery and wears brace, [place], vision changes and glasses, obesity. Pt thinks he is here for his left elbow and PT ed pt that PT has order for PD and progress to BIG when an opening occurs. Pt lives with his , Michelle . His most recent fall was 1.5 months ago and he hit the sink counter. Pt has a rollator and straight cane. He does like to use them. He does not arrive with ADs. Pt passed his driving test and is still driving. Pt likes to go to the pool and do the [place] exercises twice a week and water 1-2 times a week. He likes to go to [employer] and support his [employer] shop once a week. Prior Treatments and Tests MRI brain 08/07/20: Mild white matter abnormality, likely microvascular disease Treatment Goals Patient/Caregiver Goals Pt's goal is to get where he was a year ago: walking I without AD and no falls. PT-OP-C Subjective Start: 11/28/24 13:39 Freq: Status: Active Protocol: Document 02/26/25 14:29 MB (Rec: 02/26/25 15:23 MB [id number]) OP-PT Subjective Patient Comments Patient Comments Pt states that his hearing aides stopped working. He took his PD meds at 1115. Pt did exercises twice on Wednesday and once on Wednesday. He did not do exercises on Wednesday. Pt has elbow splint on left arm. Pt reports [facility] at [facility] yesterday and no pain. PT-OP-E Functional Tests Start: 01/18/25 07:32 Freq: Status: Active Protocol: Document 01/18/25 07:33 SP (Rec: 01/18/25 08:20 SP [id number]) Functional Tests Functional Gait Assessment Score 21/30 Functional Gait Assessment Impairment 20 to <40% Impaired (Score 19- Rating 24) PT-OP-G Mobility & Gait Start: 11/28/24 13:39 Freq: Status: Active Protocol: Document 12/11/24 07:21 MB (Rec: 12/11/24 08:08 MB [id number]) OP Gait Assessment Comments Gait Comments Gait without AD: gait is unsteady and he tends to cross right leg over the left in a sweeping motion, functional leg length difference and increased Ivon angle LLE, B Trendelenburg with gait. Pt with all over vermis-type dyskinesia with movement. PT-OP-H Neuro Start: 11/28/24 13:39 Freq: Status: Active Protocol: Document 12/11/24 07:21 MB (Rec: 12/11/24 08:08 MB [id number]) Coordination Evaluation Upper Extremity Tests Left Finger to Nose Test Moderate Impairment Pronation/Supination Test Minimal Impairment Right Finger to Nose Test Minimal Impairment Pronation/Supination Test Minimal Impairment Lower Extremity Tests Left Alternate Heel to Knee; Heel to Toe Test Moderate Impairment Foot Tapping Test Minimal Impairment Right Alternate Heel to Knee; Heel to Toe Test Minimal Impairment Foot Tapping Test Minimal Impairment Vital Signs Comments Vital Signs Comments Orthostatic assessment in RUE: supine 124/74, 66; standing 116/66, 75; standing 1' 116/68 , 71. PT-OP-K Range of Motion Start: 11/28/24 13:39 Freq: Status: Active Protocol: Document 12/11/24 07:21 MB (Rec: 12/11/24 08:08 MB [id number]) Shoulder Goniometric Range of Motion Shoulder Left Shoulder ROM WFL Yes Testing Position Sitting Right Shoulder ROM WFL No Testing Position Sitting Comments Right shoulder flexion and abduction is about 15 deg less than the left, pt is right- handed. Pt states he does not feel limited in the right. Elbow/Forearm Range of Motion Elbow/Forearm Left Elbow/Forearm ROM WFL No ROM Testing Position Sitting Comments Brace donned and PT is not addressing this and so deferred formal testing Right Elbow/Forearm ROM WFL Yes ROM Testing Position Sitting Ankle and Foot Goniometric Range of Motion Ankle and Foot Left Ankle/Foot ROM WFL Yes Testing Position Sitting Right Ankle/Foot ROM WFL No Testing Position Sitting Comments Mildly reduced right ankle ROM grossly assessed today for function PT-OP-M Strength Start: 11/28/24 13:39 Freq: Status: Active Protocol: Document 12/11/24 07:21 MB (Rec: 12/11/24 08:08 MB [id number]) Shoulder Strength Shoulder Manual Muscle Testing Left Flexion 4+ Good+ Abduction (C5) 4+ Good+ Right Flexion 5 Normal Abduction (C5) 5 Normal Elbow/Forearm Strength Elbow and Forearm Manual Muscle Testing Left Flexion (C6) 4+ Good+ Extension (C7) 4+ Good+ Right Flexion (C6) 5 Normal Extension (C7) 5 Normal Hip Strength Hip Manual Muscle Testing Left Flexion (L2) 5 Normal Right Flexion (L2) 5 Normal Knee Strength Knee Manual Muscle Testing Left Flexion (S2) 5 Normal Extension (L3) 5 Normal Right Flexion (S2) 5 Normal Extension (L3) 5 Normal Ankle/Foot Strength Ankle and Foot Manual Muscle Testing Left Dorsiflexion (L4) 4+ Good+ Right Dorsiflexion (L4) 4+ Good+ Toe Strength Toe Manual Muscle Testing Left Great Toe Extension 5 Normal Right Great Toe Extension 4+ Good+ PT-OP-Q Treatments Start: 11/28/24 13:39 Freq: Status: Active Protocol: Document 02/26/25 14:29 MB (Rec: 02/26/25 15:23 MB [id number]) Therapeutic Exercises Sitting Exercises Amplitude floor to ceiling Resistance 2 lb ankle weights Equipment Used BIG chair Reps/Minutes 10 reps Comments Arm flicks Amplitude Side to Side Side bilateral Resistance 2 lb ankle weights Equipment Used BIG chair Reps/Minutes 20 alternating Comments More bradykinesia today and c/ o right ankle pain, more trouble right leg Amplitude STS Equipment Used BIG chair Reps/Minutes 10 Comments Better controlled consent and cues to count Standing Exercises Amplitude side rock and reach Standing Exercise Name Poor performance today, must cue for feet and to count Side bilateral Equipment Used Mirror Reps/Minutes 20 alternating reps Comments Cues to stop in middle and slap thighs Amplitude forward rock and reach Side bilateral Equipment Used Mirror Reps/Minutes 10 reps, each side Comments Cues to control arms and not to let them flop Amplitude back step Side bilateral Equipment Used Mirror Reps/Minutes 20 reps alternating Comments One cue for big front toe and then pt does well Amplitude Side to Side Step Side bilateral Equipment Used Mirror Reps/Minutes 20 reps alternating Comments Cues to slap thighs, pt starts exercise incorrectly Amplitude Forward Step Side bilateral Equipment Used Mirror Reps/Minutes 20 reps alternate Comments One LOB stepping forward Therapeutic Activity Therapeutic Activity Donning and doffing jackets Comments Standing, donning and doffing purple [employer] jacket: Rep 1 don: 14 sec and LOB forward, step corrected; doff: 4 sec Rep 2: don: 8 sec; doff: 7 sec Rep 3: don: 10 sec; doff: 7 sec Rep 4: don: 9 sec; doff: 7 sec Rep 5: don: 14 sec; doff: 8 sec BIG writing Comments Full page of letters working on upper case and lower case alphabet letters and looking better today--pt alternating letters from start of alphabet and end of alphabet and he got shakier with left tremor Self-Care/Home Management Treatment Education Other Education See comments under assessment, stopped exercises to check orthostatics which were negative, pt thinks not having hearing aides in is affecting balance and right ankle discomfort so doffed ankle weights for rest of exercises. Ed pt to wear charged hearing aides and no left elbow brace to PT tomorrow. PT-OP-T Assessment and Plan Start: 11/28/24 13:39 Freq: Status: Active Protocol: Document 02/26/25 14:29 MB (Rec: 02/26/25 15:23 MB [id number]) Physical Therapy Assessment Rehab Potential Rehabilitation Potential Fair Evaluation Complexity Number of Personal Factors/Comorbidities 1-2 Number of Body Systems Impaired 3 Clinical Presentation at Evaluation Evolving Goals 4 Impairment Evidence of imbalance J2Ee Java Developer Goal (LTG) Pt will perform WNLs on a standardized balance test to decrease fall risk. 01/10/25 Test not performed today but pt had fall earlier today when waiting for public transportation and he injured his nose and hand. 01/18/25: FGA 21/30: 20-40 % impaired 01/24/25 FGA: Not completed today 02/19/25: FGA score is 22/30, indicating increased risk for falls. LTG Duration 8 weeks progressing 01/18/25 3 Impairment Lack of amplitude and balance specific HEP Custodial Goal (LTG) Pt will perform progressive HEP including LSVT BIG exercises with I to improve balance and amplitude of movement. 01/10/25: Pt is perform large amplitued exercises some but not everyday. With performance in clinic, he is doing better with exercises. 01/24/25: Pt is performing LSVT BIG exercises once a day at home. 02/19/25: Pt is not consistently perform LSVT BIG exercises per prescription LTG Duration 8 weeks Assessment Summary Assessment [place] d/t hearing aides not working and taken out today. Pt with some eye glazing over, increased bradykinesia today. Stopped after two exercises to check vitals. He is SOB with sitting side to side. In sitting, O2 sats 96% and HR 83 BPM right index finger. Orthostatic assessment with BP and HR in RUE: supine 116/72, 76; standing 118/56, 85; standing 1' 113/53, 83. Ed pt to wear hearing aides and not left elbow brace for PT. Overall poorer performance of exercises today. Physical Therapy Plan Frequency and Duration Frequency of Treatment 2x-4x/wk Duration of treatment (weeks) 8 Plan of Care Start Date 01/24/25 Plan of Care End Date 03/08/25 Therapeutic Interventions Therapeutic Interventions Balance Training,Canalithic Repositioning,Coordination Training,Gait Training,Home Exercise Program,Joint Mobilizations,Manual Therapy, Neuromuscular Re-education, Patient/Caregiver Education, Self-Care/Home Management,Soft Tissue Mobilization,Taping, Therapeutic Activities, Therapeutic Exercises Modalities Cold Pack/Ice Massage,Electric Stimulation,Hot Packs, Ultrasound Next Visit Focus/Plan Next Note Type Treatment Note Next Visit Plan Ask pt each date when he took PD meds. Metronome 92-95 bpm, stairs and backward walking, add in hurdles and side stepping Check orthostatics as needed Eventually go through a LSVT BIG class practice Review outside uneven grass safety descending, smaller stride and slower pacing.
--- NOTE | 2025-02-27 15:35 | PT.OTN ---
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 Pt now has B UE and LE tremors and jaw tremor. Pt reports he needs a cognitive review before he gets a DBS. PMH includes congenital hearing loss, HTN, left cervical radiculopathy s/p cervical spine fusion, fall and ankle fx right summer of 2023, light-headedness, left elbow spur in cubital tunnel and pt had surgery and wears brace, [place], vision changes and glasses, obesity. Pt thinks he is here for his left elbow and PT ed pt that PT has order for PD and progress to BIG when an opening occurs. Pt lives with his , Michelle . His most recent fall was 1.5 months ago and he hit the sink counter. Pt has a rollator and straight cane. He does like to use them. He does not arrive with ADs. Pt passed his driving test and is still driving. Pt likes to go to the pool and do the [place] exercises twice a week and water 1-2 times a week. He likes to go to [employer] and support his [employer] shop once a week. Prior Treatments and Tests MRI brain 08/07/20: Mild white matter abnormality, likely microvascular disease Treatment Goals Patient/Caregiver Goals Pt's goal is to get where he was a year ago: walking I without AD and no falls. PT-OP-C Subjective Start: 11/28/24 13:39 Freq: Status: Active Protocol: Document 02/27/25 14:39 SP (Rec: 02/27/25 15:46 SP [id number]) OP-PT Subjective Patient Comments Patient Comments Pt states took his meds normal time: 7:11, 11:11, next at 3: 11 brought it with him. Didrecall SOB las tx. PT-OP-E Functional Tests Start: 01/18/25 07:32 Freq: Status: Active Protocol: Document 01/18/25 07:33 SP (Rec: 01/18/25 08:20 SP [id number]) Functional Tests Functional Gait Assessment Score 21/30 Functional Gait Assessment Impairment 20 to <40% Impaired (Score 19- Rating 24) PT-OP-G Mobility & Gait Start: 11/28/24 13:39 Freq: Status: Active Protocol: Document 12/11/24 07:21 MB (Rec: 12/11/24 08:08 MB [id number]) OP Gait Assessment Comments Gait Comments Gait without AD: gait is unsteady and he tends to cross right leg over the left in a sweeping motion, functional leg length difference and increased Ivon angle LLE, B Trendelenburg with gait. Pt with all over vermis-type dyskinesia with movement. PT-OP-H Neuro Start: 11/28/24 13:39 Freq: Status: Active Protocol: Document 12/11/24 07:21 MB (Rec: 12/11/24 08:08 MB [id number]) Coordination Evaluation Upper Extremity Tests Left Finger to Nose Test Moderate Impairment Pronation/Supination Test Minimal Impairment Right Finger to Nose Test Minimal Impairment Pronation/Supination Test Minimal Impairment Lower Extremity Tests Left Alternate Heel to Knee; Heel to Toe Test Moderate Impairment Foot Tapping Test Minimal Impairment Right Alternate Heel to Knee; Heel to Toe Test Minimal Impairment Foot Tapping Test Minimal Impairment Vital Signs Comments Vital Signs Comments Orthostatic assessment in RUE: supine 124/74, 66; standing 116/66, 75; standing 1' 116/68 , 71. PT-OP-K Range of Motion Start: 11/28/24 13:39 Freq: Status: Active Protocol: Document 12/11/24 07:21 MB (Rec: 12/11/24 08:08 MB [id number]) Shoulder Goniometric Range of Motion Shoulder Left Shoulder ROM WFL Yes Testing Position Sitting Right Shoulder ROM WFL No Testing Position Sitting Comments Right shoulder flexion and abduction is about 15 deg less than the left, pt is right- handed. Pt states he does not feel limited in the right. Elbow/Forearm Range of Motion Elbow/Forearm Left Elbow/Forearm ROM WFL No ROM Testing Position Sitting Comments Brace donned and PT is not addressing this and so deferred formal testing Right Elbow/Forearm ROM WFL Yes ROM Testing Position Sitting Ankle and Foot Goniometric Range of Motion Ankle and Foot Left Ankle/Foot ROM WFL Yes Testing Position Sitting Right Ankle/Foot ROM WFL No Testing Position Sitting Comments Mildly reduced right ankle ROM grossly assessed today for function PT-OP-M Strength Start: 11/28/24 13:39 Freq: Status: Active Protocol: Document 12/11/24 07:21 MB (Rec: 12/11/24 08:08 MB [id number]) Shoulder Strength Shoulder Manual Muscle Testing Left Flexion 4+ Good+ Abduction (C5) 4+ Good+ Right Flexion 5 Normal Abduction (C5) 5 Normal Elbow/Forearm Strength Elbow and Forearm Manual Muscle Testing Left Flexion (C6) 4+ Good+ Extension (C7) 4+ Good+ Right Flexion (C6) 5 Normal Extension (C7) 5 Normal Hip Strength Hip Manual Muscle Testing Left Flexion (L2) 5 Normal Right Flexion (L2) 5 Normal Knee Strength Knee Manual Muscle Testing Left Flexion (S2) 5 Normal Extension (L3) 5 Normal Right Flexion (S2) 5 Normal Extension (L3) 5 Normal Ankle/Foot Strength Ankle and Foot Manual Muscle Testing Left Dorsiflexion (L4) 4+ Good+ Right Dorsiflexion (L4) 4+ Good+ Toe Strength Toe Manual Muscle Testing Left Great Toe Extension 5 Normal Right Great Toe Extension 4+ Good+ PT-OP-Q Treatments Start: 11/28/24 13:39 Freq: Status: Active Protocol: Document 02/27/25 14:39 SP (Rec: 02/27/25 15:46 SP [id number]) Therapeutic Exercises Sitting Exercises Amplitude floor to ceiling Resistance 2 lb ankle weights Equipment Used BIG chair Reps/Minutes 10 reps Comments Arm flicks Amplitude Side to Side Side bilateral Resistance 2 lb ankle weights Equipment Used BIG chair Reps/Minutes 20 alternating Comments SLow R leg, cues and used his phone improved BIG arms-better 10/08 reported Amplitude STS Equipment Used BIG chair Reps/Minutes 10 Comments Better controlled consent and cues to count Standing Exercises Amplitude side rock and reach Standing Exercise Name Poor performance today, must cue for feet and to count Side bilateral Equipment Used Mirror Reps/Minutes 20 alternating reps Comments Cues to stop in middle and slap thighs, arms back out side Amplitude forward rock and reach Side bilateral Equipment Used Mirror Reps/Minutes 10 reps, each side Comments Cues to control arms and not to let them flop Amplitude back step Side bilateral Equipment Used Mirror Reps/Minutes 20 reps alternating Comments Cued hands palms fwd front , good toe up Amplitude Side to Side Step Side bilateral Equipment Used Mirror Reps/Minutes 20 reps alternating Comments Cues turn more to side stepping Amplitude Forward Step Side bilateral Equipment Used Mirror Reps/Minutes 20 reps alternate Comments better, slight leg delay speed return Therapeutic Activity Therapeutic Activity Donning and doffing jackets Comments Standing, donning and doffing purple [employer] jacket: Rep 1 don: 22 sec doff: 5 sec Rep 2: don: 8 sec; doff: 5 sec Rep 3: don: 16 sec; doff: 4 sec Rep 4: don: 12 sec; doff: 5 sec Rep 5: don: 10 sec; doff: 4 sec BIG writing Name increased bradykinesia L hand[ Comments Full page: letters upper case alphabet letters, numbers to 20, looking better spacing, Mad Sharon History Gait Training Gait Activity Uneven surfaces Description Grass Device Used Juan A trek poles Surface asd/desc Comments Cued increase AYO asc/desc, Desc heel strike slower pacing , improved Amplitude Walking Comments 2 lb ankle weights for all BIG gait today: 92 BPM backwards walking along two hallways and 95 BPM forward aroun gym area . Awhoosh x-country skiing forward around/between cones on the floor. PT-OP-T Assessment and Plan Start: 11/28/24 13:39 Freq: Status: Active Protocol: Document 02/27/25 14:39 SP (Rec: 02/27/25 15:46 SP [id number]) Physical Therapy Assessment Goals 4 Impairment Evidence of imbalance Custodial Goal (LTG) Pt will perform WNLs on a standardized balance test to decrease fall risk. 01/10/25 Test not performed today but pt had fall earlier today when waiting for public transportation and he injured his nose and hand. 01/18/25: FGA 21/30: 20-40 % impaired 01/24/25 FGA: Not completed today 02/19/25: FGA score is 22/30, indicating increased risk for falls. LTG Duration 8 weeks progressing 01/18/25 3 Impairment Lack of amplitude and balance specific HEP Rip/Mould Operator Goal (LTG) Pt will perform progressive HEP including LSVT BIG exercises with I to improve balance and amplitude of movement. 01/10/25: Pt is perform large amplitued exercises some but not everyday. With performance in clinic, he is doing better with exercises. 01/24/25: Pt is performing LSVT BIG exercises once a day at home. 02/19/25: Pt is not consistently perform LSVT BIG exercises per prescription LTG Duration 8 weeks Assessment Summary Assessment Pt Improved effort today, good corrections with arm flicks after videotaped his movement and viewed with his phone for self visual awareness. Cues for decrease stride and increase AYO during weight gait and uneven grass walking today. 2 LOB 1 on grass pivot turning other during skii LE around cones, Min A midline recovery. Improved descend grass with cues and demo model heel strike slower pacing. Physical Therapy Plan Frequency and Duration Frequency of Treatment 2x-4x/wk Duration of treatment (weeks) 8 Plan of Care Start Date 01/24/25 Plan of Care End Date 03/08/25 Therapeutic Interventions Therapeutic Interventions Balance Training,Canalithic Repositioning,Coordination Training,Gait Training,Home Exercise Program,Joint Mobilizations,Manual Therapy, Neuromuscular Re-education, Patient/Caregiver Education, Self-Care/Home Management,Soft Tissue Mobilization,Taping, Therapeutic Activities, Therapeutic Exercises Modalities Cold Pack/Ice Massage,Electric Stimulation,Hot Packs, Ultrasound Next Visit Focus/Plan Next Note Type Treatment Note Next Visit Plan Ask pt each date when he took PD meds. Metronome 92-95 bpm, stairs and backward walking, add in hurdles and side stepping Check orthostatics as needed Eventually go through a LSVT BIG class practice Review outside uneven grass safety descending, smaller stride and slower pacing.
--- NOTE | 2025-02-28 15:32 | PT.OTN ---
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 Pt now has B UE and LE tremors and jaw tremor. Pt reports he needs a cognitive review before he gets a DBS. PMH includes congenital hearing loss, HTN, left cervical radiculopathy s/p cervical spine fusion, fall and ankle fx right summer of 2023, light-headedness, left elbow spur in cubital tunnel and pt had surgery and wears brace, [place], vision changes and glasses, obesity. Pt thinks he is here for his left elbow and PT ed pt that PT has order for PD and progress to BIG when an opening occurs. Pt lives with his , Michelle . His most recent fall was 1.5 months ago and he hit the sink counter. Pt has a rollator and straight cane. He does like to use them. He does not arrive with ADs. Pt passed his driving test and is still driving. Pt likes to go to the pool and do the [place] exercises twice a week and water 1-2 times a week. He likes to go to [employer] and support his [employer] shop once a week. Prior Treatments and Tests MRI brain 08/07/20: Mild white matter abnormality, likely microvascular disease Treatment Goals Patient/Caregiver Goals Pt's goal is to get where he was a year ago: walking I without AD and no falls. PT-OP-C Subjective Start: 11/28/24 13:39 Freq: Status: Active Protocol: Document 02/28/25 14:32 MB (Rec: 02/28/25 15:03 MB [id number]) OP-PT Subjective Patient Comments Patient Comments Pt took medication at 1110- 1115. Pt is doing good. He took a nap and his hearing aides are doing well. PT-OP-E Functional Tests Start: 01/18/25 07:32 Freq: Status: Active Protocol: Document 01/18/25 07:33 SP (Rec: 01/18/25 08:20 SP [id number]) Functional Tests Functional Gait Assessment Score 21/30 Functional Gait Assessment Impairment 20 to <40% Impaired (Score 19- Rating 24) PT-OP-G Mobility & Gait Start: 11/28/24 13:39 Freq: Status: Active Protocol: Document 12/11/24 07:21 MB (Rec: 12/11/24 08:08 MB [id number]) OP Gait Assessment Comments Gait Comments Gait without AD: gait is unsteady and he tends to cross right leg over the left in a sweeping motion, functional leg length difference and increased Ivon angle LLE, B Trendelenburg with gait. Pt with all over vermis-type dyskinesia with movement. PT-OP-H Neuro Start: 11/28/24 13:39 Freq: Status: Active Protocol: Document 12/11/24 07:21 MB (Rec: 12/11/24 08:08 MB [id number]) Coordination Evaluation Upper Extremity Tests Left Finger to Nose Test Moderate Impairment Pronation/Supination Test Minimal Impairment Right Finger to Nose Test Minimal Impairment Pronation/Supination Test Minimal Impairment Lower Extremity Tests Left Alternate Heel to Knee; Heel to Toe Test Moderate Impairment Foot Tapping Test Minimal Impairment Right Alternate Heel to Knee; Heel to Toe Test Minimal Impairment Foot Tapping Test Minimal Impairment Vital Signs Comments Vital Signs Comments Orthostatic assessment in RUE: supine 124/74, 66; standing 116/66, 75; standing 1' 116/68 , 71. PT-OP-K Range of Motion Start: 11/28/24 13:39 Freq: Status: Active Protocol: Document 12/11/24 07:21 MB (Rec: 12/11/24 08:08 MB [id number]) Shoulder Goniometric Range of Motion Shoulder Left Shoulder ROM WFL Yes Testing Position Sitting Right Shoulder ROM WFL No Testing Position Sitting Comments Right shoulder flexion and abduction is about 15 deg less than the left, pt is right- handed. Pt states he does not feel limited in the right. Elbow/Forearm Range of Motion Elbow/Forearm Left Elbow/Forearm ROM WFL No ROM Testing Position Sitting Comments Brace donned and PT is not addressing this and so deferred formal testing Right Elbow/Forearm ROM WFL Yes ROM Testing Position Sitting Ankle and Foot Goniometric Range of Motion Ankle and Foot Left Ankle/Foot ROM WFL Yes Testing Position Sitting Right Ankle/Foot ROM WFL No Testing Position Sitting Comments Mildly reduced right ankle ROM grossly assessed today for function PT-OP-M Strength Start: 11/28/24 13:39 Freq: Status: Active Protocol: Document 12/11/24 07:21 MB (Rec: 12/11/24 08:08 MB [id number]) Shoulder Strength Shoulder Manual Muscle Testing Left Flexion 4+ Good+ Abduction (C5) 4+ Good+ Right Flexion 5 Normal Abduction (C5) 5 Normal Elbow/Forearm Strength Elbow and Forearm Manual Muscle Testing Left Flexion (C6) 4+ Good+ Extension (C7) 4+ Good+ Right Flexion (C6) 5 Normal Extension (C7) 5 Normal Hip Strength Hip Manual Muscle Testing Left Flexion (L2) 5 Normal Right Flexion (L2) 5 Normal Knee Strength Knee Manual Muscle Testing Left Flexion (S2) 5 Normal Extension (L3) 5 Normal Right Flexion (S2) 5 Normal Extension (L3) 5 Normal Ankle/Foot Strength Ankle and Foot Manual Muscle Testing Left Dorsiflexion (L4) 4+ Good+ Right Dorsiflexion (L4) 4+ Good+ Toe Strength Toe Manual Muscle Testing Left Great Toe Extension 5 Normal Right Great Toe Extension 4+ Good+ PT-OP-Q Treatments Start: 11/28/24 13:39 Freq: Status: Active Protocol: Document 02/28/25 14:32 MB (Rec: 02/28/25 15:03 MB [id number]) Therapeutic Exercises Sitting Exercises Amplitude floor to ceiling Equipment Used BIG chair Reps/Minutes 10 reps Comments Arm flicks, rushes through arm movements Amplitude Side to Side Side bilateral Equipment Used BIG chair Reps/Minutes 20 alternating Comments Back leg still less movement Amplitude STS Equipment Used BIG chair Reps/Minutes 10 Comments SOB and tired after exercise Standing Exercises Amplitude side rock and reach Side bilateral Equipment Used Mirror Reps/Minutes 20 alternating reps Comments Better performance today Amplitude forward rock and reach Side bilateral Equipment Used Mirror Reps/Minutes 10 reps, each side Comments Better performance today Amplitude back step Side bilateral Equipment Used Mirror Reps/Minutes 20 reps alternating Comments Cues for big front toe Amplitude Side to Side Step Side bilateral Equipment Used Mirror Reps/Minutes 20 reps alternating Comments Better performance today Amplitude Forward Step Side bilateral Equipment Used Mirror Reps/Minutes 20 reps alternate Comments Better performance today Therapeutic Activity Therapeutic Activity Donning and doffing jackets Comments Standing, donning and doffing purple [employer] jacket: Rep 1 don: 9 sec; doff: 9 sec Rep 2: don: 19 sec; doff: 6 sec Rep 3: don: 10 sec; doff: 10 sec Rep 4: don: 22 sec; doff: 8 sec Rep 5: don: 9 sec; doff: 6 sec BIG writing Comments Left tremor notable at start of writing, alphabet with capital letters, then numbers Gait Training Gait Activity Uneven surfaces Comments Outside today with metronome 93-95 BPM and working on arm swing and one trip over metal on ground and self-corrected, all CGA and cues and no hiking sticks and pt tends not to scan. Backwards walking at 93 BPM and side stepping in hallway with superv and pt does very well with these today PT-OP-T Assessment and Plan Start: 11/28/24 13:39 Freq: Status: Active Protocol: Document 02/28/25 14:32 MB (Rec: 02/28/25 15:03 MB [id number]) Physical Therapy Assessment Rehab Potential Rehabilitation Potential Fair Evaluation Complexity Number of Personal Factors/Comorbidities 1-2 Number of Body Systems Impaired 3 Clinical Presentation at Evaluation Evolving Goals 4 Impairment Evidence of imbalance Assisted Goal (LTG) Pt will perform WNLs on a standardized balance test to decrease fall risk. 01/10/25 Test not performed today but pt had fall earlier today when waiting for public transportation and he injured his nose and hand. 01/18/25: FGA : 20-40 % impaired 01/24/25 FGA: Not completed today 3/24/25: FGA score is 22/30, indicating increased risk for falls. LTG Duration 8 weeks progressing 01/18/25 3 Impairment Lack of amplitude and balance specific HEP Tie Tape Machine Operator Goal (LTG) Pt will perform progressive HEP including LSVT BIG exercises with I to improve balance and amplitude of movement. 01/10/25: Pt is perform large amplitued exercises some but not everyday. With performance in clinic, he is doing better with exercises. 01/24/25: Pt is performing LSVT BIG exercises once a day at home. 02/19/25: Pt is not consistently perform LSVT BIG exercises per prescription LTG Duration 8 weeks Assessment Summary Assessment Pt is SOB after exercises and this is likely d/t over decreased fitness level/ increased body mass and no light-headedness with activities today. Gait on sidewalk, flatter grass and parking lot without walking sticks today. Returned inside for backwards walking. Some decreased visual scanning and tripped and self-corrected over metal piece on ground attached to fencing today. Con 't PT efforts. Physical Therapy Plan Frequency and Duration Frequency of Treatment 2x-4x/wk Duration of treatment (weeks) 8 Plan of Care Start Date 01/24/25 Plan of Care End Date 03/08/25 Therapeutic Interventions Therapeutic Interventions Balance Training,Canalithic Repositioning,Coordination Training,Gait Training,Home Exercise Program,Joint Mobilizations,Manual Therapy, Neuromuscular Re-education, Patient/Caregiver Education, Self-Care/Home Management,Soft Tissue Mobilization,Taping, Therapeutic Activities, Therapeutic Exercises Modalities Cold Pack/Ice Massage,Electric Stimulation,Hot Packs, Ultrasound Next Visit Focus/Plan Next Note Type Treatment Note Next Visit Plan Ask pt each date when he took PD meds. Metronome 92-95 bpm, stairs and backward walking, add in hurdles and side stepping Check orthostatics as needed Eventually go through a LSVT BIG class practice Review outside uneven grass safety descending, smaller stride and slower pacing.
--- NOTE | 2025-03-05 15:33 | PT.OTN ---
Current Diagnoses Parkinson's disease without dyskinesia, with fluctuations (03/05/25) Physical Therapy Treatment Note PT-OP-A Visit Information Start: 11/28/24 13:39 Freq: Status: Active Protocol: Document 03/05/25 14:31 MB (Rec: 03/05/25 15:33 MB Desktop) Out-Patient Physical Therapy Visit Information Visit Information Visit Type Treatment Note Visit Note 0700, 1100, 1500, 1900 PD meds schedule, ed pt to take medications on time *Pt will complete LSVT and d/c before another progress note is due Visit Start Time 14:31 Visit Stop Time 15:30 Visit Number 26 Number of OFFSET LABEL REWINDER Visits 0 Evaluation Information Evaluation Date 12/11/24 Precautions Precautions Recent left fifth metacarpal fracture, pt orthostatic with PT 01/15 & 02/07 and symptomatic PT-OP-B Current Condition Start: 11/28/24 13:39 Freq: Status: Active Protocol: Document 12/11/24 07:21 MB (Rec: 12/11/24 08:08 MB [id number]) Current Condition History of Current Condition Onset Date 2018 Current Complaints Left elbow does not allow him to push up History of Current Condition Pt experienced right arm tremor in 2018 and decreased right arm swing 2019. Pt now has B UE and LE tremors and jaw tremor. Pt reports he needs a cognitive review before he gets a DBS. PMH includes congenital hearing loss, HTN, left cervical radiculopathy s/p cervical spine fusion, fall and ankle fx right summer of 2023, light-headedness, left elbow spur in cubital tunnel and pt had surgery and wears brace, JENA, vision changes and glasses, obesity. Pt thinks he is here for his left elbow and PT ed pt that PT has order for PD and progress to BIG when an opening occurs. Pt lives with his , Michelle . His most recent fall was 1.5 months ago and he hit the sink counter. Pt has a rollator and straight cane. He does like to use them. He does not arrive with ADs. Pt passed his driving test and is still driving. Pt likes to go to the pool and do the [place] exercises twice a week and water 1-2 times a week. He likes to go to [employer] and support his [employer] shop once a week. Prior Treatments and Tests MRI brain 08/07/20: Mild white matter abnormality, likely microvascular disease Treatment Goals Patient/Caregiver Goals Pt's goal is to get where he was a year ago: walking I without AD and no falls. PT-OP-C Subjective Start: 11/28/24 13:39 Freq: Status: Active Protocol: Document 03/05/25 14:31 MB (Rec: 03/05/25 15:33 MB Desktop) OP-PT Subjective Patient Comments Patient Comments Pt reports no LSVT BIG exercises last , one set on Wednesday, two sets on Wednesday and one set yesterday . Pt took PD medication at 1100. He is due at 1500. It is the new PD medication. It is the new one, Crexont. PT-OP-E Functional Tests Start: 01/18/25 07:32 Freq: Status: Active Protocol: Document 01/18/25 07:33 SP (Rec: 01/18/25 08:20 SP [id number]) Functional Tests Functional Gait Assessment Score 21/30 Functional Gait Assessment Impairment 20 to <40% Impaired (Score 19- Rating 24) PT-OP-G Mobility & Gait Start: 11/28/24 13:39 Freq: Status: Active Protocol: Document 12/11/24 07:21 MB (Rec: 12/11/24 08:08 MB [id number]) OP Gait Assessment Comments Gait Comments Gait without AD: gait is unsteady and he tends to cross right leg over the left in a sweeping motion, functional leg length difference and increased Ivon angle LLE, B Trendelenburg with gait. Pt with all over vermis-type dyskinesia with movement. PT-OP-H Neuro Start: 11/28/24 13:39 Freq: Status: Active Protocol: Document 12/11/24 07:21 MB (Rec: 12/11/24 08:08 MB [id number]) Coordination Evaluation Upper Extremity Tests Left Finger to Nose Test Moderate Impairment Pronation/Supination Test Minimal Impairment Right Finger to Nose Test Minimal Impairment Pronation/Supination Test Minimal Impairment Lower Extremity Tests Left Alternate Heel to Knee; Heel to Toe Test Moderate Impairment Foot Tapping Test Minimal Impairment Right Alternate Heel to Knee; Heel to Toe Test Minimal Impairment Foot Tapping Test Minimal Impairment Vital Signs Comments Vital Signs Comments Orthostatic assessment in RUE: supine 124/74, 66; standing 116/66, 75; standing 1' 116/68 , 71. PT-OP-K Range of Motion Start: 11/28/24 13:39 Freq: Status: Active Protocol: Document 12/11/24 07:21 MB (Rec: 12/11/24 08:08 MB [id number]) Shoulder Goniometric Range of Motion Shoulder Left Shoulder ROM WFL Yes Testing Position Sitting Right Shoulder ROM WFL No Testing Position Sitting Comments Right shoulder flexion and abduction is about 15 deg less than the left, pt is right- handed. Pt states he does not feel limited in the right. Elbow/Forearm Range of Motion Elbow/Forearm Left Elbow/Forearm ROM WFL No ROM Testing Position Sitting Comments Brace donned and PT is not addressing this and so deferred formal testing Right Elbow/Forearm ROM WFL Yes ROM Testing Position Sitting Ankle and Foot Goniometric Range of Motion Ankle and Foot Left Ankle/Foot ROM WFL Yes Testing Position Sitting Right Ankle/Foot ROM WFL No Testing Position Sitting Comments Mildly reduced right ankle ROM grossly assessed today for function PT-OP-M Strength Start: 11/28/24 13:39 Freq: Status: Active Protocol: Document 12/11/24 07:21 MB (Rec: 12/11/24 08:08 MB [id number]) Shoulder Strength Shoulder Manual Muscle Testing Left Flexion 4+ Good+ Abduction (C5) 4+ Good+ Right Flexion 5 Normal Abduction (C5) 5 Normal Elbow/Forearm Strength Elbow and Forearm Manual Muscle Testing Left Flexion (C6) 4+ Good+ Extension (C7) 4+ Good+ Right Flexion (C6) 5 Normal Extension (C7) 5 Normal Hip Strength Hip Manual Muscle Testing Left Flexion (L2) 5 Normal Right Flexion (L2) 5 Normal Knee Strength Knee Manual Muscle Testing Left Flexion (S2) 5 Normal Extension (L3) 5 Normal Right Flexion (S2) 5 Normal Extension (L3) 5 Normal Ankle/Foot Strength Ankle and Foot Manual Muscle Testing Left Dorsiflexion (L4) 4+ Good+ Right Dorsiflexion (L4) 4+ Good+ Toe Strength Toe Manual Muscle Testing Left Great Toe Extension 5 Normal Right Great Toe Extension 4+ Good+ PT-OP-Q Treatments Start: 11/28/24 13:39 Freq: Status: Active Protocol: Document 03/05/25 14:31 MB (Rec: 03/05/25 15:33 MB Desktop) Therapeutic Exercises Sitting Exercises Amplitude floor to ceiling Equipment Used BIG chair Reps/Minutes 10 reps Comments Arm flicks, rushes through arm movements Amplitude Side to Side Side bilateral Equipment Used BIG chair Reps/Minutes 20 alternating Comments Back leg still less movement, one episode almost slid off chair Amplitude STS Equipment Used BIG chair Reps/Minutes 10 Comments Tends not to reach forward Standing Exercises Amplitude side rock and reach Side bilateral Equipment Used Mirror Reps/Minutes 20 alternating reps Comments Better performance today, pcc LOB and back foot slides out Amplitude forward rock and reach Side bilateral Equipment Used Mirror Reps/Minutes 10 reps, each side Comments Trouble weight shifting with left foot in front Amplitude back step Side bilateral Equipment Used Mirror Reps/Minutes 20 reps alternating Comments Sloppy with arms Amplitude Side to Side Step Side bilateral Equipment Used Mirror Reps/Minutes 20 reps alternating Comments Pt tends to delay head turn back to center Amplitude Forward Step Side bilateral Equipment Used Mirror Reps/Minutes 20 reps alternate Comments Better performance today Gait Training Gait Activity Amplitude Walking Comments Inside in the clinic today 95 BPM for forward and backwards walking, balance challenge stepping over hurdles forwards and swoosh wide steps stepping out around cones (6) and pt does an excellent job today. He does not wait for PT before he starts, however, as PT setting up hurdles and cones and ongoing cues to wait and for safety. Neuro Re-Education Treatment Coordination Activities Balance activities Comments See activities with gait as lifted above, then basket ball passes with walking in small circles CCW and CW chest and bounce passes, next static standing and cognitive challenge of stating cities and pt does well PT-OP-T Assessment and Plan Start: 11/28/24 13:39 Freq: Status: Active Protocol: Document 03/05/25 14:31 MB (Rec: 03/05/25 15:33 MB Desktop) Physical Therapy Assessment Rehab Potential Rehabilitation Potential Fair Evaluation Complexity Number of Personal Factors/Comorbidities 1-2 Number of Body Systems Impaired 3 Clinical Presentation at Evaluation Evolving Goals 4 Impairment Evidence of imbalance Retirement Goal (LTG) Pt will perform WNLs on a standardized balance test to decrease fall risk. 01/10/25 Test not performed today but pt had fall earlier today when waiting for public transportation and he injured his nose and hand. 01/18/25: FGA : 20-40 % impaired 01/24/25 FGA: Not completed today 02/19/25: FGA score is 22/30, indicating increased risk for falls. LTG Duration 8 weeks progressing 01/18/25 3 Impairment Lack of amplitude and balance specific HEP Feather Renovator Goal (LTG) Pt will perform progressive HEP including LSVT BIG exercises with I to improve balance and amplitude of movement. 01/10/25: Pt is perform large amplitued exercises some but not everyday. With performance in clinic, he is doing better with exercises. 01/24/25: Pt is performing LSVT BIG exercises once a day at home. 02/19/25: Pt is not consistently perform LSVT BIG exercises per prescription LTG Duration 8 weeks Assessment Summary Assessment Started new PD medication today and his left UE tremor and oral secretions may be a little bit better. Performed LSVT treatment that is most like BIG for Life class today. Will d/c 03/07/25. Physical Therapy Plan Frequency and Duration Frequency of Treatment 2x-4x/wk Duration of treatment (weeks) 8 Plan of Care Start Date 01/24/25 Plan of Care End Date 03/08/25 Therapeutic Interventions Therapeutic Interventions Balance Training,Canalithic Repositioning,Coordination Training,Gait Training,Home Exercise Program,Joint Mobilizations,Manual Therapy, Neuromuscular Re-education, Patient/Caregiver Education, Self-Care/Home Management,Soft Tissue Mobilization,Taping, Therapeutic Activities, Therapeutic Exercises Modalities Cold Pack/Ice Massage,Electric Stimulation,Hot Packs, Ultrasound Next Visit Focus/Plan Next Note Type Treatment Note Next Visit Plan Ask pt each date when he took PD meds. Metronome 92-95 bpm, stairs and backward walking, add in hurdles and side stepping Check orthostatics as needed Eventually go through a LSVT BIG class practice Review outside uneven grass safety descending, smaller stride and slower pacing.
--- NOTE | 2025-03-06 14:01 | PT.OTN ---
Current Diagnoses Parkinson's disease without dyskinesia, with fluctuations (03/06/25) Physical Therapy Treatment Note PT-OP-A Visit Information Start: 11/28/24 13:39 Freq: Status: Active Protocol: Document 03/06/25 13:03 SP (Rec: 03/06/25 14:14 SP Laptop) Out-Patient Physical Therapy Visit Information Visit Information Visit Type Treatment Note Visit Note 0700, 1100, 1500, 1900 PD meds schedule, ed pt to take medications on time *Pt will complete LSVT and d/c before another progress note is due Visit Start Time 13:03 Visit Stop Time 14:01 Visit Number 27 Number of NIGHT TIME BABYSITTER Visits 1 Evaluation Information Evaluation Date 12/11/24 Precautions Precautions Recent left fifth metacarpal fracture, pt orthostatic with PT 01/15 & 02/07 and symptomatic PT-OP-B Current Condition Start: 11/28/24 13:39 Freq: Status: Active Protocol: Document 12/11/24 07:21 MB (Rec: 12/11/24 08:08 MB [id number]) Current Condition History of Current Condition Onset Date 2018 Current Complaints Left elbow does not allow him to push up History of Current Condition Pt experienced right arm tremor in 2018 and decreased right arm swing 2019. Pt now has B UE and LE tremors and jaw tremor. Pt reports he needs a cognitive review before he gets a DBS. PMH includes congenital hearing loss, HTN, left cervical radiculopathy s/p cervical spine fusion, fall and ankle fx right summer of 2023, light-headedness, left elbow spur in cubital tunnel and pt had surgery and wears brace, [id number], vision changes and glasses, obesity. Pt thinks he is here for his left elbow and PT ed pt that PT has order for PD and progress to BIG when an opening occurs. Pt lives with his , Michelle . His most recent fall was 1.5 months ago and he hit the sink counter. Pt has a rollator and straight cane. He does like to use them. He does not arrive with ADs. Pt passed his driving test and is still driving. Pt likes to go to the pool and do the [place] exercises twice a week and water 1-2 times a week. He likes to go to [employer] and support his [employer] shop once a week. Prior Treatments and Tests MRI brain 08/07/20: Mild white matter abnormality, likely microvascular disease Treatment Goals Patient/Caregiver Goals Pt's goal is to get where he was a year ago: walking I without AD and no falls. PT-OP-C Subjective Start: 11/28/24 13:39 Freq: Status: Active Protocol: Document 03/06/25 13:03 SP (Rec: 03/06/25 14:14 SP Laptop) OP-PT Subjective Patient Comments Patient Comments Pt reports he felt pretty good after last tx. He reports doing good with the new Crexont medication. He took his medication at 1130. He arrives with hearring aids and feel better comfort no irritation. PT-OP-E Functional Tests Start: 01/18/25 07:32 Freq: Status: Active Protocol: Document 01/18/25 07:33 SP (Rec: 01/18/25 08:20 SP [id number]) Functional Tests Functional Gait Assessment Score 21/30 Functional Gait Assessment Impairment 20 to <40% Impaired (Score 19- Rating 24) PT-OP-G Mobility & Gait Start: 11/28/24 13:39 Freq: Status: Active Protocol: Document 12/11/24 07:21 MB (Rec: 12/11/24 08:08 MB [id number]) OP Gait Assessment Comments Gait Comments Gait without AD: gait is unsteady and he tends to cross right leg over the left in a sweeping motion, functional leg length difference and increased Ivon angle LLE, B Trendelenburg with gait. Pt with all over vermis-type dyskinesia with movement. PT-OP-H Neuro Start: 11/28/24 13:39 Freq: Status: Active Protocol: Document 12/11/24 07:21 MB (Rec: 12/11/24 08:08 MB [id number]) Coordination Evaluation Upper Extremity Tests Left Finger to Nose Test Moderate Impairment Pronation/Supination Test Minimal Impairment Right Finger to Nose Test Minimal Impairment Pronation/Supination Test Minimal Impairment Lower Extremity Tests Left Alternate Heel to Knee; Heel to Toe Test Moderate Impairment Foot Tapping Test Minimal Impairment Right Alternate Heel to Knee; Heel to Toe Test Minimal Impairment Foot Tapping Test Minimal Impairment Vital Signs Comments Vital Signs Comments Orthostatic assessment in RUE: supine 124/74, 66; standing 116/66, 75; standing 1' 116/68 , 71. PT-OP-K Range of Motion Start: 11/28/24 13:39 Freq: Status: Active Protocol: Document 12/11/24 07:21 MB (Rec: 12/11/24 08:08 MB [id number]) Shoulder Goniometric Range of Motion Shoulder Left Shoulder ROM WFL Yes Testing Position Sitting Right Shoulder ROM WFL No Testing Position Sitting Comments Right shoulder flexion and abduction is about 15 deg less than the left, pt is right- handed. Pt states he does not feel limited in the right. Elbow/Forearm Range of Motion Elbow/Forearm Left Elbow/Forearm ROM WFL No ROM Testing Position Sitting Comments Brace donned and PT is not addressing this and so deferred formal testing Right Elbow/Forearm ROM WFL Yes ROM Testing Position Sitting Ankle and Foot Goniometric Range of Motion Ankle and Foot Left Ankle/Foot ROM WFL Yes Testing Position Sitting Right Ankle/Foot ROM WFL No Testing Position Sitting Comments Mildly reduced right ankle ROM grossly assessed today for function PT-OP-M Strength Start: 11/28/24 13:39 Freq: Status: Active Protocol: Document 12/11/24 07:21 MB (Rec: 12/11/24 08:08 MB [id number]) Shoulder Strength Shoulder Manual Muscle Testing Left Flexion 4+ Good+ Abduction (C5) 4+ Good+ Right Flexion 5 Normal Abduction (C5) 5 Normal Elbow/Forearm Strength Elbow and Forearm Manual Muscle Testing Left Flexion (C6) 4+ Good+ Extension (C7) 4+ Good+ Right Flexion (C6) 5 Normal Extension (C7) 5 Normal Hip Strength Hip Manual Muscle Testing Left Flexion (L2) 5 Normal Right Flexion (L2) 5 Normal Knee Strength Knee Manual Muscle Testing Left Flexion (S2) 5 Normal Extension (L3) 5 Normal Right Flexion (S2) 5 Normal Extension (L3) 5 Normal Ankle/Foot Strength Ankle and Foot Manual Muscle Testing Left Dorsiflexion (L4) 4+ Good+ Right Dorsiflexion (L4) 4+ Good+ Toe Strength Toe Manual Muscle Testing Left Great Toe Extension 5 Normal Right Great Toe Extension 4+ Good+ PT-OP-Q Treatments Start: 11/28/24 13:39 Freq: Status: Active Protocol: Document 03/06/25 13:03 SP (Rec: 03/06/25 14:14 SP Laptop) Therapeutic Exercises Sitting Exercises Amplitude floor to ceiling Equipment Used BIG chair Reps/Minutes 10 reps Comments Arm flicks, less rushes through arm movements Amplitude Side to Side Side bilateral Equipment Used BIG chair Reps/Minutes 20 alternating Comments R>L Back leg still less movement, improved BIG arm flick calibration Amplitude STS Equipment Used BIG chair Reps/Minutes 10 Comments Tends not to reach forward Standing Exercises Amplitude side rock and reach Side bilateral Equipment Used Mirror Reps/Minutes 20 alternating reps Comments Better performance today, LOB fwd due to quick center return , self AYO Amplitude forward rock and reach Side bilateral Equipment Used Mirror Reps/Minutes 10 reps, each side Comments Cued slower eccentric R UE front to backward positioning, count louder Amplitude back step Side bilateral Equipment Used Mirror Reps/Minutes 20 reps alternating Comments Cued hand palms forward front, self corrections by rep 9 Amplitude Side to Side Step Side bilateral Equipment Used Mirror Reps/Minutes 20 reps alternating Comments Improved head turn to L range, little delay to center Amplitude Forward Step Side bilateral Equipment Used Mirror Reps/Minutes 20 reps alternate Comments Great performance today Gait Training Gait Activity Amplitude Walking Device Used 2#leg wts Comments Inside in the clinic today 95 BPM for forward and backwards walking, balance challenge stepping over hurdles (10) forwards, swoosh wide steps stepping out around cones (6), asc /desc 28 MAP bldg stairs (no leg wts) Metronome 86bpm and pt does an excellent job today. He improved waiting for NIGHT TIME BABYSITTER before he starts exercises standing and obstacle set up today. PT-OP-T Assessment and Plan Start: 11/28/24 13:39 Freq: Status: Active Protocol: Document 03/06/25 13:03 SP (Rec: 03/06/25 14:14 SP Laptop) Physical Therapy Assessment Goals 4 Impairment Evidence of imbalance Cell Liner Goal (LTG) Pt will perform WNLs on a standardized balance test to decrease fall risk. 01/10/25 Test not performed today but pt had fall earlier today when waiting for public transportation and he injured his nose and hand. 01/18/25: FGA : 20-40 % impaired 01/24/25 FGA: Not completed today 02/19/25: FGA score is 22/30, indicating increased risk for falls. LTG Duration 8 weeks progressing 01/18/25 3 Impairment Lack of amplitude and balance specific HEP Cell Liner Goal (LTG) Pt will perform progressive HEP including LSVT BIG exercises with I to improve balance and amplitude of movement. 01/10/25: Pt is perform large amplitued exercises some but not everyday. With performance in clinic, he is doing better with exercises. 01/24/25: Pt is performing LSVT BIG exercises once a day at home. 02/19/25: Pt is not consistently perform LSVT BIG exercises per prescription LTG Duration 8 weeks Assessment Summary Assessment Did not notice L UE tremor today, less oral secretions today. Pt improved stepping, balance control during cone and matthew navigation today almost continued anusha each LE. Good transition gait speed and direction changes with available gym/hallway space due to other patients. End tx discussed with patient only suggestion continue to work on is maintaining decreased stride and wider AYO during regular gait due to noted still demonstrates scissor stepping when walks back to gym at arrival, pt verbalized he notices as well and trying to make self calibration changes. He improves self arms flick improvement BIGGER calibration changes. Physical Therapy Plan Frequency and Duration Frequency of Treatment 2x-4x/wk Duration of treatment (weeks) 8 Plan of Care Start Date 01/24/25 Plan of Care End Date 03/08/25 Therapeutic Interventions Therapeutic Interventions Balance Training,Canalithic Repositioning,Coordination Training,Gait Training,Home Exercise Program,Joint Mobilizations,Manual Therapy, Neuromuscular Re-education, Patient/Caregiver Education, Self-Care/Home Management,Soft Tissue Mobilization,Taping, Therapeutic Activities, Therapeutic Exercises Modalities Cold Pack/Ice Massage,Electric Stimulation,Hot Packs, Ultrasound Next Visit Focus/Plan Next Note Type Discharge Summary Next Visit Plan Last LSVG BIG visit next tx, PT to [place]. Pt plans to attend LSVT BIG for Life [facility] Class
--- NOTE | 2025-03-07 15:30 | PT.OTN ---
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 Pt now has B UE and LE tremors and jaw tremor. Pt reports he needs a cognitive review before he gets a DBS. PMH includes congenital hearing loss, HTN, left cervical radiculopathy s/p cervical spine fusion, fall and ankle fx right summer of 2023, light-headedness, left elbow spur in cubital tunnel and pt had surgery and wears brace, [place], vision changes and glasses, obesity. Pt thinks he is here for his left elbow and PT ed pt that PT has order for PD and progress to [facility] when an opening occurs. Pt lives with his , Michelle . His most recent fall was 1.5 months ago and he hit the sink counter. Pt has a rollator and straight cane. He does like to use them. He does not arrive with ADs. Pt passed his driving test and is still driving. Pt likes to go to the pool and do the [place] land exercises twice a week and water 1-2 times a week. He likes to go to [employer] and support his [employer] shop once a week. Prior Treatments and Tests MRI brain 08/07/20: Mild white matter abnormality, likely microvascular disease Treatment Goals Patient/Caregiver Goals Pt's goal is to get where he was a year ago: walking I without AD and no falls. PT-OP-C Subjective Start: 11/28/24 13:39 Freq: Status: Active Protocol: Document 03/07/25 14:30 MB (Rec: 03/07/25 15:30 MB Desktop) OP-PT Subjective Patient Comments Patient Comments Pt took Crexont at 1110 and it is going well. He forgot his bus pass. He thinks that with the new medication, he is not getting any lows. He does feel like he is moving bigger and he is not as concerned about losing balance now. He is getting exercises done but not twice a day. PT-OP-E Functional Tests Start: 01/18/25 07:32 Freq: Status: Active Protocol: Document 01/18/25 07:33 SP (Rec: 01/18/25 08:20 SP [id number]) Functional Tests Functional Gait Assessment Score 21/30 Functional Gait Assessment Impairment 20 to <40% Impaired (Score 19- Rating 24) PT-OP-G Mobility & Gait Start: 11/28/24 13:39 Freq: Status: Active Protocol: Document 12/11/24 07:21 MB (Rec: 12/11/24 08:08 MB [id number]) OP Gait Assessment Comments Gait Comments Gait without AD: gait is unsteady and he tends to cross right leg over the left in a sweeping motion, functional leg length difference and increased Ivon angle LLE, B Trendelenburg with gait. Pt with all over vermis-type dyskinesia with movement. PT-OP-H Neuro Start: 11/28/24 13:39 Freq: Status: Active Protocol: Document 12/11/24 07:21 MB (Rec: 12/11/24 08:08 MB [id number]) Coordination Evaluation Upper Extremity Tests Left Finger to Nose Test Moderate Impairment Pronation/Supination Test Minimal Impairment Right Finger to Nose Test Minimal Impairment Pronation/Supination Test Minimal Impairment Lower Extremity Tests Left Alternate Heel to Knee; Heel to Toe Test Moderate Impairment Foot Tapping Test Minimal Impairment Right Alternate Heel to Knee; Heel to Toe Test Minimal Impairment Foot Tapping Test Minimal Impairment Vital Signs Comments Vital Signs Comments Orthostatic assessment in RUE: supine 124/74, 66; standing 116/66, 75; standing 1' 116/68 , 71. PT-OP-K Range of Motion Start: 11/28/24 13:39 Freq: Status: Active Protocol: Document 12/11/24 07:21 MB (Rec: 12/11/24 08:08 MB [id number]) Shoulder Goniometric Range of Motion Shoulder Left Shoulder ROM WFL Yes Testing Position Sitting Right Shoulder ROM WFL No Testing Position Sitting Comments Right shoulder flexion and abduction is about 15 deg less than the left, pt is right- handed. Pt states he does not feel limited in the right. Elbow/Forearm Range of Motion Elbow/Forearm Left Elbow/Forearm ROM WFL No ROM Testing Position Sitting Comments Brace donned and PT is not addressing this and so deferred formal testing Right Elbow/Forearm ROM WFL Yes ROM Testing Position Sitting Ankle and Foot Goniometric Range of Motion Ankle and Foot Left Ankle/Foot ROM WFL Yes Testing Position Sitting Right Ankle/Foot ROM WFL No Testing Position Sitting Comments Mildly reduced right ankle ROM grossly assessed today for function PT-OP-M Strength Start: 11/28/24 13:39 Freq: Status: Active Protocol: Document 12/11/24 07:21 MB (Rec: 12/11/24 08:08 MB [id number]) Shoulder Strength Shoulder Manual Muscle Testing Left Flexion 4+ Good+ Abduction (C5) 4+ Good+ Right Flexion 5 Normal Abduction (C5) 5 Normal Elbow/Forearm Strength Elbow and Forearm Manual Muscle Testing Left Flexion (C6) 4+ Good+ Extension (C7) 4+ Good+ Right Flexion (C6) 5 Normal Extension (C7) 5 Normal Hip Strength Hip Manual Muscle Testing Left Flexion (L2) 5 Normal Right Flexion (L2) 5 Normal Knee Strength Knee Manual Muscle Testing Left Flexion (S2) 5 Normal Extension (L3) 5 Normal Right Flexion (S2) 5 Normal Extension (L3) 5 Normal Ankle/Foot Strength Ankle and Foot Manual Muscle Testing Left Dorsiflexion (L4) 4+ Good+ Right Dorsiflexion (L4) 4+ Good+ Toe Strength Toe Manual Muscle Testing Left Great Toe Extension 5 Normal Right Great Toe Extension 4+ Good+ PT-OP-Q Treatments Start: 11/28/24 13:39 Freq: Status: Active Protocol: Document 03/07/25 14:30 MB (Rec: 03/07/25 15:30 MB Desktop) Therapeutic Exercises Sitting Exercises Amplitude floor to ceiling Equipment Used BIG chair Reps/Minutes 5 reps Comments Arm flicks, tends to slide through different positions rather than crisp Amplitude Side to Side Side bilateral Equipment Used BIG chair Reps/Minutes 10 alternating Comments Decreased back leg movement, arm flicks Amplitude STS Equipment Used BIG chair Reps/Minutes 5 Comments Tends not to reach forward Standing Exercises Amplitude side rock and reach Side bilateral Equipment Used Mirror Reps/Minutes 20 alternating reps Comments Better performance Amplitude forward rock and reach Side bilateral Equipment Used Mirror Reps/Minutes 10 reps, each side Comments Tends to rock 10 times first, cues to start with arms Amplitude back step Side bilateral Equipment Used Mirror Reps/Minutes 20 reps alternating Comments Cued big front toe Amplitude Side to Side Step Side bilateral Equipment Used Mirror Reps/Minutes 20 reps alternating Comments Better performance today Amplitude Forward Step Side bilateral Equipment Used Mirror Reps/Minutes 20 reps alternate Comments Better performance today Gait Training Gait Activity Amplitude Walking Comments Big walking up steps and in hallway today and pt with better arm swing. He did not use rail on ascend but did use rail with descend and he had some worrying and slower gait speed. Neuro Re-Education Treatment Balance Activities FGA Comments Score 20/30 today, indicating increased risk for falls Self-Care/Home Management Treatment Education Patient Education Home Exercise Program,Safety Other Education Ed pt to con't LSVT BIG exercises once a day going forward, what to expect from [facility], possibility of LSVT BIG refresher for 8 treatments if needed in the future. Reviewed pt's writing documents over BIG course to review improvements. Orthostatic assessment with BP and HR in LUE: supine 118/74, 70; standing 108/64, 78; standing 1' 104/64, 75; standing 2' 100/64, 74; standing 3' 112/66, 73. Extensive education on orthostatic hypotension again today. PT-OP-T Assessment and Plan Start: 11/28/24 13:39 Freq: Status: Active Protocol: Document 03/07/25 14:30 MB (Rec: 03/07/25 15:30 MB Desktop) Physical Therapy Assessment Rehab Potential Rehabilitation Potential Fair Evaluation Complexity Number of Personal Factors/Comorbidities 1-2 Number of Body Systems Impaired 3 Clinical Presentation at Evaluation Evolving Goals 4 Impairment Evidence of imbalance Residential Goal (LTG) Pt will perform WNLs on a standardized balance test to decrease fall risk. 01/10/25 Test not performed today but pt had fall earlier today when waiting for public transportation and he injured his nose and hand. 01/18/25: FGA 21: 20-40 % impaired 01/24/25 FGA: Not completed today 02/19/25: FGA score is 22/30, indicating increased risk for falls. 03/07/25: FGA score is 20/30, indicating increased risk for falls. LTG Duration Not met 3 Impairment Lack of amplitude and balance specific HEP Residential Goal (LTG) Pt will perform progressive HEP including LSVT BIG exercises with I to improve balance and amplitude of movement. 01/10/25: Pt is perform large amplitued exercises some but not everyday. With performance in clinic, he is doing better with exercises. 01/24/25: Pt is performing LSVT BIG exercises once a day at home. 02/19/25: Pt is not consistently perform LSVT BIG exercises per prescription 03/07/25: Pt is still not consistently performing BIG exercises and ed pt that he can con't exercises once a day now that he is discharging from [facility]. LTG Duration Not met Assessment Summary Assessment Discharge from [facility] today. Pt met several goals and did not quite meet HEP performance goal or balance goal. He will con't with [facility] at d/c .
== END 2025-03-09 12:38 | disposition home or self-care (01) ==
LOC: PHYS 14:30
PROVIDERS: Family Provider Physician Assistant; PCP Physician Assistant; Referring Provider Internal Medicine; Visit Provider Internal Medicine
DX: G20.A2 Parkinson's disease without dyskinesia, with fluctuations (principal)
CPT/HCPCS: 97110; 97112; 97116; 97162; 97530; 97535

== ENCOUNTER 2025-09-13 20:08 | Emergency (ER) | payer MEDICARE, SELFPAY ==
[2024-05-05 01:27] VITALS: BMI 37.0
[2025-09-13 20:19] VITALS: BP 125/66; PULSE 76; RESP 18; TEMP 36.5; O2SAT 99; BMI 34.8
--- NOTE | 2025-09-13 20:22 | DI.RAD.S_ITS ---
PROCEDURE: XR FOOT RT MIN 3V [facility] TECHNIQUE: 3 views of the foot were acquired. COMPARISON: None. FINDINGS: Transverse comminuted fracture of the 2nd metacarpal diaphysis with approximately 1 cortex with lateral displacement of the distal fragment. Possible intra- articular fracture of the tibial plafond. No dislocation. Moderate osteoarthritis. IMPRESSION: 2nd metacarpal fracture. Possible tibia fracture. Dictated by: Jhon Quiñonez M.D. on 09/13/2025 at 20:50 Approved by: Jhon Quiñonez M.D. on 09/13/2025 at 20:52
--- NOTE | 2025-09-13 21:07 | DI.RAD.S_ITS ---
PROCEDURE: XR TIBIA FUBULA RT 2V INDICATIONS: fall, pain TECHNIQUE: 2 views of the tibia and fibula were acquired. COMPARISON: Radiographs obtained earlier on the same day.. FINDINGS: Mild degenerative change of the tibiotalar joint. 2nd metatarsal fracture better seen on foot radiographs. No visible tibia fracture. No dislocation. IMPRESSION: No visible tibia fracture on the current examination. Dictated by: Jhon Quiñonez M.D. on 09/13/2025 at 21:29 Approved by: Jhno Quiñonez M.D. on 09/13/2025 at 21:30
[2025-09-14 02:00] VITALS: BP 124/65; PULSE 67; RESP 17; O2SAT 95
--- NOTE | 2025-09-14 02:09 | ED.LOWEXIN ---
HPI - Extremity Injury (Lower) General Chief Complaint: Extremity Injury, Lower Stated Complaint: fell at home Time Seen by Provider: 09/14/25 02:09 Source: patient, RN notes reviewed and old records reviewed Mode of arrival: Wheelchair Limitations: no limitations History of Present Illness HPI Narrative: 70-year-old male history of Parkinson's disease, hypertension who fell at home. Was walking down the stairs and sort of slipped his foot off the last 1 or 2 stairs sliding his foot forward and landing and backward ankle. He has pain over the foot with bruising. Pain with weight-bearing. Patient and note that he has had frequent falls related to his Parkinson's disease he has been following with physical therapy. Denies hitting his head or injury at that time. While here waiting to be evaluated did have a fall in the bathroom did hit his head. He states he hit it lately. He denies any headache no neck pain no back pain. No chest pain or shortness of breath. Does not think that he injured anything else. He is able to stand afterwards. States that he just tripped. notes that he was pushing the wheelchair he would use to the bathroom out of the bathroom rather than using it to leave the bathroom. Patient does normally use a walker at home. He had some ibuprofen at home earlier this evening which was helpful. No reported drug allergies. No anticoagulants. Related Data Home Medications ?Medication ?Instructions ?Recorded ?Confirmed atorvastatin 20 mg tablet 20 mg PO DAILY 10/14/22 01/10/25 fluticasone propionate 50 1 spray intranasal PRN PRN Allergy 05/05/24 01/10/25 mcg/actuation nasal Symptoms spray,suspension carbidopa 25 mg-levodopa 100 mg 2 tab PO TID 05/08/24 01/10/25 tablet olmesartan 20 mg tablet 20 mg PO DAILY 09/04/24 01/10/25 Allergies Allergy/AdvReac Type Severity Reaction Status Date / Time No Known Drug Allergies Allergy Verified 09/13/25 20:19 Review of Systems Review of Systems ROS Unobtainable: All systems reviewed & are unremarkable except as noted in HPI and below Patient History Medical History Parkinsons disease Hyperlipidemia Acute viral sinusitis Social History household members: spouse Smoking Status: Former smoker Smoking Status: Former smoker Exam Narrative Exam Narrative: GEN: Patient appears in mild distress. Patient has flat affect consistent with Parkinson's HEAD: No evidence of trauma, no raccoon/Red sign. NECK: Nontender, painless range of motion, trachea midline Negative Nexus criteria, no midline line tenderness, distracting injury, altered mental status, neuro deficit, recent EtOH. EYES: PERRLA, EOMI ENT: External inspection normal, trachea is midline, Nares are clear, no septal hematoma, no dental or oral injury, airway is normal and with normal occlusion, No bony tenderness RESP: Chest is nontender and has symmetric movement, no ecchymosis, breath sounds are normal no crackles, wheezes or rales CVS: Heart sounds are normal, no murmur noted, No JVD. ABG/GI: Nontender, soft, normal bowel sounds, no distention, no organomegaly, pelvic rock is negative NEURO: Oriented AOx3, neuro is grossly intact, sensation and motor is normal all 4 extremities moving, cranial nerves II through XII are intact, GCS is 15 PSYCH: Normal mood and affect SKIN: Intact, warm and dry, no crepitus and without decubitus BACK: No CVA tenderness, no vertebral tenderness, no step-off's, no crepitus EXT: Patient has ecchymosis over the dorsum of the right foot over the 2nd 3rd and 4th metatarsal region, he has some tenderness over the 2nd metatarsal, no deformity. No lacerations. No other bony tenderness of the right lower extremity. Does have positive pulses. Cap refill less than 2 seconds., hips are nontender, no pedal edema, normal color and temperature, normal range of motion of extremities with normal tendon exam, 2+ pulses in all four extremities Initial Vital Signs Initial Vital Signs: Vital Signs Temperature 97.7 F 09/13/25 20:19 Pulse Rate 76 09/13/25 20:19 Respiratory Rate 18 09/13/25 20:19 Blood Pressure 125/66 09/13/25 20:19 Pulse Oximetry 99 09/13/25 20:19 Oxygen Delivery Method Room Air 09/13/25 20:19 Course Orders Ordered: ED Orders 09/14/25 02:16 Consult to [facility] Stat Vital Signs Vital signs: Vital Signs - 8 hr 09/14/25 02:00 Pulse Rate 67 Respiratory Rate 17 Blood Pressure 124/65 Pulse Oximetry 95 Oxygen Delivery Method Room Air MDM - Extremity Injury (Lower) MDM Narrative Medical decision making narrative: Patient had an old ortho boot that was replaced here in the department. He is tolerating this well. Foot x-ray shows transverse comminuted fracture 2nd metacarpal diaphysis with a proximally 1 cortex with a lateral displacement of the distal fragment possible intra-articular fracture of the tibial plafond odd, no dislocation, moderate osteoarthrosis. Tib-fib x-ray shows no visible fracture of tibia on current examination. Patient did have a fall here in the department, discussed head CT but both patient and defer he is not anticoagulated describes the mechanism as hitting his head lightly. Did not offer CT but they both politely refused. Plan for follow up with Orthopedic surgery. Patient is to call 1st thing in the morning to set up follow up toe-touch weight-bearing patient does use a walker at baseline Discharge Plan Departure Patient Disposition: Home Clinical Impression: Closed fracture of second metatarsal bone, Fall Instructions: DI for Foot Fracture Activity Restrictions/Additional Instructions: Please follow up with Orthopedic surgery call in the morning to set up follow up. Toe-touch weight-bearing, use your walker. Continue to use the ortho boot until cleared by Orthopedic surgery. You did hit your head today, if you develop any new confusion, severe headaches, any new vision changes, vomiting or any other new neurologic changes turned to the emergency department for re-evaluation Splint Care: Keep splint clean and dry. Elevated affected body part to decrease swelling. OK to use ice pack on the affected body part. Use for 15-20 minutes each time, for 5-6x per day. If you develop worsening pain, numbness, tingling, discoloration of the affected body part, loosen the splint by loosening the ELENA wrap, and either see your doctor for an urgent re-assessment, or return to the Emergency Department. Return to the Emergency Department for any new or worsening symptoms. Prescriptions: No Action atorvastatin 20 mg tablet 20 mg PO DAILY olmesartan 20 mg tablet 20 mg PO DAILY fluticasone propionate 50 mcg/actuation [place],Suspension 1 spray INTRANASAL PRN PRN (Reason: Allergy Symptoms) carbidopa-levodopa 25-100 mg tablet 2 tab PO TID Referrals: Mason Sullivan MD [Physician, Orthopedic Surgery] Stand Alone Forms: Patient Portal/API
== END 2025-09-14 02:25 | disposition home or self-care (01) ==
PROVIDERS: Emergency Provider Emergency Medicine; Family Provider Physician Assistant
DX: S62.300A Unspecified fracture of second metacarpal bone, right hand, initial encounter for closed fracture (principal); W01.0XXA Fall on same level from slipping, tripping and stumbling without subsequent striking against object, initial encounter
CPT/HCPCS: 73590; 73630; 99282; 99283

== ENCOUNTER 2025-11-26 12:20 | Emergency (ER) | payer MEDICARE, SELFPAY ==
[2024-05-05 01:27] VITALS: BMI 37.0
--- OUTSIDE RECORDS SUMMARY | 2025-11-26 12:23 | XMS_ITS | Encounter Summary ---
Author Organization [facility] Address [address] [place] [address] Care Team Providers Care Transportation Planning Engineer Name Role Phone Yesenia Cody BELCHER Primary Care Provider [phone] Reason for Visit * Reason Comments Med Refill Encounter Details Date Type Department Care Team (Late st Contact Info) Description 03/17/2023 Refill [facility] [place] [address] [place] [phone] Cody Patterson DO [address] [place] [address] [phone] Pure hypercholesterolemia Social History Tobacco Use Types Packs/Day Years Used Date Smoking Tobacco: Never Passive Smoke Exposure: Past Smokeless Tobacco: Never Passive Exposure Comments:as a child Alcohol Use Standard Drinks/Week Comments Yes 1 (1 standard drink = 0.6 oz pur e alcohol) PHQ-2 Answer Date Recorded PHQ-2 Score 0 02/10/2022 Sex and Gender Information Value Date Recorded Sex Assigned at Not on file Legal Sex Male 8:54 AM PDT Gender Identity Not on file Sexual Orientation Not on file documented as of this encounter Miscellaneous Notes * Telephone Encounter - Sherlyn Cade - 03/17/2023 9:47 AM PDT Patient requesting refill of: Requested Prescriptions Pending Prescriptions Disp Refills ??? atorvastatin (LIPITOR) 20 mg tablet [Pharmacy Med Name: ATORVASTATIN 20 MG TABLET] 90 tablet 2 Sig: take 1 tablet by mouth daily Last Refilled: 11/27/2022 Discrepancies: None Last Office Visit With Cody Patterson DO: 11/27/2022 Future Office Visit With Provider: none Labs: Lab Results Component Value Date CREATININE 0.73 (L) 12/01/2022 K 4.4 12/01/2022 BCR 31.1 (H) 12/01/2022 AST 24 12/01/2022 ALT 9 12/01/2022 A1C 6.0 (H) 12/22/2022 HGB 15.3 05/20/2022 documented in this encounter Plan of Treatment Upcoming Encounters Date Type Department Care Team (Late st Contact Info) Description 12/21/2025 3:20 PM PST Office Visit [facility] [address] [phone] Cody Patterson DO [address] [place] [address] [phone] documented as of this encounter Visit Diagnoses Diagnosis Pure hypercholesterolemia documented in this encounter Care Teams Transportation Planning Engineer Relationship Specialty Start Date End Date Cody Patterson DO PCP - General Family Medicine 02/10/22 documented as of this encounter
[2025-11-26 12:25] VITALS: BP 126/67; PULSE 74; RESP 18; TEMP 36.6; O2SAT 98; BMI 34.8
--- NOTE | 2025-11-26 12:39 | DI.CT.S_ITS ---
PROCEDURE: CT HEAD/BRAIN WO CON INDICATIONS: falls difficulty walking TECHNIQUE: Noncontrast 4.5 mm thick angled axial sections acquired from the foramen magnum to the vertex, with coronal and sagittal reformats. For radiation dose reduction, the following was used: automated exposure control, adjustment of mA and/or kV according to patient size. COMPARISON: [facility], CT, CT HEAD/BRAIN WO CON, 05/04/2024, 22:01. FINDINGS: Image quality: Diagnostic. CSF spaces: Basal cisterns are patent. No extra-axial fluid collections. The ventricles are symmetric in size and shape. Brain: No intracranial bleeds or mass effect. There is cerebral volume loss, with resultant ventricular and sulcal prominence. There are periventricular and deep white matter chronic small vessel ischemic changes. There is intracranial internal carotid artery atherosclerosis. Skull and face: Calvarium and visualized facial bones appear intact, without suspicious lesions. Sinuses: Visualized sinuses and mastoids are clear. IMPRESSION: No acute intracranial pathology. Dictated by: Yoel Katz M.D. on 11/26/2025 at 13:01 Approved by: Yoel Katz M.D. on 11/26/2025 at 13:02
[2025-11-26 13:01] VITALS: BP 133/72; PULSE 71; O2SAT 97
[2025-11-26 13:02] LABS: Add Manual Diff / Slide Review NO; Hematocrit 40.0 % (41-53); Hemoglobin 13.4 g/dL (13.5-17.5); Lymphocytes Absolute Auto 1300 /uL (1100-4500); Mean Corpuscular HGB Conc 33.4 % (30-36); Mean Corpuscular Hemoglobin 29.9 PG (26-34); Mean Corpuscular Volume 89.5 fL (80-100); Platelet Count 184 X10^3/uL (150-400)
[2025-11-26 13:15] LABS: Alanine Aminotransferase 11 IU/L (<50); Albumin 4.4 g/dL (3.5-5.0); Albumin Globulin Ratio 1.5 (1.0-2.8); Alkaline Phosphatase 73 U/L (38-126); Blood Urea Nitrogen 27 mg/dL (9-20); Calcium 9.3 mg/dL (8.4-10.2); Carbon Dioxide 26 mmol/L (22-32); Chloride 106 mmol/L (98-107); Estimated Glomerular Filt Rate > 60 mL/min (>60); Globulin 3.0 g/dL (1.7-4.1); Glucose 109 mg/dL (70-99); HEMOLYSIS 106 (0-50); Potassium 4.7 mmol/L (3.4-5.1); Sodium 141 mmol/L (137-145); Total Protein 7.4 g/dL (6.3-8.2)
[2025-11-26 13:29] LABS: INR 1.1 (0.9-1.3); Prothrombin Time 12.6 SECONDS (9.4-12.5)
[2025-11-26 13:30] VITALS: BP 142/72; PULSE 73; O2SAT 97
--- NOTE | 2025-11-26 13:31 | ED.NEUROSD ---
HPI - Neuro Symptoms/Deficit General Chief Complaint: Neuro Symptoms/Deficit Stated Complaint: sent from doctor to check from stroke Time Seen by Provider: 11/26/25 12:33 Source: patient Mode of arrival: Ambulatory History of Present Illness HPI Narrative: Patient is a 70-year-old male with history of Parkinson's disease, hypertension presenting today request of his urologist. He has been having worsening gait over last 2 months. 2 months ago on 09/14/2025 he slipped and fell, and he hit his head, diagnosed with 2nd metatarsal fracture. says that since then he has fallen more his gait has become worse sometimes behavior and thinking processes worse as well. Today he was asked by people working at the house to move vehicle. He was able to move the vehicle from the drive way to the street without any problem. There was no crash her abnormality however was concerned because he knows he is not supposed to drive. They called Neurology and were sent to the ED for CT imaging of his brain. He denies any new symptoms no fever no chills no increasing weakness On Anticoagulants: No Related Data Home Medications ?Medication ?Instructions ?Recorded ?Confirmed atorvastatin 20 mg tablet 20 mg PO DAILY 10/14/22 10/31/25 fluticasone propionate 50 1 spray intranasal PRN PRN Allergy 05/05/24 10/31/25 mcg/actuation nasal Symptoms spray,suspension carbidopa 25 mg-levodopa 100 mg 2 tab PO TID 05/08/24 10/31/25 tablet olmesartan 20 mg tablet 20 mg PO DAILY 09/04/24 10/31/25 Allergies Allergy/AdvReac Type Severity Reaction Status Date / Time No Known Drug Allergies Allergy Verified 11/26/25 12:25 Review of Systems Hematologic/Lymphatic On Anticoagulants: No Patient History Medical History Parkinsons disease Hyperlipidemia Acute viral sinusitis Social History household members: spouse Smoking Status: Never smoker Smoking Status: Never smoker Exam Initial Vital Signs Initial Vital Signs: Vital Signs Temperature 97.8 F 11/26/25 12:25 Pulse Rate 74 11/26/25 12:25 Respiratory Rate 18 11/26/25 12:25 Blood Pressure 126/67 11/26/25 12:25 Pulse Oximetry 98 11/26/25 12:25 Oxygen Delivery Method Room Air 11/26/25 12:25 GENERAL: Alert pleasant 62-year-old male parkinsonian like features and in no acute distress. HEENT: Head atraumatic,EOMI, pupils reactive, face symmetric, moist mucous membranes CARDIOVASCULAR: Regular rate and rhythm without murmurs, rubs or gallops. RESPIRATORY: Breath sounds equal bilaterally, no wheezes rales or rhonchi. ABDOMEN: Soft, nontender. Normoactive bowel sounds all 4 quadrants. No guarding or rebound. EXTREMITIES: Normal range of motion, no clubbing or edema. Neurovascularly intact NEUROLOGICAL: Alert and oriented x4. 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 Course Orders Ordered: ED Orders 11/26/25 12:39 CT head/brain wo con Stat 11/26/25 12:45 CBC Auto Diff [Complete Blood Count AUTO DIFF] Stat CMP [Comprehensive Metabolic Panel] Stat PT [Prothrombin Time INR] Stat PTT Partial Thromboplastin Festus Stat Vital Signs Vital signs: Vital Signs - 8 hr 11/26/25 12:25 11/26/25 13:01 11/26/25 13:01 Temperature 97.8 F Pulse Rate 74 71 Respiratory Rate 18 Blood Pressure 126/67 133/72 Pulse Oximetry 98 97 Oxygen Delivery Method Room Air 11/26/25 13:30 11/26/25 13:30 11/26/25 14:00 Temperature Pulse Rate 73 Respiratory Rate Blood Pressure 142/72 H 144/75 H Pulse Oximetry 97 Oxygen Delivery Method 11/26/25 14:00 Temperature Pulse Rate 66 Respiratory Rate Blood Pressure Pulse Oximetry 96 Oxygen Delivery Method MDM - Neuro Symptoms/Deficit Lab Data 11/26/25 12:45 11/26/25 12:45 Labs: Lab Results 11/26/25 Range/Units 12:45 WBC 6.1 (4.5-11.0) X10^3/uL RBC 4.47 L (4.5-5.9) X10^6/uL Hgb 13.4 L (13.5-17.5) g/dL Hct 40.0 L (41-53) % MCV 89.5 (80-100) fL MCH 29.9 (26-34) PG MCHC 33.4 (30-36) % RDW 13.3 (11.6-14.8) % Plt Count 184 (150-400) X10^3/uL Neut % (Auto) 67.8 (50-75) % Lymph % (Auto) 21.9 L (25-40) % [place] % (Auto) 8.1 (3-14) % Eos % (Auto) 1.6 L (2-4) % Baso % (Auto) 0.6 (0-2) % Neut # (Auto) 4100 (6584-6842) /uL Lymph # (Auto) 1300 (1597-5457) /uL [place] # (Auto) 500 (0-900) /uL Eos # (Auto) 100 (0-450) /uL Baso # (Auto) 0 (0-100) /uL PT 12.6 H (9.4-12.5) SECONDS INR 1.1 (0.9-1.3) APTT 31 (25.1-36.5) SECONDS Sodium 141 (137-145) mmol/L Potassium 4.7 (3.4-5.1) mmol/L Chloride 106 (98-107) mmol/L Carbon Dioxide 26 (22-32) mmol/L BUN 27 H (9-20) mg/dL Creatinine 0.60 L (0.66-1.25) mg/dL Estimated GFR > 60 (>60) mL/min BUN/Creatinine Ratio 45.0 H (6-22) Glucose 109 H (70-99) mg/dL Calcium 9.3 (8.4-10.2) mg/dL Total Bilirubin 0.7 (0.2-1.3) mg/dL AST 24 (17-59) IU/L ALT 11 (<50) IU/L Alkaline Phosphatase 73 (38-126) U/L Total Protein 7.4 (6.3-8.2) g/dL Albumin 4.4 (3.5-5.0) g/dL Globulin 3.0 (1.7-4.1) g/dL Albumin/Globulin Ratio 1.5 (1.0-2.8) Imaging Data CT scan - head: Radiologist's Impression: PROCEDURE: CT HEAD/BRAIN WO CON INDICATIONS: falls difficulty walking TECHNIQUE: Noncontrast 4.5 mm thick angled axial sections acquired from the foramen magnum to the vertex, with coronal and sagittal reformats. For radiation dose reduction, the following was used: automated exposure control, adjustment of mA and/or kV according to patient size. COMPARISON: [facility], CT, CT HEAD/BRAIN WO CON, 05/04/2024, 22:01. FINDINGS: Image quality: Diagnostic. CSF spaces: Basal cisterns are patent. No extra-axial fluid collections. The ventricles are symmetric in size and shape. Brain: No intracranial bleeds or mass effect. There is cerebral volume loss, with resultant ventricular and sulcal prominence. There are periventricular and deep white matter chronic small vessel ischemic changes. There is intracranial internal carotid artery atherosclerosis. Skull and face: Calvarium and visualized facial bones appear intact, without suspicious lesions. Sinuses: Visualized sinuses and mastoids are clear. IMPRESSION: No acute intracranial pathology. Dictated by: Yoel Katz M.D. on 11/26/2025 at 13:01 MDM Narrative Medical decision making narrative: Patient is a 70-year-old male history of Parkinson's presenting today with worsening gait and frequent falls. Head CT does not show any evidence of intracranial hemorrhage or subdural hemorrhage blood work has been reviewed and is overall reassuring without abnormalities. No evidence of infection. At this time you symptoms have been ongoing for a number of months no acute changes. Recommend outpatient follow-up with Neurology Discharge Plan Departure Patient Disposition: Home Clinical Impression: Parkinsons Instructions: Parkinson Disease Activity Restrictions/Additional Instructions: *You have been diagnosed with Parkinson's *What to do: At this time head CT and blood work overall reassuring. Please follow-up with your neurology *Continue to take medications as directed *Follow up with your primary care provider in 2-3 days or call [phone] *Return to ER if you should have increasing falls weakness confusion or any new, worsening or concerning symptoms Prescriptions: No Action atorvastatin 20 mg tablet 20 mg PO DAILY olmesartan 20 mg tablet 20 mg PO DAILY fluticasone propionate 50 mcg/actuation [place],Suspension 1 spray INTRANASAL PRN PRN (Reason: Allergy Symptoms) carbidopa-levodopa 25-100 mg tablet 2 tab PO TID Referrals: Cyndy Patterson DO [Primary Care Provider, Family Practice] Stand Alone Forms: Patient Portal/API
[2025-11-26 13:32] LABS: PTT Partial Thromboplastin Tim 31 SECONDS (25.1-36.5)
[2025-11-26 14:00] VITALS: BP 144/75; PULSE 66; O2SAT 96
== END 2025-11-26 14:10 | disposition home or self-care (01) ==
PROVIDERS: Emergency Provider Emergency Medicine; Family Provider Physician Assistant; PCP Family Medicine
DX: G20.A1 Parkinson's disease without dyskinesia, without mention of fluctuations (principal); R26.89 Other abnormalities of gait and mobility; I10 Essential (primary) hypertension
CPT/HCPCS: 36415; 70450; 80053; 85025; 85610; 85730; 99283; 99284